=== PATIENT | male | born 1950 | race Asian ===

== ENCOUNTER 2016-10-22 21:20 | Emergency (ER) | payer OTHER ==
[2016-10-22 21:27] VITALS: TEMP 98.1; BMI 22.3
--- NOTE | 2016-10-22 22:25 | PDOC ---
History of Present Illness - General History Source: Patient Exam Limitations: No Limitations - History of Present Illness Initial Comments: 10/22/16 23:52 The patient is a 65 year old male with significant past medical history of hypothyroidism, hyperlipidemia, hypertension, ayp-xcwiwwq-uayvtbzhn diabetes, seizures, and chronic lower back pain who presents to the ED for 1 week of intermittent diffuse headache. Patient denies dizziness or changes in vision. He reports 1 episode of vomiting on the first day he developed his headache and as well as nausea and tactile fever that has been intermittent throughout the week. He was seen by Dr. John Sommer yesterday, who gave him a dose of azithromycin for his URI symptoms. However, he continued to have intermittent headache and decided to come in for evaluation. Patient also reports noting his blood sugar has been more elevated than usual. States his blood sugar levels are normally in the 200s, but has been in the 300s. The patient denies chills, diaphoresis, cough, SOB, chest pain, palpitations, abdominal pain, and diarrhea. Allergies: lacosamide Social History: No alcohol, tobacco, or drug use reported. Past Surgical History: s/p pacemaker PCP: Dr. 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.) - Immunization History Immunization Up to Date: Yes - Psycho/Social/Smoking Cessation Hx Anxiety: No Suicidal Ideation: No Smoking Status: No Smoking History: Never smoked Have you smoked in the past 12 months: No Number of Cigarettes Smoked Daily: 0 Hx Alcohol Use: No Drug/Substance Use Hx: No Substance Use Type: None Hx Substance Use Treatment: No <Casandra Martinez - Last Filed: 10/23/16 02:00> - Past Medical History Allergies/Adverse Reactions: Allergies Allergy/AdvReac Type Severity Reaction Status Date / Time lacosamide [From Vimpat] Allergy Rash Verified 10/22/16 21:22 Home Medications: Ambulatory Orders Amlodipine Besylate [Norvasc -] 5 mg PO DAILY 04/02/12 Gabapentin 100 mg PO BID 04/02/12 Levetiracetam [Keppra Oral Solution -] 750 mg PO BID 04/02/12 Levothyroxine [Synthroid -] 125 mcg PO DAILY 04/02/12 Metformin HCl [Glucophage -] 1,000 mg PO DAILY 04/02/12 Multivitamin [Multivitamins] 1 each PO DAILY 04/02/12 Omeprazole [Prilosec (RX)] 20 mg PO DAILY 04/02/12 Carbamazepine [Tegretol -] 200 mg PO TID 06/03/13 Oxycodone HCl [Roxicodone] 7.5 mg PO PRN 05/30/14 Lidocaine 5% Patch [Lidoderm Patch -] 2 patch TP DAILY 10/22/16 Simvastatin 40 mg PO HS 10/22/16 Tamsulosin HCl 0.4 mg PO DAILY 10/22/16 Review of Systems - Review of Systems Able to Perform ROS?: Yes Comments:: 10/22/16 23:52 CONSTITUTIONAL: +tactile fever Absent: chills, diaphoresis, generalized weakness, malaise, loss of appetite HEENT: Absent: rhinorrhea, nasal congestion, throat pain, throat swelling, difficulty swallowing, mouth swelling, ear pain, eye pain, visual Changes CARDIOVASCULAR: Absent: chest pain, syncope, palpitations, irregular heart rate, lightheadedness , peripheral edema RESPIRATORY: Absent: cough, shortness of breath, dyspnea with exertion, orthopnea, wheezing, stridor, hemoptysis GASTROINTESTINAL: +nausea, vomiting Absent: abdominal pain, abdominal distension, diarrhea, constipation, melena, hematochezia GENITOURINARY: Absent: dysuria, frequency, urgency, hesitancy, hematuria, flank pain, genital pain MUSCULOSKELETAL: Absent: myalgia, arthralgia, joint swelling SKIN: Absent: rash, itching, pallor ENDOCRINE: +elevated blood sugar levels Absent: unexplained weight gain, unexplained weight loss, heat intolerance, cold intolerance NEUROLOGIC: +headache Absent: focal weakness or paresthesias, dizziness, unsteady gait, seizure, mental status changes, bladder or bowel incontinence <Christiana Leggett - Last Filed: 10/22/16 23:54> *Physical Exam - Vital Signs Last Vital Signs Temp Pulse Resp BP Pulse Ox 98.1 F 69 18 189/95 98 10/22/16 21:23 10/22/16 21:23 10/22/16 21:23 10/22/16 21:23 10/22/16 22:00 - Physical Exam Comments: 10/22/16 23:52 GENERAL: Well developed, well nourished. Awake and alert. No acute distress. HEENT: Normocephalic, atraumatic. PERRLA, EOMI. No conjunctival pallor. Sclera are non- icteric. Moist mucous membranes. Oropharynx is clear. NECK: Supple. Full ROM. No JVD. Carotid pulses 2+ and symmetric, without bruits. No thyromegaly. No lymphadenopathy. CARDIOVASCULAR: Regular rate and rhythm. No murmurs, rubs, or gallops. Distal pulses are 2+ and symmetric. PULMONARY: No evidence of respiratory distress. Lungs clear to auscultation bilaterally. No wheezing, rales or rhonchi. ABDOMINAL: Soft. Non-tender. Non-distended. No rebound or guarding. No organomegaly. Normoactive bowel sounds. MUSCULOSKELETAL Normal range of motion at all joints. No bony deformities or tenderness. No CVA tenderness. EXTREMITIES: No cyanosis. No clubbing. No edema. No calf tenderness. SKIN: Warm and dry. Normal capillary refill. No rashes. No jaundice. NEUROLOGICAL: Alert, awake, appropriate. Cranial nerves 2-12 intact. No deficits to light touch and temperature in face, upper extremities and lower extremities. No motor deficits in the in face, upper extremities and lower extremities. Normoreflexic in the upper and lower extremities. Normal speech. <Christiana Leggett - Last Filed: 10/22/16 23:54> - Vital Signs Last Vital Signs Temp Pulse Resp BP Pulse Ox 98.1 F 69 18 189/95 99 10/22/16 21:23 10/22/16 21:23 10/22/16 21:23 10/22/16 21:23 10/22/16 21:23 <Casandra Martinez - Last Filed: 10/23/16 02:00> ED Treatment Course - LABORATORY CBC & Chemistry Diagram: 10/22/16 22:40 10/22/16 22:40 - ADDITIONAL ORDERS Additional order review: Laboratory Results 10/22/16 10/22/16 10/22/16 22:40 22:40 22:40 INR Sodium 134 L Potassium 5.2 H D Chloride 94 L Carbon Dioxide 24 Anion Gap 16 BUN 17 D Creatinine 1.0 D Creat Clearance w eGFR > 60 Random Glucose 269 H D Calcium 8.3 L Total Bilirubin 0.2 AST 13 L D ALT 29 D Alkaline Phosphatase 137 H D Creatine Kinase 151 Creatine Kinase Index 1.5 CK-MB (CK-2) 2.330 CK-MB (CK-2) Rel Index Cancelled Troponin I < 0.02 Total Protein 7.1 Albumin 4.0 Urine Color Urine Appearance Urine pH Urine Protein Urine Glucose (UA) Urine Ketones Urine Blood Urine Nitrite Urine Bilirubin Urine Urobilinogen Ur Leukocyte Esterase Urine RBC Urine WBC Blood Type O POSITIVE Antibody Screen Negative 10/22/16 10/22/16 22:40 22:40 INR 0.90 Sodium Potassium Chloride Carbon Dioxide Anion Gap BUN Creatinine Creat Clearance w eGFR Random Glucose Calcium Total Bilirubin AST ALT Alkaline Phosphatase Creatine Kinase Creatine Kinase Index CK-MB (CK-2) CK-MB (CK-2) Rel Index Troponin I Total Protein Albumin Urine Color Straw Urine Appearance Clear Urine pH 6.0 Urine Protein 2+ H Urine Glucose (UA) 3+ H Urine Ketones Negative Urine Blood Negative Urine Nitrite Negative Urine Bilirubin Negative Urine Urobilinogen Negative Ur Leukocyte Esterase Negative Urine RBC 1 Urine WBC None Blood Type Antibody Screen 10/22/16 22:40 RBC 3.51 L MCV 93.7 MCHC 33.8 RDW 12.1 MPV 5.9 L Neutrophils % 63.1 Lymphocytes % 24.0 Monocytes % 9.0 Eosinophils % 3.3 Basophils % 0.6 <Christiana Leggett - Last Filed: 10/22/16 23:54> - LABORATORY CBC & Chemistry Diagram: 10/22/16 22:40 10/22/16 22:40 <Casandra Martinez - Last Filed: 10/23/16 02:00> *DC/Admit/Observation/Transfer - Attestations Scribe Attestion: 10/22/16 23:53 Documentation prepared by Christiana Leggett, acting as biomedical equipment specialist for Jw Espinal MD/DO. <Christiana Leggett - Last Filed: 10/22/16 23:54> <Casandra Martinez - Last Filed: 10/23/16 02:00> Diagnosis at time of Disposition: Headache Qualifiers: Headache type: tension-type Headache chronicity pattern: unspecified pattern Intractability: not intractable Qualified Code(s): G44.209 - Tension-type headache, unspecified, not intractable - Discharge Dispostion Disposition: HOME - Referrals Referrals: John Sommer MD [Primary Care Provider] - - Patient Instructions Printed Discharge Instructions: Tension Headache Additional Instructions: take ibuprofen every 6 hours as needed for headache drink plenty of fluids. follow up with your doctor as soon as possible.
[2016-10-22 22:45] LABS: BASOPHIL 0.6 % (0-2.0); EOSINOPHIL 3.3 % (0-4.5); MCH 31.7 pg (25.7-33.7); MCHC 33.8 g/dl (32.0-35.9); MEAN CELL VOLUME 93.7 fl (80-96); MEAN PLT VOLUME 5.9 fl (7.5-11.1); NEUTROPHILS 63.1 % (42.8-82.8); PLATELET COUNT 370 K/MM3 (134-434); RDW 12.1 % (11.9-15.9); WHITE BLOOD COUNT 7.5 K/mm3 (4.0-10.0)
[2016-10-22 22:59] LABS: INR 0.9 (0.82-1.09); PROTHROMBIN TIME (PATIENT) 9.9 SEC (9.98-11.88)
--- NOTE | 2016-10-22 23:07 | PDOC ---
[id number] 98 10/22/16 21:23 10/22/16 21:23 10/22/16 21:23 10/22/16 21:23 10/22/16 22:00 ED Treatment Course - LABORATORY CBC & Chemistry Diagram: 10/22/16 22:40 10/22/16 22:40 - ADDITIONAL ORDERS Additional order review: 10/22/16 22:40 RBC 3.51 L MCV 93.7 MCHC 33.8 RDW 12.1 MPV 5.9 L Neutrophils % 63.1 Lymphocytes % 24.0 Monocytes % 9.0 Eosinophils % 3.3 Basophils % 0.6 Medical Decision Making - Medical Decision Making 10/22/16 23:07 agree with care from LEYLA Martinez *DC/Admit/Observation/Transfer Diagnosis at time of Disposition: Headache - Discharge Dispostion Disposition: HOME - Referrals Referrals: John Sommer MD [Primary Care Provider] - - Patient Instructions Printed Discharge Instructions: Tension Headache Additional Instructions: take ibuprofen every 6 hours as needed for headache drink plenty of fluids. follow up with your doctor as soon as possible.
[2016-10-22 23:10] LABS: ANION GAP 16 (8-16); BILIRUBIN,TOTAL 0.2 mg/dL (0.2-1.0); CALCIUM 8.3 mg/dL (8.5-10.1); CO2 24 mmol/L (21-32); COCKROFT - GAULT 61.62; GLUCOSE,RANDOM 269 mg/dL (74-106); SGOT/AST 13 U/L (15-37); SGPT/ALT 29 U/L (12-78); TOT PROT 7.1 g/dl (6.4-8.2)
[2016-10-22 23:12] LABS: ALK PHOS 137 U/L (45-117); TROPONIN I < 0.02 ng/ml (0.00-0.05)
[2016-10-22 23:14] LABS: URINE APPEARANCE CLEAR; URINE BILIRUBIN NEGATIVE (NEGATIVE); URINE BLOOD NEGATIVE (NEGATIVE); URINE COLOR STRAW; URINE GLUCOSE (UA) 3+ (NEGATIVE); URINE KETONE NEGATIVE (NEGATIVE); URINE LEUK ESTERASE NEGATIVE (NEGATIVE); URINE NITRITE NEGATIVE (NEGATIVE); URINE UROBILINOGEN NEGATIVE E.U./dl (0.2-1.0)
[2016-10-22 23:25] LABS: URINE PROTEIN 2+ (NEGATIVE)
[2016-10-22 23:27] LABS: URINE RBC 1 /hpf (0-3)
[2016-10-23] MEDS ORDERED: IBUPROFEN 600 MG TABLET (FP) PO ONE ×2 (01:05→01:33)
[2016-10-23] MEDS ORDERED: METOCLOPRAMIDE HCL INJECTION 10 MG/2 ML VIAL IVPB ONE (01:13)
[2016-10-23 02:35] VITALS: BP 143/69; PULSE 60
--- NOTE | 2016-10-23 13:23 | EKG ---
Test Reason : Blood Pressure : / mmHG Vent. Rate : 063 BPM Atrial Rate : 063 BPM P-R Int : 254 ms QRS Dur : 108 ms QT Int : 398 ms P-R-T Axes : 028 -34 026 degrees QTc Int : 407 ms Atrial-paced rhythm with prolonged AV conduction LEFT AXIS DEVIATION ABNORMAL ECG WHEN COMPARED WITH ECG OF 27-MAY-2014 21:40, T WAVE AMPLITUDE HAS INCREASED IN ANTERIOR LEADS Confirmed by KENJI BELTRAN, NIEVES ([id number]) on 10/23/2016 1:23:12 PM Referred By: Confirmed By:NIEVES PHILLIP MD
== END 2016-10-23 02:18 | disposition home or self-care (01) ==
LOC: JER 21:20
DX: G44.209 Tension-type headache, unspecified, not intractable (principal); I10 Essential (primary) hypertension; E03.9 Hypothyroidism, unspecified; G40.909 Epilepsy, unspecified, not intractable, without status epilepticus; M54.5 Low back pain; G89.29 Other chronic pain; Z95.0 Presence of cardiac pacemaker
CPT/HCPCS: 36415; 70450-TC; 71020-TC; 80053; 81003; 81015; 82550; 82553; 84484; 85025; 85610; 86850; 86900; 86901; 93005; 93010; 99285-25

== ENCOUNTER 2018-01-25 06:20 | Emergency (ER) | payer OTHER ==
--- NOTE | 2018-01-25 06:24 | PDOC ---
History of Present Illness - General Chief Complaint: Nausea/Vomiting Stated Complaint: VOMITING Time Seen by Provider: 01/25/18 06:23 - History of Present Illness Initial Comments: The patient is a 67M with a history of CAD s/p pacemaker, DM, and hypothyroidism who presents with three days of NBNB emesis. The patient reports that he has had intermittent hiccups for approximately 1 week. When he has episodes of hiccups they will induce emesis. He endorses 3-10 episodes of emesis /day. He also reports 2 days of non-bloody diarrhea. He denies fevers/chills, [place], chest pain, SOB, sick contacts, or new foods. His PCP is, Dr. Sommer 01/25/18 06:49 Past History - Past Medical History Allergies/Adverse Reactions: Allergies Allergy/AdvReac Type Severity Reaction Status Date / Time lacosamide [From Vimpat] Allergy Rash Verified 01/25/18 06:30 Home Medications: Ambulatory Orders Amlodipine Besylate [Norvasc -] 5 mg PO DAILY 04/02/12 Gabapentin 100 mg PO BID 04/02/12 Levothyroxine [Synthroid -] 125 mcg PO DAILY 04/02/12 Multivitamin [Multivitamins] 1 each PO DAILY 04/02/12 levETIRAcetam [Keppra Oral Solution -] 750 mg PO BID 04/02/12 metFORMIN HCL [Glucophage -] 1,000 mg PO DAILY 04/02/12 Carbamazepine [Tegretol -] 200 mg PO TID 06/03/13 Oxycodone HCl [Roxicodone] 7.5 mg PO PRN 05/30/14 Lidocaine 5% Patch [Lidoderm Patch -] 2 patch TP DAILY 10/22/16 Simvastatin 40 mg PO HS 10/22/16 Tamsulosin HCl 0.4 mg PO DAILY 10/22/16 Famotidine 20 mg PO BID #28 tablet 01/25/18 Ondansetron [Zofran Odt -] 4 mg GT QID PRN #20 tab.rapdis 01/25/18 Cardiac Disorders: Yes Diabetes: Yes HTN: Yes Hypercholesterolemia: Yes Seizures: Yes Thyroid Disease: Yes (HYPO) - Surgical History Abdominal Surgery: Yes Cardiac Surgery: Yes (PACEMAKER) 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 No weakness HEAD, EYES, EARS, NOSE AND THROAT: No change in vision. No ear pain or discharge. No sore throat CARDIOVASCULAR: No chest pain or shortness of breath RESPIRATORY: No cough, wheezing, or hemoptysis GASTROINTESTINAL: per HPI GENITOURINARY: No dysuria, frequency, or change in urination MUSCULOSKELETAL: No joint or muscle swelling or pain. No neck or back pain SKIN: No rash NEUROLOGIC: No headache, vertigo, loss of consciousness, or change in strength/ sensation ENDOCRINE: No increased thirst. No abnormal weight change HEMATOLOGIC/LYMPHATIC: No anemia, easy bleeding, or history of blood clots ALLERGIC/IMMUNOLOGIC: No hives or skin allergy 01/25/18 06:56 *Physical Exam - Physical Exam Comments: GENERAL: Awake, alert, tangential conversation, in no acute distress HEAD: No signs of trauma, normocephalic, atraumatic EYES: PERRL, EOMI, sclera anicteric, conjunctiva clear ENT: Hearing grossly normal, nares patent, oropharynx clear without exudates. Moist mucosa NECK: Normal ROM, supple LUNGS: No distress, speaks full sentences, clear to auscultation bilaterally HEART: Regular rate and rhythm, normal S1 and S2, no murmurs, peripheral pulses normal and equal bilaterally ABDOMEN: Soft, non-distended, moderate epigastric TTP; normoactive bowel sounds. No guarding, no rebound EXTREMITIES : Normal inspection, Normal range of motion, no edema. No clubbing or cyanosis NEUROLOGICAL: Cranial nerves II through XII grossly intact. Normal speech, no focal sensorimotor deficits SKIN: Warm, Dry 01/25/18 06:57 ED Treatment Course - LABORATORY CBC & Chemistry Diagram: 01/25/18 07:18 01/25/18 07:18 Medical Decision Making - Medical Decision Making The patient is a 67M with a history of CAD s/p pacemaker, hypothyroidism, and DM who presents with 3 day of N/V ED Course CMP, CBC, Trop I, Lipase ECG, CXR, CT A&P w/ contrast Ofirmev 1g IV once Zofran 4mg IV once NS 2L I have transferred care of the patient to Dr. Ashraf and discussed the clinical presentation, work-up and ED course thus far. Admission pending labs and imaging. If labs and imaging without abnormality, will plan for D/C with PCP f/u. 01/25/18 06:59 *DC/Admit/Observation/Transfer Diagnosis at time of Disposition: Nausea & vomiting Qualifiers: Vomiting type: unspecified Vomiting Intractability: unspecified Qualified Code( s): R11.2 - Nausea with vomiting, unspecified Gastritis Qualifiers: Gastritis type: unspecified gastritis Chronicity: acute Gastritis bleeding: without bleeding Qualified Code(s): K29.00 - Acute gastritis without bleeding - Discharge Dispostion Disposition: HOME Condition at time of disposition: Fair - Prescriptions Prescriptions: Famotidine 20 mg PO BID #28 tablet Ondansetron [Zofran Odt -] 4 mg GT QID PRN #20 tab.rapdis PRN Reason: Nausea And/Or Vomiting - Referrals Referrals: John Sommer MD [Primary Care Provider] - Khadijah Simpson MD [Staff Physician] - - Patient Instructions Printed Discharge Instructions: [place] Diet, DI for Gastritis Additional Instructions: Discharge Instructions: - You were seen in the ED for nausea and vomiting as well as upper abdominal pain - Your symtpoms were most likely caused by gastritis, or irritation and inflammation of the stomach. This could be seen on the CT scan that was completed when you were in the ED - Your symptoms should improve within a day or two - Medications: - Take famotidine (Pepcid) twice per day for the next week or until your symptoms completely resolve. Then take this medication once every day - You were also prescribed ondansetron (zofran) to take every 6 hours if you need to for nausea/vomiting - If you have pain, recommend acetaminophen (Tylenol) for pain control. Avoid ibuprofen or aspirin as these can upset your stomach - Follow up with your regular doctor within the next 1-2 weeks - You will need to make an appointment to follow up with gastroenterology for additional evaluation of your stomach. Although it is most likely that your symptoms are caused by a virus or temporary irritation, you will likely need other tests to make sure that you symptoms are not caused by anything more serious. You have been referred to Dr Simpson. - Post Discharge Activity
[2018-01-25] MEDS ORDERED: ONDANSETRON 4 MG/2 ML VIAL IVPUSH ONE (06:26)
[2018-01-25] MEDS ORDERED: FAMOTIDINE 20 MG/50 ML IVPB 20 MG/50 ML MG IVPB ONE (06:26)
[2018-01-25] MEDS ORDERED: SODIUM CHLORIDE 1,000 ML IV STA (06:26)
--- NOTE | 2018-01-25 06:28 | PDOC ---
Attending Attestation - Resident Resident Name: AureliaLucian farrell - ED Attending Attestation I have performed the following: I have examined & evaluated the patient, The case was reviewed & discussed with the resident, I agree w/resident's findings & plan - HPI HPI: 01/25/18 06:48 Rachell 67 year old male with significant past medical history of hypothyroidism, hyperlipidemia, hypertension, jbo-ngazbyk-zuaittjiz diabetes, seizures, and chronic lower back pain presenting with initially with epigastric abdominal pain n/v x 3 days, inability to geetha PO . +hiccups intermittently x 1 week. No changes with BM 01/25/18 06:49 - Physicial Exam PE: 01/25/18 06:49 NAD, thin and frail appearing, dry membranes, nl conjunctiva; neck supple. lungs clear, RRR, abdomen soft nondistended +epigastric TTP, MIN x4, no focal neuro deficits. No peripheral edema. no calf tenderness. normal color for ethnicity, WWP. - Medical Decision Making 01/25/18 06:48 Rachell 67 year old male with significant past medical history of hypothyroidism, hyperlipidemia, hypertension, kfd-bemvbct-cukljvhib diabetes, seizures, and chronic lower back pain presenting with orthostatic hypotension en route, initially with epigastric abdominal pain n/v x 3 days, inability to geetha PO . +hiccups intermittently x 1 week. No changes with BM VS wnl, mildly hypertensive, no low BP. no distress or respiratory sx. DDx abdominal pain: GERD, PUD, esophageal spasm, pancreatitis, hepatitis, constipation, colitis, gastroenteritis, cholecystitis, UTI, pyelonephritis, ileus, SBO, medication side effect, hernia, appendicitis, diverticulitis, mesenteric ischemia; lung mass, diaphragmatic irritation, dehydration plan for basic labs CBC, CMP, EKG, trop, lipase/LFTs., CT a/p w/o oral contrast to eval for intra abdominal pathology. will give fluids, hydrate, pain control, antiemetics, IV pepcid. CXR to eval for pulm pathology s/o day team pending reeval, CT a/p and ultimate dispo 01/25/18 06:50 01/25/18 06:52
[2018-01-25 06:29] VITALS: BMI 18.6
[2018-01-25] MEDS ORDERED: SODIUM CHLORIDE 0.9% 500 ML INFUS.BAG IV ONE (06:48)
[2018-01-25] MEDS ORDERED: ACETAMINOPHEN 1000 MG/100 ML VIAL (NON FORMULARY) IVPB ONE (06:51)
[2018-01-25] MEDS ORDERED: ONDANSETRON 4 MG/2 ML VIAL ONE (06:52)
[2018-01-25] MEDS ORDERED: ACETAMINOPHEN INJECTION 100 ML IVPB ONE (07:05)
--- NOTE | 2018-01-25 07:19 | PDOC ---
*Physical Exam - Vital Signs Last Vital Signs Temp Pulse Resp BP Pulse Ox 96.8 F L 88 22 174/81 97 01/25/18 06:22 01/25/18 06:22 01/25/18 06:22 01/25/18 06:22 01/25/18 06:22 - Physical Exam Comments: General: Comfortable, no acute distress HEENT: PERRL, EOMI, MMM, voice normal, normal neck ROM, no LAD Cards: RRR, no murmur appreciated Pulm: Comfortable on room air, clear to auscultation bilaterally Abd: Soft, moderate epigastric palpation, non-distended, no guarding, no rebound. : No CVA tenderness Rectal: Normal tone, no blood noted, no perianal lesions Ext: Atraumatic. No LE edema. ROM intact. Strength 5/5 and equal bilaterally Vasc: Extremities WWP. Palpable radial and pedal pulses bilaterally Neuro: A&Ox3, CN grossly intact, normal speech, motor/sensory grossly intact and symmetric Psych: Mood appropriate to situation ED Treatment Course - LABORATORY CBC & Chemistry Diagram: 01/25/18 07:18 01/25/18 07:18 - Medications Given in the ED: ED Medications Discontinued Medications Generic Name Dose Route Start Last Admin Trade Name Freq PRN Reason Stop Dose Admin Acetaminophen 1,000 mg 01/25/18 06:51 01/25/18 07:00 Ofirmev Injection - IVPB 01/25/18 06:52 1,000 mg ONCE ONE Administration Famotidine/Sodium Chloride 20 mg in 50 mls @ 100 mls/hr 01/25/18 06:26 07:00 Pepcid 20 Mg Premixed Ivpb - IVPB 01/25/18 06:55 100 mls/hr ONCE ONE Administration Ondansetron HCl 4 mg 01/25/18 06:26 01/25/18 06:45 Zofran Injection IVPUSH 01/25/18 06:27 4 mg ONCE ONE Administration Sodium Chloride 1,000 ml 01/25/18 06:48 01/25/18 07:00 Normal Saline - IV 01/25/18 06:49 1,000 ml ONCE ONE Administration Medical Decision Making - Medical Decision Making 01/25/18 07:14 German Lovett is a 67yo man with a PMH of CAD s/p pacemaker, DM, hypothyroidism who presented to the ED overnight with hiccups for 1 week and multiple episodes of non-bilious emesis for 3 days, emesis preceeded by hiccuping, and diarrhea for 2 days. He denies any hematemasis, melena, or hematochezia. He denies any fever, chills, chest pain, SOB, change in diet, sick contacts. Workup has included CMP, CBC, trop, lipase, EKG, CXR, and contrast CT abd/pelvis. There are no results back yet. Mr Lovett received ofirmev and zofran, 2L NS bolus for hydration. 01/25/18 09:55 - Labs notable for leukocytosis to 14 - CXR unremarkable - CT abd/pelvis indicating marked thickening of stomach wall, suggestive of gastritis. No other acute abnormalities of note Presentation, imaging, and history consistent with gastritis, but will need evaluation for gastric cancer. Will PO challenge. If able to eat and pain, nausea/vomiting are controlled, will discharge home. If intractable pain or cannot tolerate PO, will admit. 01/25/18 12:01 - Able to tolerate PO intake without difficulty - Pain is well controlled - Discussed discharge home with Mr Lovett. He feels comfortable going home. Also called , Gene, to let her know. She also feels comfortable with Mr Lovett coming home. Will discharge with famotidine and zofran. - Will need follow up with GI. Discussed with Dr Washington. *DC/Admit/Observation/Transfer Diagnosis at time of Disposition: Nausea & vomiting Qualifiers: Vomiting type: unspecified Vomiting Intractability: unspecified Qualified Code( s): R11.2 - Nausea with vomiting, unspecified Gastritis Qualifiers: Gastritis type: unspecified gastritis Chronicity: acute Gastritis bleeding: without bleeding Qualified Code(s): K29.00 - Acute gastritis without bleeding - Discharge Dispostion Disposition: HOME Condition at time of disposition: Fair - Referrals Referrals: John Sommer MD [Primary Care Provider] - Khadijah Simpson MD [Staff Physician] - - Patient Instructions Printed Discharge Instructions: DI for Gastritis, [place] Diet Additional Instructions: Discharge Instructions: - You were seen in the ED for nausea and vomiting as well as upper abdominal pain - Your symtpoms were most likely caused by gastritis, or irritation and inflammation of the stomach. This could be seen on the CT scan that was completed when you were in the ED - Your symptoms should improve within a day or two - Medications: - Take famotidine (Pepcid) twice per day for the next week or until your symptoms completely resolve. Then take this medication once every day - You were also prescribed ondansetron (zofran) to take every 6 hours if you need to for nausea/vomiting - If you have pain, recommend acetaminophen (Tylenol) for pain control. Avoid ibuprofen or aspirin as these can upset your stomach - Follow up with your regular doctor within the next 1-2 weeks - You will need to make an appointment to follow up with gastroenterology for additional evaluation of your stomach. Although it is most likely that your symptoms are caused by a virus or temporary irritation, you will likely need other tests to make sure that you symptoms are not caused by anything more serious. You have been referred to Dr Simpson. - Post Discharge Activity
[2018-01-25 07:34] LABS: BASO % 0.3 % (0-2.0); EOS % 0.2 % (0-4.5); HEMATOCRIT 25.7 % (35.4-49); HEMOGLOBIN 8.5 GM/dL (11.7-16.9); LYMPH % 9.1 % (8-40); MCH 30.5 pg (25.7-33.7); MCHC 33.1 g/dl (32.0-35.9); MEAN CELL VOLUME 92.3 fl (80-96); MEAN PLT VOLUME 5.9 fl (7.5-11.1); NEUT % 85.4 % (42.8-82.8); PLATELET COUNT 689 K/MM3 (134-434); RBC 2.79 M/mm3 (4.00-5.60); RDW 11.9 % (11.9-15.9); WHITE BLOOD COUNT 14.4 K/mm3 (4.0-10.0)
[2018-01-25 07:54] LABS: ANION GAP 13 (8-16); BILIRUBIN,TOTAL 0.1 mg/dL (0.2-1.0); BLOOD UREA NITROGEN 17 mg/dL (7-18); CALCIUM 8.1 mg/dL (8.5-10.1); CHLORIDE 93 mmol/L (98-107); CO2 29 mmol/L (21-32); CREATININE 0.8 mg/dL (0.7-1.3); GLUCOSE,RANDOM 205 mg/dL (74-106); POTASSIUM 4.7 mmol/L (3.5-5.1); SGOT/AST 17 U/L (15-37); SGPT/ALT 19 U/L (12-78); SODIUM 135 mmol/L (136-145); TOT PROT 6.6 g/dl (6.4-8.2)
[2018-01-25 07:58] LABS: ALK PHOS 151 U/L (45-117)
[2018-01-25 08:02] LABS: LIPASE 332 U/L (73-393)
[2018-01-25] MEDS ORDERED: amLODIPine BESYLATE 5 MG TABLET (FP) PO ONE (08:08)
[2018-01-25] MEDS ORDERED: amLODIPine BESYLATE 5 MG TABLET (FP) ONE (08:28)
[2018-01-25 08:53] LABS: PLATELET ESTIMATE INCREASED
--- NOTE | 2018-01-25 08:53 | EKG ---
Test Reason : Blood Pressure : / mmHG Vent. Rate : 061 BPM Atrial Rate : 061 BPM P-R Int : 200 ms QRS Dur : 108 ms QT Int : 434 ms P-R-T Axes : 061 -03 032 degrees QTc Int : 436 ms Atrial-paced rhythm ABNORMAL ECG WHEN COMPARED WITH ECG OF 22-OCT-2016 22:55, NO SIGNIFICANT CHANGE WAS FOUND Confirmed by ROSELINE FREEDMAN MD ([id number]) on 01/25/2018 8:53:33 AM Referred By: Confirmed By:ROSELINE FREEDMAN MD
[2018-01-25 10:36] LABS: URINE APPEARANCE CLEAR; URINE BILIRUBIN NEGATIVE (<2.0 mg/dL); URINE COLOR LTYELLOW; URINE GLUCOSE (UA) 1+ (NEGATIVE); URINE KETONE 1+ (NEGATIVE); URINE LEUK ESTERASE NEGATIVE (NEGATIVE); URINE NITRITE NEGATIVE (NEGATIVE); URINE PROTEIN 3+ (NEGATIVE); URINE UROBILINOGEN NEGATIVE mg/dL (0.2-1.0)
[2018-01-25 10:45] LABS: URINE HYALINE CAST 5 /lpf
[2018-01-25 14:24] VITALS: BP 148/82; PULSE 61; TEMP 98.8
== END 2018-01-25 14:24 | disposition home or self-care (01) ==
LOC: JER 06:20 → SUPCPDRO 06:20 → JER 14:24
PROC: 3E0337Z Introduction of Electrolytic and Water Balance Substance into Peripheral Vein, Percutaneous Approach (ICD-10-PCS; principal; 2018-01-25)
PROC: 3E033GC Introduction of Other Therapeutic Substance into Peripheral Vein, Percutaneous Approach (ICD-10-PCS; 2018-01-25)
PROC: 3E033NZ Introduction of Analgesics, Hypnotics, Sedatives into Peripheral Vein, Percutaneous Approach (ICD-10-PCS; 2018-01-25)
DX: K29.00 Acute gastritis without bleeding (principal); R11.2 Nausea with vomiting, unspecified
CPT/HCPCS: 36415; 71046-TC-FY; 74177-TC; 80053; 81003; 81015; 83690; 84484; 85025; 93005; 93010; 99283-25; J0131; J7030

== ENCOUNTER 2019-03-29 09:28 | Inpatient (IN) | payer OTHER ==
[2019-03-29] MEDS ORDERED: ONDANSETRON 4 MG/2 ML VIAL IVPUSH ONE (10:12)
[2019-03-29] MEDS ORDERED: ACETAMINOPHEN 1000 MG/100 ML VIAL (NON FORMULARY) IVPB ONE (10:12)
--- NOTE | 2019-03-29 10:15 | PDOC ---
Attending Attestation - Resident Resident Name: Lucian Fisher - ED Attending Attestation I have performed the following: I have examined & evaluated the patient, The case was reviewed & discussed with the resident, I agree w/resident's findings & plan, Exceptions are as noted - HPI HPI: 03/29/19 10:13 Mr. Porter is a 68 yo M who presents to the ER with a complaint of cough x 1 month (history per pt ) He has a h/o hypothyroidism, hyperlipidemia, hypertension, non-insulin- dependent diabetes, seizure d/o, "irregular heart beat" s/p PPM He has had 1 month of cough and 1 week lower extremity edema Pt has had post tussive emesis Cough is productive and pt has been spitting it on the floor No fevers or chills Pt has had chest pain with the cough 03/29/19 10:18 - Physicial Exam PE: 03/29/19 10:26 GENERAL: The patient is in no acute distress, A&O x 1 ENT: Ears normal, nares patent, oropharynx clear without exudates. Moist mucous membranes. NECK: Normal range of motion, supple LUNGS: Breath sounds equal, clear to auscultation bilaterally. No wheezes, and no crackles. HEART:Regular rate and rhythm, normal S1 and S2 without murmur, rub or gallop. ABDOMEN: Soft, nontender, normoactive bowel sounds. EXTREMITIES: Normal range of motion, no edema. NEUROLOGICAL: Cranial nerves II through XII grossly intact. Normal speech. No focal neurological deficits. SKIN: Warm, Dry, normal turgor, no rashes or lesions noted. 03/29/19 12:20 - Medical Decision Making 03/29/19 12:04 Pt has urinated all over the floor When asked if he has pain, pt requests new socks (he stepped in his urine) Laboratory Tests 03/29/19 11:05 WBC 7.1 Hgb 6.1 L* Hct 18.9 L D Plt Count 711 H 03/29/19 12:20 Will send Type and Screen EKG pending CXR pending 03/29/19 13:07 EKG: Apaced rate of 80 bpm, intervals abn - pr: 262ms (prolonged), QRS: 126ms, QTc: 463ms, no st elevation or depression Clinical impression: symptomatic anemia, initial presentation Transaminitis, initial presentation 03/31/19 10:05 03/31/19 10:07
--- NOTE | 2019-03-29 10:39 | PDOC ---
History of Present Illness - General Chief Complaint: Nausea/Vomiting Stated Complaint: VOMITING - History of Present Illness Initial Comments: The pt is a 68M w/ a history of DM, hypothyroidism, seizure d/o, s/p pacemaker who presents for evaluation of 1 month of cough with increased sputum production. He also notes 1 week of BLE swelling to mid-reyes. He reports some symptomatic relief from coughing with robitussin. He also notes post-tussive emesis. He denies fevers/chills, trouble breathing, abdominal pain, diarrhea, dysuria/hematuria, or changes in sensation. He denies ever having had lower extremity swelling before. 03/29/19 10:33 Past History - Past Medical History Allergies/Adverse Reactions: Allergies Allergy/AdvReac Type Severity Reaction Status Date / Time lacosamide [From Vimpat] Allergy Rash Verified 03/29/19 09:32 Home Medications: Ambulatory Orders Amlodipine Besylate [Norvasc -] 5 mg PO DAILY 04/02/12 Gabapentin 100 mg PO BID 04/02/12 Levothyroxine [Synthroid -] 125 mcg PO DAILY 04/02/12 Multivitamin [Multivitamins] 1 each PO DAILY 04/02/12 levETIRAcetam [Keppra Oral Solution -] 750 mg PO BID 04/02/12 metFORMIN HCL [Glucophage -] 1,000 mg PO DAILY 04/02/12 Carbamazepine [Tegretol -] 200 mg PO TID 06/03/13 Oxycodone HCl [Roxicodone] 7.5 mg PO PRN 05/30/14 Lidocaine 5% Patch [Lidoderm Patch -] 2 patch TP DAILY 10/22/16 Simvastatin 40 mg PO HS 10/22/16 Tamsulosin HCl 0.4 mg PO DAILY 10/22/16 Famotidine 20 mg PO BID #28 tablet 01/25/18 Ondansetron [Zofran Odt -] 4 mg GT QID PRN #20 tab.rapdis 01/25/18 Cardiac Disorders: Yes COPD: No Diabetes: Yes HTN: Yes Hypercholesterolemia: Yes Seizures: Yes Thyroid Disease: Yes (HYPO) - Surgical History Abdominal Surgery: Yes Cardiac Surgery: Yes (PACEMAKER) 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 No weakness HEAD, EYES, EARS, NOSE AND THROAT: No change in vision. No change in hearing. No sore throat CARDIOVASCULAR: No shortness of breath RESPIRATORY: Denies hemoptysis GASTROINTESTINAL: No nausea, diarrhea or constipation GENITOURINARY: No dysuria, frequency, or change in urination MUSCULOSKELETAL: No joint or muscle pain. No neck or back pain SKIN: No rash NEUROLOGIC: No headache, vertigo, loss of consciousness, or change in strength/ sensation ENDOCRINE: No increased thirst. No abnormal weight change HEMATOLOGIC/LYMPHATIC: No easy bleeding, or history of blood clots ALLERGIC/IMMUNOLOGIC: No hives or skin allergy 03/29/19 10:39 Is the patient limited German proficient: No *Physical Exam - Vital Signs Last Vital Signs Temp Pulse Resp BP Pulse Ox 97.8 F 69 16 180/87 H 95 03/29/19 09:32 03/29/19 09:32 03/29/19 09:32 03/29/19 09:32 03/29/19 09:32 - Physical Exam Comments: GENERAL: Awake, alert, and oriented to person/place/time, in no acute distress, thin HEAD: No signs of trauma, normocephalic, atraumatic EYES: PERRLA, EOMI, sclera anicteric, conjunctiva clear ENT: Hearing grossly normal, nares patent, oropharynx clear without exudates. Moist mucosa LUNGS: No distress, speaks in full sentences, clear to auscultation bilaterally HEART: Regular rate and rhythm, normal S1 and S2, no murmurs appreciated, peripheral pulses normal and equal bilaterally ABDOMEN: Soft, nontender, normoactive bowel sounds. No guarding, no rebound EXTREMITIES: Normal inspection, Normal range of motion, no edema. No clubbing or cyanosis NEUROLOGICAL: Cranial nerves II through XII grossly intact. Tangential speech, normal gait, no focal sensorimotor deficits SKIN: Warm, Dry 03/29/19 10:40 ED Treatment Course - LABORATORY CBC & Chemistry Diagram: 03/29/19 11:05 03/29/19 11:05 - RADIOLOGY Radiology Studies Ordered: Category Date Time Status CHEST PA & LAT [RAD] Stat Radiology 03/29/19 10:03 Ordered Medical Decision Making - Medical Decision Making The pt is a 68M w/ a history of DM, hypothyroidism, seizure d/o, s/p pacemaker who presents for evaluation of 1 month of cough with increased sputum production. 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
[2019-03-29] MEDS ORDERED: ACETAMINOPHEN INJECTION 100 ML IVPB ONE (11:10)
[2019-03-29] MEDS ORDERED: ONDANSETRON 4 MG/2 ML VIAL ONE (11:10)
[2019-03-29 11:50] LABS: BASO % 0.9 % (0-2.0); EOS % 0.2 % (0-4.5); HEMATOCRIT 18.9 % (35.4-49); LYMPH % 21.3 % (8-40); MCH 28.8 pg (25.7-33.7); MCHC 32.3 g/dl (32.0-35.9); MEAN CELL VOLUME 89.2 fl (80-96); MEAN PLT VOLUME 6.8 fl (7.5-11.1); MONO % 5.4 % (3.8-10.2); NEUT % 72.2 % (42.8-82.8); PLATELET COUNT 711 K/MM3 (134-434); RBC 2.12 M/mm3 (4.00-5.60); RDW 20.8 % (11.9-15.9)
[2019-03-29 11:53] LABS: HEMOGLOBIN 6.1 GM/dL (11.7-16.9)
--- NOTE | 2019-03-29 12:42 | EKG ---
Test Reason : Blood Pressure : / mmHG Vent. Rate : 080 BPM Atrial Rate : 080 BPM P-R Int : 262 ms QRS Dur : 126 ms QT Int : 402 ms P-R-T Axes : 006 -43 030 degrees QTc Int : 463 ms Atrial-paced rhythm with prolonged AV conduction LEFT AXIS DEVIATION NON-SPECIFIC INTRA-VENTRICULAR CONDUCTION BLOCK ABNORMAL ECG WHEN COMPARED WITH ECG OF 25-JAN-2018 06:47, QRS DURATION HAS INCREASED Confirmed by ELMO BELTRAN, AARON ([id number]) on 03/29/2019 12:42:20 PM Referred By: Confirmed By:AARON BORREGO MD
[2019-03-29 13:51] LABS: ANISOCYTOSIS 2+; MACROCYTOSIS 2+; PLATELET ESTIMATE INCREASED; TARGET CELLS 1+; TEAR DROP CELLS 1+
[2019-03-29 15:16] LABS: WHITE BLOOD COUNT 7.5 K/mm3 (4.0-10.0)
[2019-03-29 15:18] LABS: CORRECTED WBC 6.64 K/mm3
[2019-03-29 21:26] LABS: ALBUMIN 2.1 g/dl (3.4-5.0); BILIRUBIN,TOTAL 0.3 mg/dL (0.2-1); BLOOD UREA NITROGEN 58.6 mg/dL (7-18); CALCIUM 7.7 mg/dL (8.5-10.1); CREATININE 1.3 mg/dL (0.55-1.3); POTASSIUM 5.7 mmol/L (3.5-5.1); TOT PROT 5.5 g/dl (6.4-8.2)
[2019-03-29] MEDS ORDERED: levETIRAcetam 500 MG TABLET (FP) PO SCH (22:00)
[2019-03-29] MEDS ORDERED: MAG HYDROX/AL HYDROX/SIMETH 30 ML UNIT-DOSE CUP PO PRN (22:18)
[2019-03-29] MEDS: carBAMazepine 200 MG TABLET PO SCH (23:13)
[2019-03-30] MEDS ORDERED: ZOLPIDEM TARTRATE 5 MG TABLET PO ONE (00:45)
[2019-03-30 07:34] LABS: HEMATOCRIT 28.4 % (35.4-49); HEMOGLOBIN 9.5 GM/dL (11.7-16.9); MCH 30.5 pg (25.7-33.7); MCHC 33.4 g/dl (32.0-35.9); MEAN CELL VOLUME 91.2 fl (80-96); MEAN PLT VOLUME 6.5 fl (7.5-11.1); PLATELET COUNT 546 K/MM3 (134-434); RBC 3.12 M/mm3 (4.00-5.60); RDW 16.6 % (11.9-15.9); WHITE BLOOD COUNT 6.7 K/mm3 (4.0-10.0)
[2019-03-30] MEDS: carBAMazepine 200 MG TABLET PO SCH ×3 (08:28→16:51)
[2019-03-30] MEDS ORDERED: oxyCODONE HCL 5 MG TABLET PO PRN (09:05)
[2019-03-30] MEDS ORDERED: levETIRAcetam 500 MG TABLET (FP) PO SCH (10:00)
[2019-03-30] MEDS: amLODIPine BESYLATE 10 MG TABLET (FP) PO SCH (10:26)
--- NOTE | 2019-03-30 10:34 | HP ---
DATE OF ADMISSION: 03/29/2019 DATE OF DICTATION: 03/30/2019 HISTORY OF PRESENT ILLNESS: This is a 68-year-old male [place] descent known to me for some time diagnosed to have hypertension, diabetes, BPH, seizure disorder, was brought to the ER because of leg swelling noted to have severe anemia. He had hemoglobin low even in the past. I was giving him multivitamins and iron but anemia did not improve. Etiology of anemia is not clear. Stool guaiac was negative. This morning he feels lethargic, I do not know why. Yesterday evening I saw him, he was fully alert and talking to me. He received 2 units of blood. FAMILY HISTORY: He lives with his . He has grownup children. PHYSICAL EXAMINATION: Vitals: Today BP 156/92, pulse 78, respiration 20, temperature 98. HEENT: Unremarkable. Neck: Supple, no JVD. Lungs: Clear. Heart: S1, S2 normal, no S3, S4. Abdomen: Soft. Legs: No edema. Neurologic: Grossly normal. LABORATORY REPORTS: WBC 7.5, hemoglobin yesterday 6.1, this morning is 9.5; platelet count is high 711,000, now this morning it is 546. Chemistry: Sodium 131, potassium 5.7, chloride 101, creatinine 1.3, BUN 58, blood sugar 251, albumin 2.1, alkaline phosphatase 494. AST/ALT elevated. IMPRESSION: 1. Severe anemia, etiology not clear. 2. Hypertension. 3. Diabetes. 4. Osteoarthritis pain. PLAN: GI consult. Continue using the present medication. Will follow. Julien [id number]
[2019-03-30] MEDS ORDERED: PANTOPRAZOLE 40 MG TABLET (FP) PO SCH (12:00)
[2019-03-30 12:01] VITALS: BMI 19.2
[2019-03-30] MEDS: LIDOCAINE 5% TOPICAL PATCH TP SCH (12:02)
[2019-03-30] MEDS: INSULIN SLIDING SCALE (NOVOLOG) 1 VIAL SQ SCH ×3 (12:08→22:12)
--- NOTE | 2019-03-30 12:38 | CON.GI ---
Consult Consult Specialty:: Gastroenterology Referred by:: Dr Sommer Reason for Consultation:: Anemia - History of Present Illness Chief Complaint: Lower extremity edema and cough History of Present Illness: 68M presents with c/o lower extremity edema and a cough of 1 month's duration. He is found to be profoundly anemic with a Hb of 6.1. He is currently apneic and responds to loud arousal only briefly. I called his and son Jose ( [phone]). The tells me that Baby has lost about 20 lbs in the past 6 months. He stopped eating 3 days ago and some vomiting. She denies any melena , rectal bleeding or hematemesis and denies that he had c/o abdominal pain. She attributes his problems to prescription narcotic addiction. He has been addicted for many years and has taken them for back pain. She reports that she recently weaned him off them but he resumed them without her knowledge. I expressed that he may have an underlying neoplasm of the GI tract as the source of his anemia and weight loss but she disagrees and feels he is anemic due to lack of food and that the narcotics have prevented him from eating. I did express concern about an underlying malignancy to her son Jose as well. I did inform them that he is being transferred to the ICU for respiratory difficulties and that we will need to defer consideration of GI endoscopies until his condition permits. Baby underwent evaluation of anemia by Dr Covarrubias in 2007. EGD in 01/11/08 moderate gastritis but no H. pylori was found. Colonoscopy on 01/25/08 led to the removal of a hyperplastic descending colon polyp and also revealed diverticulosis. He has not been seen in our office since then. A CT scan in in [facility] revealed gastric wall thickening. He also has an unexplained hepatitis. No gallstones were fond on that CT scan or on a previous sonogram. 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 Cardio/Vascular: Yes: HTN, Hyperlipdemia, Mitral Insufficiency (moderate), Pulmonary Hypertension, Other (PPM for SSS) Gastrointestinal: Yes: Diverticulosis, Gastritis ([address] Covarrubias but no HP), Other (hyperplastic colon polyp removed [address] Covarrubias) Heme/Onc: Yes: Anemia Psych: Yes: Addictions (prescription narcotics as per the ) Musculoskeletal: Yes: Other (lumbar disc disease and spinal stenosis) Endocrine: Yes: Diabetes Mellitus (confirmed by ), Hypothyroidism - Past Surgical History Past Surgical History: Yes: Appendectomy ( reports an appendectomy but I cannot find incisions), Colonoscopy, Upper Endoscopy - Alcohol/Substance Use Hx Alcohol Use: No History of Substance Use: reports: Prescription (narcotics) - Smoking History Smoking history: Never smoked Have you smoked in the past 12 months: No Aproximately how many cigarettes per day: 0 - Social History Usual Living Arrangement: With Spouse ADL: Family Assistance 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 Place of : Other ([place]) History of Recent Travel: No Home Medications - Allergies Allergies/Adverse Reactions: Allergies Allergy/AdvReac Type Severity Reaction Status Date / Time lacosamide [From Vimpat] Allergy Rash Verified 03/29/19 09:32 - Home Medications Home Medications: Ambulatory Orders Amlodipine Besylate [Norvasc -] 5 mg PO DAILY 04/02/12 Gabapentin 100 mg PO BID 04/02/12 Levothyroxine [Synthroid -] 125 mcg PO DAILY 04/02/12 Multivitamin [Multivitamins] 1 each PO DAILY 04/02/12 levETIRAcetam [Keppra Oral Solution -] 750 mg PO BID 04/02/12 metFORMIN HCL [Glucophage -] 1,000 mg PO DAILY 04/02/12 Carbamazepine [Tegretol -] 200 mg PO TID 06/03/13 Oxycodone HCl [Roxicodone] 7.5 mg PO PRN 05/30/14 Lidocaine 5% Patch [Lidoderm Patch -] 2 patch TP DAILY 10/22/16 Simvastatin 40 mg PO HS 10/22/16 Tamsulosin HCl 0.4 mg PO DAILY 10/22/16 Famotidine 20 mg PO BID #28 tablet 01/25/18 Ondansetron [Zofran Odt -] 4 mg GT QID PRN #20 tab.rapdis 01/25/18 Family Medical History Other Family History: Mother was diabetic and lived to 90. Father 75 ? etiology Review of Systems Unable to obtain ROS, reason: not verbally responding Physical Exam-GI Vital Signs: Vital Signs Temperature 97.9 F 03/30/19 08:30 Pulse Rate 92 H 03/30/19 08:30 Respiratory Rate 18 03/30/19 08:30 Blood Pressure 149/88 03/30/19 08:30 O2 Sat by Pulse Oximetry (%) 97 03/29/19 21:00 CBC,CMP WBC 6.7 K/mm3 (4.0-10.0) 03/30/19 06:45 Corrected WBC (auto) 6.64 K/mm3 03/29/19 11:05 RBC 3.12 M/mm3 (4.00-5.60) L 03/30/19 06:45 Hgb 9.5 GM/dL (11.7-16.9) L 03/30/19 06:45 Hct 28.4 % (35.4-49) L D 03/30/19 06:45 MCV 91.2 fl (80-96) 03/30/19 06:45 MCH 30.5 pg (25.7-33.7) 03/30/19 06:45 MCHC 33.4 g/dl (32.0-35.9) 03/30/19 06:45 RDW 16.6 % (11.9-15.9) H 03/30/19 06:45 Plt Count 546 K/MM3 (134-434) H D 03/30/19 06:45 MPV 6.5 fl (7.5-11.1) L 03/30/19 06:45 Absolute Neuts (auto) 5.1 K/mm3 (1.5-8.0) 03/29/19 11:05 Neutrophils % 72.2 % (42.8-82.8) 03/29/19 11:05 Neutrophils % (Manual) 77.5 % (42.8-82.8) 03/29/19 11:05 Band Neutrophils % 1.0 % 03/29/19 11:05 Lymphocytes % 21.3 % (8-40) D 03/29/19 11:05 Lymphocytes % (Manual) 18.4 % (8-40) 03/29/19 11:05 Monocytes % 5.4 % (3.8-10.2) 03/29/19 11:05 Monocytes % (Manual) 3 % (3.8-10.2) L 03/29/19 11:05 Eosinophils % 0.2 % (0-4.5) 03/29/19 11:05 Eosinophils % (Manual) 0.0 % (0-4.5) 03/29/19 11:05 Basophils % 0.9 % (0-2.0) 03/29/19 11:05 Basophils % (Manual) 0.0 % (0-2.0) 03/29/19 11:05 Myelocytes % (Man) 0 % (0-2) 03/29/19 11:05 Promyelocytes % (Man) 0 % (0-2) 03/29/19 11:05 Blast Cells % (Manual) 0 % (0-0) 03/29/19 11:05 Nucleated RBC % 5 % (0-0) H 03/29/19 11:05 Metamyelocytes 0 % (0-2) 03/29/19 11:05 Hypochromia 1+ 03/29/19 11:05 Platelet Estimate Increased 03/29/19 11:05 Platelet Comment Present 03/29/19 11:05 Polychromasia 1+ 03/29/19 11:05 Poikilocytosis 1+ 03/29/19 11:05 Anisocytosis 2+ 03/29/19 11:05 Microcytosis 1+ 03/29/19 11:05 Macrocytosis 2+ 03/29/19 11:05 Spherocytes 1+ 03/29/19 11:05 Target Cells 1+ 03/29/19 11:05 Tear Drop Cells 1+ 03/29/19 11:05 Acanthocytes (Spur) 1+ 03/29/19 11:05 Sodium 131 mmol/L (136-145) L 03/29/19 20:45 Potassium 5.7 mmol/L (3.5-5.1) H 03/29/19 20:45 Chloride 101 mmol/L (98-107) 03/29/19 20:45 Carbon Dioxide 19 mmol/L (21-32) L 03/29/19 20:45 Anion Gap 12 MMOL/L (8-16) 03/29/19 20:45 BUN 58.6 mg/dL (7-18) H 03/29/19 20:45 Creatinine 1.3 mg/dL (0.55-1.3) 03/29/19 20:45 Est GFR (CKD-EPI)AfAm 64.07 03/29/19 20:45 Est GFR (CKD-EPI)NonAf 55.28 03/29/19 20:45 POC Glucometer 367 UNITS (80-120) 03/30/19 11:55 Random Glucose 251 mg/dL (74-106) H 03/29/19 20:45 Calcium 7.7 mg/dL (8.5-10.1) L 03/29/19 20:45 Total Bilirubin 0.3 mg/dL (0.2-1) 03/29/19 20:45 AST 523 U/L (15-37) H 03/29/19 20:45 ALT 591 U/L (13-61) H 03/29/19 20:45 Alkaline Phosphatase 494 U/L (45-117) H 03/29/19 20:45 Creatine Kinase Cancelled 03/29/19 11:05 Troponin I Cancelled 03/29/19 11:05 B-Natriuretic Peptide Cancelled 03/29/19 11:05 Total Protein 5.5 g/dl (6.4-8.2) L 03/29/19 20:45 Albumin 2.1 g/dl (3.4-5.0) L 03/29/19 20:45 Total Amylase Cancelled 03/29/19 11:05 Lipase Cancelled 03/29/19 11:05 Current Medications Generic Name Dose Route Start Last Admin Trade Name Freq PRN Reason Stop Dose Admin Al Hydroxide/Mg Hydroxide 30 ml 03/29/19 22:18 03/29/19 22:24 Mylanta Oral Suspension - PO 30 ml Q8H PRN Administration INDIGESTION Amlodipine Besylate 10 mg 03/30/19 10:00 03/30/19 10:26 Norvasc - PO 10 mg DAILY RYANNE Administration Carbamazepine 200 mg 03/29/19 18:45 03/30/19 12:02 Tegretol - PO 200 mg TIDCM RYANNE Administration Insulin Aspart 1 vial 03/30/19 11:00 03/30/19 12:08 Novolog Vial Sliding Scale - SQ 4 units ACHS RYANNE Administration Protocol Levetiracetam 750 mg 03/30/19 10:00 03/30/19 10:26 Keppra - PO 750 mg BID RYANNE Administration Levothyroxine Sodium 125 mcg 03/31/19 07:00 Synthroid - PO DAILY@0700 RYANNE Lidocaine 1 patch 03/30/19 12:00 03/30/19 12:02 Lidoderm Patch - TP 1 patch DAILY RYANNE Administration Mirtazapine 15 mg 03/30/19 22:00 Remeron - PO HS [facility] Miscellaneous 1 each 03/30/19 22:00 Lidoderm Patch Removal MC DAILY@2200 [facility] Oxycodone HCl 5 mg 03/30/19 09:05 03/30/19 10:27 Roxicodone - PO 5 mg Q6H PRN Administration PAIN LEVEL 6-10 Pantoprazole Sodium 40 mg 03/30/19 12:00 03/30/19 12:02 Protonix - PO 40 mg DAILY [facility] Administration Tamsulosin HCl 0.4 mg 03/31/19 08:30 Flomax - PO DAILY@0830 [facility] Constitutional: Yes: Cachectic, Other (Stuporus and apneic) Eyes: Yes: Conjunctiva Clear HENT: Yes: Atraumatic Neck: Yes: Supple Cardiovascular: Yes: Regular Rate and Rhythm, Murmur (2/6 holosystolic and apex) , Other (left PPM) Respiratory: Yes: Rhonchi (left lung with dullness at bases bilaterally) Gastrointestinal Inspection: Yes: Distention (softly) ...Auscultate: Yes: Hypoactive Bowel Sounds ...Palpate: Yes: Soft, Other (no masses, no tenderness elicited) ...Percussion: Yes: Tympanitic ...Rectal Exam: Yes: Guaiac Positive (omi of dried brown guaiac positive stool ) Edema: LLE: 2+, RLE: 2+ Neurological: Yes: Other (Stuporous) Labs: CBC, BMP 03/30/19 06:45 03/29/19 20:45 Laboratory Tests 04/02/12 04/03/12 05/27/14 04:50 05:15 20:10 Total Bilirubin AST Alkaline Phosphatase 94 D ALT 231 H 153 H D 16 01/25/18 03/29/19 08:25 07:18 20:45 Total Bilirubin 0.3 AST 17 D 523 H Alkaline Phosphatase 111 151 H 494 H ALT 19 D 591 H Problem List - Problems (1) Anemia Code(s): D64.9 - ANEMIA, UNSPECIFIED (2) Occult blood in stools Code(s): R19.5 - OTHER FECAL ABNORMALITIES (3) Weight loss Code(s): R63.4 - ABNORMAL WEIGHT LOSS (4) Narcotic addiction Code(s): F11.20 - OPIOID DEPENDENCE, UNCOMPLICATED (5) Hyperplastic polyp of descending colon Code(s): K63.5 - POLYP OF COLON (6) Abnormal liver function tests Code(s): R94.5 - ABNORMAL RESULTS OF LIVER FUNCTION STUDIES (7) Hypothyroidism Code(s): E03.9 - HYPOTHYROIDISM, UNSPECIFIED Qualifiers: Hypothyroidism type: unspecified Qualified Code(s): E03.9 - Hypothyroidism , unspecified (8) Symptomatic anemia Code(s): D64.9 - ANEMIA, UNSPECIFIED (9) Type 2 diabetes mellitus Code(s): E11.9 - TYPE 2 DIABETES MELLITUS WITHOUT COMPLICATIONS Qualifiers: Diabetes mellitus custodial insulin use: without custodial use Diabetes mellitus complication status: with circulatory complication (10) Nausea & vomiting Code(s): R11.2 - NAUSEA WITH VOMITING, UNSPECIFIED Qualifiers: Vomiting type: unspecified Vomiting Intractability: unspecified Qualified Code(s): R11.2 - Nausea with vomiting, unspecified (12) Hyperkalemia Code(s): E87.5 - HYPERKALEMIA (13) Cor pulmonale Code(s): I27.81 - COR PULMONALE (CHRONIC) (14) Pneumonia Code(s): J18.9 - PNEUMONIA, UNSPECIFIED ORGANISM (15) Pacemaker Code(s): Z95.0 - PRESENCE OF CARDIAC PACEMAKER Assessment/Plan Assessment - The anemia suggests chronic GI losses. Given his abnormal LFTs potential etiologies include portal gastropathy and varices, ulcers, vascular ectasias, GERD and GI tract neoplasms ( as suggested by his 01/31 CT scan). I have advised an EGD and if unrevealing then a colonoscopy. - Hepatitis in this setting most likely reflects passive congestion given his severe MR which may now have caused cor pulmonale and right heart failure accounting for his cough and edema but need to watch for a DILI ( drug induced liver injury) and screen for chronic viral, autoimmune and metabolic/inherited liver diseases for which he needs to be screened. His LFTs could reflect metastases. - Personal h/o colon polyp Plan: -- Agree with transfer to ICU to optimize pulmonary and cardiac management -- If and when his condition permits and if informed consent if granted then an EGD will be undertaken and if unrevealing then a colonoscopy will be mandated -- Empiric PPI -- Hepatitis screen -- Need to follow LFTs closely. -- CT scan to exclude advanced malignancy when condition permits Discussed care with Dr Redding and plan to exclude a PE
[2019-03-30] MEDS ORDERED: ALBUTEROL SO4 0.083% IH SOL 2.5 MG/3 ML VIAL.NEB. NEB PRN (13:51)
[2019-03-30] MEDS ORDERED: DEXTROSE 5%-0.45% SALINE 1,000 ML IV SCH (14:00)
--- NOTE | 2019-03-30 14:27 | CONSULT ---
Consultation: REQUESTING PROVIDER: Dr Mcmillan CONSULT REQUEST: We have been asked to medically evaluate this patient for ( Acute respiratory distress ). HISTORY OF PRESENT ILLNESS:history is taking from chart as pt is not able to provide story due to lethargic 68M presents with c/o lower extremity edema and a cough of 1 month's duration. He is found to be profoundly anemic with a Hb of 6.1. He is currently apneic and responds to loud arousal only briefly. The reports 20 lbs weight loss in the past 6 months. He stopped eating 3 days ago and some vomiting. She denies any melena, rectal bleeding or hematemesis and denies that he had c/o abdominal pain. She attributes his problems to prescription narcotic addiction. He has been addicted for many years and has taken them for back pain. She reports that she recently weaned him off them but he resumed them without her knowledge. Baby underwent evaluation of anemia by Dr Covarrubias in 2007. EGD in 01/11/08 moderate gastritis but no H. pylori was found. Colonoscopy on 01/25/08 led to the removal of a hyperplastic descending colon polyp and also revealed diverticulosis. He has not been seen in our office since then. A CT scan in in [facility] revealed gastric wall thickening. He also has an unexplained hepatitis. No gallstones were fond on that CT scan or on a previous sonogram. we were asked to evaluate pt for acute respiratory distress , pt was found to be lethargic , mimimal responsive and hypoxic to 90 on 40 venti mask , pt was placed ojn BIPA, ABG, CBC, CMP, lactic acid , cxr , EKG was ordered . pt was found to have congestion changes on cxr with b/l lower extremity edema , likely has CHF , will give pt 40 lasix iV and moniotr urine out , monitor pt in ICU, EKG was ordered with prolonged QTC and wide QRS , placed a call for cardiology office Dr Flood and EKG wa faxed. insulin SQ was giving as part of ISS and will repeat K (5.7 currently). ABG with metabolic acidosis will cover pt with ceftriaxona and doxycyclin for CAP . REVIEW OF SYSTEMS: unable to obtain , notable for lethargic and minimal interaction , arousable . loss of appetite and loss of weight per . PHYSICAL EXAMINATION Vital Signs - 24 hr 03/29/19 03/29/19 03/29/19 17:11 21:00 22:00 Temperature 98.1 F 98.1 F Pulse Rate 75 81 Respiratory 18 18 18 Rate Blood Pressure 169/83 134/100 O2 Sat by Pulse 97 Oximetry (%) 03/30/19 03/30/19 03/30/19 01:55 02:00 06:00 Temperature 98.5 F 97.5 F L 975 F H Pulse Rate 81 85 87 Respiratory 18 18 18 Rate Blood Pressure 139/75 157/78 156/92 O2 Sat by Pulse Oximetry (%) 03/30/19 08:30 Temperature 97.9 F Pulse Rate 92 H Respiratory 18 Rate Blood Pressure 149/88 O2 Sat by Pulse Oximetry (%) GENERAL: lethargic , arousable, pale on 40 % venti mask switch to BIAPAP HEAD: Normal with no signs of trauma. EYES: Pupils equal, round and reactive to light,pale ENT: dry mucous membranes. NECK: supple LUNGS:decrease breath sounds at the bases HEART: pacing rhythm ABDOMEN: Soft, nontender, not distended, normoactive bowel sounds, LOWER EXTREMITIES: 2+ pulses, warm, well-perfused. No calf tenderness. +2 peripheral edema. NEUROLOGICAL: not able to assess , uvula mid line . no facial asymmetry SKIN: Warm, dry, Active Medications Generic Name Dose Route Start Last Admin Trade Name Freq PRN Reason Stop Dose Admin Al Hydroxide/Mg Hydroxide 30 ml 03/29/19 22:18 03/29/19 22:24 Mylanta Oral Suspension - PO 30 ml Q8H PRN Administration INDIGESTION Albuterol Sulfate 1 amp 03/30/19 13:51 Ventolin 0.083% Nebulizer Soln - NEB Q6H PRN SHORT OF BREATH/WHEEZING Amlodipine Besylate 10 mg 03/30/19 10:00 03/30/19 10:26 Norvasc - PO 10 mg DAILY RYANNE Administration Carbamazepine 200 mg 03/29/19 18:45 03/30/19 12:02 Tegretol - PO 200 mg TIDCM RYANNE Administration Dextrose/Sodium Chloride 1,000 mls @ 60 mls/hr 03/30/19 14:00 03/30/19 13:57 D5-1/2ns - IV 60 mls/hr ASDIR RYANNE Administration Insulin Aspart 1 vial 03/30/19 11:00 03/30/19 12:08 Novolog Vial Sliding Scale - SQ 4 units ACHS RYANNE Administration Protocol Levetiracetam 750 mg 03/30/19 10:00 03/30/19 10:26 Keppra - PO 750 mg BID RYANNE Administration Levothyroxine Sodium 125 mcg 03/31/19 07:00 Synthroid - PO DAILY@0700 [facility] Lidocaine 1 patch 03/30/19 12:00 03/30/19 12:02 Lidoderm Patch - TP 1 patch DAILY RYANNE Administration Mirtazapine 15 mg 03/30/19 22:00 Remeron - PO HS [facility] Miscellaneous 1 each 03/30/19 22:00 Lidoderm Patch Removal MC DAILY@2200 [facility] Pantoprazole Sodium 40 mg 03/30/19 12:00 03/30/19 12:02 Protonix - PO 40 mg DAILY RYANNE Administration Tamsulosin HCl 0.4 mg 03/31/19 08:30 Flomax - PO DAILY@0830 [facility] CBC, BMP 03/30/19 06:45 03/29/19 20:45 CXR : 03/30/2019 Cardiomegaly with worsening congestive changes and worsening pleural effusion ASSESSMENT/PLAN: 68 year old male with history of HTN, Hyperlipdemia, Mitral Insufficiency ( moderate), Pulmonary Hypertension, diverticulosis ,gastrities , DM, Hypothyroidism, addiction to oxycodone , transferred to ICU for acute respiratory distress Neuro: #Acute metabolic encephalopathy due to hyoxemia and med side effects (oxycodone) * Lethargic , arousable , * avoid any oxycodone or any hypnotics # siezure on Keppra cont Pulmonary # acute hypoxic respiratory failure likely due to CHF exacerbation /pulmonary edema vs medication side effect # lactic acidosis #Pulmonary HTN * Ceftriaxone and doxycyclin for CAP * TSH, folic acid, PTH, b12 , RPR * lasix 40 IV BID * daily weight * I& O * monitor urine out put * BNP * CXR in AM * Echo Cardiology #Acute on chronic diastolic high-output heart failure * LE edema , congestion changes on X ray , respiratoy distress , worsening kidney function * last echo from May 2018 will repeat * daily weight , I &O * lasix 40 IV BID * monitor urine out put # troponinemia likely due to demand ischemia, trend , no chest pain reported no St , t wave changes , repeat EKG with trop # HTN * monitor BP closely * cont BP meds and hold for Systolic below 120 # QTC prolongation 515 todsay with wide QRS complex , was in 450 yesterday * 2 mg IV mag , will repeat EKG * trend trop * avoid meds cause prolongation avoid ( oxycodone no zofran no azithromycin... ) * pt has pacemaker Electrolytes # Hyperkalemia K 5.6 will give insulin SQ and repeat bmp in 4 hours * repeat EKG after treatment * Albuterol , D50 with inslin regular 10 was given , repeat K 5 #mild Hyponatremia * NA 131 , will repeat after diuresis Endo # DM * hold oal agents * ISS * BGM Q 6hr # HLD on statin # hypothyroidism * TSH * cont synthroid Heme # Anemia * H/H 9.5/ 28.4 * guiac positive * has history of gastric thickening , R.O malignancy and GI bleed * GI on board Dr Simpson recommendation appreciated # thrombocytosis unkown etiology will repeat lab in Am Nephro # Mild DANYA likley due to CHF (pre renal ) * will give lasix 40 IV once and re evaluate lab in am GI # transaminitis likely due to CHF , will trend lab and follow Liver US * Gi consulted * history of gastric wall thickining need to R.O malignancy * guiac positive R.O GI bleed * normal transfusion threshold * avoid NSAIDS # FEN * dc fluids * Monitor lytes, replete as needed * NPO for now # proph * scds , * PPI 40 IV daily # Dispo * monitor in ICU # code status * full code Dispo: We will continue to follow the patient. Thank you for this consultative opportunity. - Past Medical History BREAD STACKER: Yes: Seizure Cardio/Vascular: Yes: Other (PPM for SSS) Gastrointestinal: Yes: Diverticulosis, Gastritis ([address] Covarrubias but no HP), Other (hyperplastic colon polyp removed [address] Covarrubias) Psych: Yes: Addictions (prescription narcotics as per the ) Musculoskeletal: Yes: Other (lumbar disc disease and spinal stenosis) Endocrine: Yes: Diabetes Mellitus (confirmed by ), Hypothyroidism - Past Surgical History Past Surgical History: Yes: Appendectomy ( reports an appendectomy but I cannot find incisions), Colonoscopy, Upper Endoscopy - Alcohol/Substance Use Hx Alcohol Use: No History of Substance Use: reports: Prescription (narcotics) Visit type - Emergency Visit Emergency Visit: Yes ED Registration Date: 03/29/19 Care time: The patient presented to the Emergency Department on the above date and was hospitalized for further evaluation of their emergent condition. - New Patient This patient is new to me today: Yes Date on this admission: 03/30/19 - Critical Care Critical Care patient: Yes Total Critical Care Time (in minutes): 45 Critical Care Statement: The care of this patient involved high complexity decision making to prevent further life threatening deterioration of the patient 's condition and/or to evaluate & treat vital organ system(s) failure or risk of failure. ATTENDING PHYSICIAN STATEMENT I saw and evaluated the patient. I reviewed the resident's note and discussed the case with the resident. I agree with the resident's findings and plan as documented. SUBJECTIVE: OBJECTIVE: ASSESSMENT AND PLAN:
[2019-03-30] MEDS ORDERED: FUROSEMIDE 40 MG/4 ML INJECTABLE VIAL IVPUSH ONE (14:32)
[2019-03-30] MEDS ORDERED: INSULIN (NOVOLOG) ASPART 100 UNITS/ML 10ML VIAL SQ ONE (14:45)
[2019-03-30] MEDS ORDERED: MAGNESIUM SULF 50% (8.12 MEQ/2 ML-1 GM VIAL) IVPB ONE (14:51)
[2019-03-30] MEDS ORDERED: NITROGLYCERIN SUBLINGUAL 1/150 0.4 MG TAB SL ONE (15:09)
[2019-03-30 15:16] LABS: ARTERIAL BLD GAS O2 SATURATION 87.2 % (95-98); ARTERIAL BLOOD GAS BASE EXCESS -9.3 meq/l (-2-2); ARTERIAL BLOOD GAS PCO2 23.4 mmHg (35-45); ARTERIAL BLOOD GAS pH 7.39 (7.35-7.45)
[2019-03-30 15:17] LABS: ARTERIAL BLOOD GAS PO2 65.3 mmHg (80-100)
--- NOTE | 2019-03-30 15:35 | EKG ---
Test Reason : Blood Pressure : / mmHG Vent. Rate : 095 BPM Atrial Rate : 031 BPM P-R Int : 000 ms QRS Dur : 138 ms QT Int : 410 ms P-R-T Axes : 000 -68 -15 degrees QTc Int : 515 ms JUNCTIONAL RHYTHM LEFT AXIS DEVIATION NON-SPECIFIC INTRA-VENTRICULAR CONDUCTION BLOCK NONSPECIFIC T WAVE ABNORMALITY ABNORMAL ECG WHEN COMPARED WITH ECG OF 29-MAR-2019 10:22, WIDE QRS RHYTHM HAS REPLACED ELECTRONIC ATRIAL PACEMAKER Confirmed by Jose Reich ([id number]) on 03/30/2019 3:35:48 PM Referred By: KEVIN RUSH Confirmed By:Jose Reich
[2019-03-30] MEDS ORDERED: DEXTROSE 5%-WATER - 50 ML IVPB ONE (16:39)
[2019-03-30] MEDS ORDERED: cefTRIAXone SODIUM 1 GM VIAL ONE (16:39)
[2019-03-30] MEDS: CEFTRIAXONE 1 GM in DEXTROSE 5%-WATER - 50 ML IVPB SCH (16:44)
--- NOTE | 2019-03-30 17:04 | CON.CARD ---
Consult Consult Specialty:: Cardiology Referred by:: Hospitalist Medicine Reason for Consultation:: Pre-endoscopy CV evaluation - History of Present Illness Chief Complaint: Anorexia, fatigue History of Present Illness: 68M h/o HTN heart disease with labile BP, NIDDM, chol, hypothyroidism, syncope with advanced AV block s/p dual chamber pacemakerpresents with c/o lower extremity edema and a cough of 1 month's duration. He is found to be profoundly anemic with a Hb of 6.1 and CXR showing volume overload. He is lethargic on bipap. Baby has lost about 20 lbs in the past 6 months. He stopped eating 3 days ago with some vomiting. She denies any melena, rectal bleeding or hematemesis and denies that he had c/o abdominal pain. Last visit in office 02/2018. Baby underwent evaluation of anemia by Dr Covarrubias in 2007. EGD in 01/11/08 moderate gastritis but no H. pylori was found. Colonoscopy on 01/25/08 led to the removal of a hyperplastic descending colon polyp and also revealed diverticulosis. He has not been seen in our office since then. A CT scan in in [facility] revealed gastric wall thickening. He also has an unexplained hepatitis. No gallstones were fond on that CT scan or on a previous sonogram. - History Source History Provided By: Medical Record Limitations to Obtaining History: Clinical Condition - Past Medical History AUDIT SPEC: Yes: Seizure Cardio/Vascular: Yes: HTN, Hyperlipdemia, Mitral Insufficiency (moderate), Pulmonary Hypertension, Other (PPM for SSS) Gastrointestinal: Yes: Diverticulosis, Gastritis ([address] Covarrubias but no HP), Other (hyperplastic colon polyp removed [address] Covarrubias) Psych: Yes: Addictions (prescription narcotics as per the ) Musculoskeletal: Yes: Other (lumbar disc disease and spinal stenosis) Endocrine: Yes: Diabetes Mellitus (confirmed by ), Hypothyroidism - Past Surgical History Past Surgical History: Yes: Appendectomy ( reports an appendectomy but I cannot find incisions), Colonoscopy, Upper Endoscopy - Alcohol/Substance Use Hx Alcohol Use: No History of Substance Use: reports: Prescription (narcotics) - Smoking History Smoking history: Never smoked Have you smoked in the past 12 months: No Aproximately how many cigarettes per day: 0 - Social History Usual Living Arrangement: With Spouse ADL: Family Assistance 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 History of Recent Travel: No Home Medications - Allergies Allergies/Adverse Reactions: Allergies Allergy/AdvReac Type Severity Reaction Status Date / Time lacosamide [From Vimpat] Allergy Rash Verified 03/29/19 09:32 - Home Medications Home Medications: Ambulatory Orders Amlodipine Besylate [Norvasc -] 5 mg PO DAILY 04/02/12 Gabapentin 100 mg PO BID 04/02/12 Levothyroxine [Synthroid -] 125 mcg PO DAILY 04/02/12 Multivitamin [Multivitamins] 1 each PO DAILY 04/02/12 levETIRAcetam [Keppra Oral Solution -] 750 mg PO BID 04/02/12 metFORMIN HCL [Glucophage -] 1,000 mg PO DAILY 04/02/12 Carbamazepine [Tegretol -] 200 mg PO TID 06/03/13 Oxycodone HCl [Roxicodone] 7.5 mg PO PRN 05/30/14 Lidocaine 5% Patch [Lidoderm Patch -] 2 patch TP DAILY 10/22/16 Simvastatin 40 mg PO HS 10/22/16 Tamsulosin HCl 0.4 mg PO DAILY 10/22/16 Famotidine 20 mg PO BID #28 tablet 01/25/18 Ondansetron [Zofran Odt -] 4 mg GT QID PRN #20 tab.rapdis 01/25/18 Review of Systems - Review of Systems Constitutional: reports: Lethargy, Loss of Appetite Cardiovascular: reports: Edema Respiratory: reports: SOB Vital Signs: Vital Signs Temperature 100.8 F H 03/30/19 16:28 Pulse Rate 62 03/30/19 16:28 Respiratory Rate 16 03/30/19 16:28 Blood Pressure 137/78 03/30/19 16:28 O2 Sat by Pulse Oximetry (%) 100 03/30/19 16:27 Constitutional: Yes: No Distress, Calm Neck: Yes: Supple Respiratory: Yes: Regular, Diminished, On BiPap Gastrointestinal: Yes: Soft, Hypoactive Bowel Sounds Cardiovascular: Yes: Regular Rate and Rhythm JVD: No Carotid Bruit: No Heart Sounds: Yes: S1, S2 Murmur: Yes: Systolic Murmur, Grade 1 Edema: Yes Edema: LLE: 2+, RLE: 2+ - Other Data Labs, Other Data: CBC, BMP 03/30/19 06:45 03/29/19 20:45 A paced @ 80 Ejection Fraction %: LVEF > or = 40 % Imaging - Results Chest X-ray: Report Reviewed (CHF, bilateral effusions) Problem List - Problems (1) Acute on chronic diastolic (congestive) heart failure Code(s): I50.33 - ACUTE ON CHRONIC DIASTOLIC (CONGESTIVE) HEART FAILURE (2) Subendocardial ischemia Code(s): I24.8 - OTHER FORMS OF ACUTE ISCHEMIC HEART DISEASE (3) Xbyvy-bv-lswursr kidney injury Code(s): N17.9 - ACUTE KIDNEY FAILURE, UNSPECIFIED; N18.9 - CHRONIC KIDNEY DISEASE, UNSPECIFIED Qualifiers: Acute renal failure type: unspecified (4) Hyperkalemia Code(s): E87.5 - HYPERKALEMIA (5) Pacemaker Code(s): Z95.0 - PRESENCE OF CARDIAC PACEMAKER Assessment/Plan 1. Acute hypoxemic respiratory failure 2. Acute on chronic diastolic high-output heart failure with subendocardial ischemia 3. Profound anemia, r/o GI source 4. Acute on CKD with hyperkalemia referable to #2 5. Advanced AV block s/p PPM 6. Type 2 DM 7. Hyperlipidemia 8. Hypertensive heart disease 9. Hypothyroidism 10. Lactic acidosis 11. Ischemic hepatitis P:1. IV diuresis with monitor diuretic response, renal fxn and electrolytes 2. Transfuse pRBC to maintain Hgb>8.0 3. Hold ASA, Diclofenac, continue Norvasc 10 qd, trend LFTs, resume Hyzaar 50/ 12.5 qd once renal fxn and K resolves, statin once LFT stabilize 4. Await euvolemia prior to proceeding with endoscopy unless emergent indication 5. Thank you for consultative opportunity
[2019-03-30] MEDS ORDERED: ACETAMINOPHEN 1000 MG/100 ML VIAL (NON FORMULARY) IVPB PRN (17:18)
[2019-03-30 17:21] LABS: BASO % 0.2 % (0-2.0); HEMATOCRIT 29.5 % (35.4-49); HEMOGLOBIN 9.3 GM/dL (11.7-16.9); LYMPH % 10.4 % (8-40); MCH 29.3 pg (25.7-33.7); MCHC 31.6 g/dl (32.0-35.9); MEAN CELL VOLUME 92.6 fl (80-96); MONO % 7.6 % (3.8-10.2); NEUT % 81.8 % (42.8-82.8); PLATELET COUNT 512 K/MM3 (134-434); RBC 3.19 M/mm3 (4.00-5.60); RDW 17.2 % (11.9-15.9); WHITE BLOOD COUNT 6.9 K/mm3 (4.0-10.0)
[2019-03-30 17:51] LABS: BILIRUBIN,TOTAL 0.3 mg/dL (0.2-1); BLOOD UREA NITROGEN 74.4 mg/dL (7-18); CALCIUM 7.1 mg/dL (8.5-10.1); CREATININE 1.8 mg/dL (0.55-1.3); MAGNESIUM 3.5 mg/dL (1.8-2.4); PHOSPHOROUS 6.8 mg/dL (2.5-4.9); TOT PROT 5.6 g/dl (6.4-8.2)
[2019-03-30 17:55] LABS: POTASSIUM 6.2 mmol/L (3.5-5.1)
[2019-03-30 18:01] LABS: ARTERIAL BLD GAS O2 SATURATION 96.8 % (95-98); ARTERIAL BLOOD GAS BASE EXCESS -7.4 meq/l (-2-2); ARTERIAL BLOOD GAS PCO2 22.2 mmHg (35-45); ARTERIAL BLOOD GAS pH 7.45 (7.35-7.45)
[2019-03-30 18:04] LABS: ARTERIAL BLOOD GAS PO2 161 mmHg (80-100)
[2019-03-30 18:06] LABS: ALLENS TEST POSITIVE
[2019-03-30] MEDS ORDERED: CALCIUM CHLORIDE 1 GM/10 ML *DISP.SYRIN ONE (18:17)
[2019-03-30] MEDS ORDERED: DEXTROSE 50%-WATER 25 GM/50 ML DISP.SYRIN ONE (18:17)
[2019-03-30] MEDS ORDERED: CALCIUM GLUCONATE 10% - 1,000 MG/10 ML VIAL ONE (18:18)
[2019-03-30] MEDS ORDERED: CALCIUM GLUCONATE 10% - 1,000 MG/10 ML VIAL IVPB ONE (18:21)
[2019-03-30] MEDS ORDERED: SODIUM POLYSTYRENE SULFONATE 15 GM/60 ML BOTTLE RC ONE (18:22)
[2019-03-30 18:42] LABS: ANISOCYTOSIS 3+; MACROCYTOSIS 0; PLATELET ESTIMATE NORMAL
[2019-03-30] MEDS ORDERED: FUROSEMIDE 40 MG/4 ML INJECTABLE VIAL IVPB ONE (18:47)
[2019-03-30] MEDS ORDERED: DEXTROSE 50%-WATER - 25 GM/50 ML VIAL IVPUSH ONE ×3 (18:58→22:32)
[2019-03-30] MEDS ORDERED: INSULIN REGULAR HUMAN 100 UNITS/ML *VIAL IVPUSH ONE (18:59)
[2019-03-30] MEDS: ALBUTEROL SO4 2.5/IPRATROPIUM 0.5 INH SOL 3 ML VIAL.NEB. NEB PRN (20:10)
[2019-03-30] MEDS: levETIRAcetam 500 MG/5 ML INJECTION VIAL IVPB SCH (22:12)
[2019-03-30] MEDS: PANTOPRAZOLE SODIUM 40 MG VIAL IVPUSH SCH (22:12)
[2019-03-30] MEDS: LIDOCAINE PATCH REMOVAL MC SCH (22:12)
[2019-03-30] MEDS: MIRTAZAPINE 15 MG TABLET (FP) PO SCH (22:13)
[2019-03-30] MEDS: DOXYCYCLINE INJECTION 100 MG in DEXTROSE 5%-WATER 100 ML IVPB SCH (22:13)
[2019-03-30 23:30] LABS: EPI CELLS 8.7 /HPF (0-5/HPF); URINE APPEARANCE CLOUDY; URINE BACTERIA 2.9 /hpf (NEGATIVE); URINE BILIRUBIN NEGATIVE (NEGATIVE); URINE COLOR YELLOW; URINE GLUCOSE (UA) 1+ (NEGATIVE); URINE KETONE NEGATIVE (NEGATIVE); URINE LEUK ESTERASE NEGATIVE (NEGATIVE); URINE NITRITE NEGATIVE (NEGATIVE); URINE PROTEIN 3+ (NEGATIVE); URINE RBC 1 /hpf (0-4); URINE UROBILINOGEN 0.2 mg/dL (0.2-1.0); URINE WBC 2 /hpf (0-5)
[2019-03-30] MEDS ORDERED: DEXTROSE 50%-WATER - 25 GM/50 ML VIAL ONE (23:31)
[2019-03-30 23:39] LABS: COCAINE, UR NEGATIVE ng/ml (CUTOFF=300); METHADONE, UR NEGATIVE ng/ml (CUTOFF=300); OPIATES, URI NEGATIVE ng/ml (CUTOFF=300); PHENCYCLIDINE,URINE NEGATIVE ng/ml (CUTOFF=25); URINE AMPHETAMINES NEGATIVE ng/ml (CUTOFF=500); URINE BARBITURATES NEGATIVE ng/ml (CUTOFF=200); URINE BENZODIAZEPINES NEGATIVE ng/ml (CUTOFF=200)
[2019-03-30 23:43] LABS: BLOOD UREA NITROGEN 73.8 mg/dL (7-18); CALCIUM 7.8 mg/dL (8.5-10.1); CREATININE 1.6 mg/dL (0.55-1.3)
[2019-03-31 01:07] LABS: HYALINE CASTS 57 /lpf (0-8)
[2019-03-31] MEDS ORDERED: DEXTROSE 50%-WATER - 25 GM/50 ML VIAL ONE (05:13)
[2019-03-31] MEDS: FUROSEMIDE 40 MG/4 ML INJECTABLE VIAL IVPUSH SCH ×2 (05:35→13:37)
[2019-03-31] MEDS: LEVOTHYROXINE NA 125 MCG TABLET (FP) PO SCH (06:38)
[2019-03-31 07:00] LABS: BASO % 0.2 % (0-2.0); EOS % 0.1 % (0-4.5); HEMATOCRIT 30.8 % (35.4-49); HEMOGLOBIN 10.2 GM/dL (11.7-16.9); LYMPH % 9.1 % (8-40); MCH 29.9 pg (25.7-33.7); MEAN CELL VOLUME 90.5 fl (80-96); MEAN PLT VOLUME 7.2 fl (7.5-11.1); MONO % 8.5 % (3.8-10.2); NEUT % 82.1 % (42.8-82.8); PLATELET COUNT 382 K/MM3 (134-434); RDW 16.6 % (11.9-15.9); RETICULOCYTES 4.56 % (0.5-1.5); WHITE BLOOD COUNT 10.9 K/mm3 (4.0-10.0)
[2019-03-31] MEDS: INSULIN SLIDING SCALE (NOVOLOG) 1 VIAL SQ SCH ×4 (07:00→21:56)
[2019-03-31 07:08] LABS: ARTERIAL BLD GAS O2 SATURATION 95.5 % (95-98); ARTERIAL BLOOD GAS BASE EXCESS -4.6 meq/l (-2-2); ARTERIAL BLOOD GAS PCO2 30.7 mmHg (35-45); ARTERIAL BLOOD GAS PO2 89.9 mmHg (80-100)
[2019-03-31 07:39] LABS: ALBUMIN 2.1 g/dl (3.4-5.0); BILIRUBIN,TOTAL 0.4 mg/dL (0.2-1); BLOOD UREA NITROGEN 71.7 mg/dL (7-18); CALCIUM 7.6 mg/dL (8.5-10.1); CREATININE 1.7 mg/dL (0.55-1.3); POTASSIUM 4.5 mmol/L (3.5-5.1); TOT PROT 5.6 g/dl (6.4-8.2)
[2019-03-31] MEDS ORDERED: DEXTROSE 50%-WATER - 25 GM/50 ML VIAL IVPUSH PRN (08:21)
[2019-03-31 08:31] LABS: MAGNESIUM 3.3 mg/dL (1.8-2.4); PHOSPHOROUS 5.8 mg/dL (2.5-4.9)
[2019-03-31] MEDS ORDERED: PT OWN MED DRAWER 7, Y5N ONE ×2 (09:19→21:58)
[2019-03-31] MEDS ORDERED: cefTRIAXone SODIUM 1 GM VIAL ONE (09:20)
[2019-03-31] MEDS ORDERED: DEXTROSE 5%-WATER - 50 ML IVPB ONE (09:20)
[2019-03-31] MEDS: carBAMazepine 200 MG TABLET PO SCH ×3 (09:23→17:04)
[2019-03-31] MEDS: TAMSULOSIN HCL 0.4 MG CAP PO SCH (09:23)
[2019-03-31] MEDS: CEFTRIAXONE 1 GM in DEXTROSE 5%-WATER - 50 ML IVPB SCH (09:24)
[2019-03-31] MEDS: PANTOPRAZOLE SODIUM 40 MG VIAL IVPUSH SCH (09:24)
[2019-03-31] MEDS: LIDOCAINE 5% TOPICAL PATCH TP SCH (09:25)
[2019-03-31] MEDS: levETIRAcetam 500 MG/5 ML INJECTION VIAL IVPB SCH ×2 (09:26→21:40)
[2019-03-31] MEDS: amLODIPine BESYLATE 10 MG TABLET (FP) PO SCH (09:28)
[2019-03-31] MEDS: DOXYCYCLINE INJECTION 100 MG in DEXTROSE 5%-WATER 100 ML IVPB SCH ×2 (09:29→21:59)
--- NOTE | 2019-03-31 09:37 | PN ---
Progress Note, Physician Chief Complaint: Feels better History of Present Illness: Had SOB yesterday,transferred here to ICU Received IV lasix and antibiotics,feels better now - Current Medication List Current Medications: Active Medications Acetaminophen (Ofirmev Injection -) 1,000 mg IVPB Q6H PRN PRN Reason: FEVER Al Hydroxide/Mg Hydroxide (Mylanta Oral Suspension -) 30 ml PO Q8H PRN PRN Reason: INDIGESTION Last Admin: 03/29/19 22:24 Dose: 30 ml Albuterol Sulfate (Ventolin 0.083% Nebulizer Soln -) 1 amp NEB Q6H PRN PRN Reason: SHORT OF BREATH/WHEEZING Last Admin: 03/30/19 14:00 Dose: 1 amp Albuterol/Ipratropium (Duoneb -) 1 amp NEB Q4H PRN PRN Reason: SHORTNESS OF BREATH Last Admin: 03/30/19 20:10 Dose: 1 amp Amlodipine Besylate (Norvasc -) 10 mg PO DAILY [facility] Last Admin: 03/31/19 09:28 Dose: 10 mg Carbamazepine (Tegretol -) 200 mg PO TIDCM [facility] Last Admin: 03/31/19 09:23 Dose: 200 mg Dextrose (D50w (Vial) -) 25 gm IVPUSH PRN PRN PRN Reason: HYPOGLYCEMIA Furosemide (Lasix Injection -) 40 mg IVPUSH BID@0600,1400 [facility] Last Admin: 03/31/19 05:35 Dose: 40 mg Ceftriaxone Sodium 1 gm/ (Dextrose) 50 mls @ 200 mls/hr IVPB DAILY [facility]; Protocol Last Admin: 03/31/19 09:24 Dose: 200 mls/hr Doxycycline Hyclate 100 mg/ (Dextrose) 100 mls @ 100 mls/hr IVPB BID [facility] Last Admin: 03/31/19 09:29 Dose: 100 mls/hr Insulin Aspart (Novolog Vial Sliding Scale -) 1 vial SQ ACHS [facility]; Protocol Last Admin: 03/31/19 07:00 Dose: 6 units Levetiracetam (Keppra Injection -) 750 mg IVPB BID [facility] Last Admin: 03/31/19 09:26 Dose: 750 mg Levothyroxine Sodium (Synthroid -) 125 mcg PO DAILY@0700 [facility] Last Admin: 03/31/19 06:38 Dose: 125 mcg Lidocaine (Lidoderm Patch -) 1 patch TP DAILY [facility] Last Admin: 03/31/19 09:25 Dose: 1 patch Mirtazapine (Remeron -) 15 mg PO HS [facility] Last Admin: 03/30/19 22:13 Dose: Not Given Miscellaneous (Lidoderm Patch Removal) 1 each MC DAILY@2200 [facility] Last Admin: 03/30/19 22:12 Dose: 1 each Pantoprazole Sodium (Protonix Iv) 40 mg IVPUSH BID [facility] Last Admin: 03/31/19 09:24 Dose: 40 mg Tamsulosin HCl (Flomax -) 0.4 mg PO DAILY@0830 [facility] Last Admin: 03/31/19 09:23 Dose: 0.4 mg - Objective Vital Signs: Vital Signs Temperature 98.2 F 03/31/19 08:19 Pulse Rate 102 H 03/31/19 08:56 Respiratory Rate 15 03/31/19 08:56 Blood Pressure 130/79 03/31/19 08:56 O2 Sat by Pulse Oximetry (%) 100 03/31/19 08:19 Constitutional: Yes: Cachectic, Mild Distress Eyes: Yes: WNL HENT: Yes: WNL Neck: Yes: Supple Cardiovascular: Yes: Regular Rate and Rhythm, Tachycardia Respiratory: Yes: Poor Air Entry Gastrointestinal: Yes: Normal Bowel Sounds Genitourinary: Yes: WNL Edema: LLE: Trace, RLE: Trace Integumentary: Yes: WNL Psychiatric: Yes: Alert Labs: CBC, BMP 03/31/19 06:10 03/31/19 06:10 Assessment/Plan Case discussed with house staff
--- NOTE | 2019-03-31 10:07 | PN ---
Progress Note, Physician History of Present Illness: Patient has been weaned off NIPPV onto NC with improved dyspnea and sensorium with diuresis. - Current Medication List Current Medications: Active Medications Acetaminophen (Ofirmev Injection -) 1,000 mg IVPB Q6H PRN PRN Reason: FEVER Al Hydroxide/Mg Hydroxide (Mylanta Oral Suspension -) 30 ml PO Q8H PRN PRN Reason: INDIGESTION Last Admin: 03/29/19 22:24 Dose: 30 ml Albuterol Sulfate (Ventolin 0.083% Nebulizer Soln -) 1 amp NEB Q6H PRN PRN Reason: SHORT OF BREATH/WHEEZING Last Admin: 03/30/19 14:00 Dose: 1 amp Albuterol/Ipratropium (Duoneb -) 1 amp NEB Q4H PRN PRN Reason: SHORTNESS OF BREATH Last Admin: 03/30/19 20:10 Dose: 1 amp Amlodipine Besylate (Norvasc -) 10 mg PO DAILY [facility] Last Admin: 03/31/19 09:28 Dose: 10 mg Carbamazepine (Tegretol -) 200 mg PO TIDCM [facility] Last Admin: 03/31/19 09:23 Dose: 200 mg Dextrose (D50w (Vial) -) 25 gm IVPUSH PRN PRN PRN Reason: HYPOGLYCEMIA Furosemide (Lasix Injection -) 40 mg IVPUSH BID@0600,1400 [facility] Last Admin: 03/31/19 05:35 Dose: 40 mg Ceftriaxone Sodium 1 gm/ (Dextrose) 50 mls @ 200 mls/hr IVPB DAILY [facility]; Protocol Last Admin: 03/31/19 09:24 Dose: 200 mls/hr Doxycycline Hyclate 100 mg/ (Dextrose) 100 mls @ 100 mls/hr IVPB BID [facility] Last Admin: 03/31/19 09:29 Dose: 100 mls/hr Insulin Aspart (Novolog Vial Sliding Scale -) 1 vial SQ ACHS [facility]; Protocol Last Admin: 03/31/19 07:00 Dose: 6 units Levetiracetam (Keppra Injection -) 750 mg IVPB BID [facility] Last Admin: 03/31/19 09:26 Dose: 750 mg Levothyroxine Sodium (Synthroid -) 125 mcg PO DAILY@0700 [facility] Last Admin: 03/31/19 06:38 Dose: 125 mcg Lidocaine (Lidoderm Patch -) 1 patch TP DAILY [facility] Last Admin: 03/31/19 09:25 Dose: 1 patch Mirtazapine (Remeron -) 15 mg PO HS [facility] Last Admin: 03/30/19 22:13 Dose: Not Given Miscellaneous (Lidoderm Patch Removal) 1 each MC DAILY@2200 [facility] Last Admin: 03/30/19 22:12 Dose: 1 each Pantoprazole Sodium (Protonix Iv) 40 mg IVPUSH BID [facility] Last Admin: 03/31/19 09:24 Dose: 40 mg Tamsulosin HCl (Flomax -) 0.4 mg PO DAILY@0830 [facility] Last Admin: 03/31/19 09:23 Dose: 0.4 mg - Objective Vital Signs: Vital Signs Temperature 98.2 F 03/31/19 08:19 Pulse Rate 102 H 03/31/19 08:56 Respiratory Rate 15 03/31/19 09:39 Blood Pressure 134/86 03/31/19 09:39 O2 Sat by Pulse Oximetry (%) 100 03/31/19 08:19 Constitutional: Yes: No Distress, Calm, Thin Neck: Yes: Supple Cardiovascular: Yes: Regular Rate and Rhythm Respiratory: Yes: Regular, Diminished, On Nasal O2 Gastrointestinal: Yes: Soft, Hypoactive Bowel Sounds Edema: Yes Edema: LLE: 1+, RLE: 1+ Labs: CBC, BMP 03/31/19 06:10 03/31/19 06:10 - ....Imaging Chest X-ray: Report Reviewed (Congestion and pleural effusions) EKG: Report Reviewed (Tele: A-paced) Problem List - Problems (1) Acute on chronic diastolic (congestive) heart failure Code(s): I50.33 - ACUTE ON CHRONIC DIASTOLIC (CONGESTIVE) HEART FAILURE (2) Subendocardial ischemia Code(s): I24.8 - OTHER FORMS OF ACUTE ISCHEMIC HEART DISEASE (3) Xanzq-lb-lphvafn kidney injury Code(s): N17.9 - ACUTE KIDNEY FAILURE, UNSPECIFIED; N18.9 - CHRONIC KIDNEY DISEASE, UNSPECIFIED Qualifiers: Acute renal failure type: unspecified (4) Hyperkalemia Code(s): E87.5 - HYPERKALEMIA (5) Pacemaker Code(s): Z95.0 - PRESENCE OF CARDIAC PACEMAKER Assessment/Plan 1. Acute hypoxemic respiratory failure 2. Acute on chronic diastolic high-output heart failure with subendocardial ischemia improving 3. Profound anemia post transfusion, r/o GI source 4. Acute on CKD with hyperkalemia referable to #2 improving 5. Advanced AV block s/p PPM 6. Type 2 DM 7. Hyperlipidemia 8. Hypertensive heart disease 9. Hypothyroidism 10. Lactic acidosis 11. Ischemic hepatitis improving 12. Seizure d/o P:1. IV diuresis with monitor diuretic response, renal fxn and electrolytes, wean FIO2 as tolerated, f/u CXR, BD as needed 2. Transfuse pRBC to maintain Hgb>8.0 with GI protection 3. Hold ASA, Diclofenac, continue Norvasc 10 qd, LFTs and trops trending downwards, resume Hyzaar 50/12.5 qd once renal fxn and K resolves, statin once LFT stabilize 4. Await euvolemia prior to proceeding with endoscopy unless emergent indication 5. F/u echo to assess ventricular and valve fxn
--- NOTE | 2019-03-31 10:40 | EKG ---
Test Reason : Blood Pressure : / mmHG Vent. Rate : 106 BPM Atrial Rate : 129 BPM P-R Int : 000 ms QRS Dur : 106 ms QT Int : 376 ms P-R-T Axes : 000 -39 185 degrees QTc Int : 499 ms ATRIAL FIBRILLATION WITH RAPID VENTRICULAR RESPONSE LEFT AXIS DEVIATION ABNORMAL ECG WHEN COMPARED WITH ECG OF 30-MAR-2019 14:39, ATRIAL FIBRILLATION HAS REPLACED JUNCTIONAL RHYTHM QUESTIONABLE CHANGE IN QRS DURATION Confirmed by KENJI BELTRAN, NIEVES ([id number]) on 03/31/2019 10:40:14 AM Referred By: Hans LAMB Confirmed By:NIEVES PHILLIP MD
--- NOTE | 2019-03-31 11:28 | PN ---
Teaching Attending Note Name of Resident: Vinyaak Lancaster ATTENDING PHYSICIAN STATEMENT I saw and evaluated the patient. I reviewed the resident's note and discussed the case with the resident. I agree with the resident's findings and plan as documented. SUBJECTIVE: Pt seen and examined in the ICU. Confused but denies shortness of breath or chest pain. Noted to be in atrial fibrillation. OBJECTIVE: Vital Signs Period Temp Pulse Resp BP Sys/Cabral Pulse Ox Last 24 Hr 97.3 F-100.8 F 56-108 15-22 113-142/63-96 92-100 Intake & Output 03/28/19 03/29/19 03/30/19 03/31/19 23:59 23:59 23:59 23:59 Intake Total 350 700 300 Output Total 650 500 Balance 350 50 -200 Weight 54.204 kg 53.977 kg Gen: confused, breathing nonlabored Heart: irregular, Lung: decreased breath sounds at the bases Abd: soft, nontender Ext: no edema CBC, BMP 03/31/19 06:10 03/31/19 06:10 Active Medications Acetaminophen (Ofirmev Injection -) 1,000 mg IVPB Q6H PRN PRN Reason: FEVER Al Hydroxide/Mg Hydroxide (Mylanta Oral Suspension -) 30 ml PO Q8H PRN PRN Reason: INDIGESTION Last Admin: 03/29/19 22:24 Dose: 30 ml Albuterol Sulfate (Ventolin 0.083% Nebulizer Soln -) 1 amp NEB Q6H PRN PRN Reason: SHORT OF BREATH/WHEEZING Last Admin: 03/30/19 14:00 Dose: 1 amp Albuterol/Ipratropium (Duoneb -) 1 amp NEB Q4H PRN PRN Reason: SHORTNESS OF BREATH Last Admin: 03/30/19 20:10 Dose: 1 amp Amlodipine Besylate (Norvasc -) 10 mg PO DAILY RYANNE Last Admin: 03/31/19 09:28 Dose: 10 mg Carbamazepine (Tegretol -) 200 mg PO TIDCM RYANNE Last Admin: 03/31/19 09:23 Dose: 200 mg Dextrose (D50w (Vial) -) 25 gm IVPUSH PRN PRN PRN Reason: HYPOGLYCEMIA Furosemide (Lasix Injection -) 40 mg IVPUSH BID@0600,1400 RYANNE Last Admin: 03/31/19 05:35 Dose: 40 mg Ceftriaxone Sodium 1 gm/ (Dextrose) 50 mls @ 200 mls/hr IVPB DAILY [facility]; Protocol Last Admin: 03/31/19 09:24 Dose: 200 mls/hr Doxycycline Hyclate 100 mg/ (Dextrose) 100 mls @ 100 mls/hr IVPB BID [facility] Last Admin: 03/31/19 09:29 Dose: 100 mls/hr Insulin Aspart (Novolog Vial Sliding Scale -) 1 vial SQ ACHS [facility]; Protocol Last Admin: 03/31/19 11:18 Dose: Not Given Levetiracetam (Keppra Injection -) 750 mg IVPB BID [facility] Last Admin: 03/31/19 09:26 Dose: 750 mg Levothyroxine Sodium (Synthroid -) 125 mcg PO DAILY@0700 [facility] Last Admin: 03/31/19 06:38 Dose: 125 mcg Lidocaine (Lidoderm Patch -) 1 patch TP DAILY [facility] Last Admin: 03/31/19 09:25 Dose: 1 patch Mirtazapine (Remeron -) 15 mg PO HS [facility] Last Admin: 03/30/19 22:13 Dose: Not Given Miscellaneous (Lidoderm Patch Removal) 1 each MC DAILY@2200 [facility] Last Admin: 03/30/19 22:12 Dose: 1 each Pantoprazole Sodium (Protonix Iv) 40 mg IVPUSH BID [facility] Last Admin: 03/31/19 09:24 Dose: 40 mg Tamsulosin HCl (Flomax -) 0.4 mg PO DAILY@0830 [facility] Last Admin: 03/31/19 09:23 Dose: 0.4 mg ASSESSMENT AND PLAN: Acute Hypoxic Respiratory Failure Severe Anemia Acute on Chronic Diastolic Heart Failure +Troponins likely Demand Ischemia Lactic Acidosis Acute on Chronic Renal Failure Elevated LFTs likely Congestive Hepatopathy Atrial Fibrillation s/p PPM HTN Hyperlipidemia Hypothyroidism Seizure Disorder - monitor H/H - continue lasix - monitor urine output, creatinine - trend cardiac enzymes - trend LFTs - on empiric antibiotics - for EGD when euvolemic - O2 to keep SpO2 >90% - rate control - f/u echocardiogram - DVT prophylaxis - continue ICU monitoring critical care time spent in reviewing chart, evaluating patient and formulating plan 35 min
--- NOTE | 2019-03-31 11:29 | PN ---
Physical Exam: SUBJECTIVE: Patient seen and examined in ICU. Pt more altered but tangential with his thoughts. Pt found to be in AFIB w RVR and acute ST changes noted on EKG. Call placed to cardio who recs BB therapy and d/c norvasc. No need to rpt trops. OBJECTIVE: Vital Signs Period Temp Pulse Resp BP Sys/Cabral Pulse Ox Last 24 Hr 97.3 F-100.8 F 56-108 15-22 113-142/63-96 92-100 GENERAL: The patient is awake but lethargic but AO X4. Patient later began to have mental status changes in afternoon. HEAD: Normal with no signs of trauma. NECK: supple, hepatojugular reflex positive for JVD. LUNGS: Breath sounds crackles at bases. HEART: AFib w RVR, normal S1, S2 without murmur, rub or gallop. Pacemaker. ABDOMEN: Soft, nontender, nondistended, normoactive bowel sounds, no guarding. EXTREMITIES: 2+ dp pulses, warm, well-perfused, pitting edema b/l LE's. NEUROLOGICAL: Cranial nerves II through XII grossly intact, somewhat impaired speech, AO X3. PSYCH: not altered but tangential thoughts on exam. SKIN: Warm, 2+ pitting edema, no rashes or lesions noted Laboratory Results - last 24 hr 03/30/19 03/30/19 03/30/19 11:55 14:17 14:23 WBC Corrected WBC (auto) RBC Hgb Hct MCV MCH MCHC RDW Plt Count MPV Absolute Neuts (auto) Neutrophils % Neutrophils % (Manual) Band Neutrophils % Lymphocytes % Lymphocytes % (Manual) Monocytes % Monocytes % (Manual) Eosinophils % Eosinophils % (Manual) Basophils % Basophils % (Manual) Myelocytes % (Man) Promyelocytes % (Man) Blast Cells % (Manual) Nucleated RBC % Metamyelocytes Hypochromia Platelet Estimate Polychromasia Poikilocytosis Anisocytosis Microcytosis Macrocytosis Schistocytes Retic Count Anticoagulation Therapy Puncture Site ABG pH ABG pCO2 at Pt Temp ABG pO2 at Pt Temp ABG HCO3 ABG O2 Sat (Measured) ABG O2 Content ABG Base Excess Escobar Test O2 Delivery Device Oxygen Flow Rate Vent Mode Vent Rate Mechanical Rate Pressure Support Vent Sodium Potassium Chloride Carbon Dioxide Anion Gap BUN Creatinine Est GFR (CKD-EPI)AfAm Est GFR (CKD-EPI)NonAf POC Glucometer 367 424 414 Random Glucose Lactic Acid Calcium Phosphorus Magnesium Iron TIBC Iron Saturation Unsaturated IBC Ferritin Total Bilirubin AST ALT Alkaline Phosphatase Creatine Kinase Creatine Kinase Index CK-MB (CK-2) Troponin I C-Reactive Protein B-Natriuretic Peptide Total Protein Albumin Vitamin B12 Serum Folate TSH Urine Color Urine Appearance Urine pH Ur Specific [place] Urine Protein Urine Glucose (UA) Urine Ketones Urine Blood Urine Nitrite Urine Bilirubin Urine Urobilinogen Ur Leukocyte Esterase Urine WBC (Auto) Urine RBC (Auto) Urine Casts (Auto) U Pathogenic Cast Auto U Epithel Cells (Auto) Urine Bacteria (Auto) Opiates Screen Methadone Screen Barbiturate Screen Phencyclidine Screen Ur Amphetamines Screen MDMA (Ecstasy) Screen Benzodiazepines Screen Cocaine Screen U Marijuana (THC) Screen RPR Titer ASSESSMENT/PLAN: 68 year old male with history of HTN, Hyperlipdemia, Mitral Insufficiency ( moderate), Pulmonary Hypertension, diverticulosis ,gastrities , DM, Hypothyroidism, addiction to oxycodone , transferred to ICU for acute respiratory distress Neuro -> Acute metabolic encephalopathy 2/2 to hyoxemia and med side effects ( oxycodone)/seizure hx * Lethargic, arousable initially responsive to commands and able to speak but later around 3 pm pt had worsening in his mentation * Head CT negative for any acute intracranial pathology * ABG not showing signs of acute resp acidosis, ordered ammonia level to assess for hepatic encephalopathy given his transaminitis. * Neuro consulted (Dr. Quinteros)- spoke on telephone, recommends rpt head CT in AM if pt's pacemaker is not compatible with MRI machine, otherwise most likely 2 /2 acute toxic metabolic encephalopathy from CHF. * avoid any oxycodone or any hypnotics * continue with Keppra GI -> transaminitis likely 2/2 to congestive hepatopathy * downtrended to [phone] (AST/ALT) with ALP 744. Pt has uptrended and then downtrended in same admission making me think most likely 2/2 hepatic congestion from the CHF exacerbation. * follow Liver US pt NPO for this * Spoke with Dr. Simpson, who recommends initiating heparin drip and protonix drip given that he doubts pt is actively bleeding and protonix helps with platelet's optimal functioning. Heparin drip would be beneficial given the LA dilation ass. with his AF RVR on EKG. * history of gastric wall thickening need to R.O malignancy with EGD pending pt is euvolemic per cardio recs * guiac positive R.O. GI bleed * transfusion threshold < 8 given cardiac hx * avoid NSAIDS Pulmonary -> acute hypoxic respiratory failure likely due to CHF exacerbation /pulmonary edema vs medication side effect/ lactic acidosis/WHO Group III Pulmonary HTN * c/w Ceftriaxone and doxycycline for CAP coverage given QTc prolongation * TSH, folic acid, PTH, b12 , RPR negative * lasix 40 IV BID * daily weight * I& O * monitor urine o/p pt making adequate urine * BNP * CXR showing b/l pulm and pleural changes. * Echo pending result Cardiology -> Acute on chronic diastolic high-output heart failure/tropinemia/ HTN * LE edema , congestion changes on X ray , respiratoy distress , worsening kidney function * echo showing biatrial dilation, LVSF moderately reduced. RVSP 40-50 (WHO Group III classification Pulm HTN given cardiac cause) * daily weight , I &O * lasix 40 IV BID * monitor urine out put * troponinemia likely 2/2 to demand ischemia,not trending anymore given it peaked, no chest pain. * cardio recs bystolic 5mg and d/c amlodipine. Agrees with Calvin regarding heparin drip initiation. * avoid meds cause prolongation avoid ( oxycodone no zofran no azithromycin... ) * pt has pacemaker Renal -> Mild DANYA likley 2/2 to CHF exacerbation induced decreased renal perfusion * c/w lasix 40 IV BID * Hyperkalemia K 5.6 down to 4.6 today s/p insulin SQ and D50 * mild Hyponatremia * NA 138 today improved Endo -> DM/hypothyroidism * hold oral agents * ISS * BGM Q 6hr * TSH elevated, B12, Folate elevated RPR negative for dementia workup * cont synthroid Heme -> Anemia/thrombocytosis * H/H 10.2/30.8 today * guiac positive * GI on board Dr Simpson will scope as soon as medically stable * unknown etiology will repeat lab in Am # FENGI * d/c fluids * Monitor lytes, replete as needed * NPO for now * Protonix 40 IV daily # proph * scds , no chemical ppx at this time given recent anemia and ? GI bleed. * PPI 40 IV daily # Dispo * monitor in ICU # code status * full code Dispo: We will continue to follow the patient. Thank you for this consultative opportunity. Visit type - Emergency Visit Emergency Visit: Yes ED Registration Date: 03/29/19 Care time: The patient presented to the Emergency Department on the above date and was hospitalized for further evaluation of their emergent condition. - New Patient This patient is new to me today: Yes Date on this admission: 03/31/19 - Critical Care Critical Care patient: Yes Total Critical Care Time (in minutes): 40 Critical Care Statement: The care of this patient involved high complexity decision making to prevent further life threatening deterioration of the patient 's condition and/or to evaluate & treat vital organ system(s) failure or risk of failure. - Discharge Referral Referred to [facility] Med P.C.: No
[2019-03-31] MEDS ORDERED: metoPROLOL SUCCINATE 25 MG TAB.SR.24H (FP) PO SCH (11:45)
--- NOTE | 2019-03-31 13:03 | CONSULT ---
Consult Consult Specialty:: Nephrology Reason for Consultation:: hyperkalemia - History of Present Illness Chief Complaint: cough History of Present Illness: Pt is a 68 year old male with pmhx of DM, hypothyroidism, epilepsy, s/p PPM wh presents to the ER with a productive cough. He also had lower ext edmea. He has had a few episodes of vomiting. He denies fevers or chills. He was found to be hyperkalemic. Pt also developed renal failure. Pt has had a 20 pound weight loss over the last 6 months. He is unable to give much history. Chart was reviewed. He also developed rapid e-fib. - History Source History Provided By: Medical Record - Past Medical History [employer]: Yes: Seizure Cardio/Vascular: Yes: HTN, Hyperlipdemia, Mitral Insufficiency (moderate), Pulmonary Hypertension, Other (PPM for SSS) Gastrointestinal: Yes: Diverticulosis, Gastritis ([address] Covarrubias but no HP), Other (hyperplastic colon polyp removed [address] Covarrubias) Psych: Yes: Addictions (prescription narcotics as per the ) Musculoskeletal: Yes: Other (lumbar disc disease and spinal stenosis) Endocrine: Yes: Diabetes Mellitus (confirmed by ), Hypothyroidism - Past Surgical History Past Surgical History: Yes: Appendectomy ( reports an appendectomy but I cannot find incisions), Colonoscopy, Upper Endoscopy - Alcohol/Substance Use Hx Alcohol Use: No History of Substance Use: reports: Prescription (narcotics) - Smoking History Smoking history: Never smoked Have you smoked in the past 12 months: No Aproximately how many cigarettes per day: 0 - Social History Usual Living Arrangement: With Spouse ADL: Family Assistance 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 History of Recent Travel: No Home Medications - Allergies Allergies/Adverse Reactions: Allergies Allergy/AdvReac Type Severity Reaction Status Date / Time lacosamide [From Vimpat] Allergy Rash Verified 03/29/19 09:32 - Home Medications Home Medications: Ambulatory Orders Amlodipine Besylate [Norvasc -] 10 mg PO DAILY 04/02/12 Gabapentin 300 mg PO BID 04/02/12 Levothyroxine [Synthroid -] 125 mcg PO DAILY 04/02/12 Multivitamin [Multivitamins] 1 each PO DAILY 04/02/12 levETIRAcetam [Keppra Oral Solution -] 750 mg PO BID 04/02/12 metFORMIN HCL [Glucophage -] 1,000 mg PO DAILY 04/02/12 Carbamazepine [Tegretol -] 300 mg PO TID 06/03/13 Oxycodone HCl [Roxicodone] 7.5 mg PO PRN 05/30/14 Lidocaine 5% Patch [Lidoderm Patch -] 2 patch TP DAILY 10/22/16 Simvastatin 40 mg PO HS 10/22/16 Tamsulosin HCl 0.4 mg PO DAILY 10/22/16 Famotidine 20 mg PO BID #28 tablet 01/25/18 Ondansetron [Zofran Odt -] 4 mg GT QID PRN #20 tab.rapdis 01/25/18 Glipizide 5 mg PO BID 03/30/19 Family Medical History Family History: Unable to Obtain Review of Systems Unable to obtain ROS, reason: pt unable to give history Physical Exam Vital Signs: Vital Signs Temperature 98.2 F 03/31/19 08:19 Pulse Rate 60 03/31/19 11:49 Respiratory Rate 15 03/31/19 11:49 Blood Pressure 107/59 L 03/31/19 11:49 O2 Sat by Pulse Oximetry (%) 100 03/31/19 08:19 Constitutional: Yes: Calm Eyes: Yes: Conjunctiva Clear HENT: Yes: Atraumatic Cardiovascular: Yes: S1, S2 Gastrointestinal: Yes: Soft Renal/: Yes: Incontinence Musculoskeletal: Yes: Muscle Weakness Edema: No Neurological: Yes: Confusion Labs: CBC, BMP 03/31/19 06:10 03/31/19 06:10 Laboratory Tests 01/25/18 03/29/19 03/29/19 07:18 11:05 20:45 Hgb 6.1 L* Potassium 5.7 H Creatinine 0.8 1.3 03/30/19 03/30/19 03/30/19 06:45 16:00 16:00 Hgb 9.5 L 9.3 L Potassium 6.2 H* Creatinine 03/30/19 03/31/19 23:00 06:10 Hgb Potassium 5.0 4.5 Creatinine 1.6 H 1.7 H Imaging - Results Chest X-ray: Report Reviewed Ultrasound: Report Reviewed Problem List - Problems (1) Acute on chronic diastolic (congestive) heart failure Code(s): I50.33 - ACUTE ON CHRONIC DIASTOLIC (CONGESTIVE) HEART FAILURE (2) [id number] kidney injury Code(s): N17.9 - ACUTE KIDNEY FAILURE, UNSPECIFIED; N18.9 - CHRONIC KIDNEY DISEASE, UNSPECIFIED Qualifiers: Acute renal failure type: unspecified (3) Hyperkalemia Code(s): E87.5 - HYPERKALEMIA (4) Hypothyroidism Code(s): E03.9 - HYPOTHYROIDISM, UNSPECIFIED Qualifiers: Hypothyroidism type: unspecified Qualified Code(s): E03.9 - Hypothyroidism , unspecified Assessment/Plan Current Medications Generic Name Dose Route Start Last Admin Trade Name Freq PRN Reason Stop Dose Admin Acetaminophen 1,000 mg 03/30/19 17:18 Ofirmev Injection - IVPB Q6H PRN FEVER Al Hydroxide/Mg Hydroxide 30 ml 03/29/19 22:18 03/29/19 22:24 Mylanta Oral Suspension - PO 30 ml Q8H PRN Administration INDIGESTION Albuterol Sulfate 1 amp 03/30/19 13:51 03/30/19 14:00 Ventolin 0.083% Nebulizer Soln - NEB 1 amp Q6H PRN Administration SHORT OF BREATH/WHEEZING Albuterol/Ipratropium 1 amp 03/30/19 17:03 03/30/19 20:10 Duoneb - NEB 1 amp Q4H PRN Administration SHORTNESS OF BREATH Carbamazepine 200 mg 03/29/19 18:45 03/31/19 12:39 Tegretol - PO 200 mg TIDCM RYANNE Administration Dextrose 25 gm 03/31/19 08:21 D50w (Vial) - IVPUSH PRN PRN HYPOGLYCEMIA Furosemide 40 mg 03/31/19 06:00 03/31/19 05:35 Lasix Injection - IVPUSH 40 mg BID@0600,1400 RYANNE Administration Ceftriaxone Sodium 1 gm/ 50 mls @ 200 mls/hr 03/30/19 16:00 03/31/19 09:24 Dextrose IVPB 200 mls/hr DAILY RYANNE Administration Protocol Doxycycline Hyclate 100 mg/ 100 mls @ 100 mls/hr 03/30/19 22:00 03/31/19 09: 29 Dextrose IVPB 100 mls/hr BID RYANNE Administration Insulin Aspart 1 vial 03/30/19 11:00 03/31/19 11:18 Novolog Vial Sliding Scale - SQ Not Given ACHS RYANNE Protocol Levetiracetam 750 mg 03/30/19 22:00 03/31/19 09:26 Keppra Injection - IVPB 750 mg BID RYANNE Administration Levothyroxine Sodium 125 mcg 03/31/19 07:00 03/31/19 06:38 Synthroid - PO 125 mcg DAILY@0700 RYANNE Administration Lidocaine 1 patch 03/30/19 12:00 03/31/19 09:25 Lidoderm Patch - TP 1 patch DAILY RYANNE Administration Mirtazapine 15 mg 03/30/19 22:00 03/30/19 22:13 Remeron - PO Not Given HS RYANNE Miscellaneous 1 each 03/30/19 22:00 03/30/19 22:12 Lidoderm Patch Removal MC 1 each DAILY@2200 RYANNE Administration Nebivolol 5 mg 03/31/19 12:30 Bystolic - PO DAILY RYANNE Pantoprazole Sodium 40 mg 03/30/19 22:00 03/31/19 09:24 Protonix Iv IVPUSH 40 mg BID RYANNE Administration Tamsulosin HCl 0.4 mg 03/31/19 08:30 03/31/19 09:23 Flomax - PO 0.4 mg DAILY@0830 RYANNE Administration Impression 1. DANYA 2. hyperkalemia 3. chf 4. weight loss 5. anemia 6. hypoxic resp failure 7. transaminitis 8. htn 9. a-fib Plan - cont lasix - lasix should help with potassium - potassium level is improved - monitor labs - has atrophic left kidney on ultrasound - will need to evaluate weight loss - discussed with ICU team
--- NOTE | 2019-03-31 13:28 | ECHO ---
Name: SALO, BABY Exam:Adult Echocardiogram Study Date: 03/31/2019 11:18 AM Age: 68 yrs Reason For Study: CHF Height: 66 in Weight: 119 lb BSA: 1.6 m2 MMode/2D Measurements & Calculations IVSd: 0.79 cm Ao root diam: 3.1 cm LVIDd: 5.3 cm LA dimension: 4.4 cm LVIDs: 3.7 cm ACS: 1.7 cm LVPWd: 0.84 cm IVSs: 1.2 cm LVPWs: 1.2 cm EDV(Teich): 136.8 ml ESV(Teich): 58.5 ml Doppler Measurements & Calculations MV E max abner: 101.7 cm/sec Ao V2 max: 116.4 cm/sec MV A max abner: 38.0 cm/sec Ao max P.4 mmHg MV E/A: 2.7 Ao V2 mean: 79.1 cm/sec Ao mean P.8 mmHg Ao V2 VTI: 19.8 cm AI P1/2t: 592.2 msec AI max abner: 417.2 cm/sec MR max abner: 452.8 cm/sec AI max P.6 mmHg MR max P.4 mmHg AI dec slope: 206.3 cm/sec2 TR max abner: 288.4 cm/sec Med Peak E' Abner: 6.0 cm/sec TR max P.3 mmHg Med E/e': 16.9 Lat Peak E' Abner: 7.7 cm/sec Lat E/e': 13.2 Procedure A two-dimensional transthoracic echocardiogram with color flow and Doppler was performed. Left Ventricle The left ventricle is grossly normal size. Left ventricular systolic function is moderate to severely reduced. There is apical anterior wall akinesis. There is apical septal wall akinesis. There is apical dyskine sis. There is apical lateral wall akinesis. There is apical inferior wall hypokinesis. Right Ventricle The right ventricle is not well visualized. There is a pacemaker lead in the right ventricle. Atria The left atrium is moderately dilated. The right atrium is moderately dilated. The atrial septum is aneurysmal. Mitral Valve There is mild mitral valve thickening. There is no mitral valve stenosis. There is moderate to severe mitral regurgitation. Tricuspid Valve The tricuspid valve is not well visualized. There is no tricuspid stenosis. There is moderate tricusp id regurgitation. Right ventricular systolic pressure is elevated at 40-50mmHg. Aortic Valve There is mild to moderate aortic valve thickening. There is mild to moderate aortic sclerosis.;. The aortic valve is not well visualized. No hemodynamically significant valvular aortic stenosis. Mild aortic regurgitation. Pulmonic Valve The pulmonic valve is not well visualized. Great Vessels The aortic root is normal size. Pericardium/Pleura There is no pericardial effusion. Interpretation Summary The left ventricle is grossly normal size. The left atrium is moderately dilated. The right atrium is moderately dilated. There is mild to moderate aortic valve thickening. There is mild to moderate aortic sclerosis.; The atrial septum is aneurysmal. Left ventricular systolic function is moderate to severely reduced. There is apical anterior wall akinesis. There is apical septal wall akinesis. There is apical dyskinesis. There is moderate to severe mitral regurgitation. Mild aortic regurgitation. There is a pacemaker lead in the right ventricle. There is moderate tricuspid regurgitation. Right ventricular systolic pressure is elevated at 40-50mmHg. There is apical lateral wall akinesis. There is apical inferior wall hypokinesis. MD Vaibhav Harper 03/31/2019 01:28 PM
--- NOTE | 2019-03-31 14:57 | CONSULT ---
Admitting History and Physical - Admission History of Present Illness: Pt is a 68 year old male with pmhx of DM, hypothyroidism, epilepsy, s/p PPM wh presents to the ER with a productive cough. He also had lower ext edmea. He has had a few episodes of vomiting Selected Entries 03/29/19 03/29/19 03/30/19 17:11 22:23 01:55 Breakfast Chief Complaint cough, nausea, vomiting Lunch Supper 25% Temperature 98.5 F 03/30/19 03/30/19 03/30/19 02:00 06:00 08:30 Breakfast Chief Complaint Lunch Supper Temperature 97.5 F L 975 F H 97.9 F 03/30/19 03/30/19 03/30/19 11:33 15:17 15:36 Breakfast 25% Chief Complaint Lunch 0 Supper Temperature 97.7 F 03/30/19 03/30/19 03/30/19 16:28 20:00 22:00 Breakfast Chief Complaint Lunch Supper NPO Temperature 100.8 F H 99.4 F 03/31/19 03/31/19 03/31/19 05:00 06:00 08:19 Breakfast Chief Complaint Lunch Supper Temperature 97.3 F L 97.5 F L 98.2 F 03/31/19 03/31/19 14:32 14:41 Breakfast Chief Complaint Lunch Supper Temperature 98.7 F 98.7 F Laboratory Tests 03/29/19 03/30/19 03/31/19 11:05 06:45 06:10 WBC 7.5 6.7 10.9 H Was npo for [facility]. 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 Cardiovascular: Yes: HTN, Hyperlipdemia, Mitral Insufficiency (moderate), Pulmonary Hypertension, Other (PPM for SSS) Gastrointestinal: Yes: Diverticulosis, Gastritis ([address] Covarrubias but no HP), Other (hyperplastic colon polyp removed [address] Covarrubias) Heme/Onc: Yes: Anemia Psych: Yes: Addictions (prescription narcotics as per the ) Musculoskeletal: Yes: Other (lumbar disc disease and spinal stenosis) Endocrine: Yes: Diabetes Mellitus (confirmed by ), Hypothyroidism - Past Surgical History Past Surgical History: Yes: Appendectomy ( reports an appendectomy but I cannot find incisions), Colonoscopy, Upper Endoscopy - Smoking History Smoking history: Never smoked Have you smoked in the past 12 months: No Aproximately how many cigarettes per day: 0 - Alcohol/Substance Use Hx Alcohol Use: No History of Substance Use: reports: Prescription (narcotics) - Social History ADL: Family Assistance 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 History of Recent Travel: No History - Admission Reason For Visit: PRESENCE OF CARDIAC PACEMAKER,SEC ANEMIA,HYPERTENS - Diagnostics X-ray: Report Reviewed - General Mental Status: Awake and Alert (very weak, bilateral ptosis, dry heaves) Attention: Distractible, Mild Impairment Head/Neck Control: Needs Assist - Hearing Hearing: Normal Hearing Aide: No Speech Evaluation - Communication Primary Language: SERBIAN ([facility]) Communication: Yes: Simple Responses (Water) Oral Expression Ability: Yes: Moderate Impairment - Speech Production Able to Make Needs Known: Yes: Moderately Impaired Intelligibility: Yes: Moderately Impaired - Speech Characteristics Voice Loudness: Mildly Soft/Quiet Voice Phonatory-based Quality: Yes: Harsh Articulation: Yes: Imprecise - Swallow Evaluation/Bedside Assessment Current Nutritional Intake: NPO Facial Symmetry at Rest: Symmetrical Jaw Position: Open at Rest Laryngeal Movement: Able to Palpate, Reduced Excursion, Labored,delay initiation , Reduced Velocity Oral Prep Time: Increased A-P Transit: Impaired Timing of Swallow: Delayed Coughing/Throat Clear: Yes (thin water) Recommendations - Speech Evaluation, Impression/Plan Impression: very weak, bilateral ptosis, dry heaves. Cough response with sip of water. Delayed weak swallow - Dysphagia Impressions/Plan Swallowing Skills: Impaired Dysphagia Impressions: Moderate Impairment, Suspect Aspiration *Silent aspiration: cannot be R/O at bedside Dysphagia Treatment Plan: Small Bites, Chin Tuck/Down, Clear Pocket Food, Trial Feedings, Safe Rate, 1/2 tsp. at a time Recommendations: Other (NPO, dry heaves. Once no longer nauseated, and awake, responsive, trial of puree/nectar thick liquid on tsp, observe tolerance. Npo if heaves, coughs, vocal wetness.) - Recommendations Diet Consistency: Dysphagia Pureed Medication Administration: Crushed with applesauce Liquids: Dora Thick Supplement: Magic Cup, Ensure Pudding
[2019-03-31] MEDS ORDERED: TRIMETHOBENZAMIDE HCL 200MG/2ML INJ IM ONE (15:05)
[2019-03-31 16:10] LABS: ARTERIAL BLD GAS O2 SATURATION 95.7 % (95-98); ARTERIAL BLOOD GAS BASE EXCESS -2.3 meq/l (-2-2); ARTERIAL BLOOD GAS PCO2 32.5 mmHg (35-45); ARTERIAL BLOOD GAS PO2 85.4 mmHg (80-100); ARTERIAL BLOOD GAS pH 7.43 (7.35-7.45)
[2019-03-31 16:12] LABS: ALLENS TEST POSITIVE
[2019-03-31] MEDS ORDERED: HEPARIN NA (PORCINE) 5,000 UNITS/ML 1ML VIAL IVPUSH PRN ×2 (16:45)
[2019-03-31] MEDS ORDERED: HEPARIN SOD,PORK IN 0.45% NACL 25,000 UNIT/500 ML INFUS.BAG IVPB SCH (16:45)
[2019-03-31] MEDS: NEBIVOLOL 5 MG TABLET (FP) PO SCH (17:03)
[2019-03-31] MEDS: PANTOPRAZOLE SODIUM 80 MG in SODIUM CHLORIDE 100 ML IVPB SCH (18:36)
[2019-03-31] MEDS: MIRTAZAPINE 15 MG TABLET (FP) PO SCH (21:40)
[2019-03-31] MEDS: LIDOCAINE PATCH REMOVAL MC SCH (21:40)
[2019-03-31 23:37] LABS: BASO % 0.4 % (0-2.0); EOS % 0.2 % (0-4.5); HEMOGLOBIN 9.9 GM/dL (11.7-16.9); LYMPH % 11.1 % (8-40); MCH 29.6 pg (25.7-33.7); MCHC 32.1 g/dl (32.0-35.9); MEAN CELL VOLUME 92.2 fl (80-96); MEAN PLT VOLUME 7.5 fl (7.5-11.1); MONO % 9.6 % (3.8-10.2); NEUT % 78.7 % (42.8-82.8); PLATELET COUNT 368 K/MM3 (134-434); RBC 3.36 M/mm3 (4.00-5.60); RDW 17.6 % (11.9-15.9); WHITE BLOOD COUNT 9.4 K/mm3 (4.0-10.0)
[2019-04-01] MEDS: PANTOPRAZOLE SODIUM 80 MG in SODIUM CHLORIDE 100 ML IVPB SCH ×2 (04:55→13:29)
[2019-04-01] MEDS: FUROSEMIDE 40 MG/4 ML INJECTABLE VIAL IVPUSH SCH (05:52)
[2019-04-01] MEDS ORDERED: guaiFENesin/D-METHORPHAN HB 10 ML UNIT-DOSE CUPS PO ONE (06:02)
[2019-04-01] MEDS: LEVOTHYROXINE NA 125 MCG TABLET (FP) PO SCH (06:03)
[2019-04-01] MEDS: INSULIN SLIDING SCALE (NOVOLOG) 1 VIAL SQ SCH ×4 (06:03→23:20)
[2019-04-01 07:25] LABS: BASO % 0.4 % (0-2.0); EOS % 1.2 % (0-4.5); HEMATOCRIT 32.3 % (35.4-49); HEMOGLOBIN 10.6 GM/dL (11.7-16.9); LYMPH % 17.9 % (8-40); MCH 30.2 pg (25.7-33.7); MCHC 32.9 g/dl (32.0-35.9); MEAN CELL VOLUME 91.7 fl (80-96); MEAN PLT VOLUME 7.2 fl (7.5-11.1); MONO % 8.1 % (3.8-10.2); NEUT % 72.4 % (42.8-82.8); PLATELET COUNT 432 K/MM3 (134-434); RBC 3.53 M/mm3 (4.00-5.60); RDW 16.9 % (11.9-15.9); WHITE BLOOD COUNT 10.3 K/mm3 (4.0-10.0)
[2019-04-01 07:45] LABS: INR 1.32 (0.83-1.09); PROTHROMBIN TIME (PATIENT) 15.6 SEC (9.7-13.0)
[2019-04-01 07:48] LABS: ACTIVATED PTT 98.5 SECONDS (25.2-36.5)
[2019-04-01] MEDS ORDERED: cefTRIAXone SODIUM 1 GM VIAL ONE (08:01)
[2019-04-01] MEDS ORDERED: DEXTROSE 5%-WATER - 50 ML IVPB ONE (08:01)
[2019-04-01] MEDS ORDERED: PT OWN MED DRAWER 7, Y5N ONE (08:02)
--- NOTE | 2019-04-01 08:07 | CONSULT ---
Consult - text type - Consultation Consultation Note: Neurology History of Present Illness - General Chief Complaint: Nausea/Vomiting Stated Complaint: VOMITING - History of Present Illness 68M w/ a history of DM, hypothyroidism, seizure d/o, s/p pacemaker who presents for evaluation of 1 month of cough with increased sputum production. He also notes 1 week of BLE swelling to mid-reyes. He reports some symptomatic relief from coughing with robitussin. He also notes post-tussive emesis. He denies fevers/chills, trouble breathing, abdominal pain, diarrhea, dysuria/hematuria, or changes in sensation. He denied lower extremity swelling before. Patient currently in ICU under critical care monitoring. contacted by ICU resident on rregarding patient's mental status which she reported was somnolent and lethargic. He discussed the case with me including multiple medical comorbidities including respiratory compromise requiring positive pressure ventilation, CHF exacerbation along with coffee-ground emesis and concern for upper GI bleed with reduction in hemoglobin and hematocrit. The patient also found to have atrial fibrillation and receiving medical optimization. I advised having noncontrast head CT which was completed and showed moderate atrophy but no significant infarcts or focal abnormalities. Likely toxic metabolic encephalopathy secondary to multiple medical comorbidities as described above. This morning, patient was awake and alert and conversive with me. He was able to tell me that he is at [facility]. When asked the date, he was able to tell me 10 for the month but not able tostate the year. Mental status seems to have improved possibly not yet at baseline and requires further medical management. Past History - Past Medical History Allergies/Adverse Reactions: Allergies Allergy/AdvReac Type Severity Reaction Status Date / Time lacosamide [From Vimpat] Allergy Rash Verified 03/29/19 09:32 Home Medications: Ambulatory Orders Amlodipine Besylate [Norvasc -] 5 mg PO DAILY 04/02/12 Gabapentin 100 mg PO BID 04/02/12 Levothyroxine [Synthroid -] 125 mcg PO DAILY 04/02/12 Multivitamin [Multivitamins] 1 each PO DAILY 04/02/12 levETIRAcetam [Keppra Oral Solution -] 750 mg PO BID 04/02/12 metFORMIN HCL [Glucophage -] 1,000 mg PO DAILY 04/02/12 Carbamazepine [Tegretol -] 200 mg PO TID 06/03/13 Oxycodone HCl [Roxicodone] 7.5 mg PO PRN 05/30/14 Lidocaine 5% Patch [Lidoderm Patch -] 2 patch TP DAILY 10/22/16 Simvastatin 40 mg PO HS 10/22/16 Tamsulosin HCl 0.4 mg PO DAILY 10/22/16 Famotidine 20 mg PO BID #28 tablet 01/25/18 Ondansetron [Zofran Odt -] 4 mg GT QID PRN #20 tab.rapdis 01/25/18 Cardiac Disorders: Yes COPD: No Diabetes: Yes HTN: Yes Hypercholesterolemia: Yes Seizures: Yes Thyroid Disease: Yes (HYPO) - Surgical History Abdominal Surgery: Yes Cardiac Surgery: Yes (PACEMAKER) Neurologic Surgery: Yes (hydrocel L. & R.) - Immunization History Immunization Up to Date: Yes - Psycho Social/Smoking Cessation Hx Smoking Status: No Smoking History: Never smoked Have you smoked in the past 12 months: No Number of Cigarettes Smoked Daily: 0 Information on smoking cessation initiated: No Hx Alcohol Use: No Drug/Substance Use Hx: No Substance Use Type: None Hx Substance Use Treatment: No Family: HTN Review of Systems ENERAL/CONSTITUTIONAL: No fever or chills. No weakness HEAD, EYES, EARS, NOSE AND THROAT: No change in vision. No change in hearing. No sore throat CARDIOVASCULAR: No shortness of breath RESPIRATORY: Denies hemoptysis GASTROINTESTINAL: No nausea, diarrhea or constipation GENITOURINARY: No dysuria, frequency, or change in urination MUSCULOSKELETAL: No joint or muscle pain. No neck or back pain SKIN: No rash NEUROLOGIC: No headache, vertigo, loss of consciousness, or change in strength/ sensation ENDOCRINE: No increased thirst. No abnormal weight change HEMATOLOGIC/LYMPHATIC: No easy bleeding, or history of blood clots ALLERGIC/IMMUNOLOGIC: No hives or skin allergy *Physical Exam Vital Signs Period Temp Pulse Resp BP Sys/Cabral Pulse Ox Last 24 Hr 98 F-98.7 F 60-102 13-17 107-145/59-86 100-100 GENERAL: Awake, alert, and oriented to person/place/time, in no acute distress, thin HEAD: No signs of trauma, normocephalic, atraumatic EYES: PERRLA, EOMI, sclera anicteric, conjunctiva clear ENT: Hearing grossly normal, nares patent, oropharynx clear without exudates. Moist mucosa LUNGS: No distress, speaks in full sentences, clear to auscultation bilaterally HEART: Regular rate and rhythm, normal S1 and S2, no murmurs appreciated, peripheral pulses normal and equal bilaterally ABDOMEN: Soft, nontender, normoactive bowel sounds. No guarding, no rebound EXTREMITIES: Normal inspection, Normal range of motion, no edema. No clubbing or cyanosis NEUROLOGICAL: Cranial nerves II through XII grossly intact. Tangential speech, knows location, knows month, moves all extemities grossly, sensory intact SKIN: Warm, Dry CBCD WBC 10.3 K/mm3 (4.0-10.0) H 04/01/19 06:45 RBC 3.53 M/mm3 (4.00-5.60) L 04/01/19 06:45 Hgb 10.6 GM/dL (11.7-16.9) L 04/01/19 06:45 Hct 32.3 % (35.4-49) L 04/01/19 06:45 MCV 91.7 fl (80-96) 04/01/19 06:45 MCHC 32.9 g/dl (32.0-35.9) 04/01/19 06:45 RDW 16.9 % (11.9-15.9) H 04/01/19 06:45 Plt Count 432 K/MM3 (134-434) 04/01/19 06:45 MPV 7.2 fl (7.5-11.1) L 04/01/19 06:45 CMP Sodium 138 mmol/L (136-145) 03/31/19 06:10 Potassium 4.5 mmol/L (3.5-5.1) 03/31/19 06:10 Chloride 104 mmol/L (98-107) 03/31/19 06:10 Carbon Dioxide 21 mmol/L (21-32) 03/31/19 06:10 Anion Gap 13 MMOL/L (8-16) 03/31/19 06:10 BUN 71.7 mg/dL (7-18) H 03/31/19 06:10 Creatinine 1.7 mg/dL (0.55-1.3) H 03/31/19 06:10 Random Glucose 216 mg/dL (74-106) H 03/31/19 06:10 Calcium 7.6 mg/dL (8.5-10.1) L 03/31/19 06:10 Total Bilirubin 0.4 mg/dL (0.2-1) 03/31/19 06:10 AST 553 U/L (15-37) H 03/31/19 06:10 ALT 864 U/L (13-61) H 03/31/19 06:10 Alkaline Phosphatase 744 U/L (45-117) H 03/31/19 06:10 Total Protein 5.6 g/dl (6.4-8.2) L 03/31/19 06:10 Albumin 2.1 g/dl (3.4-5.0) L 03/31/19 06:10 CARDIAC ENZYMES Creatine Kinase 254 U/L (26-308) 03/31/19 06:10 Troponin I 0.84 ng/ml (0.00-0.05) H* 03/31/19 23:25 Medical Decision Making 68M w/ a history of DM, hypothyroidism, seizure d/o, s/p pacemaker who presents for evaluation of 1 month of cough with increased sputum production. He also notes 1 week of BLE swelling to mid-reyes. He reports some symptomatic relief from coughing with robitussin. He also notes post-tussive emesis. He denies fevers/chills, trouble breathing, abdominal pain, diarrhea, dysuria/hematuria, or changes in sensation. He denied lower extremity swelling before. Patient currently in ICU under critical care monitoring. contacted by ICU resident on rregarding patient's mental status which she reported was somnolent and lethargic. He discussed the case with me including multiple medical comorbidities including respiratory compromise requiring positive pressure ventilation, CHF exacerbation along with coffee-ground emesis and concern for upper GI bleed with reduction in hemoglobin and hematocrit. The patient also found to have atrial fibrillation and receiving medical optimization. I advised having noncontrast head CT which was completed and showed moderate atrophy but no significant infarcts or focal abnormalities. Likely toxic metabolic encephalopathy secondary to multiple medical comorbidities as described above. This morning, patient was awake and alert and conversive with me. He was able to tell me that he is at [facility]. When asked the date, he was able to tell me 10 for the month but not able tos donohue the year. Continue treatment for respiratory compromise, IV abx per primary. GI bleed, patient recently started on heparin for Afib, closely monitor for bleed in presence of AC, GI follow up. Mental status seems to have improved possibly not yet at baseline and requires further medical management. Critical care time 40 mins.
[2019-04-01] MEDS: TAMSULOSIN HCL 0.4 MG CAP PO SCH (08:12)
[2019-04-01] MEDS: carBAMazepine 100 MG TAB.CHEW PO SCH ×3 (08:16→16:42)
--- NOTE | 2019-04-01 09:10 | PN ---
Physical Exam: SUBJECTIVE: Patient seen and examined at bedside in the ICU. Mental status at baseline this morning. OBJECTIVE: Vital Signs Period Temp Pulse Resp BP Sys/Cabral Pulse Ox Last 24 Hr 97.5 F-98.7 F 60-133 13-20 107-146/59-92 100-100 GENERAL: The patient is awake, alert, and fully oriented, in no acute distress. HEAD: Normal with no signs of trauma. EYES: PERRL, extraocular movements intact, sclera anicteric, conjunctiva clear. No ptosis. ENT: Ears normal, nares patent, oropharynx clear without exudates, moist mucous membranes. NECK: Trachea midline, full range of motion, supple. LUNGS: Breath sounds equal, clear to auscultation bilaterally, no wheezes, no crackles, no accessory muscle use. HEART: Irregular, S1, S2 without murmur, rub or gallop. ABDOMEN: Soft, nontender, nondistended, no guarding, no rebound, no masses. EXTREMITIES: 2+ pulses, warm, well-perfused, no edema. NEUROLOGICAL: Cranial nerves II through XII grossly intact. Normal speech, gait not observed. PSYCH: Normal mood, normal affect. SKIN: Warm, dry, normal turgor, no rashes or lesions noted Laboratory Results - last 24 hr 03/31/19 03/31/19 03/31/19 01:28 05:05 06:10 WBC RBC Hgb Hct MCV MCH MCHC RDW Plt Count MPV Absolute Neuts (auto) Neutrophils % Lymphocytes % Monocytes % Eosinophils % Basophils % Nucleated RBC % PT with INR INR PTT (Actin FS) Anticoagulation Therapy Puncture Site ABG pH ABG pCO2 at Pt Temp ABG pO2 at Pt Temp ABG HCO3 ABG O2 Sat (Measured) ABG O2 Content ABG Base Excess Escobar Test O2 Delivery Device Oxygen Flow Rate Vent Mode Vent Rate Mechanical Rate Pressure Support Vent POC Glucometer 113 112 Lactic Acid Ammonia Troponin I Tumor Marker AFP 2.1 Carcinoembryonic Ag 5.0 H 03/31/19 03/31/19 03/31/19 06:57 10:00 11:15 WBC RBC Hgb Hct MCV MCH MCHC RDW Plt Count MPV Absolute Neuts (auto) Neutrophils % Lymphocytes % Monocytes % Eosinophils % Basophils % Nucleated RBC % PT with INR INR PTT (Actin FS) Anticoagulation Therapy Puncture Site ABG pH ABG pCO2 at Pt Temp ABG pO2 at Pt Temp ABG HCO3 ABG O2 Sat (Measured) ABG O2 Content ABG Base Excess Escobar Test O2 Delivery Device Oxygen Flow Rate Vent Mode Vent Rate Mechanical Rate Pressure Support Vent POC Glucometer 219 117 Lactic Acid 2.0 Ammonia Troponin I Tumor Marker AFP Carcinoembryonic Ag 03/31/19 03/31/19 03/31/19 15:06 16:05 16:52 WBC RBC Hgb Hct MCV MCH MCHC RDW Plt Count MPV Absolute Neuts (auto) Neutrophils % Lymphocytes % Monocytes % Eosinophils % Basophils % Nucleated RBC % PT with INR INR PTT (Actin FS) Anticoagulation Therapy No Result Required. Puncture Site Left radial ABG pH 7.43 ABG pCO2 at Pt Temp 32.5 L ABG pO2 at Pt Temp 85.4 ABG HCO3 21.0 L ABG O2 Sat (Measured) 95.7 ABG O2 Content 12.5 ABG Base Excess -2.3 L Escobar Test Positive O2 Delivery Device No Result Required. Oxygen Flow Rate Yes Vent Mode No Result Required. Vent Rate No Result Required. Mechanical Rate No Result Required. Pressure Support Vent No Result Required. POC Glucometer 123 160 Lactic Acid Ammonia Troponin I Tumor Marker AFP Carcinoembryonic Ag 03/31/19 03/31/19 03/31/19 21:43 23:25 23:25 WBC 9.4 RBC 3.36 L Hgb 9.9 L Hct 31.0 L MCV 92.2 MCH 29.6 MCHC 32.1 RDW 17.6 H Plt Count 368 MPV 7.5 Absolute Neuts (auto) 7.4 Neutrophils % 78.7 Lymphocytes % 11.1 D Monocytes % 9.6 Eosinophils % 0.2 D Basophils % 0.4 Nucleated RBC % 2 H PT with INR INR PTT (Actin FS) Anticoagulation Therapy Puncture Site ABG pH ABG pCO2 at Pt Temp ABG pO2 at Pt Temp ABG HCO3 ABG O2 Sat (Measured) ABG O2 Content ABG Base Excess Escobar Test O2 Delivery Device Oxygen Flow Rate Vent Mode Vent Rate Mechanical Rate Pressure Support Vent POC Glucometer 167 Lactic Acid Ammonia Troponin I 0.84 H* Tumor Marker AFP Carcinoembryonic Ag 03/31/19 04/01/19 04/01/19 23:37 05:48 06:45 WBC 10.3 H RBC 3.53 L Hgb 10.6 L Hct 32.3 L MCV 91.7 MCH 30.2 MCHC 32.9 RDW 16.9 H Plt Count 432 MPV 7.2 L Absolute Neuts (auto) 7.4 Neutrophils % 72.4 Lymphocytes % 17.9 D Monocytes % 8.1 Eosinophils % 1.2 D Basophils % 0.4 Nucleated RBC % 2 H PT with INR INR PTT (Actin FS) 37.7 H Anticoagulation Therapy Puncture Site ABG pH ABG pCO2 at Pt Temp ABG pO2 at Pt Temp ABG HCO3 ABG O2 Sat (Measured) ABG O2 Content ABG Base Excess Escobar Test O2 Delivery Device Oxygen Flow Rate Vent Mode Vent Rate Mechanical Rate Pressure Support Vent POC Glucometer 143 Lactic Acid Ammonia Troponin I Tumor Marker AFP Carcinoembryonic Ag 04/01/19 04/01/19 06:45 06:45 WBC RBC Hgb Hct MCV MCH MCHC RDW Plt Count MPV Absolute Neuts (auto) Neutrophils % Lymphocytes % Monocytes % Eosinophils % Basophils % Nucleated RBC % PT with INR 15.60 H INR 1.32 H PTT (Actin FS) 98.5 H Anticoagulation Therapy Puncture Site ABG pH ABG pCO2 at Pt Temp ABG pO2 at Pt Temp ABG HCO3 ABG O2 Sat (Measured) ABG O2 Content ABG Base Excess Escobar Test O2 Delivery Device Oxygen Flow Rate Vent Mode Vent Rate Mechanical Rate Pressure Support Vent POC Glucometer Lactic Acid Ammonia 10.50 L Troponin I Tumor Marker AFP Carcinoembryonic Ag Active Medications Generic Name Dose Route Start Last Admin Trade Name Freq PRN Reason Stop Dose Admin Acetaminophen 1,000 mg 03/30/19 17:18 Ofirmev Injection - IVPB Q6H PRN FEVER Al Hydroxide/Mg Hydroxide 30 ml 03/29/19 22:18 03/29/19 22:24 Mylanta Oral Suspension - PO 30 ml Q8H PRN Administration INDIGESTION Albuterol Sulfate 1 amp 03/30/19 13:51 03/30/19 14:00 Ventolin 0.083% Nebulizer Soln - NEB 1 amp Q6H PRN Administration SHORT OF BREATH/WHEEZING Albuterol/Ipratropium 1 amp 03/30/19 17:03 03/30/19 20:10 Duoneb - NEB 1 amp Q4H PRN Administration SHORTNESS OF BREATH Carbamazepine 200 mg 04/01/19 08:00 04/01/19 08:16 Tegretol - PO 200 mg TIDCM RYANNE Administration Dextrose 25 gm 03/31/19 08:21 D50w (Vial) - IVPUSH PRN PRN HYPOGLYCEMIA Furosemide 40 mg 03/31/19 06:00 04/01/19 05:52 Lasix Injection - IVPUSH 40 mg BID@0600,1400 RYANNE Administration Heparin Sodium (Porcine) 1,000 unit 03/31/19 16:45 Heparin - IVPUSH PRN PRN Heparin Heparin Sodium (Porcine) 5,000 unit 03/31/19 16:45 04/01/19 00:17 Heparin - IVPUSH 5,000 unit PRN PRN Administration Heparin Ceftriaxone Sodium 1 gm/ 50 mls @ 200 mls/hr 03/30/19 16:00 03/31/19 09:24 Dextrose IVPB 200 mls/hr DAILY RYANNE Administration Protocol Doxycycline Hyclate 100 mg/ 100 mls @ 100 mls/hr 03/30/19 22:00 03/31/19 21: 59 Dextrose IVPB 100 mls/hr BID RYANNE Administration HEPARIN SOD,PORK IN 0.45% NACL 25,000 unit in 500 mls @ 16 mls/hr 03/31/19 16: 45 04/01/19 00:12 Heparin-1/2ns 25,000 Units/500 IVPB 950 units/hr TITR RYANNE 19 mls/hr Titration Protocol 800 UNITS/HR Pantoprazole Sodium 80 mg/ 100 mls @ 10 mls/hr 03/31/19 17:00 04/01/19 04:55 Sodium Chloride IVPB 10 mls/hr Q10H RYANNE Administration 8 MG/HR Pantoprazole Sodium 160 mg/ 290 mls @ 14.5 mls/hr 04/01/19 10:00 Sodium Chloride IVPB Q20H RYANNE Insulin Aspart 1 vial 03/30/19 11:00 04/01/19 06:03 Novolog Vial Sliding Scale - SQ Not Given ACHS RYANNE Protocol Levetiracetam 750 mg 03/30/19 22:00 03/31/19 21:40 Keppra Injection - IVPB 750 mg BID RYANNE Administration Levothyroxine Sodium 125 mcg 03/31/19 07:00 04/01/19 06:03 Synthroid - PO 125 mcg DAILY@0700 RYANNE Administration Lidocaine 1 patch 03/30/19 12:00 03/31/19 09:25 Lidoderm Patch - TP 1 patch DAILY RYANNE Administration Mirtazapine 15 mg 03/30/19 22:00 03/31/19 21:40 Remeron - PO 15 mg HS RYANNE Administration Miscellaneous 1 each 03/30/19 22:00 03/31/19 21:40 Lidoderm Patch Removal MC 1 each DAILY@2200 RYANNE Administration Nebivolol 5 mg 03/31/19 12:30 03/31/19 17:03 Bystolic - PO Not Given DAILY RYANNE Tamsulosin HCl 0.4 mg 03/31/19 08:30 04/01/19 08:12 Flomax - PO Not Given DAILY@0830 [facility] ASSESSMENT/PLAN: 68 year old male with history of HTN, Hyperlipdemia, Mitral Insufficiency ( moderate), Pulmonary Hypertension, diverticulosis ,gastrities , DM, Hypothyroidism, addiction to oxycodone , transferred to ICU for acute respiratory distress Neuro -> Acute metabolic encephalopathy 2/2 to hyoxemia and med side effects ( oxycodone)/seizure hx * Lethargic, arousable initially responsive to commands and able to speak but later around 3 pm pt had worsening in his mentation * Head CT negative for any acute intracranial pathology * ABG not showing signs of acute resp acidosis, ordered ammonia level to assess for hepatic encephalopathy given his transaminitis. * Neuro consulted (Dr. Quinteros)- spoke on telephone, recommends rpt head CT in AM if pt's pacemaker is not compatible with MRI machine, otherwise most likely 2 /2 acute toxic metabolic encephalopathy from CHF. * avoid any oxycodone or any hypnotics * continue with Keppra GI -> transaminitis likely 2/2 to congestive hepatopathy * downtrended to [phone] (AST/ALT) with ALP 744. Pt has uptrended and then downtrended in same admission making me think most likely 2/2 hepatic congestion from the CHF exacerbation. * f/u abd US * Spoke with Dr. Simpson, who recommends initiating heparin drip and protonix drip given that he doubts pt is actively bleeding and protonix helps with platelet's optimal functioning. Heparin drip would be beneficial given the LA dilation ass. with his AF RVR on EKG. * history of gastric wall thickening need to R.O malignancy with EGD pending pt is euvolemic per cardio recs * guiac positive R.O. GI bleed * transfusion threshold < 8 given cardiac hx * avoid NSAIDS * d/c with Dr. Simpson: no plans to scope * trend LFTs Pulmonary -> acute hypoxic respiratory failure likely due to CHF exacerbation /pulmonary edema vs medication side effect/ lactic acidosis/WHO Group III Pulmonary HTN * c/w Ceftriaxone and doxycycline for CAP coverage given QTc prolongation * TSH, folic acid, PTH, b12 , RPR negative * daily weight * I & O * monitor urine o/p pt making adequate urine * BNP * CXR showing b/l pulm and pleural changes. 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 RVSP 40-50 (WHO Group III classification Pulm HTN given cardiac cause) * daily weight , I &O * monitor urine out put * troponinemia likely 2/2 to demand ischemia,not trending anymore given it peaked, no chest pain. * cardio recs bystolic 5mg and d/c amlodipine. Agrees with Calvin regarding heparin drip initiation. * avoid meds cause prolongation avoid ( oxycodone no zofran no azithromycin... ) * pt has pacemaker * heparin drip stopped, switch to eliquis 5 mg BID per cardiology, Cr < 1.5 * rate control for a-fib * entresto when renal function stable Renal -> Mild DANYA michaelley 2/2 to CHF exacerbation induced decreased renal perfusion * c/w lasix 40 IV BID * Hyperkalemia K 5.6 down to 4.6 today s/p insulin SQ and D50 * mild Hyponatremia * NA 138 today improved Endo -> DM/hypothyroidism * hold oral agents * ISS * BGM Q 6hr * TSH elevated, B12, Folate elevated RPR negative for dementia workup * cont synthroid Heme -> Anemia/thrombocytosis * Hgb 10.6 today * guiac positive * monitor H//h ID -d/c abx # FEN * d/c fluids * Monitor lytes, replete as needed * NPO for now * Protonix 80 IV daily * monitor urine output and Cr # ppx * SCDs * PPI 80 IV daily * d/c heparin, start eliquis # code status * full code Dispo: transfer to tele Visit type - Emergency Visit Emergency Visit: No - New Patient This patient is new to me today: No - Critical Care Critical Care patient: Yes Total Critical Care Time (in minutes): 35 Critical Care Statement: The care of this patient involved high complexity decision making to prevent further life threatening deterioration of the patient 's condition and/or to evaluate & treat vital organ system(s) failure or risk of failure. ATTENDING PHYSICIAN STATEMENT I saw and evaluated the patient. I reviewed the resident's note and discussed the case with the resident. I agree with the resident's findings and plan as documented. SUBJECTIVE: OBJECTIVE: ASSESSMENT AND PLAN:
[2019-04-01] MEDS: CEFTRIAXONE 1 GM in DEXTROSE 5%-WATER - 50 ML IVPB SCH (09:17)
[2019-04-01] MEDS: DOXYCYCLINE INJECTION 100 MG in DEXTROSE 5%-WATER 100 ML IVPB SCH (09:17)
[2019-04-01] MEDS: levETIRAcetam 500 MG/5 ML INJECTION VIAL IVPB SCH ×2 (09:18→23:20)
[2019-04-01] MEDS: NEBIVOLOL 5 MG TABLET (FP) PO SCH (09:18)
--- NOTE | 2019-04-01 09:19 | PN ---
Progress Note, Physician History of Present Illness: Patient has been weaned off NIPPV onto NC with improved dyspnea and sensorium with diuresis. Now in rapid afib started on Bystolic. Tolerating dysphagia diet. - Current Medication List Current Medications: Active Medications Acetaminophen (Ofirmev Injection -) 1,000 mg IVPB Q6H PRN PRN Reason: FEVER Al Hydroxide/Mg Hydroxide (Mylanta Oral Suspension -) 30 ml PO Q8H PRN PRN Reason: INDIGESTION Last Admin: 03/29/19 22:24 Dose: 30 ml Albuterol Sulfate (Ventolin 0.083% Nebulizer Soln -) 1 amp NEB Q6H PRN PRN Reason: SHORT OF BREATH/WHEEZING Last Admin: 03/30/19 14:00 Dose: 1 amp Albuterol/Ipratropium (Duoneb -) 1 amp NEB Q4H PRN PRN Reason: SHORTNESS OF BREATH Last Admin: 03/30/19 20:10 Dose: 1 amp Carbamazepine (Tegretol -) 200 mg PO TIDCM RYANNE Last Admin: 04/01/19 08:16 Dose: 200 mg Dextrose (D50w (Vial) -) 25 gm IVPUSH PRN PRN PRN Reason: HYPOGLYCEMIA Furosemide (Lasix Injection -) 40 mg IVPUSH BID@0600,1400 RYANNE Last Admin: 04/01/19 05:52 Dose: 40 mg Heparin Sodium (Porcine) (Heparin -) 1,000 unit IVPUSH PRN PRN PRN Reason: Heparin Heparin Sodium (Porcine) (Heparin -) 5,000 unit IVPUSH PRN PRN PRN Reason: Heparin Last Admin: 04/01/19 00:17 Dose: 5,000 unit Ceftriaxone Sodium 1 gm/ (Dextrose) 50 mls @ 200 mls/hr IVPB DAILY RYANNE; Protocol Last Admin: 04/01/19 09:17 Dose: 200 mls/hr Doxycycline Hyclate 100 mg/ (Dextrose) 100 mls @ 100 mls/hr IVPB BID RYANNE Last Admin: 04/01/19 09:17 Dose: 100 mls/hr HEPARIN SOD,PORK IN 0.45% NACL (Heparin-1/2ns 25,000 Units/500) 25,000 unit in 500 mls @ 16 mls/hr IVPB TITR RYANNE; Protocol Last Titration: 04/01/19 00:12 Dose: 950 units/hr, 19 mls/hr Pantoprazole Sodium 80 mg/ (Sodium Chloride) 100 mls @ 10 mls/hr IVPB Q10H [facility] Last Admin: 04/01/19 04:55 Dose: 10 mls/hr Insulin Aspart (Novolog Vial Sliding Scale -) 1 vial SQ ACHS [facility]; Protocol Last Admin: 04/01/19 06:03 Dose: Not Given Levetiracetam (Keppra Injection -) 750 mg IVPB BID [facility] Last Admin: 04/01/19 09:18 Dose: 750 mg Levothyroxine Sodium (Synthroid -) 125 mcg PO DAILY@0700 [facility] Last Admin: 04/01/19 06:03 Dose: 125 mcg Lidocaine (Lidoderm Patch -) 1 patch TP DAILY [facility] Last Admin: 03/31/19 09:25 Dose: 1 patch Mirtazapine (Remeron -) 15 mg PO HS [facility] Last Admin: 03/31/19 21:40 Dose: 15 mg Miscellaneous (Lidoderm Patch Removal) 1 each MC DAILY@2200 [facility] Last Admin: 03/31/19 21:40 Dose: 1 each Nebivolol (Bystolic -) 5 mg PO DAILY [facility] Last Admin: 04/01/19 09:18 Dose: 5 mg Tamsulosin HCl (Flomax -) 0.4 mg PO DAILY@0830 [facility] Last Admin: 04/01/19 08:12 Dose: Not Given - Objective Vital Signs: Vital Signs Temperature 97.5 F L 04/01/19 08:00 Pulse Rate 133 H 04/01/19 08:00 Respiratory Rate 20 04/01/19 08:57 Blood Pressure 146/92 04/01/19 08:00 O2 Sat by Pulse Oximetry (%) 100 04/01/19 08:57 Constitutional: Yes: No Distress, Calm, Thin Neck: Yes: Supple Cardiovascular: Yes: Tachycardia, Pulse Irregular, Murmur (2/6 SM) Respiratory: Yes: Regular, Diminished, On Nasal O2 Gastrointestinal: Yes: Normal Bowel Sounds, Soft Edema: No Labs: CBC, BMP 04/01/19 06:45 INR, PTT INR 1.32 (0.83-1.09) H 04/01/19 06:45 - ....Imaging EKG: Report Reviewed (Tele: Afib 100-110) Problem List - Problems (1) Acute on chronic diastolic (congestive) heart failure Code(s): I50.33 - ACUTE ON CHRONIC DIASTOLIC (CONGESTIVE) HEART FAILURE (2) Subendocardial ischemia Code(s): I24.8 - OTHER FORMS OF ACUTE ISCHEMIC HEART DISEASE (3) [id number] kidney injury Code(s): N17.9 - ACUTE KIDNEY FAILURE, UNSPECIFIED; N18.9 - CHRONIC KIDNEY DISEASE, UNSPECIFIED Qualifiers: Acute renal failure type: unspecified (4) Hyperkalemia Code(s): E87.5 - HYPERKALEMIA (5) Pacemaker Code(s): Z95.0 - PRESENCE OF CARDIAC PACEMAKER (6) Paroxysmal atrial fibrillation with rapid ventricular response Code(s): I48.0 - PAROXYSMAL ATRIAL FIBRILLATION Assessment/Plan 03/31/2019 Echo: Normal LV size with mod-severe decreased LV fxn with LAD infarct pattern, mod TENISHA, mod-severe MR, mod TR RVSP 40-50 mmHg, mild AR, 1. Acute hypoxemic respiratory failure 2. Acute on chronic systolic/diastolic high-output heart failure with subendocardial ischemia improving 3. Profound anemia post transfusion, r/o GI source 4. Acute on CKD with hyperkalemia referable to #2 improving 5. Advanced AV block s/p PPM 6. Type 2 DM 7. Hyperlipidemia 8. Hypertensive heart disease 9. Hypothyroidism 10. Lactic acidosis 11. Ischemic hepatitis improving 12. Seizure d/o P:1. Decrease IV diuresis with monitor diuretic response, renal fxn and electrolytes, wean FIO2 as tolerated, f/u CXR, BD as needed 2. Transfuse pRBC to maintain Hgb>8.0 with GI protection 3. Hold ASA, Diclofenac, change Bystolic to carvedilol 6.25 bid and uptitrate as tolerated, LFTs and trops trending downwards, start Entresto 24/26 bid once renal fxn and K resolves, statin once LFT stabilize 4. Await euvolemia prior to proceeding with endoscopy unless emergent indication , heparin gtt in meantime, d/c empiric antibiotics
[2019-04-01 10:08] LABS: ALBUMIN 2.2 g/dl (3.4-5.0); BILIRUBIN,TOTAL 0.5 mg/dL (0.2-1); BLOOD UREA NITROGEN 58.2 mg/dL (7-18); CALCIUM 8.1 mg/dL (8.5-10.1); CREATININE 1.4 mg/dL (0.55-1.3); MAGNESIUM 2.6 mg/dL (1.8-2.4); PHOSPHOROUS 4.8 mg/dL (2.5-4.9); POTASSIUM 3.7 mmol/L (3.5-5.1); TOT PROT 6.2 g/dl (6.4-8.2)
[2019-04-01] MEDS: LIDOCAINE 5% TOPICAL PATCH TP SCH ×2 (10:50→11:30)
[2019-04-01] MEDS ORDERED: APIXABAN 5 MG TABLET PO SCH (11:00)
--- NOTE | 2019-04-01 11:13 | PN ---
Teaching Attending Note Name of Resident: Alen Garcia ATTENDING PHYSICIAN STATEMENT I saw and evaluated the patient. I reviewed the resident's note and discussed the case with the resident. I agree with the resident's findings and plan as documented. SUBJECTIVE: Pt seen and examined in the ICU. Mental status close to baseline. Denies shortness of breath or chest pain. OBJECTIVE: Vital Signs Period Temp Pulse Resp BP Sys/Cabral Pulse Ox Last 24 Hr 97.5 F-98.7 F 60-133 13-20 107-146/59-92 100-100 Intake & Output 03/29/19 03/30/19 03/31/19 04/01/19 23:59 23:59 23:59 23:59 Intake Total 350 700 300 684 Output Total 650 1725 2000 Balance 350 50 -2561 -1316 Weight 54.204 kg 53.977 kg Gen: NAD at rest Heart: irregular Lung: decreased breath sounds at the bases Abd: soft, nontender Ext: no edema CBC, BMP 04/01/19 06:45 04/01/19 06:45 Active Medications Acetaminophen (Ofirmev Injection -) 1,000 mg IVPB Q6H PRN PRN Reason: FEVER Al Hydroxide/Mg Hydroxide (Mylanta Oral Suspension -) 30 ml PO Q8H PRN PRN Reason: INDIGESTION Last Admin: 03/29/19 22:24 Dose: 30 ml Albuterol Sulfate (Ventolin 0.083% Nebulizer Soln -) 1 amp NEB Q6H PRN PRN Reason: SHORT OF BREATH/WHEEZING Last Admin: 03/30/19 14:00 Dose: 1 amp Albuterol/Ipratropium (Duoneb -) 1 amp NEB Q4H PRN PRN Reason: SHORTNESS OF BREATH Last Admin: 03/30/19 20:10 Dose: 1 amp Apixaban (Eliquis -) 5 mg PO BID RYANNE Carbamazepine (Tegretol -) 200 mg PO TIDCM RYANNE Last Admin: 04/01/19 08:16 Dose: 200 mg Carvedilol (Coreg -) 6.25 mg PO BID RYANNE Dextrose (D50w (Vial) -) 25 gm IVPUSH PRN PRN PRN Reason: HYPOGLYCEMIA Furosemide (Lasix Injection -) 40 mg IVPUSH DAILY RYANNE Pantoprazole Sodium 80 mg/ (Sodium Chloride) 100 mls @ 10 mls/hr IVPB Q10H [facility] Last Admin: 04/01/19 04:55 Dose: 10 mls/hr Insulin Aspart (Novolog Vial Sliding Scale -) 1 vial SQ ACHS [facility]; Protocol Last Admin: 04/01/19 10:47 Dose: 12 units Levetiracetam (Keppra Injection -) 750 mg IVPB BID [facility] Last Admin: 04/01/19 09:18 Dose: 750 mg Levothyroxine Sodium (Synthroid -) 125 mcg PO DAILY@0700 [facility] Last Admin: 04/01/19 06:03 Dose: 125 mcg Lidocaine (Lidoderm Patch -) 1 patch TP DAILY [facility] Last Admin: 04/01/19 10:50 Dose: 1 patch Mirtazapine (Remeron -) 15 mg PO HS [facility] Last Admin: 03/31/19 21:40 Dose: 15 mg Miscellaneous (Lidoderm Patch Removal) 1 each MC DAILY@2200 [facility] Last Admin: 03/31/19 21:40 Dose: 1 each Tamsulosin HCl (Flomax -) 0.4 mg PO DAILY@0830 [facility] Last Admin: 04/01/19 08:12 Dose: Not Given ASSESSMENT AND PLAN: Acute Hypoxic Respiratory Failure improving Severe Anemia s/p PRBC transfusions Acute on Chronic Diastolic Heart Failure +Troponins likely Demand Ischemia Lactic Acidosis resolved Acute on Chronic Renal Failure Elevated LFTs likely Congestive Hepatopathy Atrial Fibrillation s/p PPM HTN Hyperlipidemia Hypothyroidism Seizure Disorder - monitor H/H - continue lasix - monitor urine output, creatinine - trend LFTs - can d/c empiric antibiotics - O2 to keep SpO2 >90% - rate control - continue anticoagulation - entresto when renal function stable - DVT prophylaxis - can monitor on telemetry
[2019-04-01] MEDS: CARVEDILOL 6.25 MG TABLET (FP) PO SCH ×2 (11:29→23:20)
--- NOTE | 2019-04-01 11:53 | PN ---
Progress Note, TECHNOLOGY PROJECT MANAGER - Note Progress Note: Selected Entries 03/31/19 04/01/19 04/01/19 14:32 06:00 08:00 Breakfast 75% Lunch NPO Temperature 98 F 97.5 F L 04/01/19 04/01/19 09:09 10:00 Breakfast 100% Lunch Temperature 97.8 F Laboratory Tests 03/31/19 04/01/19 06:10 06:45 WBC 10.9 H 10.3 H Selected Entries 04/01/19 04/01/19 04/01/19 06:00 08:00 09:09 Breakfast 75% 100% Lunch Temperature 98 F 97.5 F L 04/01/19 04/01/19 04/01/19 10:00 12:00 13:30 Breakfast Lunch 100% Temperature 97.8 F 98.0 F Puree/nectar ordered with good tolerance per nursing.
[2019-04-01] MEDS: APIXABAN 5 MG TABLET PO SCH ×2 (13:15→23:20)
[2019-04-01] MEDS: PANTOPRAZOLE SODIUM 160 MG in SODIUM CHLORIDE 290 ML IVPB SCH (13:32)
--- NOTE | 2019-04-01 14:46 | PN ---
Progress Note, Physician History of Present Illness: Pt seen and examined at bedside. He is more awake and interactive today. - Current Medication List Current Medications: Active Medications Acetaminophen (Ofirmev Injection -) 1,000 mg IVPB Q6H PRN PRN Reason: FEVER Al Hydroxide/Mg Hydroxide (Mylanta Oral Suspension -) 30 ml PO Q8H PRN PRN Reason: INDIGESTION Last Admin: 03/29/19 22:24 Dose: 30 ml Albuterol Sulfate (Ventolin 0.083% Nebulizer Soln -) 1 amp NEB Q6H PRN PRN Reason: SHORT OF BREATH/WHEEZING Last Admin: 03/30/19 14:00 Dose: 1 amp Albuterol/Ipratropium (Duoneb -) 1 amp NEB Q4H PRN PRN Reason: SHORTNESS OF BREATH Last Admin: 03/30/19 20:10 Dose: 1 amp Apixaban (Eliquis -) 5 mg PO BID [facility] Last Admin: 04/01/19 13:15 Dose: 5 mg Carbamazepine (Tegretol -) 200 mg PO TIDCM [facility] Last Admin: 04/01/19 12:00 Dose: 200 mg Carvedilol (Coreg -) 6.25 mg PO BID [facility] Last Admin: 04/01/19 11:29 Dose: 6.25 mg Dextrose (D50w (Vial) -) 25 gm IVPUSH PRN PRN PRN Reason: HYPOGLYCEMIA Furosemide (Lasix Injection -) 40 mg IVPUSH DAILY [facility] Pantoprazole Sodium 160 mg/ (Sodium Chloride) 290 mls @ 14.5 mls/hr IVPB Q20H [facility] Last Admin: 04/01/19 13:32 Dose: 14.5 mls/hr Insulin Aspart (Novolog Vial Sliding Scale -) 1 vial SQ ACHS [facility]; Protocol Last Admin: 04/01/19 10:47 Dose: 12 units Levetiracetam (Keppra Injection -) 750 mg IVPB BID [facility] Last Admin: 04/01/19 09:18 Dose: 750 mg Levothyroxine Sodium (Synthroid -) 125 mcg PO DAILY@0700 [facility] Last Admin: 04/01/19 06:03 Dose: 125 mcg Lidocaine (Lidoderm Patch -) 1 patch TP DAILY [facility] Last Admin: 04/01/19 10:50 Dose: 1 patch Lidocaine (Lidoderm Patch -) 1 patch TP DAILY [facility] Last Admin: 04/01/19 11:30 Dose: 1 patch Mirtazapine (Remeron -) 15 mg PO HS [facility] Last Admin: 03/31/19 21:40 Dose: 15 mg Miscellaneous (Lidoderm Patch Removal) 1 each MC DAILY@2200 [facility] Last Admin: 03/31/19 21:40 Dose: 1 each Miscellaneous (Lidoderm Patch Removal) 1 each MC DAILY@2200 [facility] Tamsulosin HCl (Flomax -) 0.4 mg PO DAILY@0830 [facility] Last Admin: 04/01/19 08:12 Dose: Not Given - Objective Vital Signs: Vital Signs Temperature 98.0 F 04/01/19 14:00 Pulse Rate 84 04/01/19 14:00 Respiratory Rate 13 04/01/19 14:00 Blood Pressure 97/61 04/01/19 14:00 O2 Sat by Pulse Oximetry (%) 100 04/01/19 08:57 Constitutional: Yes: Calm Eyes: Yes: Conjunctiva Clear HENT: Yes: Atraumatic Cardiovascular: Yes: S1, S2 Respiratory: Yes: On Nasal O2 Gastrointestinal: Yes: Soft Genitourinary: Yes: WNL Musculoskeletal: Yes: WNL Edema: No Integumentary: Yes: WNL Neurological: Yes: Oriented Labs: CBC, BMP 04/01/19 06:45 04/01/19 06:45 INR, PTT INR 1.32 (0.83-1.09) H 04/01/19 06:45 Problem List - Problems (1) Acute on chronic diastolic (congestive) heart failure Code(s): I50.33 - ACUTE ON CHRONIC DIASTOLIC (CONGESTIVE) HEART FAILURE (2) [id number] kidney injury Code(s): N17.9 - ACUTE KIDNEY FAILURE, UNSPECIFIED; N18.9 - CHRONIC KIDNEY DISEASE, UNSPECIFIED Qualifiers: Acute renal failure type: unspecified (3) Hyperkalemia Code(s): E87.5 - HYPERKALEMIA (4) Hypothyroidism Code(s): E03.9 - HYPOTHYROIDISM, UNSPECIFIED Qualifiers: Hypothyroidism type: unspecified Qualified Code(s): E03.9 - Hypothyroidism , unspecified Assessment/Plan Current Medications Generic Name Dose Route Start Last Admin Trade Name Freq PRN Reason Stop Dose Admin Acetaminophen 1,000 mg 03/30/19 17:18 Ofirmev Injection - IVPB Q6H PRN FEVER Al Hydroxide/Mg Hydroxide 30 ml 03/29/19 22:18 03/29/19 22:24 Mylanta Oral Suspension - PO 30 ml Q8H PRN Administration INDIGESTION Albuterol Sulfate 1 amp 03/30/19 13:51 03/30/19 14:00 Ventolin 0.083% Nebulizer Soln - NEB 1 amp Q6H PRN Administration SHORT OF BREATH/WHEEZING Albuterol/Ipratropium 1 amp 03/30/19 17:03 03/30/19 20:10 Duoneb - NEB 1 amp Q4H PRN Administration SHORTNESS OF BREATH Apixaban 5 mg 04/01/19 13:15 04/01/19 13:15 Eliquis - PO 5 mg BID [facility] Administration Carbamazepine 200 mg 04/01/19 08:00 04/01/19 12:00 Tegretol - PO 200 mg TIDCM [facility] Administration Carvedilol 6.25 mg 04/01/19 10:15 04/01/19 11:29 Coreg - PO 6.25 mg BID [facility] Administration Dextrose 25 gm 03/31/19 08:21 D50w (Vial) - IVPUSH PRN PRN HYPOGLYCEMIA Furosemide 40 mg 04/02/19 10:00 Lasix Injection - IVPUSH DAILY [facility] Pantoprazole Sodium 160 mg/ 290 mls @ 14.5 mls/hr 04/01/19 10:00 04/01/19 13: 32 Sodium Chloride IVPB 14.5 mls/hr Q20H [facility] Administration Insulin Aspart 1 vial 03/30/19 11:00 04/01/19 10:47 Novolog Vial Sliding Scale - SQ 12 units ACHS [facility] Administration Protocol Levetiracetam 750 mg 03/30/19 22:00 04/01/19 09:18 Keppra Injection - IVPB 750 mg BID [facility] Administration Levothyroxine Sodium 125 mcg 03/31/19 07:00 04/01/19 06:03 Synthroid - PO 125 mcg DAILY@0700 [facility] Administration Lidocaine 1 patch 03/30/19 12:00 04/01/19 10:50 Lidoderm Patch - TP 1 patch DAILY [facility] Administration Lidocaine 1 patch 04/01/19 11:30 04/01/19 11:30 Lidoderm Patch - TP 1 patch DAILY [facility] Administration Mirtazapine 15 mg 03/30/19 22:00 03/31/19 21:40 Remeron - PO 15 mg HS [facility] Administration Miscellaneous 1 each 03/30/19 22:00 03/31/19 21:40 Lidoderm Patch Removal MC 1 each DAILY@2200 [facility] Administration Miscellaneous 1 each 04/01/19 22:00 Lidoderm Patch Removal MC DAILY@2200 [facility] Tamsulosin HCl 0.4 mg 03/31/19 08:30 04/01/19 08:12 Flomax - PO Not Given DAILY@0830 [facility] Impression 1. DANYA 2. hyperkalemia 3. chf 4. weight loss 5. anemia 6. hypoxic resp failure 7. transaminitis 8. htn 9. a-fib Plan - renal function improving - mental status improving - agree with decreasing lasix dose - repeat labs in am - weight loss will have to be investigated when he is more stable - has atrophic left kidney on ultrasound - discussed with ICU team
--- NOTE | 2019-04-01 16:14 | PN ---
Progress Note, Physician - Current Medication List Current Medications: Active Medications Acetaminophen (Ofirmev Injection -) 1,000 mg IVPB Q6H PRN PRN Reason: FEVER Al Hydroxide/Mg Hydroxide (Mylanta Oral Suspension -) 30 ml PO Q8H PRN PRN Reason: INDIGESTION Last Admin: 03/29/19 22:24 Dose: 30 ml Albuterol Sulfate (Ventolin 0.083% Nebulizer Soln -) 1 amp NEB Q6H PRN PRN Reason: SHORT OF BREATH/WHEEZING Last Admin: 03/30/19 14:00 Dose: 1 amp Albuterol/Ipratropium (Duoneb -) 1 amp NEB Q4H PRN PRN Reason: SHORTNESS OF BREATH Last Admin: 03/30/19 20:10 Dose: 1 amp Apixaban (Eliquis -) 5 mg PO BID [facility] Last Admin: 04/01/19 13:15 Dose: 5 mg Carbamazepine (Tegretol -) 200 mg PO TIDCM [facility] Last Admin: 04/01/19 12:00 Dose: 200 mg Carvedilol (Coreg -) 6.25 mg PO BID [facility] Last Admin: 04/01/19 11:29 Dose: 6.25 mg Dextrose (D50w (Vial) -) 25 gm IVPUSH PRN PRN PRN Reason: HYPOGLYCEMIA Furosemide (Lasix Injection -) 40 mg IVPUSH DAILY [facility] Pantoprazole Sodium 160 mg/ (Sodium Chloride) 290 mls @ 14.5 mls/hr IVPB Q20H [facility] Last Admin: 04/01/19 13:32 Dose: 14.5 mls/hr Insulin Aspart (Novolog Vial Sliding Scale -) 1 vial SQ ACHS [facility]; Protocol Last Admin: 04/01/19 10:47 Dose: 12 units Levetiracetam (Keppra Injection -) 750 mg IVPB BID [facility] Last Admin: 04/01/19 09:18 Dose: 750 mg Levothyroxine Sodium (Synthroid -) 125 mcg PO DAILY@0700 [facility] Last Admin: 04/01/19 06:03 Dose: 125 mcg Lidocaine (Lidoderm Patch -) 1 patch TP DAILY [facility] Last Admin: 04/01/19 10:50 Dose: 1 patch Lidocaine (Lidoderm Patch -) 1 patch TP DAILY [facility] Last Admin: 04/01/19 11:30 Dose: 1 patch Mirtazapine (Remeron -) 15 mg PO HS [facility] Last Admin: 03/31/19 21:40 Dose: 15 mg Miscellaneous (Lidoderm Patch Removal) 1 each MC DAILY@2200 [facility] Last Admin: 03/31/19 21:40 Dose: 1 each Miscellaneous (Lidoderm Patch Removal) 1 each MC DAILY@2200 [facility] Tamsulosin HCl (Flomax -) 0.4 mg PO DAILY@0830 [facility] Last Admin: 04/01/19 08:12 Dose: Not Given - Objective Vital Signs: Vital Signs Temperature 97.9 F 04/01/19 16:00 Pulse Rate 61 04/01/19 16:00 Respiratory Rate 16 04/01/19 16:00 Blood Pressure 114/59 L 04/01/19 16:00 O2 Sat by Pulse Oximetry (%) 100 04/01/19 08:57 Constitutional: Yes: Anxious Eyes: Yes: WNL HENT: Yes: WNL Neck: Yes: WNL Cardiovascular: Yes: Regular Rate and Rhythm Respiratory: Yes: On Nasal O2 Gastrointestinal: Yes: Normal Bowel Sounds ...Rectal Exam: Yes: Deferred Genitourinary: Yes: Avldes Present Edema: No Neurological: Yes: Alert Labs: CBC, BMP 04/01/19 06:45 04/01/19 06:45 INR, PTT INR 1.32 (0.83-1.09) H 04/01/19 06:45 Assessment/Plan Transfer to telemetry
[2019-04-01] MEDS ORDERED: INSULIN (NOVOLOG) ASPART 100 UNITS/ML 10ML VIAL SQ ONE (16:37)
[2019-04-01] MEDS: ALBUTEROL SO4 2.5/IPRATROPIUM 0.5 INH SOL 3 ML VIAL.NEB. NEB PRN (20:14)
[2019-04-01] MEDS: MIRTAZAPINE 15 MG TABLET (FP) PO SCH (23:20)
[2019-04-01] MEDS: LIDOCAINE PATCH REMOVAL MC SCH ×2 (23:22→23:23)
[2019-04-02 04:07] LABS: HEP B CORE AB, TOT Positive (Negative)
[2019-04-02] MEDS: INSULIN SLIDING SCALE (NOVOLOG) 1 VIAL SQ SCH ×4 (06:16→23:26)
[2019-04-02] MEDS: LEVOTHYROXINE NA 125 MCG TABLET (FP) PO SCH (06:17)
[2019-04-02] MEDS: PANTOPRAZOLE SODIUM 160 MG in SODIUM CHLORIDE 290 ML IVPB SCH (06:17)
[2019-04-02] MEDS ORDERED: DEXTROSE 50%-WATER - 25 GM/50 ML VIAL IVPUSH PRN (07:32)
[2019-04-02] MEDS ORDERED: HEPARIN NA (PORCINE) 5,000 UNITS/ML 1ML VIAL IVPUSH PRN ×2 (07:32)
[2019-04-02] MEDS ORDERED: ALBUTEROL SO4 0.083% IH SOL 2.5 MG/3 ML VIAL.NEB. NEB PRN (07:32)
[2019-04-02] MEDS ORDERED: MAG HYDROX/AL HYDROX/SIMETH 30 ML UNIT-DOSE CUP PO PRN (07:32)
[2019-04-02] MEDS ORDERED: LIDOCAINE PATCH REMOVAL MC SCH ×2 (07:32→22:00)
[2019-04-02] MEDS ORDERED: ACETAMINOPHEN 1000 MG/100 ML VIAL (NON FORMULARY) IVPB PRN (07:32)
[2019-04-02 08:04] LABS: HEMATOCRIT 26.8 % (35.4-49); HEMOGLOBIN 8.8 GM/dL (11.7-16.9); MCH 29.9 pg (25.7-33.7); MCHC 32.7 g/dl (32.0-35.9); MEAN CELL VOLUME 91.3 fl (80-96); MEAN PLT VOLUME 7.1 fl (7.5-11.1); PLATELET COUNT 361 K/MM3 (134-434); RBC 2.94 M/mm3 (4.00-5.60); RDW 17.4 % (11.9-15.9); WHITE BLOOD COUNT 8.5 K/mm3 (4.0-10.0)
[2019-04-02 08:34] LABS: ALBUMIN 1.7 g/dl (3.4-5.0); BILIRUBIN,DIRECT 0.1 mg/dL (0.0-0.2); BILIRUBIN,TOTAL 0.3 mg/dL (0.2-1); TOT PROT 4.9 g/dl (6.4-8.2)
--- NOTE | 2019-04-02 09:04 | PN ---
Progress Note (short form) - Note Progress Note: Neurology History of Present Illness - General Chief Complaint: Nausea/Vomiting Stated Complaint: VOMITING - History of Present Illness 68M w/ a history of DM, hypothyroidism, seizure d/o, s/p pacemaker who presents for evaluation of 1 month of cough with increased sputum production. He also notes 1 week of BLE swelling to mid-reyes. He reports some symptomatic relief from coughing with robitussin. He also notes post-tussive emesis. He denies fevers/chills, trouble breathing, abdominal pain, diarrhea, dysuria/hematuria, or changes in sensation. He denied lower extremity swelling before. Patient currently in ICU under critical care monitoring. contacted by ICU resident on regarding patient's mental status which she reported was somnolent and lethargic. He discussed the case with me including multiple medical comorbidities including respiratory compromise requiring positive pressure ventilation, CHF exacerbation along with coffee-ground emesis and concern for upper GI bleed with reduction in hemoglobin and hematocrit. The patient also found to have atrial fibrillation and receiving medical optimization. I advised having noncontrast head CT which was completed and showed moderate atrophy but no significant infarcts or focal abnormalities. Likely toxic metabolic encephalopathy secondary to multiple medical comorbidities as described above. This morning, patient was awake and alert and conversive with me. He was able to tell me that he is at [facility]. When asked the date, he was able to tell me month and year. Mental status seems to have improved and has been downgraded from ICU level of care to telemetry floor. Allergies/Adverse Reactions: Allergies Allergy/AdvReac Type Severity Reaction Status Date / Time lacosamide [From Vimpat] Allergy Rash Verified 03/29/19 09:32 Active Medications Acetaminophen (Ofirmev Injection -) 1,000 mg IVPB Q6H PRN PRN Reason: FEVER Al Hydroxide/Mg Hydroxide (Mylanta Oral Suspension -) 30 ml PO Q8H PRN PRN Reason: INDIGESTION Albuterol Sulfate (Ventolin 0.083% Nebulizer Soln -) 1 amp NEB Q6H PRN PRN Reason: SHORT OF BREATH/WHEEZING Albuterol/Ipratropium (Duoneb -) 1 amp NEB Q4H PRN PRN Reason: SHORTNESS OF BREATH Apixaban (Eliquis -) 5 mg PO BID [facility] Last Admin: 04/01/19 23:20 Dose: 5 mg Carbamazepine (Tegretol -) 200 mg PO TIDCM [facility] Carvedilol (Coreg -) 6.25 mg PO BID [facility] Dextrose (D50w (Vial) -) 25 gm IVPUSH PRN PRN PRN Reason: HYPOGLYCEMIA Furosemide (Lasix Injection -) 40 mg IVPUSH DAILY [facility] Pantoprazole Sodium 160 mg/ (Sodium Chloride) 290 mls @ 14.5 mls/hr IVPB Q20H [facility] Last Admin: 04/02/19 06:17 Dose: Not Given Insulin Aspart (Novolog Vial Sliding Scale -) 1 vial SQ [facility]; Protocol Levetiracetam (Keppra Injection -) 750 mg IVPB BID [facility] Levothyroxine Sodium (Synthroid -) 125 mcg PO DAILY@0700 [facility] Lidocaine (Lidoderm Patch -) 1 patch TP DAILY [facility] Last Admin: 04/01/19 11:30 Dose: 1 patch Mirtazapine (Remeron -) 15 mg PO HS [facility] Miscellaneous (Lidoderm Patch Removal) 1 each MC DAILY@2200 [facility] Last Admin: 04/01/19 23:23 Dose: 1 each Tamsulosin HCl (Flomax -) 0.4 mg PO DAILY@0830 [facility] *Physical Exam Vital Signs Period Temp Pulse Resp BP Sys/Cabral Pulse Ox Last 24 Hr 97.5 F-98.7 F 60-102 13-20 97-138/58-81 100-100 GENERAL: Awake, alert, and oriented to person/place/time, in no acute distress, thin HEAD: No signs of trauma, normocephalic, atraumatic EYES: PERRLA, EOMI, sclera anicteric, conjunctiva clear ENT: Hearing grossly normal, nares patent, oropharynx clear without exudates. Moist mucosa LUNGS: No distress, speaks in full sentences, clear to auscultation bilaterally HEART: Regular rate and rhythm, normal S1 and S2, no murmurs appreciated, peripheral pulses normal and equal bilaterally ABDOMEN: Soft, nontender, normoactive bowel sounds. No guarding, no rebound EXTREMITIES: Normal inspection, Normal range of motion, no edema. No clubbing or cyanosis NEUROLOGICAL: Cranial nerves II through XII grossly intact. Tangential speech, knows location, knows month, moves all extemities grossly, sensory intact SKIN: Warm, Dry CBCD WBC 8.5 K/mm3 (4.0-10.0) 04/02/19 07:30 RBC 2.94 M/mm3 (4.00-5.60) L 04/02/19 07:30 Hgb 8.8 GM/dL (11.7-16.9) L 04/02/19 07:30 Hct 26.8 % (35.4-49) L D 04/02/19 07:30 MCV 91.3 fl (80-96) 04/02/19 07:30 MCHC 32.7 g/dl (32.0-35.9) 04/02/19 07:30 RDW 17.4 % (11.9-15.9) H 04/02/19 07:30 Plt Count 361 K/MM3 (134-434) 04/02/19 07:30 MPV 7.1 fl (7.5-11.1) L 04/02/19 07:30 CMP Sodium 141 mmol/L (136-145) 04/01/19 06:45 Potassium 3.7 mmol/L (3.5-5.1) 04/01/19 06:45 Chloride 104 mmol/L (98-107) 04/01/19 06:45 Carbon Dioxide 22 mmol/L (21-32) 04/01/19 06:45 Anion Gap 16 MMOL/L (8-16) 04/01/19 06:45 BUN 58.2 mg/dL (7-18) H 04/01/19 06:45 Creatinine 1.4 mg/dL (0.55-1.3) H 04/01/19 06:45 Random Glucose 156 mg/dL (74-106) H 04/01/19 06:45 Calcium 8.1 mg/dL (8.5-10.1) L 04/01/19 06:45 Total Bilirubin 0.3 mg/dL (0.2-1) 04/02/19 07:30 AST 77 U/L (15-37) H 04/02/19 07:30 ALT 345 U/L (13-61) H 04/02/19 07:30 Alkaline Phosphatase 490 U/L (45-117) H 04/02/19 07:30 Total Protein 4.9 g/dl (6.4-8.2) L 04/02/19 07:30 Albumin 1.7 g/dl (3.4-5.0) L 04/02/19 07:30 CARDIAC ENZYMES Creatine Kinase 254 U/L (26-308) 03/31/19 06:10 Troponin I 0.84 ng/ml (0.00-0.05) H* 03/31/19 23:25 Medical Decision Making 68M w/ a history of DM, hypothyroidism, seizure d/o, s/p pacemaker who presents for evaluation of 1 month of cough with increased sputum production. He also notes 1 week of BLE swelling to mid-reyes. He reports some symptomatic relief from coughing with robitussin. He also notes post-tussive emesis. He denies fevers/chills, trouble breathing, abdominal pain, diarrhea, dysuria/hematuria, or changes in sensation. He denied lower extremity swelling before. Patient currently in ICU under critical care monitoring. contacted by ICU resident on rregarding patient's mental status which she reported was somnolent and lethargic. He discussed the case with me including multiple medical comorbidities including respiratory compromise requiring positive pressure ventilation, CHF exacerbation along with coffee-ground emesis and concern for upper GI bleed with reduction in hemoglobin and hematocrit. The patient also found to have atrial fibrillation and receiving medical optimization. I advised having noncontrast head CT which was completed and showed moderate atrophy but no significant infarcts or focal abnormalities. Likely toxic metabolic encephalopathy secondary to multiple medical comorbidities as described above. This morning, patient was awake and alert and conversive with me. He was able to tell me that he is at [facility]. When asked the date, he was able to tell me month and year. Continue treatment for respiratory compromise, IV abx per primary. GI bleed, patient recently started on heparin for Afib, closely monitor for bleed in presence of AC, GI follow up. Mental status seems to have improved possibly not yet at baseline and requires further medical management. Continue monitoring mental status.
--- NOTE | 2019-04-02 09:45 | PN ---
Progress Note, Physician Chief Complaint: Feels better - Current Medication List Current Medications: Active Medications Acetaminophen (Ofirmev Injection -) 1,000 mg IVPB Q6H PRN PRN Reason: FEVER Al Hydroxide/Mg Hydroxide (Mylanta Oral Suspension -) 30 ml PO Q8H PRN PRN Reason: INDIGESTION Albuterol Sulfate (Ventolin 0.083% Nebulizer Soln -) 1 amp NEB Q6H PRN PRN Reason: SHORT OF BREATH/WHEEZING Albuterol/Ipratropium (Duoneb -) 1 amp NEB Q4H PRN PRN Reason: SHORTNESS OF BREATH Apixaban (Eliquis -) 5 mg PO BID [facility] Last Admin: 04/01/19 23:20 Dose: 5 mg Carbamazepine (Tegretol -) 200 mg PO TIDCM [facility] Carvedilol (Coreg -) 6.25 mg PO BID [facility] Dextrose (D50w (Vial) -) 25 gm IVPUSH PRN PRN PRN Reason: HYPOGLYCEMIA Furosemide (Lasix Injection -) 40 mg IVPUSH DAILY [facility] Pantoprazole Sodium 160 mg/ (Sodium Chloride) 290 mls @ 14.5 mls/hr IVPB Q20H [facility] Last Admin: 04/02/19 06:17 Dose: Not Given Insulin Aspart (Novolog Vial Sliding Scale -) 1 vial SQ ACHS [facility]; Protocol Levetiracetam (Keppra Injection -) 750 mg IVPB BID [facility] Levothyroxine Sodium (Synthroid -) 125 mcg PO DAILY@0700 [facility] Lidocaine (Lidoderm Patch -) 1 patch TP DAILY [facility] Last Admin: 04/01/19 11:30 Dose: 1 patch Mirtazapine (Remeron -) 15 mg PO HS [facility] Miscellaneous (Lidoderm Patch Removal) 1 each MC DAILY@2200 [facility] Last Admin: 04/01/19 23:23 Dose: 1 each Tamsulosin HCl (Flomax -) 0.4 mg PO DAILY@0830 [facility] - Objective Vital Signs: Vital Signs Temperature 97.5 F L 04/02/19 02:00 Pulse Rate 65 04/02/19 04:00 Respiratory Rate 20 04/02/19 04:00 Blood Pressure 138/72 04/02/19 04:00 O2 Sat by Pulse Oximetry (%) 100 04/01/19 21:00 Constitutional: Yes: Anxious Eyes: Yes: WNL HENT: Yes: WNL Neck: Yes: Supple Cardiovascular: Yes: WNL Respiratory: Yes: On Nasal O2, Poor Air Entry Gastrointestinal: Yes: Normal Bowel Sounds ...Rectal Exam: Yes: Deferred Genitourinary: Yes: Lucio Present Edema: No Psychiatric: Yes: Alert Labs: CBC, BMP 04/02/19 07:30 04/01/19 06:45 INR, PTT INR 1.32 (0.83-1.09) H 04/01/19 06:45 Assessment/Plan OOB in chair ALTON owusu
[2019-04-02] MEDS ORDERED: FUROSEMIDE 40 MG/4 ML INJECTABLE VIAL IVPUSH SCH ×2 (10:00)
[2019-04-02] MEDS ORDERED: LIDOCAINE 5% TOPICAL PATCH TP SCH (10:00)
[2019-04-02] MEDS ORDERED: PT OWN MED DRAWER 7, Y5N ONE ×4 (10:26→23:07)
[2019-04-02] MEDS: LIDOCAINE 5% TOPICAL PATCH TP SCH (10:33)
[2019-04-02] MEDS: levETIRAcetam 500 MG/5 ML INJECTION VIAL IVPB SCH ×2 (10:33→23:11)
[2019-04-02] MEDS: APIXABAN 5 MG TABLET PO SCH ×2 (10:34→23:11)
[2019-04-02] MEDS: TAMSULOSIN HCL 0.4 MG CAP PO SCH (10:34)
[2019-04-02] MEDS: CARVEDILOL 6.25 MG TABLET (FP) PO SCH ×2 (10:34→23:21)
[2019-04-02] MEDS: carBAMazepine 100 MG TAB.CHEW PO SCH ×3 (10:34→17:59)
--- NOTE | 2019-04-02 10:36 | PN ---
Progress Note, Physician History of Present Illness: pulmonary awake,comfortable,-sob - Current Medication List Current Medications: Active Medications Acetaminophen (Ofirmev Injection -) 1,000 mg IVPB Q6H PRN PRN Reason: FEVER Al Hydroxide/Mg Hydroxide (Mylanta Oral Suspension -) 30 ml PO Q8H PRN PRN Reason: INDIGESTION Albuterol Sulfate (Ventolin 0.083% Nebulizer Soln -) 1 amp NEB Q6H PRN PRN Reason: SHORT OF BREATH/WHEEZING Albuterol/Ipratropium (Duoneb -) 1 amp NEB Q4H PRN PRN Reason: SHORTNESS OF BREATH Apixaban (Eliquis -) 5 mg PO BID [facility] Last Admin: 04/01/19 23:20 Dose: 5 mg Carbamazepine (Tegretol -) 200 mg PO TIDCM [facility] Carvedilol (Coreg -) 6.25 mg PO BID [facility] Dextrose (D50w (Vial) -) 25 gm IVPUSH PRN PRN PRN Reason: HYPOGLYCEMIA Furosemide (Lasix Injection -) 40 mg IVPUSH DAILY [facility] Pantoprazole Sodium 160 mg/ (Sodium Chloride) 290 mls @ 14.5 mls/hr IVPB Q20H [facility] Last Admin: 04/02/19 06:17 Dose: Not Given Insulin Aspart (Novolog Vial Sliding Scale -) 1 vial SQ ACHS [facility]; Protocol Levetiracetam (Keppra Injection -) 750 mg IVPB BID [facility] Levothyroxine Sodium (Synthroid -) 125 mcg PO DAILY@0700 [facility] Lidocaine (Lidoderm Patch -) 1 patch TP DAILY [facility] Last Admin: 04/01/19 11:30 Dose: 1 patch Mirtazapine (Remeron -) 15 mg PO HS [facility] Miscellaneous (Lidoderm Patch Removal) 1 each MC DAILY@2200 [facility] Last Admin: 04/01/19 23:23 Dose: 1 each Tamsulosin HCl (Flomax -) 0.4 mg PO DAILY@0830 [facility] - Objective Vital Signs: Vital Signs Temperature 97.5 F L 04/02/19 02:00 Pulse Rate 65 04/02/19 04:00 Respiratory Rate 20 04/02/19 04:00 Blood Pressure 138/72 04/02/19 04:00 O2 Sat by Pulse Oximetry (%) 100 04/01/19 21:00 Constitutional: Yes: Calm, Thin Eyes: Yes: WNL HENT: Yes: WNL Neck: Yes: WNL Cardiovascular: Yes: Pulse Irregular, S1, S2 Respiratory: Yes: Diminished Gastrointestinal: Yes: Normal Bowel Sounds, Soft Extremities: Yes: WNL Edema: No Labs: CBC, BMP 04/02/19 07:30 04/01/19 06:45 INR, PTT INR 1.32 (0.83-1.09) H 04/01/19 06:45 Problem List - Problems (1) Abnormal liver function tests Code(s): R94.5 - ABNORMAL RESULTS OF LIVER FUNCTION STUDIES (2) Acute on chronic diastolic (congestive) heart failure Code(s): I50.33 - ACUTE ON CHRONIC DIASTOLIC (CONGESTIVE) HEART FAILURE (3) Hypothyroidism Code(s): E03.9 - HYPOTHYROIDISM, UNSPECIFIED Qualifiers: Hypothyroidism type: unspecified Qualified Code(s): E03.9 - Hypothyroidism , unspecified (4) Paroxysmal atrial fibrillation with rapid ventricular response Code(s): I48.0 - PAROXYSMAL ATRIAL FIBRILLATION (5) Symptomatic anemia Code(s): D64.9 - ANEMIA, UNSPECIFIED (6) Type 2 diabetes mellitus Code(s): E11.9 - TYPE 2 DIABETES MELLITUS WITHOUT COMPLICATIONS Qualifiers: Diabetes mellitus 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 use: without remote computer terminal operator use Diabetes mellitus complication status: with circulatory complication (7) Weight loss Code(s): R63.4 - ABNORMAL WEIGHT LOSS (8) Anemia Code(s): D64.9 - ANEMIA, UNSPECIFIED (9) Levxt-gy-thmctuc kidney injury Code(s): N17.9 - ACUTE KIDNEY FAILURE, UNSPECIFIED; N18.9 - CHRONIC KIDNEY DISEASE, UNSPECIFIED Qualifiers: Acute renal failure type: unspecified Assessment/Plan ASSESSMENT AND PLAN: Acute Hypoxic Respiratory Failure improved Severe Anemia Acute on Chronic Diastolic Heart Failure +Troponins likely Demand Ischemia Lactic Acidosis improved Acute on Chronic Renal Failure Elevated LFTs likely Congestive Hepatopathy improving Atrial Fibrillation s/p PPM HTN Hyperlipidemia Hypothyroidism Seizure Disorder - monitor H/H - lasix - monitor urine output, creatinine - trend LFTs - on empiric antibiotics - for EGD when euvolemic - O2 to keep SpO2 >90% - rate control - DVT prophylaxis - chest x-ray today DR GOLDSTEIN
--- NOTE | 2019-04-02 10:52 | PN ---
Progress Note, Physician History of Present Illness: Patient has been weaned off NC with improved dyspnea and sensorium with diuresis. Now A-paced. Tolerating dysphagia diet. - Current Medication List Current Medications: Active Medications Acetaminophen (Ofirmev Injection -) 1,000 mg IVPB Q6H PRN PRN Reason: FEVER Al Hydroxide/Mg Hydroxide (Mylanta Oral Suspension -) 30 ml PO Q8H PRN PRN Reason: INDIGESTION Albuterol Sulfate (Ventolin 0.083% Nebulizer Soln -) 1 amp NEB Q6H PRN PRN Reason: SHORT OF BREATH/WHEEZING Albuterol/Ipratropium (Duoneb -) 1 amp NEB Q4H PRN PRN Reason: SHORTNESS OF BREATH Apixaban (Eliquis -) 5 mg PO BID [facility] Last Admin: 04/02/19 10:34 Dose: 5 mg Carbamazepine (Tegretol -) 200 mg PO TIDCM [facility] Last Admin: 04/02/19 10:34 Dose: 200 mg Carvedilol (Coreg -) 6.25 mg PO BID [facility] Last Admin: 04/02/19 10:34 Dose: 6.25 mg Dextrose (D50w (Vial) -) 25 gm IVPUSH PRN PRN PRN Reason: HYPOGLYCEMIA Furosemide (Lasix Injection -) 40 mg IVPUSH DAILY [facility] Last Admin: 04/02/19 10:33 Dose: 40 mg Pantoprazole Sodium 160 mg/ (Sodium Chloride) 290 mls @ 14.5 mls/hr IVPB Q20H [facility] Last Admin: 04/02/19 06:17 Dose: Not Given Insulin Aspart (Novolog Vial Sliding Scale -) 1 vial SQ ACHS [facility]; Protocol Levetiracetam (Keppra Injection -) 750 mg IVPB BID [facility] Last Admin: 04/02/19 10:33 Dose: 750 mg Levothyroxine Sodium (Synthroid -) 125 mcg PO DAILY@0700 [facility] Lidocaine (Lidoderm Patch -) 1 patch TP DAILY [facility] Last Admin: 04/02/19 10:33 Dose: 1 patch Mirtazapine (Remeron -) 15 mg PO HS [facility] Miscellaneous (Lidoderm Patch Removal) 1 each MC DAILY@2200 [facility] Last Admin: 04/01/19 23:23 Dose: 1 each Tamsulosin HCl (Flomax -) 0.4 mg PO DAILY@0830 [facility] Last Admin: 04/02/19 10:34 Dose: 0.4 mg - Objective Vital Signs: Vital Signs Temperature 97.5 F L 04/02/19 02:00 Pulse Rate 65 04/02/19 04:00 Respiratory Rate 20 04/02/19 04:00 Blood Pressure 138/72 04/02/19 04:00 O2 Sat by Pulse Oximetry (%) 100 04/01/19 21:00 Constitutional: Yes: No Distress, Calm, Thin Neck: Yes: Supple Cardiovascular: Yes: Regular Rate and Rhythm Respiratory: Yes: Regular, Diminished Gastrointestinal: Yes: Normal Bowel Sounds, Soft Edema: No Labs: CBC, BMP 04/02/19 07:30 04/01/19 06:45 INR, PTT INR 1.32 (0.83-1.09) H 04/01/19 06:45 - ....Imaging EKG: Report Reviewed (Tele: A-paced) Problem List - Problems (1) Acute on chronic diastolic (congestive) heart failure Code(s): I50.33 - ACUTE ON CHRONIC DIASTOLIC (CONGESTIVE) HEART FAILURE (2) Subendocardial ischemia Code(s): I24.8 - OTHER FORMS OF ACUTE ISCHEMIC HEART DISEASE (3) [id number] kidney injury Code(s): N17.9 - ACUTE KIDNEY FAILURE, UNSPECIFIED; N18.9 - CHRONIC KIDNEY DISEASE, UNSPECIFIED Qualifiers: Acute renal failure type: unspecified (4) Hyperkalemia Code(s): E87.5 - HYPERKALEMIA (5) Pacemaker Code(s): Z95.0 - PRESENCE OF CARDIAC PACEMAKER (6) Paroxysmal atrial fibrillation with rapid ventricular response Code(s): I48.0 - PAROXYSMAL ATRIAL FIBRILLATION Assessment/Plan 03/31/2019 Echo: Normal LV size with mod-severe decreased LV fxn with LAD infarct pattern, mod TENISHA, mod-severe MR, mod TR RVSP 40-50 mmHg, mild AR, 1. Acute hypoxemic respiratory failure 2. Acute on chronic systolic/diastolic high-output heart failure with subendocardial ischemia resolving 3. Profound anemia post transfusion, r/o GI source 4. Acute on CKD with hyperkalemia referable to #2 improving 5. Advanced AV block s/p PPM 6. Type 2 DM 7. Hyperlipidemia 8. Hypertensive heart disease 9. Hypothyroidism 10. Lactic acidosis 11. Ischemic hepatitis improving 12. Seizure d/o P:1. Initiate oral diuresis with monitor diuretic response, renal fxn and electrolytes, wean FIO2 as tolerated, f/u CXR, BD as needed 2. Transfuse pRBC to maintain Hgb>8.0 with GI protection 3. Hold ASA, Diclofenac, carvedilol 6.25 bid and uptitrate as tolerated, LFTs and trops trending downwards, start Entresto 24/ bid as renal fxn and high K resolves, statin once LFT stabilize 4. Await euvolemia prior to proceeding with endoscopy unless emergent indication , now on Eliquis 5 bid with GI protection, will need to hold for 2 days pre- procedure 5. OOB to chair, PT as tolerated
--- NOTE | 2019-04-02 11:19 | PN ---
Progress Note, [employer] - Note Progress Note: Selected Entries 04/01/19 04/01/19 04/01/19 06:00 08:00 09:09 Breakfast 75% 100% Lunch Temperature 98 F 97.5 F L 04/01/19 04/01/19 04/01/19 10:00 12:00 13:30 Breakfast Lunch 100% Temperature 97.8 F 98.0 F 04/01/19 04/01/19 04/01/19 14:00 16:00 18:00 Breakfast Lunch Temperature 98.0 F 97.9 F 98.0 F 04/01/19 04/01/19 04/02/19 20:00 22:00 02:00 Breakfast Lunch Temperature 98.2 F 98.7 F 97.5 F L Laboratory Tests 04/01/19 04/02/19 06:45 07:30 WBC 10.3 H 8.5 Pt tranferred from ICU to telemetry. Tolerating Puree/nectar, Now drinking thin tea with responsive cough c/w aspiration. Reviewed with staff- Please add thickener to tea.
[2019-04-02] MEDS ORDERED: INSULIN (NOVOLOG) ASPART 100 UNITS/ML 10ML VIAL ONE (12:12)
[2019-04-02 14:14] LABS: ALBUMIN 1.8 g/dl (3.4-5.0); BILIRUBIN,TOTAL 0.2 mg/dL (0.2-1); BLOOD UREA NITROGEN 61.3 mg/dL (7-18); CALCIUM 7.2 mg/dL (8.5-10.1); CREATININE 1.6 mg/dL (0.55-1.3); POTASSIUM 4.8 mmol/L (3.5-5.1); TOT PROT 5.2 g/dl (6.4-8.2)
--- NOTE | 2019-04-02 15:36 | PN ---
Progress Note, Physician History of Present Illness: Pt seen and examined at bedside. He is awake and more alert. He says that he has been having chest pain since early this morning. He denies shortness of breath. - Current Medication List Current Medications: Active Medications Acetaminophen (Ofirmev Injection -) 1,000 mg IVPB Q6H PRN PRN Reason: FEVER Al Hydroxide/Mg Hydroxide (Mylanta Oral Suspension -) 30 ml PO Q8H PRN PRN Reason: INDIGESTION Albuterol Sulfate (Ventolin 0.083% Nebulizer Soln -) 1 amp NEB Q6H PRN PRN Reason: SHORT OF BREATH/WHEEZING Albuterol/Ipratropium (Duoneb -) 1 amp NEB Q4H PRN PRN Reason: SHORTNESS OF BREATH Apixaban (Eliquis -) 5 mg PO BID [facility] Last Admin: 04/02/19 10:34 Dose: 5 mg Carbamazepine (Tegretol -) 200 mg PO TIDCM [facility] Last Admin: 04/02/19 13:22 Dose: 200 mg Carvedilol (Coreg -) 6.25 mg PO BID [facility] Last Admin: 04/02/19 10:34 Dose: 6.25 mg Dextrose (D50w (Vial) -) 25 gm IVPUSH PRN PRN PRN Reason: HYPOGLYCEMIA Furosemide (Lasix -) 20 mg PO DAILY [facility] Pantoprazole Sodium 160 mg/ (Sodium Chloride) 290 mls @ 14.5 mls/hr IVPB Q20H [facility] Last Admin: 04/02/19 06:17 Dose: Not Given Insulin Aspart (Novolog Vial Sliding Scale -) 1 vial SQ [facility]; Protocol Last Admin: 04/02/19 13:22 Dose: 12 units Levetiracetam (Keppra Injection -) 750 mg IVPB BID [facility] Last Admin: 04/02/19 10:33 Dose: 750 mg Levothyroxine Sodium (Synthroid -) 125 mcg PO DAILY@0700 [facility] Lidocaine (Lidoderm Patch -) 1 patch TP DAILY [facility] Last Admin: 04/02/19 10:33 Dose: 1 patch Mirtazapine (Remeron -) 15 mg PO HS [facility] Miscellaneous (Lidoderm Patch Removal) 1 each MC DAILY@2200 [facility] Last Admin: 04/01/19 23:23 Dose: 1 each Sacubitril/Valsartan (Entresto 24 Mg-26 Mg Tablet) 1 tab PO BID [facility] Spironolactone (Aldactone -) 25 mg PO DAILY [facility] Tamsulosin HCl (Flomax -) 0.4 mg PO DAILY@0830 [facility] Last Admin: 04/02/19 10:34 Dose: 0.4 mg - Objective Vital Signs: Vital Signs Temperature 97.4 F L 04/02/19 08:00 Pulse Rate 65 04/02/19 10:00 Respiratory Rate 18 04/02/19 10:00 Blood Pressure 142/69 04/02/19 08:00 O2 Sat by Pulse Oximetry (%) 98 04/02/19 10:00 Constitutional: Yes: Calm Eyes: Yes: Conjunctiva Clear HENT: Yes: Atraumatic Cardiovascular: Yes: S1, S2 Respiratory: Yes: CTA Bilaterally, On Nasal O2 Gastrointestinal: Yes: Soft Genitourinary: Yes: Valdes Present Musculoskeletal: Yes: WNL Edema: No Neurological: Yes: Oriented Labs: CBC, BMP 04/02/19 07:30 04/02/19 12:14 INR, PTT INR 1.32 (0.83-1.09) H 04/01/19 06:45 Problem List - Problems (1) Acute on chronic diastolic (congestive) heart failure Code(s): I50.33 - ACUTE ON CHRONIC DIASTOLIC (CONGESTIVE) HEART FAILURE (2) [id number] kidney injury Code(s): N17.9 - ACUTE KIDNEY FAILURE, UNSPECIFIED; N18.9 - CHRONIC KIDNEY DISEASE, UNSPECIFIED Qualifiers: Acute renal failure type: unspecified (3) Hyperkalemia Code(s): E87.5 - HYPERKALEMIA (4) Hypothyroidism Code(s): E03.9 - HYPOTHYROIDISM, UNSPECIFIED Qualifiers: Hypothyroidism type: unspecified Qualified Code(s): E03.9 - Hypothyroidism , unspecified Assessment/Plan Current Medications Generic Name Dose Route Start Last Admin Trade Name Freq PRN Reason Stop Dose Admin Acetaminophen 1,000 mg 04/02/19 07:32 Ofirmev Injection - IVPB Q6H PRN FEVER Al Hydroxide/Mg Hydroxide 30 ml 04/02/19 07:32 Mylanta Oral Suspension - PO Q8H PRN INDIGESTION Albuterol Sulfate 1 amp 04/02/19 07:32 Ventolin 0.083% Nebulizer Soln - NEB Q6H PRN SHORT OF BREATH/WHEEZING Albuterol/Ipratropium 1 amp 04/02/19 07:32 Duoneb - NEB Q4H PRN SHORTNESS OF BREATH Apixaban 5 mg 04/01/19 13:15 04/02/19 10:34 Eliquis - PO 5 mg BID [facility] Administration Carbamazepine 200 mg 04/02/19 08:00 04/02/19 13:22 Tegretol - PO 200 mg TIDCM [facility] Administration Carvedilol 6.25 mg 04/02/19 10:00 04/02/19 10:34 Coreg - PO 6.25 mg BID [facility] Administration Dextrose 25 gm 04/02/19 07:32 D50w (Vial) - IVPUSH PRN PRN HYPOGLYCEMIA Furosemide 20 mg 04/03/19 10:00 Lasix - PO DAILY [facility] Pantoprazole Sodium 160 mg/ 290 mls @ 14.5 mls/hr 04/01/19 10:00 04/02/19 06: 17 Sodium Chloride IVPB Not Given Q20H [facility] Insulin Aspart 1 vial 04/02/19 11:00 04/02/19 13:22 Novolog Vial Sliding Scale - SQ 12 units ACHS [facility] Administration Protocol Levetiracetam 750 mg 04/02/19 10:00 04/02/19 10:33 Keppra Injection - IVPB 750 mg BID [facility] Administration Levothyroxine Sodium 125 mcg 04/03/19 07:00 Synthroid - PO DAILY@0700 [facility] Lidocaine 1 patch 04/01/19 11:30 04/02/19 10:33 Lidoderm Patch - TP 1 patch DAILY [facility] Administration Mirtazapine 15 mg 04/02/19 22:00 Remeron - PO HS [facility] Miscellaneous 1 each 04/01/19 22:00 04/01/19 23:23 Lidoderm Patch Removal MC 1 each DAILY@2200 [facility] Administration Sacubitril/Valsartan 1 tab 04/02/19 12:52 Entresto 24 Mg-26 Mg Tablet PO BID [facility] Spironolactone 25 mg 04/03/19 10:00 Aldactone - PO DAILY [facility] Tamsulosin HCl 0.4 mg 04/02/19 08:30 04/02/19 10:34 Flomax - PO 0.4 mg DAILY@0830 [facility] Administration Laboratory Tests 04/02/19 12:14 Potassium 4.8 Impression 1. DANYA 2. hyperkalemia 3. chf 4. weight loss 5. anemia 6. hypoxic resp failure 7. transaminitis 8. htn 9. a-fib Plan - agree with po lasix - will need to monitor potassium closely while on aldactone - low potassium diet - will need better glucose control - cardio called as he has chest pain, spoke to nursing staff - monitor renal function - has atrophic left kidney on ultrasound
[2019-04-02] MEDS: SACUBITRIL/VALSARTAN 24 MG-26 MG TABLET PO SCH ×2 (16:23→23:11)
--- NOTE | 2019-04-02 17:49 | PN ---
GI Progress Note Subjective: GI NOte: Conversant today. Denies abdominal pain. Denies any GI bleeding preceding this hospitalization. Oriented to date and place but cannot recall having had an EGD and a colonoscopy before. 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 - Objective Vital Signs: Vital Signs Temperature 98 F 04/02/19 15:35 Pulse Rate 61 04/02/19 15:35 Respiratory Rate 20 04/02/19 15:35 Blood Pressure 132/71 04/02/19 15:35 O2 Sat by Pulse Oximetry (%) 98 04/02/19 10:00 Laboratory Tests 03/29/19 03/30/19 03/31/19 20:45 16:00 06:10 AST ALT 591 H 1074 H 864 H Alkaline Phosphatase 494 H 794 H 04/01/19 04/02/19 04/02/19 06:45 07:30 12:14 AST 77 H 83 H ALT 345 H 338 H Alkaline Phosphatase 652 H 490 H 535 H Laboratory Tests 03/31/19 03/31/19 06:10 06:10 Iron 19 L Iron Saturation 6 L Unsaturated IBC 292 H Ferritin 1305.5 H Tumor Marker AFP 2.1 Carcinoembryonic Ag 5.0 H CLARISA Screen Negative Hep A IgM Ab Confirm Negative Hepatitis A Ab Total Positive H Hep Bs Antigen Negative Hep Bs Antibody Reactive Hep B Core Total Ab Positive H Hep B Core IgM Ab Negative Hepatitis Be Antibody Negative Hepatitis Be Antigen Negative Hep C Ab Diagnostic 0.2 Constitutional: Calm ...Auscultate: Yes: Normoactive Bowel Sounds ...Palpate: Yes: Soft, Other (nontender) Labs: CBC, BMP 04/02/19 07:30 04/02/19 12:14 INR, PTT INR 1.32 (0.83-1.09) H 04/01/19 06:45 Assessment/Plan Assessment - The anemia requires evaluation if/when he mental, cardiac and pulmonary status permit to exclude portal gastropathy and varices, ulcers, vascular ectasias, GERD and GI tract neoplasms ( as suggested by his 01/31 CT scan). I have advised an EGD and if unrevealing then a colonoscopy. He is not able to recount that which I discussed - Hepatic passive congestion due to cor pulmonale and right heart failure. - Personal h/o colon polyp Plan: -- If and when his condition permits and if informed consent if granted then an EGD will be undertaken and if unrevealing then a colonoscopy will be mandated. His Eliquis will need to be interrupted -- Continue empiric PPI -- Follow LFTs -- Renal dysfunction precludes a contrast CT scan to exclude advanced malignancy for now Problem List - Problems (1) Anemia Code(s): D64.9 - ANEMIA, UNSPECIFIED (2) Occult blood in stools Code(s): R19.5 - OTHER FECAL ABNORMALITIES (3) Weight loss Code(s): R63.4 - ABNORMAL WEIGHT LOSS (4) Narcotic addiction Code(s): F11.20 - OPIOID DEPENDENCE, UNCOMPLICATED (5) Hyperplastic polyp of descending colon Code(s): K63.5 - POLYP OF COLON (6) Abnormal liver function tests Code(s): R94.5 - ABNORMAL RESULTS OF LIVER FUNCTION STUDIES (7) Hypothyroidism Code(s): E03.9 - HYPOTHYROIDISM, UNSPECIFIED Qualifiers: Hypothyroidism type: unspecified Qualified Code(s): E03.9 - Hypothyroidism , unspecified (8) Symptomatic anemia Code(s): D64.9 - ANEMIA, UNSPECIFIED (9) Type 2 diabetes mellitus Code(s): E11.9 - TYPE 2 DIABETES MELLITUS WITHOUT COMPLICATIONS Qualifiers: Diabetes mellitus exterminator helper insulin use: without exterminator helper use Diabetes mellitus complication status: with circulatory complication (10) Nausea & vomiting Code(s): R11.2 - NAUSEA WITH VOMITING, UNSPECIFIED Qualifiers: Vomiting type: unspecified Vomiting Intractability: unspecified Qualified Code(s): R11.2 - Nausea with vomiting, unspecified (12) Hyperkalemia Code(s): E87.5 - HYPERKALEMIA (13) Cor pulmonale Code(s): I27.81 - COR PULMONALE (CHRONIC) (14) Pneumonia Code(s): J18.9 - PNEUMONIA, UNSPECIFIED ORGANISM (15) Pacemaker Code(s): Z95.0 - PRESENCE OF CARDIAC PACEMAKER
--- NOTE | 2019-04-02 22:12 | EKG ---
Test Reason : Blood Pressure : / mmHG Vent. Rate : 066 BPM Atrial Rate : 066 BPM P-R Int : 214 ms QRS Dur : 108 ms QT Int : 468 ms P-R-T Axes : 008 -28 228 degrees QTc Int : 490 ms Atrial-paced rhythm with prolonged AV conduction PROLONGED QT ABNORMAL ECG WHEN COMPARED WITH ECG OF 31-MAR-2019 10:18, SIGNIFICANT CHANGES HAVE OCCURRED Confirmed by MD DELON, HEATH ([id number]) on 04/02/2019 10:12:17 PM Referred By: Confirmed By:HEATH JERNIGAN MD
[2019-04-02] MEDS: LIDOCAINE PATCH REMOVAL MC SCH (23:11)
[2019-04-02] MEDS: MIRTAZAPINE 15 MG TABLET (FP) PO SCH (23:11)
[2019-04-03 06:43] LABS: HEMATOCRIT 28.4 % (35.4-49); HEMOGLOBIN 9.2 GM/dL (11.7-16.9); MCH 29.2 pg (25.7-33.7); MCHC 32.3 g/dl (32.0-35.9); MEAN CELL VOLUME 90.5 fl (80-96); MEAN PLT VOLUME 7.6 fl (7.5-11.1); PLATELET COUNT 387 K/MM3 (134-434); RBC 3.14 M/mm3 (4.00-5.60); RDW 16.9 % (11.9-15.9); WHITE BLOOD COUNT 11.4 K/mm3 (4.0-10.0)
[2019-04-03] MEDS: INSULIN SLIDING SCALE (NOVOLOG) 1 VIAL SQ SCH ×4 (07:01→23:18)
[2019-04-03] MEDS: LEVOTHYROXINE NA 125 MCG TABLET (FP) PO SCH (07:01)
[2019-04-03 07:09] LABS: ALBUMIN 1.7 g/dl (3.4-5.0); BILIRUBIN,DIRECT 0.1 mg/dL (0.0-0.2); BILIRUBIN,TOTAL 0.4 mg/dL (0.2-1)
--- NOTE | 2019-04-03 07:19 | PN ---
Progress Note (short form) - Note Progress Note: Chief Complaint: Events noted, notes reviewed, complaining of cough, denies any chest pain or dyspnea History of Present Illness: Seen and examined on telemetry. Events noted, notes reviewed, complaining of cough, denies any chest pain or dyspnea - Current Medication List Current Medications: Active Medications Current Medications Acetaminophen (Ofirmev Injection -) 1,000 mg IVPB Q6H PRN PRN Reason: FEVER Al Hydroxide/Mg Hydroxide (Mylanta Oral Suspension -) 30 ml PO Q8H PRN PRN Reason: INDIGESTION Albuterol Sulfate (Ventolin 0.083% Nebulizer Soln -) 1 amp NEB Q6H PRN PRN Reason: SHORT OF BREATH/WHEEZING Albuterol/Ipratropium (Duoneb -) 1 amp NEB Q4H PRN PRN Reason: SHORTNESS OF BREATH Apixaban (Eliquis -) 5 mg PO BID [facility] Last Admin: 04/02/19 23:11 Dose: 5 mg Carbamazepine (Tegretol -) 200 mg PO TIDCM [facility] Last Admin: 04/02/19 17:59 Dose: 200 mg Carvedilol (Coreg -) 6.25 mg PO BID [facility] Last Admin: 04/02/19 23:21 Dose: 6.25 mg Dextrose (D50w (Vial) -) 25 gm IVPUSH PRN PRN PRN Reason: HYPOGLYCEMIA Furosemide (Lasix -) 20 mg PO DAILY [facility] Pantoprazole Sodium 160 mg/ (Sodium Chloride) 290 mls @ 14.5 mls/hr IVPB Q20H [facility] Last Admin: 04/02/19 06:17 Dose: Not Given Insulin Aspart (Novolog Vial Sliding Scale -) 1 vial SQ ACHS [facility]; Protocol Last Admin: 04/03/19 07:01 Dose: Not Given Levetiracetam (Keppra Injection -) 750 mg IVPB BID [facility] Last Admin: 04/02/19 23:11 Dose: 750 mg Levothyroxine Sodium (Synthroid -) 125 mcg PO DAILY@0700 [facility] Last Admin: 04/03/19 07:01 Dose: 125 mcg Lidocaine (Lidoderm Patch -) 1 patch TP DAILY [facility] Last Admin: 04/02/19 10:33 Dose: 1 patch Mirtazapine (Remeron -) 15 mg PO HS [facility] Last Admin: 04/02/19 23:11 Dose: 15 mg Miscellaneous (Lidoderm Patch Removal) 1 each MC DAILY@2200 [facility] Last Admin: 04/02/19 23:11 Dose: 1 each Sacubitril/Valsartan (Entresto 24 Mg-26 Mg Tablet) 1 tab PO BID [facility] Last Admin: 04/02/19 23:11 Dose: 1 tab Spironolactone (Aldactone -) 25 mg PO DAILY [facility] Tamsulosin HCl (Flomax -) 0.4 mg PO DAILY@0830 [facility] Last Admin: 04/02/19 10:34 Dose: 0.4 mg - Review of Systems Constitutional: denies: Chills, Fever Cardiovascular: As noted above Respiratory: reports: Cough Gastrointestinal: denies: Abdominal Pain, Constipation, Diarrhea, Nausea or Vomiting Musculoskeletal: denies: Back Pain Neurological: denies: Dizziness, Headache - Objective Vital Signs: Last Vital Signs Temp Pulse Resp BP Pulse Ox 97.8 F 61 20 125/69 97 04/03/19 02:00 04/03/19 02:00 04/03/19 02:00 04/03/19 02:00 04/02/19 21:00 Intake & Output 03/31/19 04/01/19 04/02/19 04/03/19 23:59 23:59 23:59 23:59 Intake Total 300 1611.5 614 Output Total 1725 3500 700 Balance -1425 -1888.5 -86 HEENT: Atraumatic Neck: Supple Negative JVD Cardiovascular: S1 S2 Regular Rate and Rhythm Respiratory: Diminished Breath Sounds at the Bases Gastrointestinal: Soft Benign Normal Bowel Sounds Ext: No Edema Labs: CBC, BMP 04/03/19 06:00 04/02/19 12:14 Hepatic Panel Total Bilirubin 0.4 mg/dL (0.2-1) 04/03/19 06:00 Direct Bilirubin 0.1 mg/dL (0.0-0.2) 04/03/19 06:00 AST 51 U/L (15-37) H 04/03/19 06:00 ALT 260 U/L (13-61) H 04/03/19 06:00 Alkaline Phosphatase 472 U/L (45-117) H 04/03/19 06:00 Albumin 1.7 g/dl (3.4-5.0) L 04/03/19 06:00 INR, PTT INR 1.32 (0.83-1.09) H 04/01/19 06:45 Assessment/Plan 1. Acute hypoxemic respiratory failure related to 2. Acute on chronic class II-III NYHA classification LV failure related to systolic/diastolic LV dysfunction, resolving 3. CAD with evidence of demand ischemic injury/subendocardial ischemia angina pectoris 4. AV block post PPM 5. Paroxysmal atrial fibrillation currently in sinus rhythm/atrial pacing [id number] score of 4 on DOAC's/Eliquis 6. Hypertensive heart disease 7. DM 8. Hyperlipidemia 9. Acute on chronic- CKD 10. Profound anemia post transfusion, rule out gastrointestinal source 11. Seizure disorder 12. Hypothyroidism 13. Ischemic hepatitis improving PLAN: 1. Continue Entresto with close monitoring of renal function and electrolytes 2. Continue Coreg 3. Continue Lasix and Aldactone with close monitoring of renal function and electrolytes 4. Continue to hold ASA pending further evaluation of anemia, but continue Eliquis with caution and close monitoring of Hg/transfuse if Hg equal or < 8.0 ( dose correction to 2.5 mg twice daily- creatinine > 1.5 and weight < 60 kg) 5. Once patient is clinically euvolemic to proceed with planned gastrointestinal evaluation Hernandez Alcocer MD
[2019-04-03] MEDS ORDERED: PT OWN MED DRAWER 7, Y5N ONE ×4 (08:01→23:11)
--- NOTE | 2019-04-03 08:44 | PN ---
Progress Note (short form) - Note Progress Note: Renal follow up for DANYA/CKD Coverage for Dr. Bailon Seen and examined at the bedside awake and alert SOB is improved but still has chest discomfort making urine no N/V/D, abd pain Vital Signs Temperature 98.5 F 04/03/19 06:00 Pulse Rate 61 04/03/19 06:00 Respiratory Rate 20 04/03/19 06:00 Blood Pressure 142/72 04/03/19 06:00 O2 Sat by Pulse Oximetry (%) 97 04/02/19 21:00 Intake & Output 03/31/19 04/01/19 04/02/19 04/03/19 23:59 23:59 23:59 23:59 Intake Total 300 1611.5 614 Output Total 1725 3500 700 Balance -1425 -1888.5 -86 NAD awake and alert RRR Dec BS, upper airway congestion no LE edema CBC, BMP 04/03/19 06:00 04/02/19 12:14 Current Medications Acetaminophen (Ofirmev Injection -) 1,000 mg IVPB Q6H PRN PRN Reason: FEVER Al Hydroxide/Mg Hydroxide (Mylanta Oral Suspension -) 30 ml PO Q8H PRN PRN Reason: INDIGESTION Albuterol Sulfate (Ventolin 0.083% Nebulizer Soln -) 1 amp NEB Q6H PRN PRN Reason: SHORT OF BREATH/WHEEZING Albuterol/Ipratropium (Duoneb -) 1 amp NEB Q4H PRN PRN Reason: SHORTNESS OF BREATH Apixaban (Eliquis -) 5 mg PO BID [facility] Last Admin: 04/02/19 23:11 Dose: 5 mg Carbamazepine (Tegretol -) 200 mg PO TIDCM [facility] Last Admin: 04/02/19 17:59 Dose: 200 mg Carvedilol (Coreg -) 6.25 mg PO BID [facility] Last Admin: 04/02/19 23:21 Dose: 6.25 mg Dextrose (D50w (Vial) -) 25 gm IVPUSH PRN PRN PRN Reason: HYPOGLYCEMIA Furosemide (Lasix -) 20 mg PO DAILY [facility] Pantoprazole Sodium 160 mg/ (Sodium Chloride) 290 mls @ 14.5 mls/hr IVPB Q20H [facility] Last Admin: 04/02/19 06:17 Dose: Not Given Insulin Aspart (Novolog Vial Sliding Scale -) 1 vial SQ ACHS [facility]; Protocol Last Admin: 04/03/19 07:01 Dose: Not Given Levetiracetam (Keppra Injection -) 750 mg IVPB BID [facility] Last Admin: 04/02/19 23:11 Dose: 750 mg Levothyroxine Sodium (Synthroid -) 125 mcg PO DAILY@0700 [facility] Last Admin: 04/03/19 07:01 Dose: 125 mcg Lidocaine (Lidoderm Patch -) 1 patch TP DAILY [facility] Last Admin: 04/02/19 10:33 Dose: 1 patch Mirtazapine (Remeron -) 15 mg PO HS [facility] Last Admin: 04/02/19 23:11 Dose: 15 mg Miscellaneous (Lidoderm Patch Removal) 1 each MC DAILY@2200 [facility] Last Admin: 04/02/19 23:11 Dose: 1 each Sacubitril/Valsartan (Entresto 24 Mg-26 Mg Tablet) 1 tab PO BID [facility] Last Admin: 04/02/19 23:11 Dose: 1 tab Spironolactone (Aldactone -) 25 mg PO DAILY [facility] Tamsulosin HCl (Flomax -) 0.4 mg PO DAILY@0830 [facility] Last Admin: 04/02/19 10:34 Dose: 0.4 mg Impression 1. DANYA 2. hyperkalemia 3. chf 4. weight loss 5. anemia 6. hypoxic resp failure 7. transaminitis 8. htn 9. a-fib Plan todays labs pending Volume status appears improved continue oral lasix and aldactone trend BMP daily Cardiology followup Trend LFT's Adam Lindsay DO
[2019-04-03] MEDS: carBAMazepine 100 MG TAB.CHEW PO SCH ×3 (08:50→17:13)
[2019-04-03] MEDS: TAMSULOSIN HCL 0.4 MG CAP PO SCH (08:50)
[2019-04-03] MEDS: PANTOPRAZOLE SODIUM 160 MG in SODIUM CHLORIDE 290 ML IVPB SCH ×2 (08:53→23:13)
[2019-04-03] MEDS: levETIRAcetam 500 MG/5 ML INJECTION VIAL IVPB SCH ×2 (10:03→23:15)
[2019-04-03] MEDS: APIXABAN 5 MG TABLET PO SCH ×3 (10:03→23:46)
[2019-04-03] MEDS: CARVEDILOL 6.25 MG TABLET (FP) PO SCH ×3 (10:04→23:46)
[2019-04-03] MEDS: FUROSEMIDE 20 MG TABLET (FP) PO SCH (10:04)
[2019-04-03] MEDS: SPIRONOLACTONE 25 MG TABLET (FP) PO SCH (10:04)
[2019-04-03] MEDS: LIDOCAINE 5% TOPICAL PATCH TP SCH ×2 (10:04→14:46)
[2019-04-03] MEDS: SACUBITRIL/VALSARTAN 24 MG-26 MG TABLET PO SCH ×3 (10:06→23:41)
--- NOTE | 2019-04-03 10:09 | PN ---
Progress Note, Physician History of Present Illness: pulmonary alert,no distress,+ cough,-sob - Current Medication List Current Medications: Active Medications Acetaminophen (Ofirmev Injection -) 1,000 mg IVPB Q6H PRN PRN Reason: FEVER Al Hydroxide/Mg Hydroxide (Mylanta Oral Suspension -) 30 ml PO Q8H PRN PRN Reason: INDIGESTION Albuterol Sulfate (Ventolin 0.083% Nebulizer Soln -) 1 amp NEB Q6H PRN PRN Reason: SHORT OF BREATH/WHEEZING Albuterol/Ipratropium (Duoneb -) 1 amp NEB Q4H PRN PRN Reason: SHORTNESS OF BREATH Apixaban (Eliquis -) 2.5 mg PO BID [facility] Carbamazepine (Tegretol -) 200 mg PO TIDCM [facility] Last Admin: 04/03/19 08:50 Dose: 200 mg Carvedilol (Coreg -) 6.25 mg PO BID [facility] Last Admin: 04/02/19 23:21 Dose: 6.25 mg Dextrose (D50w (Vial) -) 25 gm IVPUSH PRN PRN PRN Reason: HYPOGLYCEMIA Furosemide (Lasix -) 20 mg PO DAILY [facility] Pantoprazole Sodium 160 mg/ (Sodium Chloride) 290 mls @ 14.5 mls/hr IVPB Q20H [facility] Last Admin: 04/03/19 08:53 Dose: 14.5 mls/hr Insulin Aspart (Novolog Vial Sliding Scale -) 1 vial SQ ACHS [facility]; Protocol Last Admin: 04/03/19 07:01 Dose: Not Given Levetiracetam (Keppra Injection -) 750 mg IVPB BID [facility] Last Admin: 04/02/19 23:11 Dose: 750 mg Levothyroxine Sodium (Synthroid -) 125 mcg PO DAILY@0700 [facility] Last Admin: 04/03/19 07:01 Dose: 125 mcg Lidocaine (Lidoderm Patch -) 1 patch TP DAILY [facility] Last Admin: 04/02/19 10:33 Dose: 1 patch Mirtazapine (Remeron -) 15 mg PO HS [facility] Last Admin: 04/02/19 23:11 Dose: 15 mg Miscellaneous (Lidoderm Patch Removal) 1 each MC DAILY@2200 [facility] Last Admin: 04/02/19 23:11 Dose: 1 each Sacubitril/Valsartan (Entresto 24 Mg-26 Mg Tablet) 1 tab PO BID [facility] Last Admin: 04/02/19 23:11 Dose: 1 tab Spironolactone (Aldactone -) 25 mg PO DAILY [facility] Tamsulosin HCl (Flomax -) 0.4 mg PO DAILY@0830 [facility] Last Admin: 04/03/19 08:50 Dose: 0.4 mg - Objective Vital Signs: Vital Signs Temperature 98.5 F 04/03/19 06:00 Pulse Rate 61 04/03/19 06:00 Respiratory Rate 20 04/03/19 06:00 Blood Pressure 142/72 04/03/19 06:00 O2 Sat by Pulse Oximetry (%) 97 04/02/19 21:00 Constitutional: Yes: Calm, Thin Eyes: Yes: WNL HENT: Yes: WNL Neck: Yes: WNL Cardiovascular: Yes: Pulse Irregular, S1, S2 Respiratory: Yes: Diminished Gastrointestinal: Yes: Normal Bowel Sounds, Soft Extremities: Yes: WNL Edema: No Labs: CBC, BMP 04/03/19 06:00 INR, PTT INR 1.32 (0.83-1.09) H 04/01/19 06:45 - ....Imaging Chest X-ray: Image Reviewed (+ evan congestion) Problem List - Problems (1) Abnormal liver function tests Code(s): R94.5 - ABNORMAL RESULTS OF LIVER FUNCTION STUDIES (2) Acute on chronic diastolic (congestive) heart failure Code(s): I50.33 - ACUTE ON CHRONIC DIASTOLIC (CONGESTIVE) HEART FAILURE (3) Hypothyroidism Code(s): E03.9 - HYPOTHYROIDISM, UNSPECIFIED Qualifiers: Hypothyroidism type: unspecified Qualified Code(s): E03.9 - Hypothyroidism , unspecified (4) Paroxysmal atrial fibrillation with rapid ventricular response Code(s): I48.0 - PAROXYSMAL ATRIAL FIBRILLATION (5) Symptomatic anemia Code(s): D64.9 - ANEMIA, UNSPECIFIED (6) Type 2 diabetes mellitus Code(s): E11.9 - TYPE 2 DIABETES MELLITUS WITHOUT COMPLICATIONS Qualifiers: Diabetes mellitus retirement insulin use: without continuous churn buttermaker use Diabetes mellitus complication status: with circulatory complication (7) Weight loss Code(s): R63.4 - ABNORMAL WEIGHT LOSS (8) Anemia Code(s): D64.9 - ANEMIA, UNSPECIFIED (9) [id number] kidney injury Code(s): N17.9 - ACUTE KIDNEY FAILURE, UNSPECIFIED; N18.9 - CHRONIC KIDNEY DISEASE, UNSPECIFIED Qualifiers: Acute renal failure type: unspecified Assessment/Plan ASSESSMENT AND PLAN: Acute Hypoxic Respiratory Failure improved Severe Anemia Acute on Chronic Diastolic Heart Failure +Troponins likely Demand Ischemia Lactic Acidosis improved Acute on Chronic Renal Failure Elevated LFTs likely Congestive Hepatopathy improving Atrial Fibrillation s/p PPM HTN Hyperlipidemia Hypothyroidism Seizure Disorder - monitor H/H - lasix - monitor urine output, creatinine - trend LFTs - on empiric antibiotics - for EGD when euvolemic - O2 to keep SpO2 >90% - rate control - DVT prophylaxis DR GLODSTEIN
[2019-04-03 10:20] LABS: BLOOD UREA NITROGEN 49.6 mg/dL (7-18); CALCIUM 7.4 mg/dL (8.5-10.1); CREATININE 1.2 mg/dL (0.55-1.3); POTASSIUM 4.1 mmol/L (3.5-5.1)
--- NOTE | 2019-04-03 13:58 | PN ---
Progress Note, Physician History of Present Illness: coughing and feeling weak - Current Medication List Current Medications: Active Medications Acetaminophen (Ofirmev Injection -) 1,000 mg IVPB Q6H PRN PRN Reason: FEVER Al Hydroxide/Mg Hydroxide (Mylanta Oral Suspension -) 30 ml PO Q8H PRN PRN Reason: INDIGESTION Albuterol Sulfate (Ventolin 0.083% Nebulizer Soln -) 1 amp NEB Q6H PRN PRN Reason: SHORT OF BREATH/WHEEZING Albuterol/Ipratropium (Duoneb -) 1 amp NEB Q4H PRN PRN Reason: SHORTNESS OF BREATH Apixaban (Eliquis -) 2.5 mg PO BID [facility] Last Admin: 04/03/19 10:03 Dose: 2.5 mg Carbamazepine (Tegretol -) 200 mg PO TIDCM [facility] Last Admin: 04/03/19 11:54 Dose: 200 mg Carvedilol (Coreg -) 6.25 mg PO BID [facility] Last Admin: 04/03/19 10:04 Dose: 6.25 mg Dextrose (D50w (Vial) -) 25 gm IVPUSH PRN PRN PRN Reason: HYPOGLYCEMIA Furosemide (Lasix -) 20 mg PO DAILY [facility] Last Admin: 04/03/19 10:04 Dose: 20 mg Pantoprazole Sodium 160 mg/ (Sodium Chloride) 290 mls @ 14.5 mls/hr IVPB Q20H [facility] Last Admin: 04/03/19 08:53 Dose: 14.5 mls/hr Insulin Aspart (Novolog Vial Sliding Scale -) 1 vial SQ ACHS [facility]; Protocol Last Admin: 04/03/19 11:54 Dose: 8 units Levetiracetam (Keppra Injection -) 750 mg IVPB BID [facility] Last Admin: 04/03/19 10:03 Dose: 750 mg Levothyroxine Sodium (Synthroid -) 125 mcg PO DAILY@0700 [facility] Last Admin: 04/03/19 07:01 Dose: 125 mcg Lidocaine (Lidoderm Patch -) 1 patch TP DAILY [facility] Last Admin: 04/03/19 10:04 Dose: 1 patch Mirtazapine (Remeron -) 15 mg PO HS [facility] Last Admin: 04/02/19 23:11 Dose: 15 mg Miscellaneous (Lidoderm Patch Removal) 1 each MC DAILY@2200 [facility] Last Admin: 10/18/19 23:11 Dose: 1 each Sacubitril/Valsartan (Entresto 24 Mg-26 Mg Tablet) 1 tab PO BID [facility] Last Admin: 04/03/19 10:06 Dose: 1 tab Spironolactone (Aldactone -) 25 mg PO DAILY [facility] Last Admin: 04/03/19 10:04 Dose: 25 mg Tamsulosin HCl (Flomax -) 0.4 mg PO DAILY@0830 [facility] Last Admin: 04/03/19 08:50 Dose: 0.4 mg - Objective Vital Signs: Vital Signs Temperature 98 F 04/03/19 09:00 Pulse Rate 62 04/03/19 09:00 Respiratory Rate 18 04/03/19 09:00 Blood Pressure 138/70 04/03/19 09:00 O2 Sat by Pulse Oximetry (%) 100 04/03/19 10:00 Elderly man not in distress sick looking HEEENT: Mm dry anemia NECK: No JVd No Bruit CHEST: crepts + ABD: no distention, non tender EXT: Edema LE + , pulses + COAT CHECKER: alert but somnolent grossly non focal Labs: CBC, BMP 04/03/19 06:00 04/03/19 06:00 INR, PTT INR 1.32 (0.83-1.09) H 04/01/19 06:45 Problem List - Problems (1) Acute on chronic diastolic (congestive) heart failure Assessment/Plan: improving on current management F/U cardiology recommendations Code(s): I50.33 - ACUTE ON CHRONIC DIASTOLIC (CONGESTIVE) HEART FAILURE (2) [id number] kidney injury Assessment/Plan: Improving F/U BMP renal recommendations. Code(s): N17.9 - ACUTE KIDNEY FAILURE, UNSPECIFIED; N18.9 - CHRONIC KIDNEY DISEASE, UNSPECIFIED Qualifiers: Acute renal failure type: unspecified (3) Abnormal liver function tests Assessment/Plan: Due to ischemic Hepatitis improving Code(s): R94.5 - ABNORMAL RESULTS OF LIVER FUNCTION STUDIES (4) Type 2 diabetes mellitus Assessment/Plan: Optimize glycemic control Code(s): E11.9 - TYPE 2 DIABETES MELLITUS WITHOUT COMPLICATIONS Qualifiers: Diabetes mellitus senior living insulin use: without intermediate teacher use Diabetes mellitus complication status: with circulatory complication (5) Hypothyroidism Assessment/Plan: omn Levothyroxine Code(s): E03.9 - HYPOTHYROIDISM, UNSPECIFIED Qualifiers: Hypothyroidism type: unspecified Qualified Code(s): E03.9 - Hypothyroidism , unspecified (6) Severe anemia Assessment/Plan: H/H stable post transfusion Code(s): D64.9 - ANEMIA, UNSPECIFIED (7) Narcotic dependence Assessment/Plan: on chronic pain management. Code(s): F11.20 - OPIOID DEPENDENCE, UNCOMPLICATED
--- NOTE | 2019-04-03 20:38 | PN ---
Progress Note, Physician Chief Complaint: Feels chest congestion and SOB - Current Medication List Current Medications: Active Medications Acetaminophen (Ofirmev Injection -) 1,000 mg IVPB Q6H PRN PRN Reason: FEVER Al Hydroxide/Mg Hydroxide (Mylanta Oral Suspension -) 30 ml PO Q8H PRN PRN Reason: INDIGESTION Albuterol Sulfate (Ventolin 0.083% Nebulizer Soln -) 1 amp NEB Q6H PRN PRN Reason: SHORT OF BREATH/WHEEZING Albuterol/Ipratropium (Duoneb -) 1 amp NEB Q4H PRN PRN Reason: SHORTNESS OF BREATH Apixaban (Eliquis -) 2.5 mg PO BID [facility] Last Admin: 04/03/19 10:03 Dose: 2.5 mg Carbamazepine (Tegretol -) 200 mg PO TIDCM [facility] Last Admin: 04/03/19 17:13 Dose: 200 mg Carvedilol (Coreg -) 6.25 mg PO BID [facility] Last Admin: 04/03/19 10:04 Dose: 6.25 mg Dextrose (D50w (Vial) -) 25 gm IVPUSH PRN PRN PRN Reason: HYPOGLYCEMIA Furosemide (Lasix -) 20 mg PO DAILY [facility] Last Admin: 04/03/19 10:04 Dose: 20 mg Pantoprazole Sodium 160 mg/ (Sodium Chloride) 290 mls @ 14.5 mls/hr IVPB Q20H [facility] Last Admin: 04/03/19 08:53 Dose: 14.5 mls/hr Insulin Aspart (Novolog Vial Sliding Scale -) 1 vial SQ ACHS [facility]; Protocol Last Admin: 04/03/19 17:13 Dose: 4 units Levetiracetam (Keppra Injection -) 750 mg IVPB BID [facility] Last Admin: 04/03/19 10:03 Dose: 750 mg Levothyroxine Sodium (Synthroid -) 125 mcg PO DAILY@0700 [facility] Last Admin: 04/03/19 07:01 Dose: 125 mcg Lidocaine (Lidoderm Patch -) 2 patch TP DAILY [facility] Last Admin: 04/03/19 14:46 Dose: 1 patch Mirtazapine (Remeron -) 15 mg PO HS [facility] Last Admin: 04/02/19 23:11 Dose: 15 mg Miscellaneous (Lidoderm Patch Removal) 2 each MC DAILY@2200 [facility] Sacubitril/Valsartan (Entresto 24 Mg-26 Mg Tablet) 1 tab PO BID [facility] Last Admin: 04/03/19 10:06 Dose: 1 tab Spironolactone (Aldactone -) 25 mg PO DAILY [facility] Last Admin: 04/03/19 10:04 Dose: 25 mg Tamsulosin HCl (Flomax -) 0.4 mg PO DAILY@0830 [facility] Last Admin: 04/03/19 08:50 Dose: 0.4 mg - Objective Vital Signs: Vital Signs Temperature 97.6 F 04/03/19 17:00 Pulse Rate 60 04/03/19 17:00 Respiratory Rate 20 04/03/19 17:00 Blood Pressure 125/66 04/03/19 17:00 O2 Sat by Pulse Oximetry (%) 100 04/03/19 10:00 Elderly man not in distress sick looking HEEENT: Mm dry anemia NECK: No JVd No Bruit CHEST: crepts + ABD: no distention, non tender EXT: Edema LE + , pulses + 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 Code(s): I50.33 - ACUTE ON CHRONIC DIASTOLIC (CONGESTIVE) HEART FAILURE (2) [id number]-kuxmftn kidney injury Assessment/Plan: Improving F/U BMP renal recommendations. Code(s): N17.9 - ACUTE KIDNEY FAILURE, UNSPECIFIED; N18.9 - CHRONIC KIDNEY DISEASE, UNSPECIFIED Qualifiers: Acute renal failure type: unspecified (3) Abnormal liver function tests Assessment/Plan: Due to ischemic Hepatitis improving Code(s): R94.5 - ABNORMAL RESULTS OF LIVER FUNCTION STUDIES (4) Type 2 diabetes mellitus Assessment/Plan: Optimize glycemic control Code(s): E11.9 - TYPE 2 DIABETES MELLITUS WITHOUT COMPLICATIONS Qualifiers: Diabetes mellitus fdc insulin use: without fdc use Diabetes mellitus complication status: with circulatory complication (5) Hypothyroidism Assessment/Plan: omn Levothyroxine Code(s): E03.9 - HYPOTHYROIDISM, UNSPECIFIED Qualifiers: Hypothyroidism type: unspecified Qualified Code(s): E03.9 - Hypothyroidism , unspecified (6) Severe anemia Assessment/Plan: H/H stable post transfusion Code(s): D64.9 - ANEMIA, UNSPECIFIED (7) Narcotic dependence Assessment/Plan: on chronic pain management. Code(s): F11.20 - OPIOID DEPENDENCE, UNCOMPLICATED
[2019-04-03] MEDS: MIRTAZAPINE 15 MG TABLET (FP) PO SCH ×2 (23:13→23:46)
[2019-04-03] MEDS: LIDOCAINE PATCH REMOVAL MC SCH (23:18)
[2019-04-04] MEDS ORDERED: INSULIN (NOVOLOG) ASPART 100 UNITS/ML 10ML VIAL ONE (06:22)
[2019-04-04] MEDS: LEVOTHYROXINE NA 125 MCG TABLET (FP) PO SCH (06:38)
[2019-04-04] MEDS: INSULIN SLIDING SCALE (NOVOLOG) 1 VIAL SQ SCH ×4 (06:38→21:44)
[2019-04-04 07:15] LABS: ALBUMIN 1.6 g/dl (3.4-5.0); BILIRUBIN,DIRECT 0.1 mg/dL (0.0-0.2); BILIRUBIN,TOTAL 0.4 mg/dL (0.2-1); BLOOD UREA NITROGEN 35.8 mg/dL (7-18); CALCIUM 7.1 mg/dL (8.5-10.1); CREATININE 1.1 mg/dL (0.55-1.3); POTASSIUM 4.3 mmol/L (3.5-5.1); TOT PROT 4.4 g/dl (6.4-8.2)
[2019-04-04 07:30] LABS: BASO % 0.8 % (0-2.0); EOS % 1.4 % (0-4.5); HEMATOCRIT 26.6 % (35.4-49); HEMOGLOBIN 8.7 GM/dL (11.7-16.9); LYMPH % 13.9 % (8-40); MCH 29.7 pg (25.7-33.7); MCHC 32.7 g/dl (32.0-35.9); MEAN CELL VOLUME 90.7 fl (80-96); MEAN PLT VOLUME 7.2 fl (7.5-11.1); MONO % 10.4 % (3.8-10.2); NEUT % 73.5 % (42.8-82.8); PLATELET COUNT 346 K/MM3 (134-434); RBC 2.93 M/mm3 (4.00-5.60); RDW 16.8 % (11.9-15.9); WHITE BLOOD COUNT 8.1 K/mm3 (4.0-10.0)
[2019-04-04] MEDS ORDERED: PT OWN MED DRAWER 7, Y5N ONE ×3 (07:45→21:29)
[2019-04-04] MEDS: TAMSULOSIN HCL 0.4 MG CAP PO SCH (08:39)
[2019-04-04] MEDS: carBAMazepine 100 MG TAB.CHEW PO SCH ×3 (08:39→17:18)
--- NOTE | 2019-04-04 10:13 | PN ---
Progress Note, Physician History of Present Illness: PULMONARY ALERT,NO DISTRESS,-CP,-SOB - Current Medication List Current Medications: Active Medications Acetaminophen (Ofirmev Injection -) 1,000 mg IVPB Q6H PRN PRN Reason: FEVER Al Hydroxide/Mg Hydroxide (Mylanta Oral Suspension -) 30 ml PO Q8H PRN PRN Reason: INDIGESTION Albuterol Sulfate (Ventolin 0.083% Nebulizer Soln -) 1 amp NEB Q6H PRN PRN Reason: SHORT OF BREATH/WHEEZING Albuterol/Ipratropium (Duoneb -) 1 amp NEB Q4H PRN PRN Reason: SHORTNESS OF BREATH Apixaban (Eliquis -) 2.5 mg PO BID [facility] Last Admin: 04/03/19 23:46 Dose: Not Given Carbamazepine (Tegretol -) 200 mg PO TIDCM [facility] Last Admin: 04/04/19 08:39 Dose: 200 mg Carvedilol (Coreg -) 6.25 mg PO BID [facility] Last Admin: 04/03/19 23:46 Dose: Not Given Dextrose (D50w (Vial) -) 25 gm IVPUSH PRN PRN PRN Reason: HYPOGLYCEMIA Furosemide (Lasix -) 20 mg PO DAILY [facility] Last Admin: 04/03/19 10:04 Dose: 20 mg Pantoprazole Sodium 160 mg/ (Sodium Chloride) 290 mls @ 14.5 mls/hr IVPB Q20H [facility] Last Admin: 04/03/19 23:13 Dose: 14.5 mls/hr Insulin Aspart (Novolog Vial Sliding Scale -) 1 vial SQ ACHS [facility]; Protocol Last Admin: 04/04/19 06:38 Dose: 10 units Levetiracetam (Keppra Injection -) 750 mg IVPB BID [facility] Last Admin: 04/03/19 23:15 Dose: 750 mg Levothyroxine Sodium (Synthroid -) 125 mcg PO DAILY@0700 [facility] Last Admin: 04/04/19 06:38 Dose: 125 mcg Lidocaine (Lidoderm Patch -) 2 patch TP DAILY [facility] Last Admin: 04/03/19 14:46 Dose: 1 patch Mirtazapine (Remeron -) 15 mg PO HS [facility] Last Admin: 04/03/19 23:46 Dose: Not Given Miscellaneous (Lidoderm Patch Removal) 2 each MC DAILY@2200 [facility] Last Admin: 04/03/19 23:18 Dose: 2 each Sacubitril/Valsartan (Entresto 24 Mg-26 Mg Tablet) 1 tab PO BID [facility] Last Admin: 04/03/19 23:41 Dose: Not Given Spironolactone (Aldactone -) 25 mg PO DAILY [facility] Last Admin: 04/03/19 10:04 Dose: 25 mg Tamsulosin HCl (Flomax -) 0.4 mg PO DAILY@0830 [facility] Last Admin: 04/04/19 08:39 Dose: 0.4 mg - Objective Vital Signs: Vital Signs Temperature 98.8 F 04/04/19 06:00 Pulse Rate 59 L 04/04/19 06:00 Respiratory Rate 20 04/04/19 06:00 Blood Pressure 132/71 04/04/19 06:00 O2 Sat by Pulse Oximetry (%) 99 04/03/19 22:00 Constitutional: Yes: Calm, Thin Eyes: Yes: WNL HENT: Yes: WNL Neck: Yes: WNL Cardiovascular: Yes: Pulse Irregular, S1, S2 Respiratory: Yes: Diminished Gastrointestinal: Yes: Normal Bowel Sounds, Soft Extremities: Yes: WNL Edema: No Labs: CBC, BMP 04/04/19 06:30 04/04/19 06:30 INR, PTT INR 1.32 (0.83-1.09) H 04/01/19 06:45 Problem List - Problems (1) Abnormal liver function tests Code(s): R94.5 - ABNORMAL RESULTS OF LIVER FUNCTION STUDIES (2) Acute on chronic diastolic (congestive) heart failure Code(s): I50.33 - ACUTE ON CHRONIC DIASTOLIC (CONGESTIVE) HEART FAILURE (3) Hypothyroidism Code(s): E03.9 - HYPOTHYROIDISM, UNSPECIFIED Qualifiers: Hypothyroidism type: unspecified Qualified Code(s): E03.9 - Hypothyroidism , unspecified (4) Paroxysmal atrial fibrillation with rapid ventricular response Code(s): I48.0 - PAROXYSMAL ATRIAL FIBRILLATION (5) Symptomatic anemia Code(s): D64.9 - ANEMIA, UNSPECIFIED (6) Type 2 diabetes mellitus Code(s): E11.9 - TYPE 2 DIABETES MELLITUS WITHOUT COMPLICATIONS Qualifiers: Diabetes mellitus exterminator helper insulin use: without senior care use Diabetes mellitus complication status: with circulatory complication (7) Weight loss Code(s): R63.4 - ABNORMAL WEIGHT LOSS (8) Anemia Code(s): D64.9 - ANEMIA, UNSPECIFIED (9) [id number] kidney injury Code(s): N17.9 - ACUTE KIDNEY FAILURE, UNSPECIFIED; N18.9 - CHRONIC KIDNEY DISEASE, UNSPECIFIED Qualifiers: Acute renal failure type: unspecified Assessment/Plan ASSESSMENT AND PLAN: Acute Hypoxic Respiratory Failure improved Severe Anemia Acute on Chronic Diastolic Heart Failure +Troponins likely Demand Ischemia Lactic Acidosis improved Acute on Chronic Renal Failure Elevated LFTs likely Congestive Hepatopathy improving Atrial Fibrillation s/p PPM HTN Hyperlipidemia Hypothyroidism Seizure Disorder - monitor H/H - lasix - monitor urine output, creatinine - trend LFTs - on empiric antibiotics - for EGD when euvolemic - O2 to keep SpO2 >90% - rate control - DVT prophylaxis - buffy GOLDSTEIN
[2019-04-04] MEDS: levETIRAcetam 500 MG/5 ML INJECTION VIAL IVPB SCH ×2 (10:22→21:43)
[2019-04-04] MEDS: CARVEDILOL 6.25 MG TABLET (FP) PO SCH ×2 (10:26→21:43)
[2019-04-04] MEDS: LIDOCAINE 5% TOPICAL PATCH TP SCH (10:26)
[2019-04-04] MEDS: APIXABAN 5 MG TABLET PO SCH ×2 (10:26→21:42)
[2019-04-04] MEDS: SPIRONOLACTONE 25 MG TABLET (FP) PO SCH (10:27)
[2019-04-04] MEDS: FUROSEMIDE 20 MG TABLET (FP) PO SCH (10:27)
[2019-04-04] MEDS: SACUBITRIL/VALSARTAN 24 MG-26 MG TABLET PO SCH ×2 (10:34→23:03)
[2019-04-04] MEDS ORDERED: FUROSEMIDE 40 MG/4 ML INJECTABLE VIAL IVPUSH ONE (11:18)
--- NOTE | 2019-04-04 11:56 | PN ---
Progress Note, Physician History of Present Illness: Patient has been weaned off NC with improved dyspnea and sensorium with diuresis. Now A-paced, dose of IV Lasix given in AM. - Current Medication List Current Medications: Active Medications Acetaminophen (Ofirmev Injection -) 1,000 mg IVPB Q6H PRN PRN Reason: FEVER Al Hydroxide/Mg Hydroxide (Mylanta Oral Suspension -) 30 ml PO Q8H PRN PRN Reason: INDIGESTION Albuterol Sulfate (Ventolin 0.083% Nebulizer Soln -) 1 amp NEB Q6H PRN PRN Reason: SHORT OF BREATH/WHEEZING Albuterol/Ipratropium (Duoneb -) 1 amp NEB Q4H PRN PRN Reason: SHORTNESS OF BREATH Apixaban (Eliquis -) 2.5 mg PO BID [facility] Last Admin: 04/04/19 10:26 Dose: 2.5 mg Carbamazepine (Tegretol -) 200 mg PO TIDCM [facility] Last Admin: 04/04/19 08:39 Dose: 200 mg Carvedilol (Coreg -) 6.25 mg PO BID [facility] Last Admin: 04/04/19 10:26 Dose: 6.25 mg Dextrose (D50w (Vial) -) 25 gm IVPUSH PRN PRN PRN Reason: HYPOGLYCEMIA Furosemide (Lasix -) 20 mg PO DAILY [facility] Last Admin: 04/04/19 10:27 Dose: 20 mg Pantoprazole Sodium 160 mg/ (Sodium Chloride) 290 mls @ 14.5 mls/hr IVPB Q20H [facility] Last Admin: 04/03/19 23:13 Dose: 14.5 mls/hr Insulin Aspart (Novolog Vial Sliding Scale -) 1 vial SQ ACHS [facility]; Protocol Last Admin: 04/04/19 06:38 Dose: 10 units Levetiracetam (Keppra Injection -) 750 mg IVPB BID [facility] Last Admin: 04/04/19 10:22 Dose: 750 mg Levothyroxine Sodium (Synthroid -) 125 mcg PO DAILY@0700 [facility] Last Admin: 04/04/19 06:38 Dose: 125 mcg Lidocaine (Lidoderm Patch -) 2 patch TP DAILY [facility] Last Admin: 04/04/19 10:26 Dose: 2 patch Mirtazapine (Remeron -) 15 mg PO HS [facility] Last Admin: 04/03/19 23:46 Dose: Not Given Miscellaneous (Lidoderm Patch Removal) 2 each MC DAILY@2200 [facility] Last Admin: 04/03/19 23:18 Dose: 2 each Sacubitril/Valsartan (Entresto 24 Mg-26 Mg Tablet) 1 tab PO BID [facility] Last Admin: 04/04/19 10:34 Dose: 1 tab Spironolactone (Aldactone -) 25 mg PO DAILY [facility] Last Admin: 04/04/19 10:27 Dose: 25 mg Tamsulosin HCl (Flomax -) 0.4 mg PO DAILY@0830 [facility] Last Admin: 04/04/19 08:39 Dose: 0.4 mg - Objective Vital Signs: Vital Signs Temperature 98.8 F 04/04/19 06:00 Pulse Rate 59 L 04/04/19 06:00 Respiratory Rate 20 04/04/19 06:00 Blood Pressure 132/71 04/04/19 06:00 O2 Sat by Pulse Oximetry (%) 99 04/03/19 22:00 Constitutional: Yes: No Distress, Calm, Thin Neck: Yes: Supple Cardiovascular: Yes: Regular Rate and Rhythm, Murmur (2/6 SM) Respiratory: Yes: Regular, Diminished Gastrointestinal: Yes: Normal Bowel Sounds, Soft Edema: No Labs: CBC, BMP 04/04/19 06:30 04/04/19 06:30 INR, PTT INR 1.32 (0.83-1.09) H 04/01/19 06:45 - ....Imaging Chest X-ray: Report Reviewed (Mild worsening congestion and pleural effusion) EKG: Report Reviewed (Tele: A-paced) Problem List - Problems (1) Acute on chronic diastolic (congestive) heart failure Code(s): I50.33 - ACUTE ON CHRONIC DIASTOLIC (CONGESTIVE) HEART FAILURE (2) Subendocardial ischemia Code(s): I24.8 - OTHER FORMS OF ACUTE ISCHEMIC HEART DISEASE (3) Nmwor-ng-reuwzrw kidney injury Code(s): N17.9 - ACUTE KIDNEY FAILURE, UNSPECIFIED; N18.9 - CHRONIC KIDNEY DISEASE, UNSPECIFIED Qualifiers: Acute renal failure type: unspecified (4) Hyperkalemia Code(s): E87.5 - HYPERKALEMIA (5) Pacemaker Code(s): Z95.0 - PRESENCE OF CARDIAC PACEMAKER (6) Paroxysmal atrial fibrillation with rapid ventricular response Code(s): I48.0 - PAROXYSMAL ATRIAL FIBRILLATION Assessment/Plan 03/31/2019 Echo: Normal LV size with mod-severe decreased LV fxn with LAD infarct pattern, mod TENISHA, mod-severe MR, mod TR RVSP 40-50 mmHg, mild AR, 1. Acute hypoxemic respiratory failure related to 2. Acute on chronic class II-III NYHA classification LV failure related to systolic/diastolic LV dysfunction, resolving 3. CAD with evidence of demand ischemic injury/subendocardial ischemia angina pectoris 4. AV block post PPM 5. Paroxysmal atrial fibrillation currently in sinus rhythm/atrial pacing [id number] score of 4 on DOAC's/Eliquis 6. Hypertensive heart disease 7. DM 8. Hyperlipidemia 9. Acute on chronic- CKD 10. Profound anemia post transfusion, rule out gastrointestinal source 11. Seizure disorder 12. Hypothyroidism 13. Ischemic hepatitis improving PLAN: 1. Continue Entresto 24/26 bid with close monitoring of renal function and electrolytes 2. Continue Coreg 6.25 bid 3. Continue Lasix 20 qd and Aldactone 25 qd with close monitoring of renal function and electrolytes 4. ASA d/johan, continue Eliquis 2.5 bid (creatinine > 1.5 and weight < 60 kg) with caution and close monitoring of Hg/transfuse if Hg equal or < 8.0 5. Once patient is clinically euvolemic to proceed with planned gastrointestinal evaluation, maintain protonix gtt
--- NOTE | 2019-04-04 12:46 | PN ---
Progress Note, MUFF WINDER - Note Progress Note: Selected Entries 04/03/19 04/03/19 04/03/19 02:00 06:00 09:00 Breakfast Supper Temperature 97.8 F 98.5 F 98 F 04/03/19 04/03/19 04/03/19 10:00 14:00 17:00 Breakfast 100% Supper 50% Temperature 98.4 F 97.6 F 04/03/19 04/04/19 04/04/19 23:00 02:00 06:00 Breakfast Supper Temperature 98.8 F 98.2 F 98.8 F 04/04/19 10:00 Breakfast 75% Supper Temperature Laboratory Tests 04/03/19 04/04/19 06:00 06:30 WBC 11.4 H 8.1 Looking much better. Verbal. Dry cough frequently, and responsively with thin liquid. [place] thickened encouraged & keep hob elevated when drinking
--- NOTE | 2019-04-04 20:40 | PN ---
Progress Note (short form) - Note Progress Note: Episodic Note 04/04/2019 approx. @ 5:30pm Called by RN patient was found on the floor. Chart reviewed. Patient seen and examined at bedside. He reported he wanted tea and got out of bed. Nursing staff found patient on floor. He is a poor historian and unclear whether he had dizziness or hit his head. On physical exam mentation is intact, there is no head trauma or bleeding noted. No abrasions or bruising seen. VSS B/P 147/82 pulse 62 and oxygen saturation 97%. Telemetry reviewed showing a paced rhythm heart with no ventricular ectopy noted. CT scan of head showed no evidence of bleed as per Imaging Clinical Data Management Manager. Incident report completed. Continue with safety measures with side rails up X4. Visit type - Emergency Visit Emergency Visit: Yes ED Registration Date: 03/29/19 Care time: The patient presented to the Emergency Department on the above date and was hospitalized for further evaluation of their emergent condition. - New Patient This patient is new to me today: Yes Date on this admission: 04/04/19 - Critical Care Critical Care patient: No
[2019-04-04] MEDS: MIRTAZAPINE 15 MG TABLET (FP) PO SCH (21:42)
[2019-04-04] MEDS: PANTOPRAZOLE SODIUM 160 MG in SODIUM CHLORIDE 290 ML IVPB SCH (21:43)
[2019-04-04] MEDS: LIDOCAINE PATCH REMOVAL MC SCH (21:44)
[2019-04-05] MEDS: INSULIN SLIDING SCALE (NOVOLOG) 1 VIAL SQ SCH ×4 (06:29→23:05)
[2019-04-05] MEDS: LEVOTHYROXINE NA 125 MCG TABLET (FP) PO SCH (06:30)
[2019-04-05 06:51] LABS: BASO % 0.9 % (0-2.0); EOS % 2.2 % (0-4.5); HEMATOCRIT 30.1 % (35.4-49); HEMOGLOBIN 9.7 GM/dL (11.7-16.9); LYMPH % 13.4 % (8-40); MCH 29.4 pg (25.7-33.7); MCHC 32.3 g/dl (32.0-35.9); MEAN CELL VOLUME 91.3 fl (80-96); MEAN PLT VOLUME 7.3 fl (7.5-11.1); MONO % 9.3 % (3.8-10.2); NEUT % 74.2 % (42.8-82.8); PLATELET COUNT 348 K/MM3 (134-434); RDW 16.8 % (11.9-15.9); WHITE BLOOD COUNT 7.9 K/mm3 (4.0-10.0)
[2019-04-05 07:24] LABS: BLOOD UREA NITROGEN 24.5 mg/dL (7-18); CALCIUM 7.4 mg/dL (8.5-10.1); CREATININE 0.9 mg/dL (0.55-1.3); POTASSIUM 4.5 mmol/L (3.5-5.1)
[2019-04-05] MEDS ORDERED: PT OWN MED DRAWER 7, Y5N ONE ×2 (08:41→21:35)
[2019-04-05] MEDS: TAMSULOSIN HCL 0.4 MG CAP PO SCH (08:54)
[2019-04-05] MEDS: carBAMazepine 100 MG TAB.CHEW PO SCH ×3 (08:55→17:50)
--- NOTE | 2019-04-05 09:06 | PN ---
Progress Note (short form) - Note Progress Note: Neurology History of Present Illness - General Chief Complaint: Nausea/Vomiting Stated Complaint: VOMITING - History of Present Illness 68M w/ a history of DM, hypothyroidism, seizure d/o, s/p pacemaker who presents for evaluation of 1 month of cough with increased sputum production. He also notes 1 week of BLE swelling to mid-reyes. He reports some symptomatic relief from coughing with robitussin. He also notes post-tussive emesis. He denies fevers/chills, trouble breathing, abdominal pain, diarrhea, dysuria/hematuria, or changes in sensation. He denied lower extremity swelling before. Patient currently in ICU under critical care monitoring. contacted by ICU resident on regarding patient's mental status which she reported was somnolent and lethargic. He discussed the case with me including multiple medical comorbidities including respiratory compromise requiring positive pressure ventilation, CHF exacerbation along with coffee-ground emesis and concern for upper GI bleed with reduction in hemoglobin and hematocrit. The patient also found to have atrial fibrillation and receiving medical optimization. I advised having noncontrast head CT which was completed and showed moderate atrophy but no significant infarcts or focal abnormalities. Likely toxic metabolic encephalopathy secondary to multiple medical comorbidities as described above. rreviewed notes from weekend and patient is awake, alert, interactive this morning. Seems to have more energy and less fatigue/ lethargic. His communicative and appears to be near baseline at this point. Allergies/Adverse Reactions: Allergies Allergy/AdvReac Type Severity Reaction Status Date / Time lacosamide [From Vimpat] Allergy Rash Verified 03/29/19 09:32 Active Medications Al Hydroxide/Mg Hydroxide (Mylanta Oral Suspension -) 30 ml PO Q8H PRN PRN Reason: INDIGESTION Albuterol Sulfate (Ventolin 0.083% Nebulizer Soln -) 1 amp NEB Q6H PRN PRN Reason: SHORT OF BREATH/WHEEZING Albuterol/Ipratropium (Duoneb -) 1 amp NEB Q4H PRN PRN Reason: SHORTNESS OF BREATH Apixaban (Eliquis -) 2.5 mg PO BID [facility] Last Admin: 04/04/19 21:42 Dose: 2.5 mg Carbamazepine (Tegretol -) 200 mg PO TIDCM [facility] Last Admin: 04/05/19 08:55 Dose: 200 mg Carvedilol (Coreg -) 6.25 mg PO BID [facility] Last Admin: 04/04/19 21:43 Dose: 6.25 mg Dextrose (D50w (Vial) -) 25 gm IVPUSH PRN PRN PRN Reason: HYPOGLYCEMIA Furosemide (Lasix -) 20 mg PO DAILY [facility] Last Admin: 04/04/19 10:27 Dose: 20 mg Pantoprazole Sodium 160 mg/ (Sodium Chloride) 290 mls @ 14.5 mls/hr IVPB Q20H [facility] Last Admin: 04/04/19 21:43 Dose: 14.5 mls/hr Insulin Aspart (Novolog Vial Sliding Scale -) 1 vial SQ [facility]; Protocol Last Admin: 04/05/19 06:29 Dose: Not Given Levetiracetam (Keppra Injection -) 750 mg IVPB BID [facility] Last Admin: 04/04/19 21:43 Dose: 750 mg Levothyroxine Sodium (Synthroid -) 125 mcg PO DAILY@0700 [facility] Last Admin: 04/05/19 06:30 Dose: 125 mcg Lidocaine (Lidoderm Patch -) 2 patch TP DAILY [facility] Last Admin: 04/04/19 10:26 Dose: 2 patch Mirtazapine (Remeron -) 15 mg PO HS [facility] Last Admin: 04/04/19 21:42 Dose: 15 mg Miscellaneous (Lidoderm Patch Removal) 2 each MC DAILY@2200 [facility] Last Admin: 04/03/19 23:18 Dose: 2 each Sacubitril/Valsartan (Entresto 24 Mg-26 Mg Tablet) 1 tab PO BID [facility] Last Admin: 04/04/19 23:03 Dose: 1 tab Spironolactone (Aldactone -) 25 mg PO DAILY [facility] Last Admin: 04/04/19 10:27 Dose: 25 mg Tamsulosin HCl (Flomax -) 0.4 mg PO DAILY@0830 [facility] Last Admin: 04/05/19 08:54 Dose: 0.4 mg *Physical Exam Vital Signs Period Temp Pulse Resp BP Sys/Cabral Pulse Ox Last 24 Hr 97.5 F-98.9 F 59-84 20-20 130-165/56-83 99-100 GENERAL: Awake, alert, and oriented to person/place/time, in no acute distress, thin HEAD: No signs of trauma, normocephalic, atraumatic EYES: PERRLA, EOMI, sclera anicteric, conjunctiva clear ENT: Hearing grossly normal, nares patent, oropharynx clear without exudates. Moist mucosa LUNGS: No distress, speaks in full sentences, clear to auscultation bilaterally HEART: Regular rate and rhythm, normal S1 and S2, no murmurs appreciated, peripheral pulses normal and equal bilaterally ABDOMEN: Soft, nontender, normoactive bowel sounds. No guarding, no rebound EXTREMITIES: Normal inspection, Normal range of motion, no edema. No clubbing or cyanosis NEUROLOGICAL: Cranial nerves II through XII grossly intact. Tangential speech, knows location, knows month, moves all extemities grossly, sensory intact SKIN: Warm, Dry CBCD WBC 7.9 K/mm3 (4.0-10.0) 04/05/19 06:00 RBC 3.30 M/mm3 (4.00-5.60) L 04/05/19 06:00 Hgb 9.7 GM/dL (11.7-16.9) L 04/05/19 06:00 Hct 30.1 % (35.4-49) L 04/05/19 06:00 MCV 91.3 fl (80-96) 04/05/19 06:00 MCHC 32.3 g/dl (32.0-35.9) 04/05/19 06:00 RDW 16.8 % (11.9-15.9) H 04/05/19 06:00 Plt Count 348 K/MM3 (134-434) 04/05/19 06:00 MPV 7.3 fl (7.5-11.1) L 04/05/19 06:00 CMP Sodium 137 mmol/L (136-145) 04/05/19 06:00 Potassium 4.5 mmol/L (3.5-5.1) 04/05/19 06:00 Chloride 100 mmol/L (98-107) 04/05/19 06:00 Carbon Dioxide 29 mmol/L (21-32) 04/05/19 06:00 Anion Gap 8 MMOL/L (8-16) 04/05/19 06:00 BUN 24.5 mg/dL (7-18) H 04/05/19 06:00 Creatinine 0.9 mg/dL (0.55-1.3) 04/05/19 06:00 Random Glucose 82 mg/dL (74-106) 04/05/19 06:00 Calcium 7.4 mg/dL (8.5-10.1) L 04/05/19 06:00 Total Bilirubin 0.4 mg/dL (0.2-1) 04/04/19 06:30 AST 30 U/L (15-37) 04/04/19 06:30 ALT 168 U/L (13-61) H 04/04/19 06:30 Alkaline Phosphatase 370 U/L (45-117) H 04/04/19 06:30 Total Protein 4.4 g/dl (6.4-8.2) L 04/04/19 06:30 Albumin 1.6 g/dl (3.4-5.0) L 04/04/19 06:30 CARDIAC ENZYMES Creatine Kinase 254 U/L (26-308) 03/31/19 06:10 Troponin I 0.84 ng/ml (0.00-0.05) H* 03/31/19 23:25 Medical Decision Making 68M w/ a history of DM, hypothyroidism, seizure d/o, s/p pacemaker who presents for evaluation of 1 month of cough with increased sputum production. He also notes 1 week of BLE swelling to mid-reyes. He reports some symptomatic relief from coughing with robitussin. He also notes post-tussive emesis. He denies fevers/chills, trouble breathing, abdominal pain, diarrhea, dysuria/hematuria, or changes in sensation. He denied lower extremity swelling before. Patient currently in ICU under critical care monitoring. contacted by ICU resident on rregarding patient's mental status which she reported was somnolent and lethargic. He discussed the case with me including multiple medical comorbidities including respiratory compromise requiring positive pressure ventilation, CHF exacerbation along with coffee-ground emesis and concern for upper GI bleed with reduction in hemoglobin and hematocrit. The patient also found to have atrial fibrillation and receiving medical optimization. I advised having noncontrast head CT which was completed and showed moderate atrophy but no significant infarcts or focal abnormalities. Likely toxic metabolic encephalopathy secondary to multiple medical comorbidities as described above. Likely toxic metabolic encephalopathy secondary to multiple medical comorbidities as described above. rreviewed notes from weekend and patient is awake, alert, interactive this morning. Seems to have more energy and less fatigue/lethargic. His communicative and appears to be near baseline at this point. Continue treatment for respiratory compromise, IV abx per primary. GI bleed, patient recently started on heparin for Afib, closely monitor for bleed in presence of AC, GI follow up. Mental status seems to be near baseline.
--- NOTE | 2019-04-05 09:12 | PN ---
Progress Note, Physician History of Present Illness: Patient with improved dyspnea and sensorium after diuresis. Now A-paced, now on oral diuretics. - Current Medication List Current Medications: Active Medications Al Hydroxide/Mg Hydroxide (Mylanta Oral Suspension -) 30 ml PO Q8H PRN PRN Reason: INDIGESTION Albuterol Sulfate (Ventolin 0.083% Nebulizer Soln -) 1 amp NEB Q6H PRN PRN Reason: SHORT OF BREATH/WHEEZING Albuterol/Ipratropium (Duoneb -) 1 amp NEB Q4H PRN PRN Reason: SHORTNESS OF BREATH Apixaban (Eliquis -) 2.5 mg PO BID [facility] Last Admin: 04/04/19 21:42 Dose: 2.5 mg Carbamazepine (Tegretol -) 200 mg PO TIDCM [facility] Last Admin: 04/05/19 08:55 Dose: 200 mg Carvedilol (Coreg -) 6.25 mg PO BID [facility] Last Admin: 04/04/19 21:43 Dose: 6.25 mg Dextrose (D50w (Vial) -) 25 gm IVPUSH PRN PRN PRN Reason: HYPOGLYCEMIA Furosemide (Lasix -) 20 mg PO DAILY [facility] Last Admin: 04/04/19 10:27 Dose: 20 mg Pantoprazole Sodium 160 mg/ (Sodium Chloride) 290 mls @ 14.5 mls/hr IVPB Q20H [facility] Last Admin: 04/04/19 21:43 Dose: 14.5 mls/hr Insulin Aspart (Novolog Vial Sliding Scale -) 1 vial SQ ACHS [facility]; Protocol Last Admin: 04/05/19 06:29 Dose: Not Given Levetiracetam (Keppra Injection -) 750 mg IVPB BID [facility] Last Admin: 04/04/19 21:43 Dose: 750 mg Levothyroxine Sodium (Synthroid -) 125 mcg PO DAILY@0700 [facility] Last Admin: 04/05/19 06:30 Dose: 125 mcg Lidocaine (Lidoderm Patch -) 2 patch TP DAILY [facility] Last Admin: 04/04/19 10:26 Dose: 2 patch Mirtazapine (Remeron -) 15 mg PO HS [facility] Last Admin: 04/04/19 21:42 Dose: 15 mg Miscellaneous (Lidoderm Patch Removal) 2 each MC DAILY@2200 [facility] Last Admin: 04/03/19 23:18 Dose: 2 each Sacubitril/Valsartan (Entresto 24 Mg-26 Mg Tablet) 1 tab PO BID [facility] Last Admin: 04/04/19 23:03 Dose: 1 tab Spironolactone (Aldactone -) 25 mg PO DAILY [facility] Last Admin: 04/04/19 10:27 Dose: 25 mg Tamsulosin HCl (Flomax -) 0.4 mg PO DAILY@0830 [facility] Last Admin: 04/05/19 08:54 Dose: 0.4 mg - Objective Vital Signs: Vital Signs Temperature 98 F 04/05/19 08:56 Pulse Rate 60 04/05/19 08:56 Respiratory Rate 20 04/05/19 08:56 Blood Pressure 156/63 04/05/19 08:56 O2 Sat by Pulse Oximetry (%) 100 04/05/19 08:56 Constitutional: Yes: No Distress, Calm, Thin Neck: Yes: Supple Cardiovascular: Yes: Regular Rate and Rhythm Respiratory: Yes: Regular, Diminished, On Nasal O2 Gastrointestinal: Yes: Normal Bowel Sounds, Soft Edema: No Labs: CBC, BMP 04/05/19 06:00 04/05/19 06:00 INR, PTT INR 1.32 (0.83-1.09) H 04/01/19 06:45 - ....Imaging Chest X-ray: Image Reviewed (Improving congestion R>L effusion) EKG: Report Reviewed (Tele: A-paced) Problem List - Problems (1) Acute on chronic diastolic (congestive) heart failure Code(s): I50.33 - ACUTE ON CHRONIC DIASTOLIC (CONGESTIVE) HEART FAILURE (2) Subendocardial ischemia Code(s): I24.8 - OTHER FORMS OF ACUTE ISCHEMIC HEART DISEASE (3) [id number] kidney injury Code(s): N17.9 - ACUTE KIDNEY FAILURE, UNSPECIFIED; N18.9 - CHRONIC KIDNEY DISEASE, UNSPECIFIED Qualifiers: Acute renal failure type: unspecified (4) Pacemaker Code(s): Z95.0 - PRESENCE OF CARDIAC PACEMAKER (5) Paroxysmal atrial fibrillation with rapid ventricular response Code(s): I48.0 - PAROXYSMAL ATRIAL FIBRILLATION Assessment/Plan 03/31/2019 Echo: Normal LV size with mod-severe decreased LV fxn with LAD infarct pattern, mod TENISHA, mod-severe MR, mod TR RVSP 40-50 mmHg, mild AR, 1. Acute hypoxemic respiratory failure related to 2. Acute on chronic class II-III NYHA classification LV failure related to systolic/diastolic LV dysfunction, resolving 3. CAD with evidence of demand ischemic injury/subendocardial ischemia angina pectoris 4. AV block post PPM 5. Paroxysmal atrial fibrillation currently in sinus rhythm/atrial pacing [id number] score of 4 on DOAC's/Eliquis 6. Hypertensive heart disease 7. DM 8. Hyperlipidemia 9. Acute on chronic CKD resolved 10. Profound anemia post transfusion, rule out gastrointestinal source 11. Seizure disorder 12. Hypothyroidism 13. Ischemic hepatitis improving PLAN: 1. Increase Entresto 49/51 bid with close monitoring of renal function and electrolytes 2. Continue Coreg 6.25 bid 3. Continue Lasix 20 qd and Aldactone 25 qd with close monitoring of renal function and electrolytes 4. Continue Eliquis 2.5 bid (creatinine > 1.5 and weight < 60 kg) with caution and close monitoring of Hg/transfuse if Hg equal or < 8.0 5. As patient is clinically euvolemic, he may proceed with planned gastrointestinal evaluation, change to oral protonix, oral Keppra 6. PT as tolerated
--- NOTE | 2019-04-05 09:28 | PN ---
Progress Note, Physician History of Present Illness: Feels better - Current Medication List Current Medications: Active Medications Al Hydroxide/Mg Hydroxide (Mylanta Oral Suspension -) 30 ml PO Q8H PRN PRN Reason: INDIGESTION Albuterol Sulfate (Ventolin 0.083% Nebulizer Soln -) 1 amp NEB Q6H PRN PRN Reason: SHORT OF BREATH/WHEEZING Albuterol/Ipratropium (Duoneb -) 1 amp NEB Q4H PRN PRN Reason: SHORTNESS OF BREATH Apixaban (Eliquis -) 2.5 mg PO BID [facility] Last Admin: 04/04/19 21:42 Dose: 2.5 mg Carbamazepine (Tegretol -) 200 mg PO TIDCM [facility] Last Admin: 04/05/19 08:55 Dose: 200 mg Carvedilol (Coreg -) 6.25 mg PO BID [facility] Last Admin: 04/04/19 21:43 Dose: 6.25 mg Dextrose (D50w (Vial) -) 25 gm IVPUSH PRN PRN PRN Reason: HYPOGLYCEMIA Furosemide (Lasix -) 20 mg PO DAILY [facility] Last Admin: 04/04/19 10:27 Dose: 20 mg Pantoprazole Sodium 160 mg/ (Sodium Chloride) 290 mls @ 14.5 mls/hr IVPB Q20H [facility] Last Admin: 04/04/19 21:43 Dose: 14.5 mls/hr Insulin Aspart (Novolog Vial Sliding Scale -) 1 vial SQ ACHS [facility]; Protocol Last Admin: 04/05/19 06:29 Dose: Not Given Levetiracetam (Keppra Injection -) 750 mg IVPB BID [facility] Last Admin: 04/04/19 21:43 Dose: 750 mg Levothyroxine Sodium (Synthroid -) 125 mcg PO DAILY@0700 [facility] Last Admin: 04/05/19 06:30 Dose: 125 mcg Lidocaine (Lidoderm Patch -) 2 patch TP DAILY [facility] Last Admin: 04/04/19 10:26 Dose: 2 patch Mirtazapine (Remeron -) 15 mg PO HS [facility] Last Admin: 04/04/19 21:42 Dose: 15 mg Miscellaneous (Lidoderm Patch Removal) 2 each MC DAILY@2200 [facility] Last Admin: 04/03/19 23:18 Dose: 2 each Sacubitril/Valsartan (Entresto 24 Mg-26 Mg Tablet) 1 tab PO BID [facility] Last Admin: 04/04/19 23:03 Dose: 1 tab Spironolactone (Aldactone -) 25 mg PO DAILY [facility] Last Admin: 04/04/19 10:27 Dose: 25 mg Tamsulosin HCl (Flomax -) 0.4 mg PO DAILY@0830 [facility] Last Admin: 04/05/19 08:54 Dose: 0.4 mg - Objective Vital Signs: Vital Signs Temperature 98 F 04/05/19 08:56 Pulse Rate 60 04/05/19 08:56 Respiratory Rate 20 04/05/19 08:56 Blood Pressure 156/63 04/05/19 08:56 O2 Sat by Pulse Oximetry (%) 100 04/05/19 09:01 Constitutional: Yes: Anxious Eyes: Yes: WNL HENT: Yes: WNL Neck: Yes: WNL Cardiovascular: Yes: Regular Rate and Rhythm Respiratory: Yes: Rales Gastrointestinal: Yes: WNL Genitourinary: Yes: WNL Breast(s): Yes: WNL Musculoskeletal: Yes: Muscle Weakness Neurological: Yes: Alert Psychiatric: Yes: Alert Labs: CBC, BMP 04/05/19 06:00 04/05/19 06:00 INR, PTT INR 1.32 (0.83-1.09) H 04/01/19 06:45 - ....Imaging Cat Scan: Report Reviewed
[2019-04-05] MEDS: SPIRONOLACTONE 25 MG TABLET (FP) PO SCH (09:42)
[2019-04-05] MEDS: APIXABAN 5 MG TABLET PO SCH ×2 (09:42→23:01)
[2019-04-05] MEDS: levETIRAcetam 500 MG/5 ML INJECTION VIAL IVPB SCH ×2 (09:44→23:02)
[2019-04-05] MEDS: CARVEDILOL 6.25 MG TABLET (FP) PO SCH ×2 (09:45→23:00)
[2019-04-05] MEDS: FUROSEMIDE 20 MG TABLET (FP) PO SCH (09:45)
[2019-04-05] MEDS: SACUBITRIL/VALSARTAN 24 MG-26 MG TABLET PO SCH (09:45)
[2019-04-05] MEDS: LIDOCAINE 5% TOPICAL PATCH TP SCH (09:46)
--- NOTE | 2019-04-05 11:51 | PN ---
Progress Note, Physician History of Present Illness: Pt seen and examined at bedside. He is awake and alert. He denies shortness of breath. - Current Medication List Current Medications: Active Medications Al Hydroxide/Mg Hydroxide (Mylanta Oral Suspension -) 30 ml PO Q8H PRN PRN Reason: INDIGESTION Albuterol Sulfate (Ventolin 0.083% Nebulizer Soln -) 1 amp NEB Q6H PRN PRN Reason: SHORT OF BREATH/WHEEZING Albuterol/Ipratropium (Duoneb -) 1 amp NEB Q4H PRN PRN Reason: SHORTNESS OF BREATH Apixaban (Eliquis -) 2.5 mg PO BID [facility] Last Admin: 04/05/19 09:42 Dose: 2.5 mg Carbamazepine (Tegretol -) 200 mg PO TIDCM [facility] Last Admin: 04/05/19 11:34 Dose: 200 mg Carvedilol (Coreg -) 6.25 mg PO BID [facility] Last Admin: 04/05/19 09:45 Dose: 6.25 mg Dextrose (D50w (Vial) -) 25 gm IVPUSH PRN PRN PRN Reason: HYPOGLYCEMIA Furosemide (Lasix -) 20 mg PO DAILY [facility] Last Admin: 04/05/19 09:45 Dose: 20 mg Pantoprazole Sodium 160 mg/ (Sodium Chloride) 290 mls @ 14.5 mls/hr IVPB Q20H [facility] Last Admin: 04/04/19 21:43 Dose: 14.5 mls/hr Insulin Aspart (Novolog Vial Sliding Scale -) 1 vial SQ ACHS [facility]; Protocol Last Admin: 04/05/19 11:33 Dose: 10 units Levetiracetam (Keppra Injection -) 750 mg IVPB BID [facility] Last Admin: 04/05/19 09:44 Dose: 750 mg Levothyroxine Sodium (Synthroid -) 125 mcg PO DAILY@0700 [facility] Last Admin: 04/05/19 06:30 Dose: 125 mcg Lidocaine (Lidoderm Patch -) 2 patch TP DAILY [facility] Last Admin: 04/05/19 09:46 Dose: 2 patch Mirtazapine (Remeron -) 15 mg PO HS [facility] Last Admin: 04/04/19 21:42 Dose: 15 mg Miscellaneous (Lidoderm Patch Removal) 2 each MC DAILY@2200 [facility] Last Admin: 04/03/19 23:18 Dose: 2 each Sacubitril/Valsartan (Entresto 49 Mg-51 Mg Tablet) 1 tab PO BID [facility] Spironolactone (Aldactone -) 25 mg PO DAILY [facility] Last Admin: 04/05/19 09:42 Dose: 25 mg Tamsulosin HCl (Flomax -) 0.4 mg PO DAILY@0830 [facility] Last Admin: 04/05/19 08:54 Dose: 0.4 mg - Objective Vital Signs: Vital Signs Temperature 98 F 04/05/19 08:56 Pulse Rate 60 04/05/19 08:56 Respiratory Rate 20 04/05/19 08:56 Blood Pressure 156/63 04/05/19 08:56 O2 Sat by Pulse Oximetry (%) 100 04/05/19 09:01 Constitutional: Yes: Calm Eyes: Yes: Conjunctiva Clear HENT: Yes: Atraumatic Cardiovascular: Yes: S1, S2 Respiratory: Yes: On Nasal O2 Gastrointestinal: Yes: Soft Genitourinary: Yes: WNL Musculoskeletal: Yes: WNL Edema: No Neurological: Yes: Oriented Psychiatric: Yes: Oriented Labs: CBC, BMP 04/05/19 06:00 04/05/19 06:00 INR, PTT INR 1.32 (0.83-1.09) H 04/01/19 06:45 Problem List - Problems (1) Acute on chronic diastolic (congestive) heart failure Code(s): I50.33 - ACUTE ON CHRONIC DIASTOLIC (CONGESTIVE) HEART FAILURE (2) [id number] kidney injury Code(s): N17.9 - ACUTE KIDNEY FAILURE, UNSPECIFIED; N18.9 - CHRONIC KIDNEY DISEASE, UNSPECIFIED Qualifiers: Acute renal failure type: unspecified (3) Hyperkalemia Code(s): E87.5 - HYPERKALEMIA (4) Hypothyroidism Code(s): E03.9 - HYPOTHYROIDISM, UNSPECIFIED Qualifiers: Hypothyroidism type: unspecified Qualified Code(s): E03.9 - Hypothyroidism , unspecified Assessment/Plan Current Medications Generic Name Dose Route Start Last Admin Trade Name Freq PRN Reason Stop Dose Admin Al Hydroxide/Mg Hydroxide 30 ml 04/02/19 07:32 Mylanta Oral Suspension - PO Q8H PRN INDIGESTION Albuterol Sulfate 1 amp 04/02/19 07:32 Ventolin 0.083% Nebulizer Soln - NEB Q6H PRN SHORT OF BREATH/WHEEZING Albuterol/Ipratropium 1 amp 04/02/19 07:32 Duoneb - NEB Q4H PRN SHORTNESS OF BREATH Apixaban 2.5 mg 04/03/19 09:07 04/05/19 09:42 Eliquis - PO 2.5 mg BID [facility] Administration Carbamazepine 200 mg 04/02/19 08:00 04/05/19 11:34 Tegretol - PO 200 mg TIDCM [facility] Administration Carvedilol 6.25 mg 04/02/19 10:00 04/05/19 09:45 Coreg - PO 6.25 mg BID [facility] Administration Dextrose 25 gm 04/02/19 07:32 D50w (Vial) - IVPUSH PRN PRN HYPOGLYCEMIA Furosemide 20 mg 04/03/19 10:00 04/05/19 09:45 Lasix - PO 20 mg DAILY [facility] Administration Pantoprazole Sodium 160 mg/ 290 mls @ 14.5 mls/hr 04/01/19 10:00 04/04/19 21: 43 Sodium Chloride IVPB 14.5 mls/hr Q20H [facility] Administration Insulin Aspart 1 vial 04/02/19 11:00 04/05/19 11:33 Novolog Vial Sliding Scale - SQ 10 units ACHS [facility] Administration Protocol Levetiracetam 750 mg 04/02/19 10:00 04/05/19 09:44 Keppra Injection - IVPB 750 mg BID [facility] Administration Levothyroxine Sodium 125 mcg 04/03/19 07:00 04/05/19 06:30 Synthroid - PO 125 mcg DAILY@0700 [facility] Administration Lidocaine 2 patch 04/03/19 14:30 04/05/19 09:46 Lidoderm Patch - TP 2 patch DAILY [facility] Administration Mirtazapine 15 mg 04/02/19 22:00 04/04/19 21:42 Remeron - PO 15 mg HS [facility] Administration Miscellaneous 2 each 04/03/19 22:00 04/03/19 23:18 Lidoderm Patch Removal MC 2 each DAILY@2200 [facility] Administration Sacubitril/Valsartan 1 tab 04/05/19 22:00 Entresto 49 Mg-51 Mg Tablet PO BID [facility] Spironolactone 25 mg 04/03/19 10:00 04/05/19 09:42 Aldactone - PO 25 mg DAILY [facility] Administration Tamsulosin HCl 0.4 mg 04/02/19 08:30 04/05/19 08:54 Flomax - PO 0.4 mg DAILY@0830 [facility] Administration Impression 1. DANYA 2. hyperkalemia 3. chf 4. weight loss 5. anemia 6. hypoxic resp failure 7. transaminitis 8. htn 9. a-fib Plan - renal function stable - cont lasix and aldactone - monitor lytes - cardio input appreciated - monitor potassium - has atrophic left kidney on ultrasound
[2019-04-05] MEDS: PANTOPRAZOLE SODIUM 160 MG in SODIUM CHLORIDE 290 ML IVPB SCH (13:53)
--- NOTE | 2019-04-05 14:17 | PN ---
Progress Note (short form) - Note Progress Note: PULMONARY More alert, awake. Denies shortness of breath or chest pain. Vital Signs Period Temp Pulse Resp BP Sys/Cabral Pulse Ox Last 24 Hr 97.5 F-98.9 F 59-78 20-20 130-165/56-83 99-100 Gen: NAD at rest Heart: RRR Lung: decreased breath sounds at the bases Abd: soft, nontender Ext: no edema CBC, BMP 04/05/19 06:00 04/05/19 06:00 Active Medications Al Hydroxide/Mg Hydroxide (Mylanta Oral Suspension -) 30 ml PO Q8H PRN PRN Reason: INDIGESTION Albuterol Sulfate (Ventolin 0.083% Nebulizer Soln -) 1 amp NEB Q6H PRN PRN Reason: SHORT OF BREATH/WHEEZING Albuterol/Ipratropium (Duoneb -) 1 amp NEB Q4H PRN PRN Reason: SHORTNESS OF BREATH Apixaban (Eliquis -) 2.5 mg PO BID [facility] Last Admin: 04/05/19 09:42 Dose: 2.5 mg Carbamazepine (Tegretol -) 200 mg PO TIDCM [facility] Last Admin: 04/05/19 11:34 Dose: 200 mg Carvedilol (Coreg -) 6.25 mg PO BID [facility] Last Admin: 04/05/19 09:45 Dose: 6.25 mg Dextrose (D50w (Vial) -) 25 gm IVPUSH PRN PRN PRN Reason: HYPOGLYCEMIA Furosemide (Lasix -) 20 mg PO DAILY [facility] Last Admin: 04/05/19 09:45 Dose: 20 mg Pantoprazole Sodium 160 mg/ (Sodium Chloride) 290 mls @ 14.5 mls/hr IVPB Q20H [facility] Last Admin: 04/05/19 13:53 Dose: Not Given Insulin Aspart (Novolog Vial Sliding Scale -) 1 vial SQ ACHS [facility]; Protocol Last Admin: 04/05/19 11:33 Dose: 10 units Levetiracetam (Keppra Injection -) 750 mg IVPB BID [facility] Last Admin: 04/05/19 09:44 Dose: 750 mg Levothyroxine Sodium (Synthroid -) 125 mcg PO DAILY@0700 [facility] Last Admin: 04/05/19 06:30 Dose: 125 mcg Lidocaine (Lidoderm Patch -) 2 patch TP DAILY [facility] Last Admin: 04/05/19 09:46 Dose: 2 patch Mirtazapine (Remeron -) 15 mg PO HS [facility] Last Admin: 04/04/19 21:42 Dose: 15 mg Miscellaneous (Lidoderm Patch Removal) 2 each MC DAILY@2200 [facility] Last Admin: 04/03/19 23:18 Dose: 2 each Sacubitril/Valsartan (Entresto 49 Mg-51 Mg Tablet) 1 tab PO BID [facility] Spironolactone (Aldactone -) 25 mg PO DAILY [facility] Last Admin: 04/05/19 09:42 Dose: 25 mg Tamsulosin HCl (Flomax -) 0.4 mg PO DAILY@0830 [facility] Last Admin: 04/05/19 08:54 Dose: 0.4 mg A/P Acute Hypoxic Respiratory Failure improving Severe Anemia s/p PRBC transfusions Acute on Chronic Diastolic Heart Failure +Troponins likely Demand Ischemia Lactic Acidosis resolved Acute on Chronic Renal Failure Elevated LFTs likely Congestive Hepatopathy Atrial Fibrillation s/p PPM HTN Hyperlipidemia Hypothyroidism Seizure Disorder - monitor H/H - continue lasix - monitor urine output, creatinine - trend LFTs - O2 to keep SpO2 >90% - rate control - continue anticoagulation - entresto - DVT prophylaxis
[2019-04-05] MEDS: BENZOCAINE/MENTH/CETYLPYRD CL 1 EACH LOZENGE MM PRN (15:04)
[2019-04-05] MEDS: ALBUTEROL SO4 2.5/IPRATROPIUM 0.5 INH SOL 3 ML VIAL.NEB. NEB PRN (20:45)
[2019-04-05] MEDS: MIRTAZAPINE 15 MG TABLET (FP) PO SCH (23:00)
[2019-04-05] MEDS: LIDOCAINE PATCH REMOVAL MC SCH (23:00)
[2019-04-05] MEDS: SACUBITRIL/VALSARTAN 49 MG-51 MG TABLET PO SCH (23:01)
[2019-04-06] MEDS: LEVOTHYROXINE NA 125 MCG TABLET (FP) PO SCH (06:18)
[2019-04-06] MEDS: INSULIN SLIDING SCALE (NOVOLOG) 1 VIAL SQ SCH ×4 (06:23→22:00)
[2019-04-06 07:20] LABS: HEMOGLOBIN 8.2 GM/dL (11.7-16.9); MCH 29.6 pg (25.7-33.7); MCHC 32.6 g/dl (32.0-35.9); MEAN CELL VOLUME 90.9 fl (80-96); MEAN PLT VOLUME 7.3 fl (7.5-11.1); PLATELET COUNT 330 K/MM3 (134-434); RBC 2.75 M/mm3 (4.00-5.60); RDW 16.6 % (11.9-15.9); WHITE BLOOD COUNT 7.5 K/mm3 (4.0-10.0)
--- NOTE | 2019-04-06 08:45 | PN ---
Progress Note (short form) - Note Progress Note: Neurology History of Present Illness - History of Present Illness 68M w/ a history of DM, hypothyroidism, seizure d/o, s/p pacemaker who presents for evaluation of 1 month of cough with increased sputum production. He also notes 1 week of BLE swelling to mid-reyes. He reports some symptomatic relief from coughing with robitussin. He also notes post-tussive emesis. He denies fevers/chills, trouble breathing, abdominal pain, diarrhea, dysuria/hematuria, or changes in sensation. He denied lower extremity swelling before. Patient currently in ICU under critical care monitoring. contacted by ICU resident on regarding patient's mental status which she reported was somnolent and lethargic. He discussed the case with me including multiple medical comorbidities including respiratory compromise requiring positive pressure ventilation, CHF exacerbation along with coffee-ground emesis and concern for upper GI bleed with reduction in hemoglobin and hematocrit. The patient also found to have atrial fibrillation and receiving medical optimization. I advised having noncontrast head CT which was completed and showed moderate atrophy but no significant infarcts or focal abnormalities. Likely toxic metabolic encephalopathy secondary to multiple medical comorbidities as described above. rreviewed notes from weekend and patient is awake, alert, interactive this morning. Seems to have more energy and less fatigue/ lethargic. His communicative and appears to be near baseline at this point. GI note reviewed and patient possibly for EGD/colonoscopy if and when able to. Eliquis would have to be interrupted for such procedure. Allergies/Adverse Reactions: Allergies Allergy/AdvReac Type Severity Reaction Status Date / Time lacosamide [From Vimpat] Allergy Rash Verified 03/29/19 09:32 Active Medications Al Hydroxide/Mg Hydroxide (Mylanta Oral Suspension -) 30 ml PO Q8H PRN PRN Reason: INDIGESTION Albuterol Sulfate (Ventolin 0.083% Nebulizer Soln -) 1 amp NEB Q6H PRN PRN Reason: SHORT OF BREATH/WHEEZING Albuterol/Ipratropium (Duoneb -) 1 amp NEB Q4H PRN PRN Reason: SHORTNESS OF BREATH Last Admin: 04/05/19 20:45 Dose: 1 amp Apixaban (Eliquis -) 2.5 mg PO BID [facility] Last Admin: 04/05/19 23:01 Dose: 2.5 mg Benzocaine/Menthol (Cepacol Lozenge -) 1 each MM PRN PRN PRN Reason: SORE THROAT Last Admin: 04/05/19 15:04 Dose: 1 each Carbamazepine (Tegretol -) 200 mg PO TIDCM [facility] Last Admin: 04/05/19 17:50 Dose: 200 mg Carvedilol (Coreg -) 6.25 mg PO BID [facility] Last Admin: 04/05/19 23:00 Dose: 6.25 mg Dextrose (D50w (Vial) -) 25 gm IVPUSH PRN PRN PRN Reason: HYPOGLYCEMIA Furosemide (Lasix -) 20 mg PO DAILY [facility] Last Admin: 04/05/19 09:45 Dose: 20 mg Pantoprazole Sodium 160 mg/ (Sodium Chloride) 290 mls @ 14.5 mls/hr IVPB Q20H [facility] Last Admin: 04/05/19 13:53 Dose: Not Given Insulin Aspart (Novolog Vial Sliding Scale -) 1 vial SQ ACHS [facility]; Protocol Last Admin: 04/06/19 06:23 Dose: Not Given Levetiracetam (Keppra Injection -) 750 mg IVPB BID [facility] Last Admin: 04/05/19 23:02 Dose: 750 mg Levothyroxine Sodium (Synthroid -) 125 mcg PO DAILY@0700 [facility] Last Admin: 04/06/19 06:18 Dose: 125 mcg Lidocaine (Lidoderm Patch -) 2 patch TP DAILY [facility] Last Admin: 04/05/19 09:46 Dose: 2 patch Mirtazapine (Remeron -) 15 mg PO HS [facility] Last Admin: 04/05/19 23:00 Dose: 15 mg Miscellaneous (Lidoderm Patch Removal) 2 each MC DAILY@2200 [facility] Last Admin: 04/05/19 23:00 Dose: 2 each Sacubitril/Valsartan (Entresto 49 Mg-51 Mg Tablet) 1 tab PO BID [facility] Last Admin: 04/05/19 23:01 Dose: 1 tab Spironolactone (Aldactone -) 25 mg PO DAILY [facility] Last Admin: 04/05/19 09:42 Dose: 25 mg Tamsulosin HCl (Flomax -) 0.4 mg PO DAILY@0830 [facility] Last Admin: 04/05/19 08:54 Dose: 0.4 mg *Physical Exam Vital Signs Period Temp Pulse Resp BP Sys/Cabral Pulse Ox Last 24 Hr 98 F-99.1 F 60-66 20-20 131-156/51-63 100-100 GENERAL: Awake, alert, and oriented to person/place/time, in no acute distress, thin HEAD: No signs of trauma, normocephalic, atraumatic EYES: PERRLA, EOMI, sclera anicteric, conjunctiva clear ENT: Hearing grossly normal, nares patent, oropharynx clear without exudates. Moist mucosa LUNGS: No distress, speaks in full sentences, clear to auscultation bilaterally HEART: Regular rate and rhythm, normal S1 and S2, no murmurs appreciated, peripheral pulses normal and equal bilaterally ABDOMEN: Soft, nontender, normoactive bowel sounds. No guarding, no rebound EXTREMITIES: Normal inspection, Normal range of motion, no edema. No clubbing or cyanosis NEUROLOGICAL: Cranial nerves II through XII grossly intact. Tangential speech, knows location, knows month, moves all extemities grossly, sensory intact SKIN: Warm, Dry CBCD WBC 7.5 K/mm3 (4.0-10.0) 04/06/19 06:30 RBC 2.75 M/mm3 (4.00-5.60) L 04/06/19 06:30 Hgb 8.2 GM/dL (11.7-16.9) L 04/06/19 06:30 Hct 25.0 % (35.4-49) L D 04/06/19 06:30 MCV 90.9 fl (80-96) 04/06/19 06:30 MCHC 32.6 g/dl (32.0-35.9) 04/06/19 06:30 RDW 16.6 % (11.9-15.9) H 04/06/19 06:30 Plt Count 330 K/MM3 (134-434) 04/06/19 06:30 MPV 7.3 fl (7.5-11.1) L 04/06/19 06:30 CMP Sodium 137 mmol/L (136-145) 04/05/19 06:00 Potassium 4.5 mmol/L (3.5-5.1) 04/05/19 06:00 Chloride 100 mmol/L (98-107) 04/05/19 06:00 Carbon Dioxide 29 mmol/L (21-32) 04/05/19 06:00 Anion Gap 8 MMOL/L (8-16) 04/05/19 06:00 BUN 24.5 mg/dL (7-18) H 04/05/19 06:00 Creatinine 0.9 mg/dL (0.55-1.3) 04/05/19 06:00 Random Glucose 82 mg/dL (74-106) 04/05/19 06:00 Calcium 7.4 mg/dL (8.5-10.1) L 04/05/19 06:00 Total Bilirubin 0.4 mg/dL (0.2-1) 04/04/19 06:30 AST 30 U/L (15-37) 04/04/19 06:30 ALT 168 U/L (13-61) H 04/04/19 06:30 Alkaline Phosphatase 370 U/L (45-117) H 04/04/19 06:30 Total Protein 4.4 g/dl (6.4-8.2) L 04/04/19 06:30 Albumin 1.6 g/dl (3.4-5.0) L 04/04/19 06:30 CARDIAC ENZYMES Creatine Kinase 254 U/L (26-308) 03/31/19 06:10 Troponin I 0.84 ng/ml (0.00-0.05) H* 03/31/19 23:25 Medical Decision Making 68M w/ a history of DM, hypothyroidism, seizure d/o, s/p pacemaker who presents for evaluation of 1 month of cough with increased sputum production. He also notes 1 week of BLE swelling to mid-reyes. He reports some symptomatic relief from coughing with robitussin. He also notes post-tussive emesis. He denies fevers/chills, trouble breathing, abdominal pain, diarrhea, dysuria/hematuria, or changes in sensation. He denied lower extremity swelling before. Patient currently in ICU under critical care monitoring. contacted by ICU resident on rregarding patient's mental status which she reported was somnolent and lethargic. He discussed the case with me including multiple medical comorbidities including respiratory compromise requiring positive pressure ventilation, CHF exacerbation along with coffee-ground emesis and concern for upper GI bleed with reduction in hemoglobin and hematocrit. The patient also found to have atrial fibrillation and receiving medical optimization. I advised having noncontrast head CT which was completed and showed moderate atrophy but no significant infarcts or focal abnormalities. Likely toxic metabolic encephalopathy secondary to multiple medical comorbidities as described above. Likely toxic metabolic encephalopathy secondary to multiple medical comorbidities as described above. rreviewed notes from weekend and patient is awake, alert, interactive this morning. Seems to have more energy and less fatigue/lethargic. His communicative and appears to be near baseline at this point. Continue treatment for respiratory compromise, IV abx per primary. GI bleed, patient recently started on heparin for Afib, closely monitor for bleed in presence of AC, GI follow up. GI note reviewed and patient possibly for EGD/colonoscopy if and when able to. Eliquis would have to be interrupted for such procedure. Mental status seems to be near baseline.
--- NOTE | 2019-04-06 08:58 | PN.GI ---
GI Progress Note Subjective: GI NOte: baby appeared alert enough today to discuss EGD and colonoscopy to investigate the source of his anemia in admission. I informed him that it will require anesthesia and of the potential for such complications as perforation and hemorrhage. He replied that he had these procedures before but they were done remotely. He told me that he needs to discuss it with his first. - Objective Vital Signs: Vital Signs Temperature 98.8 F 04/06/19 04:00 Pulse Rate 66 04/06/19 04:00 Respiratory Rate 20 04/06/19 04:00 Blood Pressure 143/56 L 04/06/19 04:00 O2 Sat by Pulse Oximetry (%) 100 04/05/19 22:00 Laboratory Tests 03/29/19 03/29/19 04/01/19 11:05 20:45 06:45 Hgb 6.1 L* 10.6 L Hct 18.9 L D 32.3 L Total Bilirubin 0.3 Direct Bilirubin AST 523 H ALT 591 H Alkaline Phosphatase 494 H 04/03/19 04/06/19 06:00 06:30 Hgb 8.2 L Hct 25.0 L D Total Bilirubin 0.4 Direct Bilirubin 0.1 AST 51 H ALT 260 H Alkaline Phosphatase 472 H Laboratory Tests 03/31/19 03/31/19 06:10 06:10 Iron Saturation 6 L Ferritin 1305.5 H CLARISA Screen Negative Hep A IgM Ab Confirm Negative Hepatitis A Ab Total Positive H Hep Bs Antigen Negative Hep Bs Antibody Reactive Hep B Core Total Ab Positive H Hep B Core IgM Ab Negative Hepatitis Be Antibody Negative Hepatitis Be Antigen Negative Hep C Ab Diagnostic 0.2 Labs: CBC, BMP 04/06/19 06:30 04/05/19 06:00 INR, PTT INR 1.32 (0.83-1.09) H 04/01/19 06:45 Assessment/Plan Assessment - The anemia requires evaluation when he consents and is medically cleared - Hepatic passive congestion due to cor pulmonale and right heart failure. - Personal h/o colon polyp Plan: -- If and when his condition permits and if informed consent if granted then an EGD and a colonoscopy will be mandated. His Eliquis will need to be interrupted -- Continue empiric PPI -- Follow LFTs . NO stones or obstruction on ultrasound. Fatty liver is noted -- Renal dysfunction still precludes a contrast CT scan to exclude advanced malignancy Problem List - Problems (1) Anemia Code(s): D64.9 - ANEMIA, UNSPECIFIED (2) Occult blood in stools Code(s): R19.5 - OTHER FECAL ABNORMALITIES (3) Weight loss Code(s): R63.4 - ABNORMAL WEIGHT LOSS (4) Narcotic addiction Code(s): F11.20 - OPIOID DEPENDENCE, UNCOMPLICATED (5) Hyperplastic polyp of descending colon Code(s): K63.5 - POLYP OF COLON (6) Abnormal liver function tests Code(s): R94.5 - ABNORMAL RESULTS OF LIVER FUNCTION STUDIES (7) Hypothyroidism Code(s): E03.9 - HYPOTHYROIDISM, UNSPECIFIED Qualifiers: Hypothyroidism type: unspecified Qualified Code(s): E03.9 - Hypothyroidism , unspecified (8) Symptomatic anemia Code(s): D64.9 - ANEMIA, UNSPECIFIED (9) Type 2 diabetes mellitus Code(s): E11.9 - TYPE 2 DIABETES MELLITUS WITHOUT COMPLICATIONS Qualifiers: Diabetes mellitus systems security consultant insulin use: without long-term use Diabetes mellitus complication status: with circulatory complication (10) Nausea & vomiting Code(s): R11.2 - NAUSEA WITH VOMITING, UNSPECIFIED Qualifiers: Vomiting type: unspecified Vomiting Intractability: unspecified Qualified Code(s): R11.2 - Nausea with vomiting, unspecified (12) Hyperkalemia Code(s): E87.5 - HYPERKALEMIA (13) Cor pulmonale Code(s): I27.81 - COR PULMONALE (CHRONIC) (14) Pneumonia Code(s): J18.9 - PNEUMONIA, UNSPECIFIED ORGANISM (15) Pacemaker Code(s): Z95.0 - PRESENCE OF CARDIAC PACEMAKER
--- NOTE | 2019-04-06 09:40 | PN ---
Progress Note, Physician Chief Complaint: Feels OK History of Present Illness: Hb 8.2 yesterday it was 9.7 Dr Simpson wanted to do EGD and colonoscopy Discussed in detail with his ,she agrees to sign the consent [place] discussed with cardiology-Dr Shoemaker - Current Medication List Current Medications: Active Medications Al Hydroxide/Mg Hydroxide (Mylanta Oral Suspension -) 30 ml PO Q8H PRN PRN Reason: INDIGESTION Albuterol Sulfate (Ventolin 0.083% Nebulizer Soln -) 1 amp NEB Q6H PRN PRN Reason: SHORT OF BREATH/WHEEZING Albuterol/Ipratropium (Duoneb -) 1 amp NEB Q4H PRN PRN Reason: SHORTNESS OF BREATH Last Admin: 04/05/19 20:45 Dose: 1 amp Apixaban (Eliquis -) 2.5 mg PO BID [facility] Last Admin: 04/05/19 23:01 Dose: 2.5 mg Benzocaine/Menthol (Cepacol Lozenge -) 1 each MM PRN PRN PRN Reason: SORE THROAT Last Admin: 04/05/19 15:04 Dose: 1 each Carbamazepine (Tegretol -) 200 mg PO TIDCM [facility] Last Admin: 04/05/19 17:50 Dose: 200 mg Carvedilol (Coreg -) 6.25 mg PO BID [facility] Last Admin: 04/05/19 23:00 Dose: 6.25 mg Dextrose (D50w (Vial) -) 25 gm IVPUSH PRN PRN PRN Reason: HYPOGLYCEMIA Furosemide (Lasix -) 20 mg PO DAILY [facility] Last Admin: 04/05/19 09:45 Dose: 20 mg Pantoprazole Sodium 160 mg/ (Sodium Chloride) 290 mls @ 14.5 mls/hr IVPB Q20H [facility] Last Admin: 04/05/19 13:53 Dose: Not Given Insulin Aspart (Novolog Vial Sliding Scale -) 1 vial SQ ACHS [facility]; Protocol Last Admin: 04/06/19 06:23 Dose: Not Given Levetiracetam (Keppra -) 500 mg PO BID [facility] Levetiracetam (Keppra -) 250 mg PO BID [facility] Levothyroxine Sodium (Synthroid -) 125 mcg PO DAILY@0700 [facility] Last Admin: 04/06/19 06:18 Dose: 125 mcg Lidocaine (Lidoderm Patch -) 2 patch TP DAILY [facility] Last Admin: 04/05/19 09:46 Dose: 2 patch Mirtazapine (Remeron -) 15 mg PO HS [facility] Last Admin: 04/05/19 23:00 Dose: 15 mg Miscellaneous (Lidoderm Patch Removal) 2 each MC DAILY@2200 [facility] Last Admin: 04/05/19 23:00 Dose: 2 each Sacubitril/Valsartan (Entresto 49 Mg-51 Mg Tablet) 1 tab PO BID [facility] Last Admin: 04/05/19 23:01 Dose: 1 tab Spironolactone (Aldactone -) 25 mg PO DAILY [facility] Last Admin: 04/05/19 09:42 Dose: 25 mg Tamsulosin HCl (Flomax -) 0.4 mg PO DAILY@0830 [facility] Last Admin: 04/05/19 08:54 Dose: 0.4 mg - Objective Vital Signs: Vital Signs Temperature 98.8 F 04/06/19 04:00 Pulse Rate 66 04/06/19 04:00 Respiratory Rate 20 04/06/19 04:00 Blood Pressure 143/56 L 04/06/19 04:00 O2 Sat by Pulse Oximetry (%) 100 04/05/19 22:00 Constitutional: Yes: Calm Eyes: Yes: WNL HENT: Yes: WNL Neck: Yes: WNL Cardiovascular: Yes: Regular Rate and Rhythm Respiratory: Yes: On BiPap, Poor Air Entry ...Rectal Exam: Yes: Deferred Genitourinary: Yes: WNL Musculoskeletal: Yes: WNL Neurological: Yes: Alert Labs: CBC, BMP 04/06/19 06:30 04/05/19 06:00 INR, PTT INR 1.32 (0.83-1.09) H 04/01/19 06:45 Assessment/Plan DC IV kepra ,start on PO
[2019-04-06] MEDS ORDERED: levETIRAcetam 250 MG TABLET (FP) PO SCH (10:00)
[2019-04-06] MEDS ORDERED: levETIRAcetam 500 MG TABLET (FP) PO SCH (10:00)
[2019-04-06] MEDS: FUROSEMIDE 20 MG TABLET (FP) PO SCH (10:26)
[2019-04-06] MEDS: TAMSULOSIN HCL 0.4 MG CAP PO SCH (10:26)
[2019-04-06] MEDS: APIXABAN 5 MG TABLET PO SCH (10:26)
[2019-04-06] MEDS: carBAMazepine 100 MG TAB.CHEW PO SCH ×3 (10:26→17:24)
[2019-04-06] MEDS: LIDOCAINE 5% TOPICAL PATCH TP SCH (10:27)
[2019-04-06] MEDS: PANTOPRAZOLE SODIUM 160 MG in SODIUM CHLORIDE 290 ML IVPB SCH (10:27)
[2019-04-06] MEDS: CARVEDILOL 6.25 MG TABLET (FP) PO SCH ×2 (10:27→21:48)
[2019-04-06] MEDS: SPIRONOLACTONE 25 MG TABLET (FP) PO SCH (10:27)
[2019-04-06] MEDS: SACUBITRIL/VALSARTAN 49 MG-51 MG TABLET PO SCH ×2 (10:27→21:49)
--- NOTE | 2019-04-06 10:35 | PN ---
Progress Note, Physician History of Present Illness: Pt seen and examined at bedside. He is awake and alert. He denies shortness of breath. - Current Medication List Current Medications: Active Medications Al Hydroxide/Mg Hydroxide (Mylanta Oral Suspension -) 30 ml PO Q8H PRN PRN Reason: INDIGESTION Albuterol Sulfate (Ventolin 0.083% Nebulizer Soln -) 1 amp NEB Q6H PRN PRN Reason: SHORT OF BREATH/WHEEZING Albuterol/Ipratropium (Duoneb -) 1 amp NEB Q4H PRN PRN Reason: SHORTNESS OF BREATH Last Admin: 04/05/19 20:45 Dose: 1 amp Apixaban (Eliquis -) 2.5 mg PO BID [facility] Last Admin: 04/06/19 10:26 Dose: 2.5 mg Benzocaine/Menthol (Cepacol Lozenge -) 1 each MM PRN PRN PRN Reason: SORE THROAT Last Admin: 04/05/19 15:04 Dose: 1 each Carbamazepine (Tegretol -) 200 mg PO TIDCM [facility] Last Admin: 04/06/19 10:26 Dose: 200 mg Carvedilol (Coreg -) 6.25 mg PO BID [facility] Last Admin: 04/06/19 10:27 Dose: 6.25 mg Dextrose (D50w (Vial) -) 25 gm IVPUSH PRN PRN PRN Reason: HYPOGLYCEMIA Furosemide (Lasix -) 20 mg PO DAILY [facility] Last Admin: 04/06/19 10:26 Dose: 20 mg Pantoprazole Sodium 160 mg/ (Sodium Chloride) 290 mls @ 14.5 mls/hr IVPB Q20H [facility] Last Admin: 04/06/19 10:27 Dose: 14.5 mls/hr Insulin Aspart (Novolog Vial Sliding Scale -) 1 vial SQ ACHS [facility]; Protocol Last Admin: 04/06/19 06:23 Dose: Not Given Levetiracetam 500 mg/ (Levetiracetam 250 mg) 750 mg PO BID [facility] Levothyroxine Sodium (Synthroid -) 125 mcg PO DAILY@0700 [facility] Last Admin: 04/06/19 06:18 Dose: 125 mcg Lidocaine (Lidoderm Patch -) 2 patch TP DAILY [facility] Last Admin: 04/06/19 10:27 Dose: 2 patch Mirtazapine (Remeron -) 15 mg PO HS [facility] Last Admin: 04/05/19 23:00 Dose: 15 mg Miscellaneous (Lidoderm Patch Removal) 2 each MC DAILY@2200 [facility] Last Admin: 04/05/19 23:00 Dose: 2 each Sacubitril/Valsartan (Entresto 49 Mg-51 Mg Tablet) 1 tab PO BID [facility] Last Admin: 04/06/19 10:27 Dose: 1 tab Spironolactone (Aldactone -) 25 mg PO DAILY [facility] Last Admin: 04/06/19 10:27 Dose: 25 mg Tamsulosin HCl (Flomax -) 0.4 mg PO DAILY@0830 [facility] Last Admin: 04/06/19 10:26 Dose: 0.4 mg - Objective Vital Signs: Vital Signs Temperature 98.8 F 04/06/19 08:00 Pulse Rate 61 04/06/19 08:00 Respiratory Rate 18 04/06/19 09:00 Blood Pressure 148/57 L 04/06/19 08:00 O2 Sat by Pulse Oximetry (%) 100 04/06/19 09:39 Constitutional: Yes: Calm Eyes: Yes: Conjunctiva Clear HENT: Yes: Atraumatic Neck: Yes: Supple Cardiovascular: Yes: S1, S2 Respiratory: Yes: CTA Bilaterally, On Nasal O2 Gastrointestinal: Yes: Soft Musculoskeletal: Yes: WNL Edema: No Neurological: Yes: Oriented Labs: CBC, BMP 04/06/19 06:30 04/05/19 06:00 INR, PTT INR 1.32 (0.83-1.09) H 04/01/19 06:45 Problem List - Problems (1) Acute on chronic diastolic (congestive) heart failure Code(s): I50.33 - ACUTE ON CHRONIC DIASTOLIC (CONGESTIVE) HEART FAILURE (2) [id number] kidney injury Code(s): N17.9 - ACUTE KIDNEY FAILURE, UNSPECIFIED; N18.9 - CHRONIC KIDNEY DISEASE, UNSPECIFIED Qualifiers: Acute renal failure type: unspecified (3) Hyperkalemia Code(s): E87.5 - HYPERKALEMIA (4) Hypothyroidism Code(s): E03.9 - HYPOTHYROIDISM, UNSPECIFIED Qualifiers: Hypothyroidism type: unspecified Qualified Code(s): E03.9 - Hypothyroidism , unspecified Assessment/Plan Current Medications Generic Name Dose Route Start Last Admin Trade Name Freq PRN Reason Stop Dose Admin Al Hydroxide/Mg Hydroxide 30 ml 04/02/19 07:32 Mylanta Oral Suspension - PO Q8H PRN INDIGESTION Albuterol Sulfate 1 amp 04/02/19 07:32 Ventolin 0.083% Nebulizer Soln - NEB Q6H PRN SHORT OF BREATH/WHEEZING Albuterol/Ipratropium 1 amp 04/02/19 07:32 04/05/19 20:45 Duoneb - NEB 1 amp Q4H PRN Administration SHORTNESS OF BREATH Apixaban 2.5 mg 04/03/19 09:07 04/06/19 10:26 Eliquis - PO 2.5 mg BID [facility] Administration Benzocaine/Menthol 1 each 04/05/19 14:43 04/05/19 15:04 Cepacol Lozenge - MM 1 each PRN PRN Administration SORE THROAT Carbamazepine 200 mg 04/02/19 08:00 04/06/19 10:26 Tegretol - PO 200 mg TIDCM [facility] Administration Carvedilol 6.25 mg 04/02/19 10:00 04/06/19 10:27 Coreg - PO 6.25 mg BID [facility] Administration Dextrose 25 gm 04/02/19 07:32 D50w (Vial) - IVPUSH PRN PRN HYPOGLYCEMIA Furosemide 20 mg 04/03/19 10:00 04/06/19 10:26 Lasix - PO 20 mg DAILY [facility] Administration Pantoprazole Sodium 160 mg/ 290 mls @ 14.5 mls/hr 04/01/19 10:00 04/06/19 10: 27 Sodium Chloride IVPB 14.5 mls/hr Q20H [facility] Administration Insulin Aspart 1 vial 04/02/19 11:00 04/06/19 06:23 Novolog Vial Sliding Scale - SQ Not Given ACHS [facility] Protocol Levetiracetam 500 mg/ 750 mg 04/06/19 10:15 Levetiracetam 250 mg PO BID [facility] Levothyroxine Sodium 125 mcg 04/03/19 07:00 04/06/19 06:18 Synthroid - PO 125 mcg DAILY@0700 [facility] Administration Lidocaine 2 patch 04/03/19 14:30 04/06/19 10:27 Lidoderm Patch - TP 2 patch DAILY [facility] Administration Mirtazapine 15 mg 04/02/19 22:00 04/05/19 23:00 Remeron - PO 15 mg HS [facility] Administration Miscellaneous 2 each 04/03/19 22:00 04/05/19 23:00 Lidoderm Patch Removal MC 2 each DAILY@2200 [facility] Administration Sacubitril/Valsartan 1 tab 04/05/19 22:00 04/06/19 10:27 Entresto 49 Mg-51 Mg Tablet PO 1 tab BID [facility] Administration Spironolactone 25 mg 04/03/19 10:00 04/06/19 10:27 Aldactone - PO 25 mg DAILY [facility] Administration Tamsulosin HCl 0.4 mg 04/02/19 08:30 04/06/19 10:26 Flomax - PO 0.4 mg DAILY@0830 [facility] Administration Impression 1. DANYA 2. hyperkalemia 3. chf 4. weight loss 5. anemia 6. hypoxic resp failure 7. transaminitis 8. htn 9. a-fib Plan - check bmp - monitor volume status on diuretics - cont lasix and aldactone - monitor lytes - monitor potassium - has atrophic left kidney on ultrasound - GI workup in progress
--- NOTE | 2019-04-06 10:56 | PN ---
Progress Note, Physician History of Present Illness: pulmonary alert,no distress,-sob,-cp - Current Medication List Current Medications: Active Medications Al Hydroxide/Mg Hydroxide (Mylanta Oral Suspension -) 30 ml PO Q8H PRN PRN Reason: INDIGESTION Albuterol Sulfate (Ventolin 0.083% Nebulizer Soln -) 1 amp NEB Q6H PRN PRN Reason: SHORT OF BREATH/WHEEZING Albuterol/Ipratropium (Duoneb -) 1 amp NEB Q4H PRN PRN Reason: SHORTNESS OF BREATH Last Admin: 04/05/19 20:45 Dose: 1 amp Apixaban (Eliquis -) 2.5 mg PO BID [facility] Last Admin: 04/06/19 10:26 Dose: 2.5 mg Benzocaine/Menthol (Cepacol Lozenge -) 1 each MM PRN PRN PRN Reason: SORE THROAT Last Admin: 04/05/19 15:04 Dose: 1 each Carbamazepine (Tegretol -) 200 mg PO TIDCM [facility] Last Admin: 04/06/19 10:26 Dose: 200 mg Carvedilol (Coreg -) 6.25 mg PO BID [facility] Last Admin: 04/06/19 10:27 Dose: 6.25 mg Dextrose (D50w (Vial) -) 25 gm IVPUSH PRN PRN PRN Reason: HYPOGLYCEMIA Furosemide (Lasix -) 20 mg PO DAILY [facility] Last Admin: 04/06/19 10:26 Dose: 20 mg Pantoprazole Sodium 160 mg/ (Sodium Chloride) 290 mls @ 14.5 mls/hr IVPB Q20H [facility] Last Admin: 04/06/19 10:27 Dose: 14.5 mls/hr Insulin Aspart (Novolog Vial Sliding Scale -) 1 vial SQ ACHS [facility]; Protocol Last Admin: 04/06/19 06:23 Dose: Not Given Levetiracetam 500 mg/ (Levetiracetam 250 mg) 750 mg PO BID [facility] Levothyroxine Sodium (Synthroid -) 125 mcg PO DAILY@0700 [facility] Last Admin: 04/06/19 06:18 Dose: 125 mcg Lidocaine (Lidoderm Patch -) 2 patch TP DAILY [facility] Last Admin: 04/06/19 10:27 Dose: 2 patch Mirtazapine (Remeron -) 15 mg PO HS [facility] Last Admin: 04/05/19 23:00 Dose: 15 mg Miscellaneous (Lidoderm Patch Removal) 2 each MC DAILY@2200 [facility] Last Admin: 04/05/19 23:00 Dose: 2 each Sacubitril/Valsartan (Entresto 49 Mg-51 Mg Tablet) 1 tab PO BID [facility] Last Admin: 04/06/19 10:27 Dose: 1 tab Spironolactone (Aldactone -) 25 mg PO DAILY [facility] Last Admin: 04/06/19 10:27 Dose: 25 mg Tamsulosin HCl (Flomax -) 0.4 mg PO DAILY@0830 [facility] Last Admin: 04/06/19 10:26 Dose: 0.4 mg - Objective Vital Signs: Vital Signs Temperature 98.8 F 04/06/19 08:00 Pulse Rate 61 04/06/19 08:00 Respiratory Rate 18 04/06/19 09:00 Blood Pressure 148/57 L 04/06/19 08:00 O2 Sat by Pulse Oximetry (%) 100 04/06/19 09:39 Constitutional: Yes: Calm, Thin Eyes: Yes: WNL HENT: Yes: WNL Neck: Yes: WNL Cardiovascular: Yes: Regular Rate and Rhythm, S1, S2 Respiratory: Yes: Diminished Gastrointestinal: Yes: Normal Bowel Sounds, Soft Extremities: Yes: WNL Edema: No Labs: CBC, BMP 04/06/19 06:30 04/05/19 06:00 INR, PTT INR 1.32 (0.83-1.09) H 04/01/19 06:45 Problem List - Problems (1) Abnormal liver function tests Code(s): R94.5 - ABNORMAL RESULTS OF LIVER FUNCTION STUDIES (2) Acute on chronic diastolic (congestive) heart failure Code(s): I50.33 - ACUTE ON CHRONIC DIASTOLIC (CONGESTIVE) HEART FAILURE (3) Hypothyroidism Code(s): E03.9 - HYPOTHYROIDISM, UNSPECIFIED Qualifiers: Hypothyroidism type: unspecified Qualified Code(s): E03.9 - Hypothyroidism , unspecified (4) Paroxysmal atrial fibrillation with rapid ventricular response Code(s): I48.0 - PAROXYSMAL ATRIAL FIBRILLATION (5) Symptomatic anemia Code(s): D64.9 - ANEMIA, UNSPECIFIED (6) Type 2 diabetes mellitus Code(s): E11.9 - TYPE 2 DIABETES MELLITUS WITHOUT COMPLICATIONS Qualifiers: Diabetes mellitus penitentiary insulin use: without hammer fitter use Diabetes mellitus complication status: with circulatory complication (7) Weight loss Code(s): R63.4 - ABNORMAL WEIGHT LOSS (8) Anemia Code(s): D64.9 - ANEMIA, UNSPECIFIED (9) [id number] kidney injury Code(s): N17.9 - ACUTE KIDNEY FAILURE, UNSPECIFIED; N18.9 - CHRONIC KIDNEY DISEASE, UNSPECIFIED Qualifiers: Acute renal failure type: unspecified Assessment/Plan ASSESSMENT AND PLAN: Acute Hypoxic Respiratory Failure improved Severe Anemia Acute on Chronic Diastolic Heart Failure +Troponins likely Demand Ischemia Lactic Acidosis improved Acute on Chronic Renal Failure Elevated LFTs likely Congestive Hepatopathy improving Atrial Fibrillation s/p PPM HTN Hyperlipidemia Hypothyroidism Seizure Disorder - monitor H/H - lasix - monitor urine output, creatinine - trend LFTs - O2 to keep SpO2 >90% - rate control - DVT prophylaxis - eliquis - gi w/u in progress DR GOLDSTEIN
--- NOTE | 2019-04-06 12:27 | PN ---
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 Verbal. Not always easy to understand, possibly sec to ESL. CT scann noted Dry cough frequently, and delAYED cough with thin liquid? [place] thickened encouraged & keep hob elevated when drinking Suggest- MBS to r/o aspiration on thin liquid and liberalize diet, if possible
--- NOTE | 2019-04-06 14:29 | PN ---
Progress Note, Physician Chief Complaint: Events noted Not in distress History of Present Illness: Patient was seen and examined. Awake and alert. Chart was reviewed Denies chest pain or SOB Spoke with Dr. Sommer regarding cardiac clearance for GI intervention - Current Medication List Current Medications: Active Medications Al Hydroxide/Mg Hydroxide (Mylanta Oral Suspension -) 30 ml PO Q8H PRN PRN Reason: INDIGESTION Albuterol Sulfate (Ventolin 0.083% Nebulizer Soln -) 1 amp NEB Q6H PRN PRN Reason: SHORT OF BREATH/WHEEZING Albuterol/Ipratropium (Duoneb -) 1 amp NEB Q4H PRN PRN Reason: SHORTNESS OF BREATH Last Admin: 04/05/19 20:45 Dose: 1 amp Apixaban (Eliquis -) 2.5 mg PO BID [facility] Last Admin: 04/06/19 10:26 Dose: 2.5 mg Benzocaine/Menthol (Cepacol Lozenge -) 1 each MM PRN PRN PRN Reason: SORE THROAT Last Admin: 04/05/19 15:04 Dose: 1 each Carbamazepine (Tegretol -) 200 mg PO TIDCM [facility] Last Admin: 04/06/19 13:34 Dose: 200 mg Carvedilol (Coreg -) 6.25 mg PO BID [facility] Last Admin: 04/06/19 10:27 Dose: 6.25 mg Dextrose (D50w (Vial) -) 25 gm IVPUSH PRN PRN PRN Reason: HYPOGLYCEMIA Furosemide (Lasix -) 20 mg PO DAILY [facility] Last Admin: 04/06/19 10:26 Dose: 20 mg Pantoprazole Sodium 160 mg/ (Sodium Chloride) 290 mls @ 14.5 mls/hr IVPB Q20H [facility] Last Admin: 04/06/19 10:27 Dose: 14.5 mls/hr Insulin Aspart (Novolog Vial Sliding Scale -) 1 vial SQ ACHS [facility]; Protocol Last Admin: 04/06/19 11:32 Dose: 8 units Levetiracetam 500 mg/ (Levetiracetam 250 mg) 750 mg PO BID [facility] Last Admin: 04/06/19 11:24 Dose: 750 mg Levothyroxine Sodium (Synthroid -) 125 mcg PO DAILY@0700 [facility] Last Admin: 04/06/19 06:18 Dose: 125 mcg Lidocaine (Lidoderm Patch -) 2 patch TP DAILY [facility] Last Admin: 04/06/19 10:27 Dose: 2 patch Mirtazapine (Remeron -) 15 mg PO HS [facility] Last Admin: 04/05/19 23:00 Dose: 15 mg Miscellaneous (Lidoderm Patch Removal) 2 each MC DAILY@2200 [facility] Last Admin: 04/05/19 23:00 Dose: 2 each Sacubitril/Valsartan (Entresto 49 Mg-51 Mg Tablet) 1 tab PO BID [facility] Last Admin: 04/06/19 10:27 Dose: 1 tab Spironolactone (Aldactone -) 25 mg PO DAILY [facility] Last Admin: 04/06/19 10:27 Dose: 25 mg Tamsulosin HCl (Flomax -) 0.4 mg PO DAILY@0830 [facility] Last Admin: 04/06/19 10:26 Dose: 0.4 mg - Objective Vital Signs: Vital Signs Temperature 98.8 F 04/06/19 08:00 Pulse Rate 61 04/06/19 08:00 Respiratory Rate 18 04/06/19 09:00 Blood Pressure 148/57 L 04/06/19 08:00 O2 Sat by Pulse Oximetry (%) 100 04/06/19 09:39 Eyes: Yes: PERRL HENT: Yes: Atraumatic Neck: Yes: Supple Cardiovascular: Yes: Regular Rate and Rhythm, S1, S2 Respiratory: Yes: Diminished Gastrointestinal: Yes: Normal Bowel Sounds, Soft. No: Tenderness Edema: No Labs: CBC, BMP 04/06/19 06:30 04/05/19 06:00 Problem List - Problems (1) Acute on chronic diastolic (congestive) heart failure Code(s): I50.33 - ACUTE ON CHRONIC DIASTOLIC (CONGESTIVE) HEART FAILURE (2) [id number] kidney injury Code(s): N17.9 - ACUTE KIDNEY FAILURE, UNSPECIFIED; N18.9 - CHRONIC KIDNEY DISEASE, UNSPECIFIED Qualifiers: Acute renal failure type: unspecified (3) Hypothyroidism Code(s): E03.9 - HYPOTHYROIDISM, UNSPECIFIED Qualifiers: Hypothyroidism type: unspecified Qualified Code(s): E03.9 - Hypothyroidism , unspecified (4) Pacemaker Code(s): Z95.0 - PRESENCE OF CARDIAC PACEMAKER (5) Paroxysmal atrial fibrillation with rapid ventricular response Code(s): I48.0 - PAROXYSMAL ATRIAL FIBRILLATION (6) Severe anemia Code(s): D64.9 - ANEMIA, UNSPECIFIED (7) Subendocardial ischemia Code(s): I24.8 - OTHER FORMS OF ACUTE ISCHEMIC HEART DISEASE (8) Type 2 diabetes mellitus Code(s): E11.9 - TYPE 2 DIABETES MELLITUS WITHOUT COMPLICATIONS Qualifiers: Diabetes mellitus custodial insulin use: without buttermaker continuous churn use Diabetes mellitus complication status: with circulatory complication (9) CAD (coronary artery disease) Code(s): I25.10 - ATHSCL HEART DISEASE OF [place] CORONARY ARTERY W/O ANG PCTRS (10) HTN (hypertension) Code(s): I10 - ESSENTIAL (PRIMARY) HYPERTENSION Qualifiers: Hypertension type: essential hypertension Qualified Code(s): I10 - Essential (primary) hypertension (11) Hypercholesterolemia Code(s): E78.00 - PURE HYPERCHOLESTEROLEMIA, UNSPECIFIED Assessment/Plan 1. Acute hypoxemic respiratory failure 2. Acute on chronic class II-III NYHA classification LV failure related to systolic/diastolic LV dysfunction 3. CAD with evidence of demand ischemic injury/subendocardial ischemia angina pectoris 4. AV block post PPM 5. Paroxysmal atrial fibrillation currently in sinus rhythm/atrial pacing ( [id number] score of 4 on DOAC's/Eliquis) 6. Hypertensive heart disease 7. DM 8. Hyperlipidemia 9. Acute on chronic CKD 10. Profound anemia post transfusion - rule out gastrointestinal source 11. Seizure disorder 12. Hypothyroidism 13. Ischemic hepatitis PLAN: 1. Continue Entresto 49/51 mg BID with close monitoring of renal function and electrolytes 2. Continue Coreg 6.25 mg BID 3. Continue Lasix 20 mg QD and Aldactone 25 mg QD with close monitoring of renal function and electrolytes 4. Eliquis held in preparation for GI evaluation. There is no absolute contraindication for GI intervention in view of absence of ischemic symptoms, decompensated congestive heart failure or malignant arrhythmias. Eliquis is to be restarted after GI intervention. 5. PT as tolerated Eliceo Shoemaker MD
--- NOTE | 2019-04-06 17:47 | PN ---
Progress Note (short form) - Note Progress Note: GI Note: Dr Sommer's note is appreciated. I tried to call [facility] but no one answered. I gave baby my business card so that she can call me to discuss the procedures. I have sent a message to Dr Eliceo middleton: cardiac clearance. Will stop the Eliquis in anticipation of this but can resume if he is not cleared. Problem List - Problems (1) Anemia Code(s): D64.9 - ANEMIA, UNSPECIFIED (2) Occult blood in stools Code(s): R19.5 - OTHER FECAL ABNORMALITIES (3) Weight loss Code(s): R63.4 - ABNORMAL WEIGHT LOSS (4) Narcotic addiction Code(s): F11.20 - OPIOID DEPENDENCE, UNCOMPLICATED (5) Hyperplastic polyp of descending colon Code(s): K63.5 - POLYP OF COLON (6) Abnormal liver function tests Code(s): R94.5 - ABNORMAL RESULTS OF LIVER FUNCTION STUDIES (7) Hypothyroidism Code(s): E03.9 - HYPOTHYROIDISM, UNSPECIFIED Qualifiers: Hypothyroidism type: unspecified Qualified Code(s): E03.9 - Hypothyroidism , unspecified (8) Symptomatic anemia Code(s): D64.9 - ANEMIA, UNSPECIFIED (9) Type 2 diabetes mellitus Code(s): E11.9 - TYPE 2 DIABETES MELLITUS WITHOUT COMPLICATIONS Qualifiers: Diabetes mellitus long-term insulin use: without long-term use Diabetes mellitus complication status: with circulatory complication (10) Nausea & vomiting Code(s): R11.2 - NAUSEA WITH VOMITING, UNSPECIFIED Qualifiers: Vomiting type: unspecified Vomiting Intractability: unspecified Qualified Code(s): R11.2 - Nausea with vomiting, unspecified (12) Hyperkalemia Code(s): E87.5 - HYPERKALEMIA (13) Cor pulmonale Code(s): I27.81 - COR PULMONALE (CHRONIC) (14) Pneumonia Code(s): J18.9 - PNEUMONIA, UNSPECIFIED ORGANISM (15) Pacemaker Code(s): Z95.0 - PRESENCE OF CARDIAC PACEMAKER
[2019-04-06] MEDS: ALBUTEROL SO4 2.5/IPRATROPIUM 0.5 INH SOL 3 ML VIAL.NEB. NEB PRN (19:50)
[2019-04-06] MEDS ORDERED: PT OWN MED DRAWER 7, Y5N ONE (20:48)
[2019-04-06] MEDS: MIRTAZAPINE 15 MG TABLET (FP) PO SCH (21:49)
[2019-04-06] MEDS: PANTOPRAZOLE 40 MG TABLET (FP) PO SCH (21:52)
[2019-04-06] MEDS: LIDOCAINE PATCH REMOVAL MC SCH (22:28)
[2019-04-06] MEDS: POLYETHYLENE GLYCOL 3350 119 GM BTL PO SCH (23:24)
[2019-04-07] MEDS: LEVOTHYROXINE NA 125 MCG TABLET (FP) PO SCH (06:09)
[2019-04-07] MEDS: INSULIN SLIDING SCALE (NOVOLOG) 1 VIAL SQ SCH ×4 (06:09→21:24)
--- NOTE | 2019-04-07 06:44 | PN ---
Progress Note (short form) - Note Progress Note: Chief Complaint: Events noted, notes reviewed, denies any chest pain or dyspnea History of Present Illness: Seen and examined on telemetry. Events noted, notes reviewed, denies any chest pain or dyspnea - Current Medication List Current Medications: Active Medications Current Medications Al Hydroxide/Mg Hydroxide (Mylanta Oral Suspension -) 30 ml PO Q8H PRN PRN Reason: INDIGESTION Albuterol Sulfate (Ventolin 0.083% Nebulizer Soln -) 1 amp NEB Q6H PRN PRN Reason: SHORT OF BREATH/WHEEZING Albuterol/Ipratropium (Duoneb -) 1 amp NEB Q4H PRN PRN Reason: SHORTNESS OF BREATH Last Admin: 04/06/19 19:50 Dose: 1 amp Apixaban (Eliquis -) 2.5 mg PO BID [facility] Last Admin: 04/06/19 10:26 Dose: 2.5 mg Benzocaine/Menthol (Cepacol Lozenge -) 1 each MM PRN PRN PRN Reason: SORE THROAT Last Admin: 04/05/19 15:04 Dose: 1 each Bisacodyl (Dulcolax -) 20 mg PO ONCE ONE Stop: 04/08/19 18:01 Carbamazepine (Tegretol -) 200 mg PO TIDCM [facility] Last Admin: 04/06/19 17:24 Dose: 200 mg Carvedilol (Coreg -) 6.25 mg PO BID [facility] Last Admin: 04/06/19 21:48 Dose: 6.25 mg Dextrose (D50w (Vial) -) 25 gm IVPUSH PRN PRN PRN Reason: HYPOGLYCEMIA Furosemide (Lasix -) 20 mg PO DAILY [facility] Last Admin: 04/06/19 10:26 Dose: 20 mg Insulin Aspart (Novolog Vial Sliding Scale -) 1 vial SQ ACHS [facility]; Protocol Last Admin: 04/07/19 06:09 Dose: Not Given Levetiracetam 500 mg/ (Levetiracetam 250 mg) 750 mg PO BID [facility] Last Admin: 04/06/19 21:49 Dose: 750 mg Levothyroxine Sodium (Synthroid -) 125 mcg PO DAILY@0700 [facility] Last Admin: 04/07/19 06:09 Dose: 125 mcg Lidocaine (Lidoderm Patch -) 2 patch TP DAILY [facility] Last Admin: 04/06/19 10:27 Dose: 2 patch Mirtazapine (Remeron -) 15 mg PO HS [facility] Last Admin: 04/06/19 21:49 Dose: 15 mg Miscellaneous (Lidoderm Patch Removal) 2 each MC DAILY@2200 [facility] Last Admin: 04/06/19 22:28 Dose: 2 each Pantoprazole Sodium (Protonix -) 40 mg PO BID [facility] Last Admin: 04/06/19 21:52 Dose: 40 mg Polyethylene Glycol (Miralax (For Daily Use) -) 17 gm PO BID [facility] Last Admin: 04/06/19 23:24 Dose: 17 grams Polyethylene Glycol/Electrolytes (Golytely Solution -) 4,000 ml PO ONCE ONE Stop: 04/08/19 09:01 Sacubitril/Valsartan (Entresto 49 Mg-51 Mg Tablet) 1 tab PO BID [facility] Last Admin: 04/06/19 21:49 Dose: 1 tab Spironolactone (Aldactone -) 25 mg PO DAILY [facility] Last Admin: 04/06/19 10:27 Dose: 25 mg Tamsulosin HCl (Flomax -) 0.4 mg PO DAILY@0830 [facility] Last Admin: 04/06/19 10:26 Dose: 0.4 mg - Review of Systems Constitutional: denies: Chills, Fever Cardiovascular: As noted above Respiratory: reports: Cough Gastrointestinal: denies: Abdominal Pain, Constipation, Diarrhea, Nausea or Vomiting Musculoskeletal: denies: Back Pain Neurological: denies: Dizziness, Headache - Objective Vital Signs: Last Vital Signs Temp Pulse Resp BP Pulse Ox 98.9 F 60 20 138/60 98 04/07/19 06:00 04/07/19 06:00 04/07/19 06:00 04/07/19 06:00 04/06/19 22:00 Intake & Output 04/04/19 04/05/19 04/06/19 04/07/19 23:59 23:59 23:59 23:59 Intake Total 5346 955 9545 320 Balance 4601 296 6925 320 HEENT: Atraumatic Neck: Supple Negative JVD Cardiovascular: S1 S2 Regular Rate and Rhythm Respiratory: Diminished Breath Sounds at the Bases Gastrointestinal: Soft Benign Normal Bowel Sounds Ext: No Edema Labs: Hepatic Panel Total Bilirubin 0.4 mg/dL (0.2-1) 04/04/19 06:30 Direct Bilirubin 0.1 mg/dL (0.0-0.2) 04/04/19 06:30 AST 30 U/L (15-37) 04/04/19 06:30 ALT 168 U/L (13-61) H 04/04/19 06:30 Alkaline Phosphatase 370 U/L (45-117) H 04/04/19 06:30 Albumin 1.6 g/dl (3.4-5.0) L 04/04/19 06:30 INR, PTT INR 1.32 (0.83-1.09) H 04/01/19 06:45 Blood test pending from thus AM Assessment/Plan 1. Acute hypoxemic respiratory failure related to 2. Acute on chronic class II-III NYHA classification LV failure related to systolic/diastolic LV dysfunction, resolving 3. CAD with evidence of demand ischemic injury/subendocardial ischemia angina pectoris 4. AV block post PPM 5. Paroxysmal atrial fibrillation currently in sinus rhythm/atrial pacing [id number] score of 4 on DOAC's/Eliquis 6. Hypertensive heart disease 7. DM 8. Hyperlipidemia 9. Acute on chronic- CKD 10. Profound anemia post transfusion, rule out gastrointestinal source 11. Seizure disorder 12. Hypothyroidism 13. Ischemic hepatitis improving PLAN: 1. Continue Entresto with close monitoring of renal function and electrolytes 2. Continue Coreg 3. Continue Lasix and Aldactone with close monitoring of renal function and electrolytes 4. Continue to hold ASA pending further evaluation of anemia, but continue Eliquis with caution and close monitoring of Hg/transfuse if Hg equal or < 8.0 ( Eliquis dose at 2.5 mg twice daily- creatinine > 1.5 and weight < 60 kg) 5. As outlined in the prior notes once patient is clinically euvolemic to proceed with planned gastrointestinal evaluation Hernandez Alcocer MD
[2019-04-07 07:00] LABS: HEMATOCRIT 25.8 % (35.4-49); HEMOGLOBIN 8.4 GM/dL (11.7-16.9); MCH 29.4 pg (25.7-33.7); MCHC 32.8 g/dl (32.0-35.9); MEAN CELL VOLUME 89.9 fl (80-96); MEAN PLT VOLUME 7.3 fl (7.5-11.1); PLATELET COUNT 358 K/MM3 (134-434); RBC 2.87 M/mm3 (4.00-5.60); RDW 16.2 % (11.9-15.9); WHITE BLOOD COUNT 8.3 K/mm3 (4.0-10.0)
[2019-04-07 07:26] LABS: ALBUMIN 1.6 g/dl (3.4-5.0); BILIRUBIN,TOTAL 0.3 mg/dL (0.2-1); BLOOD UREA NITROGEN 14.8 mg/dL (7-18); CALCIUM 7.4 mg/dL (8.5-10.1); CREATININE 0.9 mg/dL (0.55-1.3); POTASSIUM 4.7 mmol/L (3.5-5.1); TOT PROT 4.6 g/dl (6.4-8.2)
--- NOTE | 2019-04-07 08:56 | PN ---
Progress Note (short form) - Note Progress Note: Neurology History of Present Illness - History of Present Illness 68M w/ a history of DM, hypothyroidism, seizure d/o, s/p pacemaker who presents for evaluation of 1 month of cough with increased sputum production. He also notes 1 week of BLE swelling to mid-reyes. He reports some symptomatic relief from coughing with robitussin. He also notes post-tussive emesis. He denies fevers/chills, trouble breathing, abdominal pain, diarrhea, dysuria/hematuria, or changes in sensation. He denied lower extremity swelling before. Patient currently in ICU under critical care monitoring. contacted by ICU resident on regarding patient's mental status which she reported was somnolent and lethargic. He discussed the case with me including multiple medical comorbidities including respiratory compromise requiring positive pressure ventilation, CHF exacerbation along with coffee-ground emesis and concern for upper GI bleed with reduction in hemoglobin and hematocrit. The patient also found to have atrial fibrillation and receiving medical optimization. I advised having non-contrast head CT which was completed and showed moderate atrophy but no significant infarcts or focal abnormalities. Likely toxic metabolic encephalopathy secondary to multiple medical comorbidities as described above. reviewed notes from weekend and patient is awake, alert, interactive this morning. Seems to have more energy and less fatigue/ lethargic. His communicative and appears to be near baseline at this point. GI note reviewed and patient possibly for EGD/colonoscopy if and when able to. Eliquis would have to be interrupted for such procedure. Repeat cxray completed this am, results pending. He reports otherwise feeling well and no new complaints. Being planned for possible SNF placement for notes. Allergies/Adverse Reactions: Allergies Allergy/AdvReac Type Severity Reaction Status Date / Time lacosamide [From Vimpat] Allergy Rash Verified 03/29/19 09:32 Active Medications Al Hydroxide/Mg Hydroxide (Mylanta Oral Suspension -) 30 ml PO Q8H PRN PRN Reason: INDIGESTION Apixaban (Eliquis -) 2.5 mg PO BID [facility] Last Admin: 04/06/19 10:26 Dose: 2.5 mg Benzocaine/Menthol (Cepacol Lozenge -) 1 each MM PRN PRN PRN Reason: SORE THROAT Last Admin: 04/05/19 15:04 Dose: 1 each Bisacodyl (Dulcolax -) 20 mg PO ONCE ONE Stop: 04/08/19 18:01 Carbamazepine (Tegretol -) 200 mg PO TIDCM [facility] Last Admin: 04/06/19 17:24 Dose: 200 mg Carvedilol (Coreg -) 6.25 mg PO BID [facility] Last Admin: 04/06/19 21:48 Dose: 6.25 mg Dextrose (D50w (Vial) -) 25 gm IVPUSH PRN PRN PRN Reason: HYPOGLYCEMIA Furosemide (Lasix -) 20 mg PO DAILY [facility] Last Admin: 04/06/19 10:26 Dose: 20 mg Insulin Aspart (Novolog Vial Sliding Scale -) 1 vial SQ [facility]; Protocol Last Admin: 04/07/19 06:09 Dose: Not Given Levetiracetam 500 mg/ (Levetiracetam 250 mg) 750 mg PO BID [facility] Last Admin: 04/06/19 21:49 Dose: 750 mg Levothyroxine Sodium (Synthroid -) 125 mcg PO DAILY@0700 [facility] Last Admin: 04/07/19 06:09 Dose: 125 mcg Lidocaine (Lidoderm Patch -) 2 patch TP DAILY [facility] Last Admin: 04/06/19 10:27 Dose: 2 patch Mirtazapine (Remeron -) 15 mg PO HS [facility] Last Admin: 04/06/19 21:49 Dose: 15 mg Miscellaneous (Lidoderm Patch Removal) 2 each MC DAILY@2200 [facility] Last Admin: 04/06/19 22:28 Dose: 2 each Pantoprazole Sodium (Protonix -) 40 mg PO BID [facility] Last Admin: 04/06/19 21:52 Dose: 40 mg Polyethylene Glycol (Miralax (For Daily Use) -) 17 gm PO BID [facility] Last Admin: 04/06/19 23:24 Dose: 17 grams Polyethylene Glycol/Electrolytes (Golytely Solution -) 4,000 ml PO ONCE ONE Stop: 04/08/19 09:01 Sacubitril/Valsartan (Entresto 49 Mg-51 Mg Tablet) 1 tab PO BID [facility] Last Admin: 04/06/19 21:49 Dose: 1 tab Spironolactone (Aldactone -) 25 mg PO DAILY [facility] Last Admin: 04/06/19 10:27 Dose: 25 mg Tamsulosin HCl (Flomax -) 0.4 mg PO DAILY@0830 [facility] Last Admin: 04/06/19 10:26 Dose: 0.4 mg *Physical Exam Vital Signs Period Temp Pulse Resp BP Sys/Cabral Pulse Ox Last 24 Hr 98.0 F-98.9 F 60-70 18-20 132-164/56-77 98-100 GENERAL: Awake, alert, and oriented to person/place/time, in no acute distress, thin HEAD: No signs of trauma, normocephalic, atraumatic EYES: PERRLA, EOMI, sclera anicteric, conjunctiva clear ENT: Hearing grossly normal, nares patent, oropharynx clear without exudates. Moist mucosa LUNGS: No distress, speaks in full sentences, clear to auscultation bilaterally HEART: Regular rate and rhythm, normal S1 and S2, no murmurs appreciated, peripheral pulses normal and equal bilaterally ABDOMEN: Soft, nontender, normoactive bowel sounds. No guarding, no rebound EXTREMITIES: Normal inspection, Normal range of motion, no edema. No clubbing or cyanosis NEUROLOGICAL: Cranial nerves II through XII grossly intact. Tangential speech, knows location, knows month, moves all extemities grossly, sensory intact SKIN: Warm, Dry CBCD WBC 8.3 K/mm3 (4.0-10.0) 04/07/19 05:50 RBC 2.87 M/mm3 (4.00-5.60) L 04/07/19 05:50 Hgb 8.4 GM/dL (11.7-16.9) L 04/07/19 05:50 Hct 25.8 % (35.4-49) L 04/07/19 05:50 MCV 89.9 fl (80-96) 04/07/19 05:50 MCHC 32.8 g/dl (32.0-35.9) 04/07/19 05:50 RDW 16.2 % (11.9-15.9) H 04/07/19 05:50 Plt Count 358 K/MM3 (134-434) 04/07/19 05:50 MPV 7.3 fl (7.5-11.1) L 04/07/19 05:50 CMP Sodium 132 mmol/L (136-145) L 04/07/19 05:50 Potassium 4.7 mmol/L (3.5-5.1) 04/07/19 05:50 Chloride 98 mmol/L (98-107) 04/07/19 05:50 Carbon Dioxide 28 mmol/L (21-32) 04/07/19 05:50 Anion Gap 6 MMOL/L (8-16) L 04/07/19 05:50 BUN 14.8 mg/dL (7-18) 04/07/19 05:50 Creatinine 0.9 mg/dL (0.55-1.3) 04/07/19 05:50 Random Glucose 134 mg/dL (74-106) H 04/07/19 05:50 Calcium 7.4 mg/dL (8.5-10.1) L 04/07/19 05:50 Total Bilirubin 0.3 mg/dL (0.2-1) 04/07/19 05:50 AST 16 U/L (15-37) 04/07/19 05:50 ALT 72 U/L (13-61) H 04/07/19 05:50 Alkaline Phosphatase 257 U/L (45-117) H 04/07/19 05:50 Total Protein 4.6 g/dl (6.4-8.2) L 04/07/19 05:50 Albumin 1.6 g/dl (3.4-5.0) L 04/07/19 05:50 CARDIAC ENZYMES Creatine Kinase 254 U/L (26-308) 03/31/19 06:10 Troponin I 0.84 ng/ml (0.00-0.05) H* 03/31/19 23:25 Medical Decision Making 68M w/ a history of DM, hypothyroidism, seizure d/o, s/p pacemaker who presents for evaluation of 1 month of cough with increased sputum production. He also notes 1 week of BLE swelling to mid-reyes. He reports some symptomatic relief from coughing with robitussin. He also notes post-tussive emesis. He denies fevers/chills, trouble breathing, abdominal pain, diarrhea, dysuria/hematuria, or changes in sensation. He denied lower extremity swelling before. Patient currently in ICU under critical care monitoring. contacted by ICU resident on rregarding patient's mental status which she reported was somnolent and lethargic. He discussed the case with me including multiple medical comorbidities including respiratory compromise requiring positive pressure ventilation, CHF exacerbation along with coffee-ground emesis and concern for upper GI bleed with reduction in hemoglobin and hematocrit. The patient also found to have atrial fibrillation and receiving medical optimization. I advised having noncontrast head CT which was completed and showed moderate atrophy but no significant infarcts or focal abnormalities. Likely toxic metabolic encephalopathy secondary to multiple medical comorbidities as described above. Likely toxic metabolic encephalopathy secondary to multiple medical comorbidities as described above. rreviewed notes from weekend and patient is awake, alert, interactive this morning. Seems to have more energy and less fatigue/lethargic. His communicative and appears to be near baseline at this point. Continue treatment for respiratory compromise, IV abx per primary. GI bleed, patient recently started on heparin for Afib, closely monitor for bleed in presence of AC, GI follow up. GI note reviewed and patient possibly for EGD/colonoscopy if and when able to. Eliquis would have to be interrupted for such procedure. Repeat cxray completed, results pending. Mental status seems to be near baseline. He reports otherwise feeling well and no new complaints. Being planned for possible SNF placement for notes.
--- NOTE | 2019-04-07 09:24 | PN ---
Progress Note, Physician Chief Complaint: C/O cough dry - Current Medication List Current Medications: Active Medications Al Hydroxide/Mg Hydroxide (Mylanta Oral Suspension -) 30 ml PO Q8H PRN PRN Reason: INDIGESTION Apixaban (Eliquis -) 2.5 mg PO BID [facility] Last Admin: 04/06/19 10:26 Dose: 2.5 mg Benzocaine/Menthol (Cepacol Lozenge -) 1 each MM PRN PRN PRN Reason: SORE THROAT Last Admin: 04/05/19 15:04 Dose: 1 each Bisacodyl (Dulcolax -) 20 mg PO ONCE ONE Stop: 04/08/19 18:01 Carbamazepine (Tegretol -) 200 mg PO TIDCM [facility] Last Admin: 04/06/19 17:24 Dose: 200 mg Carvedilol (Coreg -) 6.25 mg PO BID [facility] Last Admin: 04/06/19 21:48 Dose: 6.25 mg Dextrose (D50w (Vial) -) 25 gm IVPUSH PRN PRN PRN Reason: HYPOGLYCEMIA Furosemide (Lasix -) 20 mg PO DAILY [facility] Last Admin: 04/06/19 10:26 Dose: 20 mg Insulin Aspart (Novolog Vial Sliding Scale -) 1 vial SQ [facility]; Protocol Last Admin: 04/07/19 06:09 Dose: Not Given Levetiracetam 500 mg/ (Levetiracetam 250 mg) 750 mg PO BID [facility] Last Admin: 04/06/19 21:49 Dose: 750 mg Levothyroxine Sodium (Synthroid -) 125 mcg PO DAILY@0700 [facility] Last Admin: 04/07/19 06:09 Dose: 125 mcg Lidocaine (Lidoderm Patch -) 2 patch TP DAILY [facility] Last Admin: 04/06/19 10:27 Dose: 2 patch Mirtazapine (Remeron -) 15 mg PO HS [facility] Last Admin: 04/06/19 21:49 Dose: 15 mg Miscellaneous (Lidoderm Patch Removal) 2 each MC DAILY@2200 [facility] Last Admin: 04/06/19 22:28 Dose: 2 each Pantoprazole Sodium (Protonix -) 40 mg PO BID [facility] Last Admin: 04/06/19 21:52 Dose: 40 mg Polyethylene Glycol (Miralax (For Daily Use) -) 17 gm PO BID [facility] Last Admin: 04/06/19 23:24 Dose: 17 grams Polyethylene Glycol/Electrolytes (Golytely Solution -) 4,000 ml PO ONCE ONE Stop: 04/08/19 09:01 Sacubitril/Valsartan (Entresto 49 Mg-51 Mg Tablet) 1 tab PO BID [facility] Last Admin: 04/06/19 21:49 Dose: 1 tab Spironolactone (Aldactone -) 25 mg PO DAILY [facility] Last Admin: 04/06/19 10:27 Dose: 25 mg Tamsulosin HCl (Flomax -) 0.4 mg PO DAILY@0830 [facility] Last Admin: 04/06/19 10:26 Dose: 0.4 mg - Objective Vital Signs: Vital Signs Temperature 98.9 F 04/07/19 06:00 Pulse Rate 60 04/07/19 08:00 Respiratory Rate 18 04/07/19 08:00 Blood Pressure 149/68 04/07/19 08:00 O2 Sat by Pulse Oximetry (%) 98 04/06/19 22:00 Constitutional: Yes: Calm Eyes: Yes: WNL HENT: Yes: WNL Neck: Yes: WNL Cardiovascular: Yes: Regular Rate and Rhythm Respiratory: Yes: On BiPap Gastrointestinal: Yes: WNL ...Rectal Exam: Yes: Deferred Genitourinary: Yes: WNL Musculoskeletal: Yes: Muscle Weakness Peripheral Pulses WNL: Yes Neurological: Yes: Alert Labs: CBC, BMP 04/07/19 05:50 04/07/19 05:50 INR, PTT INR 1.32 (0.83-1.09) H 04/01/19 06:45 - ....Imaging X-ray: Image Reviewed Assessment/Plan needs GI work ups Will discuss with Dr Simpson
[2019-04-07] MEDS ORDERED: PT OWN MED DRAWER 7, Y5N ONE (10:17)
--- NOTE | 2019-04-07 10:43 | PN ---
Progress Note, Physician History of Present Illness: PULMONARY AWAKE,C/O ABD DISCOMFORT,DRY COUGH,-CP,-SOB - Current Medication List Current Medications: Active Medications Al Hydroxide/Mg Hydroxide (Mylanta Oral Suspension -) 30 ml PO Q8H PRN PRN Reason: INDIGESTION Apixaban (Eliquis -) 2.5 mg PO BID [facility] Last Admin: 04/06/19 10:26 Dose: 2.5 mg Benzocaine/Menthol (Cepacol Lozenge -) 1 each MM PRN PRN PRN Reason: SORE THROAT Last Admin: 04/05/19 15:04 Dose: 1 each Bisacodyl (Dulcolax -) 20 mg PO ONCE ONE Stop: 04/08/19 18:01 Carbamazepine (Tegretol -) 200 mg PO TIDCM [facility] Last Admin: 04/06/19 17:24 Dose: 200 mg Carvedilol (Coreg -) 6.25 mg PO BID [facility] Last Admin: 04/06/19 21:48 Dose: 6.25 mg Dextrose (D50w (Vial) -) 25 gm IVPUSH PRN PRN PRN Reason: HYPOGLYCEMIA Furosemide (Lasix -) 20 mg PO DAILY [facility] Last Admin: 04/06/19 10:26 Dose: 20 mg Insulin Aspart (Novolog Vial Sliding Scale -) 1 vial SQ [facility]; Protocol Last Admin: 04/07/19 06:09 Dose: Not Given Levetiracetam 500 mg/ (Levetiracetam 250 mg) 750 mg PO BID [facility] Last Admin: 04/06/19 21:49 Dose: 750 mg Levothyroxine Sodium (Synthroid -) 125 mcg PO DAILY@0700 [facility] Last Admin: 04/07/19 06:09 Dose: 125 mcg Lidocaine (Lidoderm Patch -) 2 patch TP DAILY [facility] Last Admin: 04/06/19 10:27 Dose: 2 patch Mirtazapine (Remeron -) 15 mg PO HS [facility] Last Admin: 04/06/19 21:49 Dose: 15 mg Miscellaneous (Lidoderm Patch Removal) 2 each MC DAILY@2200 [facility] Last Admin: 04/06/19 22:28 Dose: 2 each Pantoprazole Sodium (Protonix -) 40 mg PO BID [facility] Last Admin: 04/06/19 21:52 Dose: 40 mg Polyethylene Glycol (Miralax (For Daily Use) -) 17 gm PO BID [facility] Last Admin: 04/06/19 23:24 Dose: 17 grams Polyethylene Glycol/Electrolytes (Golytely Solution -) 4,000 ml PO ONCE ONE Stop: 04/08/19 09:01 Sacubitril/Valsartan (Entresto 49 Mg-51 Mg Tablet) 1 tab PO BID [facility] Last Admin: 04/06/19 21:49 Dose: 1 tab Spironolactone (Aldactone -) 25 mg PO DAILY [facility] Last Admin: 04/06/19 10:27 Dose: 25 mg Tamsulosin HCl (Flomax -) 0.4 mg PO DAILY@0830 [facility] Last Admin: 04/06/19 10:26 Dose: 0.4 mg - Objective Vital Signs: Vital Signs Temperature 98.9 F 04/07/19 06:00 Pulse Rate 60 04/07/19 08:00 Respiratory Rate 18 04/07/19 08:00 Blood Pressure 149/68 04/07/19 08:00 O2 Sat by Pulse Oximetry (%) 98 04/06/19 22:00 Constitutional: Yes: Calm, Thin Eyes: Yes: WNL HENT: Yes: WNL Neck: Yes: WNL Cardiovascular: Yes: Pulse Irregular, S1, S2 Respiratory: Yes: Diminished Gastrointestinal: Yes: Normal Bowel Sounds, Soft Extremities: Yes: WNL Edema: No Labs: CBC, BMP 04/07/19 05:50 04/07/19 05:50 INR, PTT INR 1.32 (0.83-1.09) H 04/01/19 06:45 - ....Imaging Chest X-ray: Report Reviewed, Image Reviewed (+ CONGESTION) Problem List - Problems (1) Abnormal liver function tests Code(s): R94.5 - ABNORMAL RESULTS OF LIVER FUNCTION STUDIES (2) Acute on chronic diastolic (congestive) heart failure Code(s): I50.33 - ACUTE ON CHRONIC DIASTOLIC (CONGESTIVE) HEART FAILURE (3) Hypothyroidism Code(s): E03.9 - HYPOTHYROIDISM, UNSPECIFIED Qualifiers: Hypothyroidism type: unspecified Qualified Code(s): E03.9 - Hypothyroidism , unspecified (4) Paroxysmal atrial fibrillation with rapid ventricular response Code(s): I48.0 - PAROXYSMAL ATRIAL FIBRILLATION (5) Symptomatic anemia Code(s): D64.9 - ANEMIA, UNSPECIFIED (6) Type 2 diabetes mellitus Code(s): E11.9 - TYPE 2 DIABETES MELLITUS WITHOUT COMPLICATIONS Qualifiers: Diabetes mellitus senior care insulin use: without intermediate project manager use Diabetes mellitus complication status: with circulatory complication (7) Weight loss Code(s): R63.4 - ABNORMAL WEIGHT LOSS (8) Anemia Code(s): D64.9 - ANEMIA, UNSPECIFIED (9) [id number] kidney injury Code(s): N17.9 - ACUTE KIDNEY FAILURE, UNSPECIFIED; N18.9 - CHRONIC KIDNEY DISEASE, UNSPECIFIED Qualifiers: Acute renal failure type: unspecified Assessment/Plan ASSESSMENT AND PLAN: Acute Hypoxic Respiratory Failure improved Severe Anemia Acute on Chronic Diastolic Heart Failure +Troponins likely Demand Ischemia Lactic Acidosis improved Acute on Chronic Renal Failure Elevated LFTs likely Congestive Hepatopathy improving Atrial Fibrillation s/p PPM HTN Hyperlipidemia Hypothyroidism Seizure Disorder - monitor H/H - lasix - monitor urine output, creatinine - trend LFTs - O2 to keep SpO2 >90% - rate control - DVT prophylaxis - eliquis - gi w/u in progress DR GOLDSTEIN
[2019-04-07] MEDS: SPIRONOLACTONE 25 MG TABLET (FP) PO SCH (10:51)
[2019-04-07] MEDS: CARVEDILOL 6.25 MG TABLET (FP) PO SCH ×2 (10:51→21:09)
[2019-04-07] MEDS: SACUBITRIL/VALSARTAN 49 MG-51 MG TABLET PO SCH ×2 (10:51→21:09)
[2019-04-07] MEDS: PANTOPRAZOLE 40 MG TABLET (FP) PO SCH ×2 (10:52→21:10)
[2019-04-07] MEDS: TAMSULOSIN HCL 0.4 MG CAP PO SCH (10:52)
[2019-04-07] MEDS: FUROSEMIDE 20 MG TABLET (FP) PO SCH (10:52)
[2019-04-07] MEDS: POLYETHYLENE GLYCOL 3350 119 GM BTL PO SCH ×2 (10:52→21:47)
[2019-04-07] MEDS: carBAMazepine 100 MG TAB.CHEW PO SCH ×3 (10:52→18:18)
[2019-04-07] MEDS: LIDOCAINE 5% TOPICAL PATCH TP SCH (10:53)
--- NOTE | 2019-04-07 11:07 | PN ---
Progress Note, [employer] - Note Progress Note: Selected Entries 04/03/19 04/03/19 04/03/19 02:00 06:00 09:00 Breakfast Supper Temperature 97.8 F 98.5 F 98 F 04/03/19 04/03/19 04/03/19 10:00 14:00 17:00 Breakfast 100% Supper 50% Temperature 98.4 F 97.6 F 04/03/19 04/04/19 04/04/19 23:00 02:00 06:00 Breakfast Supper Temperature 98.8 F 98.2 F 98.8 F 04/04/19 10:00 Breakfast 75% Supper Temperature Laboratory Tests 04/03/19 04/04/19 06:00 06:30 WBC 11.4 H 8.1 Selected Entries 04/05/19 04/05/19 04/05/19 01:00 01:55 03:55 Breakfast Lunch Supper Temperature 97.5 F L 98 F 98.2 F 04/05/19 04/05/19 04/05/19 05:00 07:55 08:56 Breakfast Lunch Supper Temperature 98 F 98 F 98 F 04/05/19 04/05/19 04/05/19 10:32 15:03 15:55 Breakfast 100% Lunch 100% Supper Temperature 98.6 F 98.6 F 04/05/19 04/05/19 04/05/19 17:00 19:15 20:00 Breakfast Lunch Supper 75% Temperature 99.1 F 98.9 F 04/06/19 04/07/19 04/07/19 12:02 01:40 06:00 Breakfast 50% Lunch Supper Temperature 98.3 F 98.9 F 04/07/19 09:47 Breakfast 50% Lunch Supper Temperature Laboratory Tests 04/06/19 04/07/19 06:30 05:50 WBC 7.5 8.3 GI w/u in progress
--- NOTE | 2019-04-07 12:51 | PN ---
Progress Note, Physician History of Present Illness: Pt seen and examined at bedside. He is awake and alert. He complains of cough. - Current Medication List Current Medications: Active Medications Al Hydroxide/Mg Hydroxide (Mylanta Oral Suspension -) 30 ml PO Q8H PRN PRN Reason: INDIGESTION Apixaban (Eliquis -) 2.5 mg PO BID [facility] Last Admin: 04/06/19 10:26 Dose: 2.5 mg Benzocaine/Menthol (Cepacol Lozenge -) 1 each MM PRN PRN PRN Reason: SORE THROAT Last Admin: 04/05/19 15:04 Dose: 1 each Bisacodyl (Dulcolax -) 20 mg PO ONCE ONE Stop: 04/08/19 18:01 Carbamazepine (Tegretol -) 200 mg PO TIDCM [facility] Last Admin: 04/07/19 10:52 Dose: 200 mg Carvedilol (Coreg -) 6.25 mg PO BID [facility] Last Admin: 04/07/19 10:51 Dose: 6.25 mg Dextrose (D50w (Vial) -) 25 gm IVPUSH PRN PRN PRN Reason: HYPOGLYCEMIA Furosemide (Lasix -) 20 mg PO DAILY [facility] Last Admin: 04/07/19 10:52 Dose: 20 mg Insulin Aspart (Novolog Vial Sliding Scale -) 1 vial SQ [facility]; Protocol Last Admin: 04/07/19 06:09 Dose: Not Given Levetiracetam 500 mg/ (Levetiracetam 250 mg) 750 mg PO BID [facility] Last Admin: 04/07/19 10:53 Dose: 750 mg Levothyroxine Sodium (Synthroid -) 125 mcg PO DAILY@0700 [facility] Last Admin: 04/07/19 06:09 Dose: 125 mcg Lidocaine (Lidoderm Patch -) 2 patch TP DAILY [facility] Last Admin: 04/07/19 10:53 Dose: 2 patch Mirtazapine (Remeron -) 15 mg PO HS [facility] Last Admin: 04/06/19 21:49 Dose: 15 mg Miscellaneous (Lidoderm Patch Removal) 2 each MC DAILY@2200 [facility] Last Admin: 04/06/19 22:28 Dose: 2 each Pantoprazole Sodium (Protonix -) 40 mg PO BID [facility] Last Admin: 04/07/19 10:52 Dose: 40 mg Polyethylene Glycol (Miralax (For Daily Use) -) 17 gm PO BID [facility] Last Admin: 04/07/19 10:52 Dose: 17 grams Polyethylene Glycol/Electrolytes (Golytely Solution -) 4,000 ml PO ONCE ONE Stop: 04/08/19 09:01 Sacubitril/Valsartan (Entresto 49 Mg-51 Mg Tablet) 1 tab PO BID [facility] Last Admin: 04/07/19 10:51 Dose: 1 tab Spironolactone (Aldactone -) 25 mg PO DAILY [facility] Last Admin: 04/07/19 10:51 Dose: 25 mg Tamsulosin HCl (Flomax -) 0.4 mg PO DAILY@0830 [facility] Last Admin: 04/07/19 10:52 Dose: 0.4 mg - Objective Vital Signs: Vital Signs Temperature 98.9 F 04/07/19 06:00 Pulse Rate 60 04/07/19 08:00 Respiratory Rate 18 04/07/19 08:00 Blood Pressure 149/68 04/07/19 08:00 O2 Sat by Pulse Oximetry (%) 98 04/06/19 22:00 Constitutional: Yes: Calm Eyes: Yes: Conjunctiva Clear HENT: Yes: Atraumatic Neck: Yes: Supple Cardiovascular: Yes: S1, S2 Respiratory: Yes: On Nasal O2, Rhonchi Gastrointestinal: Yes: Soft Genitourinary: Yes: WNL Musculoskeletal: Yes: WNL Edema: No Neurological: Yes: Oriented Psychiatric: Yes: Oriented Labs: CBC, BMP 04/07/19 05:50 04/07/19 05:50 INR, PTT INR 1.32 (0.83-1.09) H 04/01/19 06:45 Problem List - Problems (1) Acute on chronic diastolic (congestive) heart failure Code(s): I50.33 - ACUTE ON CHRONIC DIASTOLIC (CONGESTIVE) HEART FAILURE (2) [id number] kidney injury Code(s): N17.9 - ACUTE KIDNEY FAILURE, UNSPECIFIED; N18.9 - CHRONIC KIDNEY DISEASE, UNSPECIFIED Qualifiers: Acute renal failure type: unspecified (3) Hyperkalemia Code(s): E87.5 - HYPERKALEMIA (4) Hypothyroidism Code(s): E03.9 - HYPOTHYROIDISM, UNSPECIFIED Qualifiers: Hypothyroidism type: unspecified Qualified Code(s): E03.9 - Hypothyroidism , unspecified Assessment/Plan Current Medications Generic Name Dose Route Start Last Admin Trade Name Freq PRN Reason Stop Dose Admin Al Hydroxide/Mg Hydroxide 30 ml 04/02/19 07:32 Mylanta Oral Suspension - PO Q8H PRN INDIGESTION Apixaban 2.5 mg 04/03/19 09:07 04/06/19 10:26 Eliquis - PO 2.5 mg BID [facility] Administration Benzocaine/Menthol 1 each 04/05/19 14:43 04/05/19 15:04 Cepacol Lozenge - MM 1 each PRN PRN Administration SORE THROAT Bisacodyl 20 mg 04/08/19 18:00 Dulcolax - PO 04/08/19 18:01 ONCE ONE Carbamazepine 200 mg 04/02/19 08:00 04/07/19 10:52 Tegretol - PO 200 mg TIDCM [facility] Administration Carvedilol 6.25 mg 04/02/19 10:00 04/07/19 10:51 Coreg - PO 6.25 mg BID [facility] Administration Dextrose 25 gm 04/02/19 07:32 D50w (Vial) - IVPUSH PRN PRN HYPOGLYCEMIA Furosemide 20 mg 04/03/19 10:00 04/07/19 10:52 Lasix - PO 20 mg DAILY [facility] Administration Insulin Aspart 1 vial 04/02/19 11:00 04/07/19 06:09 Novolog Vial Sliding Scale - SQ Not Given ACHS [facility] Protocol Levetiracetam 500 mg/ 750 mg 04/06/19 10:15 04/07/19 10:53 Levetiracetam 250 mg PO 750 mg BID [facility] Administration Levothyroxine Sodium 125 mcg 04/03/19 07:00 04/07/19 06:09 Synthroid - PO 125 mcg DAILY@0700 [facility] Administration Lidocaine 2 patch 04/03/19 14:30 04/07/19 10:53 Lidoderm Patch - TP 2 patch DAILY [facility] Administration Mirtazapine 15 mg 04/02/19 22:00 04/06/19 21:49 Remeron - PO 15 mg HS [facility] Administration Miscellaneous 2 each 04/03/19 22:00 04/06/19 22:28 Lidoderm Patch Removal MC 2 each DAILY@2200 [facility] Administration Pantoprazole Sodium 40 mg 04/06/19 22:00 04/07/19 10:52 Protonix - PO 40 mg BID [facility] Administration Polyethylene Glycol 17 gm 04/06/19 22:00 04/07/19 10:52 Miralax (For Daily Use) - PO 17 grams BID [facility] Administration Polyethylene Glycol/Electrolytes 4,000 ml 04/08/19 09:00 Golytely Solution - PO 04/08/19 09:01 ONCE ONE Sacubitril/Valsartan 1 tab 04/05/19 22:00 04/07/19 10:51 Entresto 49 Mg-51 Mg Tablet PO 1 tab BID [facility] Administration Spironolactone 25 mg 04/03/19 10:00 04/07/19 10:51 Aldactone - PO 25 mg DAILY [facility] Administration Tamsulosin HCl 0.4 mg 04/02/19 08:30 04/07/19 10:52 Flomax - PO 0.4 mg DAILY@0830 [facility] Administration Impression 1. DANYA 2. hyperkalemia 3. chf 4. weight loss 5. anemia 6. hypoxic resp failure 7. transaminitis 8. htn 9. a-fib Plan - cxr reviewed - increase lasix to 40 mg - cont aldactone - cardio follow up - monitor lytes - monitor potassium - has atrophic left kidney on ultrasound - GI workup in progress
[2019-04-07] MEDS: FUROSEMIDE 40 MG TABLET (FP) PO SCH (13:30)
[2019-04-07] MEDS: BENZOCAINE/MENTH/CETYLPYRD CL 1 EACH LOZENGE MM PRN (18:20)
[2019-04-07] MEDS: MIRTAZAPINE 15 MG TABLET (FP) PO SCH (21:10)
[2019-04-07] MEDS: LIDOCAINE PATCH REMOVAL MC SCH (21:10)
[2019-04-08] MEDS: INSULIN SLIDING SCALE (NOVOLOG) 1 VIAL SQ SCH ×4 (06:41→21:27)
[2019-04-08] MEDS: LEVOTHYROXINE NA 125 MCG TABLET (FP) PO SCH (06:42)
[2019-04-08 07:49] LABS: ALBUMIN 1.6 g/dl (3.4-5.0); BILIRUBIN,TOTAL 0.3 mg/dL (0.2-1); BLOOD UREA NITROGEN 12.8 mg/dL (7-18); CALCIUM 7.9 mg/dL (8.5-10.1); CREATININE 0.8 mg/dL (0.55-1.3); POTASSIUM 4.9 mmol/L (3.5-5.1); TOT PROT 4.5 g/dl (6.4-8.2)
[2019-04-08] MEDS ORDERED: PEG 3350/NA SULF BICARB CL/KCL 4000 ML SOLN.RECON PO ONE (09:00)
--- NOTE | 2019-04-08 09:08 | PN ---
Progress Note (short form) - Note Progress Note: Neurology History of Present Illness - History of Present Illness 68M w/ a history of DM, hypothyroidism, seizure d/o, s/p pacemaker who presents for evaluation of 1 month of cough with increased sputum production. He also notes 1 week of BLE swelling to mid-reyes. He reports some symptomatic relief from coughing with robitussin. He also notes post-tussive emesis. He denies fevers/chills, trouble breathing, abdominal pain, diarrhea, dysuria/hematuria, or changes in sensation. He denied lower extremity swelling before. Patient currently in ICU under critical care monitoring. contacted by ICU resident on regarding patient's mental status which she reported was somnolent and lethargic. He discussed the case with me including multiple medical comorbidities including respiratory compromise requiring positive pressure ventilation, CHF exacerbation along with coffee-ground emesis and concern for upper GI bleed with reduction in hemoglobin and hematocrit. The patient also found to have atrial fibrillation and receiving medical optimization. I advised having non-contrast head CT which was completed and showed moderate atrophy but no significant infarcts or focal abnormalities. Likely toxic metabolic encephalopathy secondary to multiple medical comorbidities as described above. reviewed notes from weekend and patient is awake, alert, interactive this morning. Seems to have more energy and less fatigue/ lethargic. His communicative and appears to be near baseline at this point. GI note reviewed and patient possibly for EGD/colonoscopy if and when able to. Eliquis would have to be interrupted for such procedure. Being planned for possible SNF placement for notes. GI note reviewed, PCP note reviewed. Patient neurologically stable and no objection to procedure if being completed as inpatient. Allergies/Adverse Reactions: Allergies Allergy/AdvReac Type Severity Reaction Status Date / Time lacosamide [From Vimpat] Allergy Rash Verified 03/29/19 09:32 Active Medications Al Hydroxide/Mg Hydroxide (Mylanta Oral Suspension -) 30 ml PO Q8H PRN PRN Reason: INDIGESTION Apixaban (Eliquis -) 2.5 mg PO BID [facility] Last Admin: 04/06/19 10:26 Dose: 2.5 mg Benzocaine/Menthol (Cepacol Lozenge -) 1 each MM PRN PRN PRN Reason: SORE THROAT Last Admin: 04/07/19 18:20 Dose: 1 each Bisacodyl (Dulcolax -) 20 mg PO ONCE ONE Stop: 04/08/19 18:01 Carbamazepine (Tegretol -) 200 mg PO TIDCM [facility] Last Admin: 04/07/19 18:18 Dose: 200 mg Carvedilol (Coreg -) 6.25 mg PO BID [facility] Last Admin: 04/07/19 21:09 Dose: 6.25 mg Dextrose (D50w (Vial) -) 25 gm IVPUSH PRN PRN PRN Reason: HYPOGLYCEMIA Furosemide (Lasix -) 40 mg PO DAILY [facility] Last Admin: 04/07/19 13:30 Dose: 40 mg Insulin Aspart (Novolog Vial Sliding Scale -) 1 vial SQ [facility]; Protocol Last Admin: 04/08/19 06:41 Dose: Not Given Levetiracetam 500 mg/ (Levetiracetam 250 mg) 750 mg PO BID [facility] Last Admin: 04/07/19 21:10 Dose: 750 mg Levothyroxine Sodium (Synthroid -) 125 mcg PO DAILY@0700 [facility] Last Admin: 04/08/19 06:42 Dose: 125 mcg Lidocaine (Lidoderm Patch -) 2 patch TP DAILY [facility] Last Admin: 04/07/19 10:53 Dose: 2 patch Mirtazapine (Remeron -) 15 mg PO HS [facility] Last Admin: 04/07/19 21:10 Dose: 15 mg Miscellaneous (Lidoderm Patch Removal) 2 each MC DAILY@2200 [facility] Last Admin: 04/07/19 21:10 Dose: 2 each Pantoprazole Sodium (Protonix -) 40 mg PO BID [facility] Last Admin: 04/07/19 21:10 Dose: 40 mg Polyethylene Glycol (Miralax (For Daily Use) -) 17 gm PO BID [facility] Last Admin: 04/07/19 21:47 Dose: 17 grams Sacubitril/Valsartan (Entresto 49 Mg-51 Mg Tablet) 1 tab PO BID [facility] Last Admin: 04/07/19 21:09 Dose: 1 tab Spironolactone (Aldactone -) 25 mg PO DAILY [facility] Last Admin: 04/07/19 10:51 Dose: 25 mg Tamsulosin HCl (Flomax -) 0.4 mg PO DAILY@0830 [facility] Last Admin: 04/07/19 10:52 Dose: 0.4 mg *Physical Exam Vital Signs Period Temp Pulse Resp BP Sys/Cabral Pulse Ox Last 24 Hr 97.9 F-98.8 F 60-72 18-20 113-144/51-78 98-98 GENERAL: Awake, alert, and oriented to person/place/time, in no acute distress, thin HEAD: No signs of trauma, normocephalic, atraumatic EYES: PERRLA, EOMI, sclera anicteric, conjunctiva clear ENT: Hearing grossly normal, nares patent, oropharynx clear without exudates. Moist mucosa LUNGS: No distress, speaks in full sentences, clear to auscultation bilaterally HEART: Regular rate and rhythm, normal S1 and S2, no murmurs appreciated, peripheral pulses normal and equal bilaterally ABDOMEN: Soft, nontender, normoactive bowel sounds. No guarding, no rebound EXTREMITIES: Normal inspection, Normal range of motion, no edema. No clubbing or cyanosis NEUROLOGICAL: Cranial nerves II through XII grossly intact. Tangential speech, knows location, knows month, moves all extemities grossly, sensory intact SKIN: Warm, Dry CBCD WBC 8.3 K/mm3 (4.0-10.0) 04/07/19 05:50 RBC 2.87 M/mm3 (4.00-5.60) L 04/07/19 05:50 Hgb 8.4 GM/dL (11.7-16.9) L 04/07/19 05:50 Hct 25.8 % (35.4-49) L 04/07/19 05:50 MCV 89.9 fl (80-96) 04/07/19 05:50 MCHC 32.8 g/dl (32.0-35.9) 04/07/19 05:50 RDW 16.2 % (11.9-15.9) H 04/07/19 05:50 Plt Count 358 K/MM3 (134-434) 04/07/19 05:50 MPV 7.3 fl (7.5-11.1) L 04/07/19 05:50 CMP Sodium 134 mmol/L (136-145) L 04/08/19 06:10 Potassium 4.9 mmol/L (3.5-5.1) 04/08/19 06:10 Chloride 98 mmol/L (98-107) 04/08/19 06:10 Carbon Dioxide 28 mmol/L (21-32) 04/08/19 06:10 Anion Gap 8 MMOL/L (8-16) 04/08/19 06:10 BUN 12.8 mg/dL (7-18) 04/08/19 06:10 Creatinine 0.8 mg/dL (0.55-1.3) 04/08/19 06:10 Random Glucose 119 mg/dL (74-106) H 04/08/19 06:10 Calcium 7.9 mg/dL (8.5-10.1) L 04/08/19 06:10 Total Bilirubin 0.3 mg/dL (0.2-1) 04/08/19 06:10 AST 16 U/L (15-37) 04/08/19 06:10 ALT 57 U/L (13-61) 04/08/19 06:10 Alkaline Phosphatase 232 U/L (45-117) H 04/08/19 06:10 Total Protein 4.5 g/dl (6.4-8.2) L 04/08/19 06:10 Albumin 1.6 g/dl (3.4-5.0) L 04/08/19 06:10 CARDIAC ENZYMES Creatine Kinase 254 U/L (26-308) 03/31/19 06:10 Troponin I 0.84 ng/ml (0.00-0.05) H* 03/31/19 23:25 Medical Decision Making 68M w/ a history of DM, hypothyroidism, seizure d/o, s/p pacemaker who presents for evaluation of 1 month of cough with increased sputum production. He also notes 1 week of BLE swelling to mid-reyes. He reports some symptomatic relief from coughing with robitussin. He also notes post-tussive emesis. He denies fevers/chills, trouble breathing, abdominal pain, diarrhea, dysuria/hematuria, or changes in sensation. He denied lower extremity swelling before. Patient currently in ICU under critical care monitoring. contacted by ICU resident on rregarding patient's mental status which she reported was somnolent and lethargic. He discussed the case with me including multiple medical comorbidities including respiratory compromise requiring positive pressure ventilation, CHF exacerbation along with coffee-ground emesis and concern for upper GI bleed with reduction in hemoglobin and hematocrit. The patient also found to have atrial fibrillation and receiving medical optimization. I advised having noncontrast head CT which was completed and showed moderate atrophy but no significant infarcts or focal abnormalities. Likely toxic metabolic encephalopathy secondary to multiple medical comorbidities as described above. Likely toxic metabolic encephalopathy secondary to multiple medical comorbidities as described above. rreviewed notes from weekend and patient is awake, alert, interactive this morning. Seems to have more energy and less fatigue/lethargic. His communicative and appears to be near baseline at this point. Continue treatment for respiratory compromise, IV abx per primary. GI bleed, patient recently started on heparin for Afib, closely monitor for bleed in presence of AC, GI follow up. GI note reviewed and patient possibly for EGD/colonoscopy if and when able to. Eliquis would have to be interrupted for such procedure. Being planned for possible SNF placement for notes. GI note reviewed, PCP note reviewed. Patient neurologically stable and no objection to procedure if being completed as inpatient.
--- NOTE | 2019-04-08 09:30 | PN ---
Progress Note, Physician Chief Complaint: Feels better,cough better History of Present Illness: Scheduled for EGD and colonoscopy - Current Medication List Current Medications: Active Medications Al Hydroxide/Mg Hydroxide (Mylanta Oral Suspension -) 30 ml PO Q8H PRN PRN Reason: INDIGESTION Apixaban (Eliquis -) 2.5 mg PO BID [facility] Last Admin: 04/06/19 10:26 Dose: 2.5 mg Benzocaine/Menthol (Cepacol Lozenge -) 1 each MM PRN PRN PRN Reason: SORE THROAT Last Admin: 04/07/19 18:20 Dose: 1 each Bisacodyl (Dulcolax -) 20 mg PO ONCE ONE Stop: 04/08/19 18:01 Carbamazepine (Tegretol -) 200 mg PO TIDCM [facility] Last Admin: 04/07/19 18:18 Dose: 200 mg Carvedilol (Coreg -) 6.25 mg PO BID [facility] Last Admin: 04/07/19 21:09 Dose: 6.25 mg Dextrose (D50w (Vial) -) 25 gm IVPUSH PRN PRN PRN Reason: HYPOGLYCEMIA Furosemide (Lasix -) 40 mg PO DAILY [facility] Last Admin: 04/07/19 13:30 Dose: 40 mg Insulin Aspart (Novolog Vial Sliding Scale -) 1 vial SQ [facility]; Protocol Last Admin: 04/08/19 06:41 Dose: Not Given Levetiracetam 500 mg/ (Levetiracetam 250 mg) 750 mg PO BID [facility] Last Admin: 04/07/19 21:10 Dose: 750 mg Levothyroxine Sodium (Synthroid -) 125 mcg PO DAILY@0700 [facility] Last Admin: 04/08/19 06:42 Dose: 125 mcg Lidocaine (Lidoderm Patch -) 2 patch TP DAILY [facility] Last Admin: 04/07/19 10:53 Dose: 2 patch Mirtazapine (Remeron -) 15 mg PO HS [facility] Last Admin: 04/07/19 21:10 Dose: 15 mg Miscellaneous (Lidoderm Patch Removal) 2 each MC DAILY@2200 [facility] Last Admin: 04/07/19 21:10 Dose: 2 each Pantoprazole Sodium (Protonix -) 40 mg PO BID [facility] Last Admin: 04/07/19 21:10 Dose: 40 mg Polyethylene Glycol (Miralax (For Daily Use) -) 17 gm PO BID [facility] Last Admin: 04/07/19 21:47 Dose: 17 grams Sacubitril/Valsartan (Entresto 49 Mg-51 Mg Tablet) 1 tab PO BID [facility] Last Admin: 04/07/19 21:09 Dose: 1 tab Spironolactone (Aldactone -) 25 mg PO DAILY [facility] Last Admin: 04/07/19 10:51 Dose: 25 mg Tamsulosin HCl (Flomax -) 0.4 mg PO DAILY@0830 [facility] Last Admin: 04/07/19 10:52 Dose: 0.4 mg - Objective Vital Signs: Vital Signs Temperature 98.8 F 04/08/19 06:00 Pulse Rate 68 04/08/19 06:00 Respiratory Rate 20 04/08/19 06:00 Blood Pressure 113/66 04/08/19 06:00 O2 Sat by Pulse Oximetry (%) 98 04/08/19 06:00 Constitutional: Yes: Calm Eyes: Yes: WNL HENT: Yes: WNL Neck: Yes: WNL Cardiovascular: Yes: WNL Respiratory: Yes: WNL Gastrointestinal: Yes: Normal Bowel Sounds ...Rectal Exam: Yes: Deferred Genitourinary: Yes: WNL Musculoskeletal: Yes: Muscle Weakness Edema: No Neurological: Yes: Alert Psychiatric: Yes: Alert Labs: CBC, BMP 04/07/19 05:50 04/08/19 06:10 INR, PTT INR 1.32 (0.83-1.09) H 04/01/19 06:45 Assessment/Plan Cleared for procedures in the AM Elaquis on hold Rpt CBC in AM
[2019-04-08] MEDS ORDERED: PT OWN MED DRAWER 7, Y5N ONE (09:45)
[2019-04-08] MEDS: carBAMazepine 100 MG TAB.CHEW PO SCH ×3 (09:48→16:27)
[2019-04-08] MEDS: CARVEDILOL 6.25 MG TABLET (FP) PO SCH ×2 (09:49→22:50)
[2019-04-08] MEDS: TAMSULOSIN HCL 0.4 MG CAP PO SCH (09:49)
[2019-04-08] MEDS: SPIRONOLACTONE 25 MG TABLET (FP) PO SCH (09:49)
[2019-04-08] MEDS: SACUBITRIL/VALSARTAN 49 MG-51 MG TABLET PO SCH ×2 (09:50→22:51)
[2019-04-08] MEDS: PANTOPRAZOLE 40 MG TABLET (FP) PO SCH ×2 (09:50→22:50)
[2019-04-08] MEDS: FUROSEMIDE 40 MG TABLET (FP) PO SCH (09:50)
[2019-04-08] MEDS: LIDOCAINE 5% TOPICAL PATCH TP SCH (09:51)
[2019-04-08] MEDS: POLYETHYLENE GLYCOL 3350 119 GM BTL PO SCH ×2 (09:51→22:51)
--- NOTE | 2019-04-08 10:03 | PN.GI ---
GI Progress Note Subjective: GI NOte: Baby tells me that he and his are agreeable to proceeding with the EGD and colonoscopy - Objective Vital Signs: Vital Signs Temperature 98.8 F 04/08/19 06:00 Pulse Rate 68 04/08/19 06:00 Respiratory Rate 20 04/08/19 06:00 Blood Pressure 113/66 04/08/19 06:00 O2 Sat by Pulse Oximetry (%) 98 04/08/19 06:00 Constitutional: No Distress ...Auscultate: Yes: Normoactive Bowel Sounds ...Palpate: Yes: Soft, Other (nontender) Labs: CBC, BMP 04/07/19 05:50 04/08/19 06:10 INR, PTT INR 1.32 (0.83-1.09) H 04/01/19 06:45 Assessment/Plan Assessment - The anemia requires evaluation when he consents and is medically cleared - Hepatic passive congestion due to cor pulmonale and right heart failure. - Personal h/o colon polyp Plan: -- Bowel prep for EGD and a colonoscopy tomorrow. Eliquis has been interrupted -- Continue empiric PPI Problem List - Problems (1) Anemia Code(s): D64.9 - ANEMIA, UNSPECIFIED (2) Occult blood in stools Code(s): R19.5 - OTHER FECAL ABNORMALITIES (3) Weight loss Code(s): R63.4 - ABNORMAL WEIGHT LOSS (4) Narcotic addiction Code(s): F11.20 - OPIOID DEPENDENCE, UNCOMPLICATED (5) Hyperplastic polyp of descending colon Code(s): K63.5 - POLYP OF COLON (6) Abnormal liver function tests Code(s): R94.5 - ABNORMAL RESULTS OF LIVER FUNCTION STUDIES (7) Hypothyroidism Code(s): E03.9 - HYPOTHYROIDISM, UNSPECIFIED Qualifiers: Hypothyroidism type: unspecified Qualified Code(s): E03.9 - Hypothyroidism , unspecified (8) Symptomatic anemia Code(s): D64.9 - ANEMIA, UNSPECIFIED (9) Type 2 diabetes mellitus Code(s): E11.9 - TYPE 2 DIABETES MELLITUS WITHOUT COMPLICATIONS Qualifiers: Diabetes mellitus labeling associate insulin use: without labeling associate use Diabetes mellitus complication status: with circulatory complication (10) Nausea & vomiting Code(s): R11.2 - NAUSEA WITH VOMITING, UNSPECIFIED Qualifiers: Vomiting type: unspecified Vomiting Intractability: unspecified Qualified Code(s): R11.2 - Nausea with vomiting, unspecified (12) Hyperkalemia Code(s): E87.5 - HYPERKALEMIA (13) Cor pulmonale Code(s): I27.81 - COR PULMONALE (CHRONIC) (14) Pneumonia Code(s): J18.9 - PNEUMONIA, UNSPECIFIED ORGANISM (15) Pacemaker Code(s): Z95.0 - PRESENCE OF CARDIAC PACEMAKER
--- NOTE | 2019-04-08 12:22 | PN ---
Progress Note (short form) - Note Progress Note: PULMONARY Denies shortness of breath or chest pain. Reports nonproductive cough. Vital Signs Period Temp Pulse Resp BP Sys/Cabral Pulse Ox Last 24 Hr 97.9 F-98.8 F 60-72 18-20 113-144/51-78 98-98 Gen: NAD at rest Heart: RRR Lung: decreased breath sounds at the bases Abd: soft, nontender Ext: no edema CBC, BMP 04/07/19 05:50 04/08/19 06:10 Active Medications Al Hydroxide/Mg Hydroxide (Mylanta Oral Suspension -) 30 ml PO Q8H PRN PRN Reason: INDIGESTION Apixaban (Eliquis -) 2.5 mg PO BID [facility] Last Admin: 04/06/19 10:26 Dose: 2.5 mg Benzocaine/Menthol (Cepacol Lozenge -) 1 each MM PRN PRN PRN Reason: SORE THROAT Last Admin: 04/07/19 18:20 Dose: 1 each Bisacodyl (Dulcolax -) 20 mg PO ONCE ONE Stop: 04/08/19 18:01 Carbamazepine (Tegretol -) 200 mg PO TIDCM [facility] Last Admin: 04/08/19 09:48 Dose: 200 mg Carvedilol (Coreg -) 6.25 mg PO BID [facility] Last Admin: 04/08/19 09:49 Dose: 6.25 mg Dextrose (D50w (Vial) -) 25 gm IVPUSH PRN PRN PRN Reason: HYPOGLYCEMIA Furosemide (Lasix -) 40 mg PO DAILY [facility] Last Admin: 04/08/19 09:50 Dose: 40 mg Insulin Aspart (Novolog Vial Sliding Scale -) 1 vial SQ [facility]; Protocol Last Admin: 04/08/19 06:41 Dose: Not Given Levetiracetam 500 mg/ (Levetiracetam 250 mg) 750 mg PO BID [facility] Last Admin: 04/08/19 09:50 Dose: 750 mg Levothyroxine Sodium (Synthroid -) 125 mcg PO DAILY@0700 [facility] Last Admin: 04/08/19 06:42 Dose: 125 mcg Lidocaine (Lidoderm Patch -) 2 patch TP DAILY [facility] Last Admin: 04/08/19 09:51 Dose: 2 patch Mirtazapine (Remeron -) 15 mg PO HS [facility] Last Admin: 04/07/19 21:10 Dose: 15 mg Miscellaneous (Lidoderm Patch Removal) 2 each MC DAILY@2200 [facility] Last Admin: 04/07/19 21:10 Dose: 2 each Pantoprazole Sodium (Protonix -) 40 mg PO BID [facility] Last Admin: 04/08/19 09:50 Dose: 40 mg Polyethylene Glycol (Miralax (For Daily Use) -) 17 gm PO BID [facility] Last Admin: 04/08/19 09:51 Dose: 17 grams Sacubitril/Valsartan (Entresto 49 Mg-51 Mg Tablet) 1 tab PO BID [facility] Last Admin: 04/08/19 09:50 Dose: 1 tab Spironolactone (Aldactone -) 25 mg PO DAILY [facility] Last Admin: 04/08/19 09:49 Dose: 25 mg Tamsulosin HCl (Flomax -) 0.4 mg PO DAILY@0830 [facility] Last Admin: 04/08/19 09:49 Dose: 0.4 mg A/P Acute Hypoxic Respiratory Failure improving Severe Anemia s/p PRBC transfusions Acute on Chronic Diastolic Heart Failure +Troponins likely Demand Ischemia Lactic Acidosis resolved Acute on Chronic Renal Failure Elevated LFTs likely Congestive Hepatopathy Atrial Fibrillation s/p PPM HTN Hyperlipidemia Hypothyroidism Seizure Disorder - for endoscopy tomorrow - monitor H/H - continue lasix - monitor urine output, creatinine - trend LFTs - O2 to keep SpO2 >90% - rate control - continue anticoagulation - entresto - DVT prophylaxis
[2019-04-08] MEDS ORDERED: guaiFENesin 200 MG/10 ML 10 ML UNIT-DOSE CUPS PO PRN (12:23)
--- NOTE | 2019-04-08 12:32 | PN ---
Progress Note, Physician Chief Complaint: Events noted Not in distress History of Present Illness: Patient was seen and examined. Awake and alert. Chart was reviewed Denies chest pain or SOB Await GI work up tomorrow - Current Medication List Current Medications: Active Medications Al Hydroxide/Mg Hydroxide (Mylanta Oral Suspension -) 30 ml PO Q8H PRN PRN Reason: INDIGESTION Apixaban (Eliquis -) 2.5 mg PO BID [facility] Last Admin: 04/06/19 10:26 Dose: 2.5 mg Benzocaine/Menthol (Cepacol Lozenge -) 1 each MM PRN PRN PRN Reason: SORE THROAT Last Admin: 04/07/19 18:20 Dose: 1 each Bisacodyl (Dulcolax -) 20 mg PO ONCE ONE Stop: 04/08/19 18:01 Carbamazepine (Tegretol -) 200 mg PO TIDCM [facility] Last Admin: 04/08/19 09:48 Dose: 200 mg Carvedilol (Coreg -) 6.25 mg PO BID [facility] Last Admin: 04/08/19 09:49 Dose: 6.25 mg Dextrose (D50w (Vial) -) 25 gm IVPUSH PRN PRN PRN Reason: HYPOGLYCEMIA Furosemide (Lasix -) 40 mg PO DAILY [facility] Last Admin: 04/08/19 09:50 Dose: 40 mg Guaifenesin (Robitussin -) 10 ml PO Q6H PRN PRN Reason: COUGH Insulin Aspart (Novolog Vial Sliding Scale -) 1 vial SQ [facility]; Protocol Last Admin: 04/08/19 06:41 Dose: Not Given Levetiracetam 500 mg/ (Levetiracetam 250 mg) 750 mg PO BID [facility] Last Admin: 04/08/19 09:50 Dose: 750 mg Levothyroxine Sodium (Synthroid -) 125 mcg PO DAILY@0700 [facility] Last Admin: 04/08/19 06:42 Dose: 125 mcg Lidocaine (Lidoderm Patch -) 2 patch TP DAILY [facility] Last Admin: 04/08/19 09:51 Dose: 2 patch Mirtazapine (Remeron -) 15 mg PO HS [facility] Last Admin: 04/07/19 21:10 Dose: 15 mg Miscellaneous (Lidoderm Patch Removal) 2 each MC DAILY@2200 [facility] Last Admin: 04/07/19 21:10 Dose: 2 each Pantoprazole Sodium (Protonix -) 40 mg PO BID [facility] Last Admin: 04/08/19 09:50 Dose: 40 mg Polyethylene Glycol (Miralax (For Daily Use) -) 17 gm PO BID [facility] Last Admin: 04/08/19 09:51 Dose: 17 grams Sacubitril/Valsartan (Entresto 49 Mg-51 Mg Tablet) 1 tab PO BID [facility] Last Admin: 04/08/19 09:50 Dose: 1 tab Spironolactone (Aldactone -) 25 mg PO DAILY [facility] Last Admin: 04/08/19 09:49 Dose: 25 mg Tamsulosin HCl (Flomax -) 0.4 mg PO DAILY@0830 [facility] Last Admin: 04/08/19 09:49 Dose: 0.4 mg - Objective Vital Signs: Vital Signs Temperature 98.8 F 04/08/19 06:00 Pulse Rate 68 04/08/19 06:00 Respiratory Rate 20 04/08/19 06:00 Blood Pressure 113/66 04/08/19 06:00 O2 Sat by Pulse Oximetry (%) 98 04/08/19 06:00 Eyes: Yes: PERRL HENT: Yes: Atraumatic Neck: Yes: Supple Cardiovascular: Yes: Regular Rate and Rhythm, S1, S2 Respiratory: Yes: CTA Bilaterally Gastrointestinal: Yes: Normal Bowel Sounds, Soft. No: Tenderness Edema: No Additional Findings/Remarks: - Review of Systems Constitutional: denies: Chills, Fever Cardiovascular: denies: chest pain, shortness of breath, palpitations Respiratory: reports: Cough Gastrointestinal: denies: Abdominal Pain, Constipation, Diarrhea, Nausea or Vomiting Musculoskeletal: denies: Back Pain Neurological: denies: Dizziness, Headache Labs: CBC, BMP 04/07/19 05:50 04/08/19 06:10 Problem List - Problems (1) Acute on chronic diastolic (congestive) heart failure Code(s): I50.33 - ACUTE ON CHRONIC DIASTOLIC (CONGESTIVE) HEART FAILURE (2) [id number] kidney injury Code(s): N17.9 - ACUTE KIDNEY FAILURE, UNSPECIFIED; N18.9 - CHRONIC KIDNEY DISEASE, UNSPECIFIED Qualifiers: Acute renal failure type: unspecified (3) Hypothyroidism Code(s): E03.9 - HYPOTHYROIDISM, UNSPECIFIED Qualifiers: Hypothyroidism type: unspecified Qualified Code(s): E03.9 - Hypothyroidism , unspecified (4) Pacemaker Code(s): Z95.0 - PRESENCE OF CARDIAC PACEMAKER (5) Paroxysmal atrial fibrillation with rapid ventricular response Code(s): I48.0 - PAROXYSMAL ATRIAL FIBRILLATION (6) Severe anemia Code(s): D64.9 - ANEMIA, UNSPECIFIED (7) Subendocardial ischemia Code(s): I24.8 - OTHER FORMS OF ACUTE ISCHEMIC HEART DISEASE (8) Type 2 diabetes mellitus Code(s): E11.9 - TYPE 2 DIABETES MELLITUS WITHOUT COMPLICATIONS Qualifiers: Diabetes mellitus skilled nursing insulin use: without termite exterminator use Diabetes mellitus complication status: with circulatory complication (9) CAD (coronary artery disease) Code(s): I25.10 - ATHSCL HEART DISEASE OF [place] CORONARY ARTERY W/O ANG PCTRS (10) HTN (hypertension) Code(s): I10 - ESSENTIAL (PRIMARY) HYPERTENSION Qualifiers: Hypertension type: essential hypertension Qualified Code(s): I10 - Essential (primary) hypertension (11) Hypercholesterolemia Code(s): E78.00 - PURE HYPERCHOLESTEROLEMIA, UNSPECIFIED Assessment/Plan 1. Acute hypoxemic respiratory failure 2. Acute on chronic class II-III NYHA classification LV failure related to systolic/diastolic LV dysfunction 3. CAD with evidence of demand ischemic injury/subendocardial ischemia angina pectoris 4. AV block post PPM 5. Paroxysmal atrial fibrillation currently in sinus rhythm/atrial pacing ( [id number] score of 4 on DOAC's/Eliquis) 6. Hypertensive heart disease 7. DM 8. Hyperlipidemia 9. Acute on chronic CKD 10. Profound anemia post transfusion - rule out gastrointestinal source 11. Seizure disorder 12. Hypothyroidism 13. Ischemic hepatitis PLAN: 1. Continue Entresto 49/51 mg BID with close monitoring of renal function and electrolytes 2. Continue Coreg 6.25 mg BID 3. Continue Lasix 20 mg QD and Aldactone 25 mg QD with close monitoring of renal function and electrolytes 4. Eliquis held in preparation for GI evaluation. Proceed with GI work up. Eliquis is to be restarted after GI intervention. Further plans are to follow Eliceo Shoemaker MD
--- NOTE | 2019-04-08 14:58 | PN ---
Progress Note, Physician History of Present Illness: Pt seen and examined at bedside. He is awake and alert. He feels that his breathing is improved. - Current Medication List Current Medications: Active Medications Al Hydroxide/Mg Hydroxide (Mylanta Oral Suspension -) 30 ml PO Q8H PRN PRN Reason: INDIGESTION Apixaban (Eliquis -) 2.5 mg PO BID [facility] Last Admin: 04/06/19 10:26 Dose: 2.5 mg Benzocaine/Menthol (Cepacol Lozenge -) 1 each MM PRN PRN PRN Reason: SORE THROAT Last Admin: 04/07/19 18:20 Dose: 1 each Bisacodyl (Dulcolax -) 20 mg PO ONCE ONE Stop: 04/08/19 18:01 Carbamazepine (Tegretol -) 200 mg PO TIDCM [facility] Last Admin: 04/08/19 13:22 Dose: 200 mg Carvedilol (Coreg -) 6.25 mg PO BID [facility] Last Admin: 04/08/19 09:49 Dose: 6.25 mg Dextrose (D50w (Vial) -) 25 gm IVPUSH PRN PRN PRN Reason: HYPOGLYCEMIA Furosemide (Lasix -) 40 mg PO DAILY [facility] Last Admin: 04/08/19 09:50 Dose: 40 mg Guaifenesin (Robitussin -) 10 ml PO Q6H PRN PRN Reason: COUGH Insulin Aspart (Novolog Vial Sliding Scale -) 1 vial SQ ACHS [facility]; Protocol Last Admin: 04/08/19 12:30 Dose: 6 units Levetiracetam 500 mg/ (Levetiracetam 250 mg) 750 mg PO BID [facility] Last Admin: 04/08/19 09:50 Dose: 750 mg Levothyroxine Sodium (Synthroid -) 125 mcg PO DAILY@0700 [facility] Last Admin: 04/08/19 06:42 Dose: 125 mcg Lidocaine (Lidoderm Patch -) 2 patch TP DAILY [facility] Last Admin: 04/08/19 09:51 Dose: 2 patch Mirtazapine (Remeron -) 15 mg PO HS [facility] Last Admin: 04/07/19 21:10 Dose: 15 mg Miscellaneous (Lidoderm Patch Removal) 2 each MC DAILY@2200 [facility] Last Admin: 04/07/19 21:10 Dose: 2 each Pantoprazole Sodium (Protonix -) 40 mg PO BID [facility] Last Admin: 04/08/19 09:50 Dose: 40 mg Polyethylene Glycol (Miralax (For Daily Use) -) 17 gm PO BID [facility] Last Admin: 04/08/19 09:51 Dose: 17 grams Sacubitril/Valsartan (Entresto 49 Mg-51 Mg Tablet) 1 tab PO BID [facility] Last Admin: 04/08/19 09:50 Dose: 1 tab Spironolactone (Aldactone -) 25 mg PO DAILY [facility] Last Admin: 04/08/19 09:49 Dose: 25 mg Tamsulosin HCl (Flomax -) 0.4 mg PO DAILY@0830 [facility] Last Admin: 04/08/19 09:49 Dose: 0.4 mg - Objective Vital Signs: Vital Signs Temperature 98.8 F 04/08/19 06:00 Pulse Rate 60 04/08/19 10:00 Respiratory Rate 18 04/08/19 10:00 Blood Pressure 152/71 04/08/19 10:00 O2 Sat by Pulse Oximetry (%) 97 04/08/19 09:00 Constitutional: Yes: Calm Eyes: Yes: Conjunctiva Clear HENT: Yes: Atraumatic Neck: Yes: Supple Cardiovascular: Yes: S1, S2 Respiratory: Yes: CTA Bilaterally Gastrointestinal: Yes: Soft Genitourinary: Yes: WNL Musculoskeletal: Yes: WNL Edema: No Neurological: Yes: Oriented Psychiatric: Yes: Oriented Labs: CBC, BMP 04/07/19 05:50 04/08/19 06:10 INR, PTT INR 1.32 (0.83-1.09) H 04/01/19 06:45 Problem List - Problems (1) Acute on chronic diastolic (congestive) heart failure Code(s): I50.33 - ACUTE ON CHRONIC DIASTOLIC (CONGESTIVE) HEART FAILURE (2) [id number] kidney injury Code(s): N17.9 - ACUTE KIDNEY FAILURE, UNSPECIFIED; N18.9 - CHRONIC KIDNEY DISEASE, UNSPECIFIED Qualifiers: Acute renal failure type: unspecified (3) Hyperkalemia Code(s): E87.5 - HYPERKALEMIA (4) Hypothyroidism Code(s): E03.9 - HYPOTHYROIDISM, UNSPECIFIED Qualifiers: Hypothyroidism type: unspecified Qualified Code(s): E03.9 - Hypothyroidism , unspecified Assessment/Plan Current Medications Generic Name Dose Route Start Last Admin Trade Name Freq PRN Reason Stop Dose Admin Al Hydroxide/Mg Hydroxide 30 ml 04/02/19 07:32 Mylanta Oral Suspension - PO Q8H PRN INDIGESTION Apixaban 2.5 mg 04/03/19 09:07 04/06/19 10:26 Eliquis - PO 2.5 mg BID [facility] Administration Benzocaine/Menthol 1 each 04/05/19 14:43 04/07/19 18:20 Cepacol Lozenge - MM 1 each PRN PRN Administration SORE THROAT Bisacodyl 20 mg 04/08/19 18:00 Dulcolax - PO 04/08/19 18:01 ONCE ONE Carbamazepine 200 mg 04/02/19 08:00 04/08/19 13:22 Tegretol - PO 200 mg TIDCM [facility] Administration Carvedilol 6.25 mg 04/02/19 10:00 04/08/19 09:49 Coreg - PO 6.25 mg BID [facility] Administration Dextrose 25 gm 04/02/19 07:32 D50w (Vial) - IVPUSH PRN PRN HYPOGLYCEMIA Furosemide 40 mg 04/07/19 13:00 04/08/19 09:50 Lasix - PO 40 mg DAILY [facility] Administration Guaifenesin 10 ml 04/08/19 12:23 Robitussin - PO Q6H PRN COUGH Insulin Aspart 1 vial 04/02/19 11:00 04/08/19 12:30 Novolog Vial Sliding Scale - SQ 6 units ACHS [facility] Administration Protocol Levetiracetam 500 mg/ 750 mg 04/06/19 10:15 04/08/19 09:50 Levetiracetam 250 mg PO 750 mg BID [facility] Administration Levothyroxine Sodium 125 mcg 04/03/19 07:00 04/08/19 06:42 Synthroid - PO 125 mcg DAILY@0700 [facility] Administration Lidocaine 2 patch 04/03/19 14:30 04/08/19 09:51 Lidoderm Patch - TP 2 patch DAILY [facility] Administration Mirtazapine 15 mg 04/02/19 22:00 04/07/19 21:10 Remeron - PO 15 mg HS [facility] Administration Miscellaneous 2 each 04/03/19 22:00 04/07/19 21:10 Lidoderm Patch Removal MC 2 each DAILY@2200 [facility] Administration Pantoprazole Sodium 40 mg 04/06/19 22:00 04/08/19 09:50 Protonix - PO 40 mg BID [facility] Administration Polyethylene Glycol 17 gm 04/06/19 22:00 04/08/19 09:51 Miralax (For Daily Use) - PO 17 grams BID [facility] Administration Sacubitril/Valsartan 1 tab 04/05/19 22:00 04/08/19 09:50 Entresto 49 Mg-51 Mg Tablet PO 1 tab BID [facility] Administration Spironolactone 25 mg 04/03/19 10:00 04/08/19 09:49 Aldactone - PO 25 mg DAILY [facility] Administration Tamsulosin HCl 0.4 mg 04/02/19 08:30 04/08/19 09:49 Flomax - PO 0.4 mg DAILY@0830 [facility] Administration Impression 1. DANYA 2. hyperkalemia 3. chf 4. weight loss 5. anemia 6. hypoxic resp failure 7. transaminitis 8. htn 9. a-fib Plan - cont with lasix at 40 mg - cont aldactone - repeat labs in am - sodium is improving - has atrophic left kidney on ultrasound - GI workup in progress
[2019-04-08] MEDS ORDERED: BISACODYL 5 MG TABLET.DR (FP) PO ONE (18:00)
[2019-04-08] MEDS ORDERED: MAGNESIUM CITRATE 300 ML BOTTLE PO ONE (19:15)
[2019-04-08] MEDS: MIRTAZAPINE 15 MG TABLET (FP) PO SCH (22:50)
[2019-04-08] MEDS: LIDOCAINE PATCH REMOVAL MC SCH (22:51)
[2019-04-08] MEDS: ACETAMINOPHEN 500 MG TABLET (FP) PO PRN (23:30)
[2019-04-09 06:41] LABS: HEMATOCRIT 27.2 % (35.4-49); HEMOGLOBIN 8.9 GM/dL (11.7-16.9); MCH 29.3 pg (25.7-33.7); MCHC 32.9 g/dl (32.0-35.9); MEAN CELL VOLUME 89.2 fl (80-96); MEAN PLT VOLUME 6.8 fl (7.5-11.1); PLATELET COUNT 452 K/MM3 (134-434); RBC 3.04 M/mm3 (4.00-5.60); RDW 15.8 % (11.9-15.9); WHITE BLOOD COUNT 4.6 K/mm3 (4.0-10.0)
[2019-04-09] MEDS: LEVOTHYROXINE NA 125 MCG TABLET (FP) PO SCH (06:47)
[2019-04-09] MEDS: INSULIN SLIDING SCALE (NOVOLOG) 1 VIAL SQ SCH ×4 (06:47→21:26)
[2019-04-09 07:18] LABS: BLOOD UREA NITROGEN 10.9 mg/dL (7-18); CALCIUM 7.6 mg/dL (8.5-10.1); CREATININE 0.8 mg/dL (0.55-1.3); POTASSIUM 4.1 mmol/L (3.5-5.1)
[2019-04-09] MEDS ORDERED: INSULIN (NOVOLOG) ASPART 100 UNITS/ML 10ML VIAL ONE ×3 (08:13→21:18)
[2019-04-09] MEDS: carBAMazepine 100 MG TAB.CHEW PO SCH ×3 (08:23→17:43)
--- NOTE | 2019-04-09 09:21 | DS ---
Physical Examination Vital Signs: Vital Signs Temperature 98.1 F 04/09/19 06:00 Pulse Rate 62 04/09/19 06:00 Respiratory Rate 20 04/09/19 06:00 Blood Pressure 144/69 04/09/19 06:00 O2 Sat by Pulse Oximetry (%) 100 04/08/19 23:00 Findings/Remarks: 68 yr old male admitted with anemia 6.2 After receiving 2units of PC developed CHF ,was transferred to ICU CHF improved ,scheduled for EGD and colonoscopy today Constitutional: Yes: Anxious Eyes: Yes: WNL HENT: Yes: WNL Neck: Yes: WNL Cardiovascular: Yes: Regular Rate and Rhythm Respiratory: Yes: WNL Gastrointestinal: Yes: Normal Bowel Sounds Renal/: Yes: WNL Breast(s): Yes: WNL Musculoskeletal: Yes: Muscle Weakness Peripheral Pulses WNL: Yes Neurological: Yes: Alert Psychiatric: Yes: Alert Labs: CBC, BMP 04/09/19 05:30 04/09/19 05:30 Discharge Summary Problems reviewed: Yes Reason For Visit: PRESENCE OF CARDIAC PACEMAKER,SEC ANEMIA,HYPERTENS Current Active Problems Abnormal liver function tests (Acute) Acute on chronic diastolic (congestive) heart failure (Acute) [id number] kidney injury (Acute) CAD (coronary artery disease) (Acute) Cor pulmonale (Acute) HTN (hypertension) (Acute) Hypercholesterolemia (Acute) Hyperkalemia (Acute) Hyperplastic polyp of descending colon (Acute) Hypothyroidism (Acute) Narcotic addiction (Acute) Narcotic dependence (Acute) Occult blood in stools (Acute) Pacemaker (Acute) Paroxysmal atrial fibrillation with rapid ventricular response (Acute) Pneumonia (Acute) Severe anemia (Acute) Subendocardial ischemia (Acute) Symptomatic anemia (Acute) Type 2 diabetes mellitus (Acute) Weight loss (Acute) Condition: Fair - Instructions Referrals: John Sommer MD [Primary Care Provider] - - Home Medications Comprehensive Discharge Medication List: Ambulatory Orders Amlodipine Besylate [Norvasc -] 10 mg PO DAILY 04/02/12 Gabapentin 300 mg PO BID 04/02/12 Levothyroxine [Synthroid -] 125 mcg PO DAILY 04/02/12 Multivitamin [Multivitamins] 1 each PO DAILY 04/02/12 levETIRAcetam [Keppra Oral Solution -] 750 mg PO BID 10/18/12 metFORMIN HCL [Glucophage -] 1,000 mg PO DAILY 04/02/12 Carbamazepine [Tegretol -] 300 mg PO TID 06/03/13 Oxycodone HCl [Roxicodone] 7.5 mg PO PRN 05/30/14 Lidocaine 5% Patch [Lidoderm Patch -] 2 patch TP DAILY 10/22/16 Simvastatin 40 mg PO HS 10/22/16 Tamsulosin HCl 0.4 mg PO DAILY 10/22/16 Famotidine 20 mg PO BID #28 tablet 01/25/18 Ondansetron [Zofran Odt -] 4 mg GT QID PRN #20 tab.rapdis 01/25/18 Glipizide 5 mg PO BID 03/30/19
--- NOTE | 2019-04-09 09:59 | PN ---
Progress Note (short form) - Note Progress Note: Neurology History of Present Illness - History of Present Illness 68M w/ a history of DM, hypothyroidism, seizure d/o, s/p pacemaker who presents for evaluation of 1 month of cough with increased sputum production. He also notes 1 week of BLE swelling to mid-reyes. He reports some symptomatic relief from coughing with robitussin. He also notes post-tussive emesis. He denies fevers/chills, trouble breathing, abdominal pain, diarrhea, dysuria/hematuria, or changes in sensation. He denied lower extremity swelling before. Patient currently in ICU under critical care monitoring. contacted by ICU resident on regarding patient's mental status which she reported was somnolent and lethargic. He discussed the case with me including multiple medical comorbidities including respiratory compromise requiring positive pressure ventilation, CHF exacerbation along with coffee-ground emesis and concern for upper GI bleed with reduction in hemoglobin and hematocrit. The patient also found to have atrial fibrillation and receiving medical optimization. I advised having non-contrast head CT which was completed and showed moderate atrophy but no significant infarcts or focal abnormalities. Likely toxic metabolic encephalopathy secondary to multiple medical comorbidities as described above. reviewed notes from weekend and patient is awake, alert, interactive this morning. Seems to have more energy and less fatigue/ lethargic. His communicative and appears to be near baseline at this point. GI note reviewed and patient possibly for EGD/colonoscopy if and when able to. Eliquis would have to be interrupted for such procedure. Being planned for possible SNF placement for notes. GI note reviewed, for EGD and colonoscopy today, discussed with primary care physician, possibly for discharge later this evening if stable. Allergies/Adverse Reactions: Allergies Allergy/AdvReac Type Severity Reaction Status Date / Time lacosamide [From Vimpat] Allergy Rash Verified 03/29/19 09:32 Active Medications Al Hydroxide/Mg Hydroxide (Mylanta Oral Suspension -) 30 ml PO Q8H PRN PRN Reason: INDIGESTION Apixaban (Eliquis -) 2.5 mg PO BID [facility] Last Admin: 04/06/19 10:26 Dose: 2.5 mg Benzocaine/Menthol (Cepacol Lozenge -) 1 each MM PRN PRN PRN Reason: SORE THROAT Last Admin: 04/07/19 18:20 Dose: 1 each Bisacodyl (Dulcolax -) 20 mg PO ONCE ONE Stop: 04/08/19 18:01 Carbamazepine (Tegretol -) 200 mg PO TIDCM [facility] Last Admin: 04/07/19 18:18 Dose: 200 mg Carvedilol (Coreg -) 6.25 mg PO BID [facility] Last Admin: 04/07/19 21:09 Dose: 6.25 mg Dextrose (D50w (Vial) -) 25 gm IVPUSH PRN PRN PRN Reason: HYPOGLYCEMIA Furosemide (Lasix -) 40 mg PO DAILY [facility] Last Admin: 04/07/19 13:30 Dose: 40 mg Insulin Aspart (Novolog Vial Sliding Scale -) 1 vial SQ ACHS [facility]; Protocol Last Admin: 04/08/19 06:41 Dose: Not Given Levetiracetam 500 mg/ (Levetiracetam 250 mg) 750 mg PO BID [facility] Last Admin: 04/07/19 21:10 Dose: 750 mg Levothyroxine Sodium (Synthroid -) 125 mcg PO DAILY@0700 [facility] Last Admin: 04/08/19 06:42 Dose: 125 mcg Lidocaine (Lidoderm Patch -) 2 patch TP DAILY [facility] Last Admin: 04/07/19 10:53 Dose: 2 patch Mirtazapine (Remeron -) 15 mg PO HS [facility] Last Admin: 04/07/19 21:10 Dose: 15 mg Miscellaneous (Lidoderm Patch Removal) 2 each MC DAILY@2200 [facility] Last Admin: 04/07/19 21:10 Dose: 2 each Pantoprazole Sodium (Protonix -) 40 mg PO BID [facility] Last Admin: 04/07/19 21:10 Dose: 40 mg Polyethylene Glycol (Miralax (For Daily Use) -) 17 gm PO BID [facility] Last Admin: 04/07/19 21:47 Dose: 17 grams Sacubitril/Valsartan (Entresto 49 Mg-51 Mg Tablet) 1 tab PO BID [facility] Last Admin: 04/07/19 21:09 Dose: 1 tab Spironolactone (Aldactone -) 25 mg PO DAILY [facility] Last Admin: 04/07/19 10:51 Dose: 25 mg Tamsulosin HCl (Flomax -) 0.4 mg PO DAILY@0830 [facility] Last Admin: 04/07/19 10:52 Dose: 0.4 mg *Physical Exam Vital Signs Period Temp Pulse Resp BP Sys/Cabral Pulse Ox Last 24 Hr 97.9 F-98.8 F 60-72 18-20 113-144/51-78 98-98 GENERAL: Awake, alert, and oriented to person/place/time, in no acute distress, thin HEAD: No signs of trauma, normocephalic, atraumatic EYES: PERRLA, EOMI, sclera anicteric, conjunctiva clear ENT: Hearing grossly normal, nares patent, oropharynx clear without exudates. Moist mucosa LUNGS: No distress, speaks in full sentences, clear to auscultation bilaterally HEART: Regular rate and rhythm, normal S1 and S2, no murmurs appreciated, peripheral pulses normal and equal bilaterally ABDOMEN: Soft, nontender, normoactive bowel sounds. No guarding, no rebound EXTREMITIES: Normal inspection, Normal range of motion, no edema. No clubbing or cyanosis NEUROLOGICAL: Cranial nerves II through XII grossly intact. Tangential speech, knows location, knows month, moves all extemities grossly, sensory intact SKIN: Warm, Dry CBCD WBC 8.3 K/mm3 (4.0-10.0) 04/07/19 05:50 RBC 2.87 M/mm3 (4.00-5.60) L 04/07/19 05:50 Hgb 8.4 GM/dL (11.7-16.9) L 04/07/19 05:50 Hct 25.8 % (35.4-49) L 04/07/19 05:50 MCV 89.9 fl (80-96) 04/07/19 05:50 MCHC 32.8 g/dl (32.0-35.9) 04/07/19 05:50 RDW 16.2 % (11.9-15.9) H 04/07/19 05:50 Plt Count 358 K/MM3 (134-434) 04/07/19 05:50 MPV 7.3 fl (7.5-11.1) L 04/07/19 05:50 CMP Sodium 134 mmol/L (136-145) L 04/08/19 06:10 Potassium 4.9 mmol/L (3.5-5.1) 04/08/19 06:10 Chloride 98 mmol/L (98-107) 04/08/19 06:10 Carbon Dioxide 28 mmol/L (21-32) 04/08/19 06:10 Anion Gap 8 MMOL/L (8-16) 04/08/19 06:10 BUN 12.8 mg/dL (7-18) 04/08/19 06:10 Creatinine 0.8 mg/dL (0.55-1.3) 04/08/19 06:10 Random Glucose 119 mg/dL (74-106) H 04/08/19 06:10 Calcium 7.9 mg/dL (8.5-10.1) L 04/08/19 06:10 Total Bilirubin 0.3 mg/dL (0.2-1) 04/08/19 06:10 AST 16 U/L (15-37) 04/08/19 06:10 ALT 57 U/L (13-61) 04/08/19 06:10 Alkaline Phosphatase 232 U/L (45-117) H 04/08/19 06:10 Total Protein 4.5 g/dl (6.4-8.2) L 04/08/19 06:10 Albumin 1.6 g/dl (3.4-5.0) L 04/08/19 06:10 CARDIAC ENZYMES Creatine Kinase 254 U/L (26-308) 03/31/19 06:10 Troponin I 0.84 ng/ml (0.00-0.05) H* 03/31/19 23:25 Medical Decision Making 68M w/ a history of DM, hypothyroidism, seizure d/o, s/p pacemaker who presents for evaluation of 1 month of cough with increased sputum production. He also notes 1 week of BLE swelling to mid-reyes. He reports some symptomatic relief from coughing with robitussin. He also notes post-tussive emesis. He denies fevers/chills, trouble breathing, abdominal pain, diarrhea, dysuria/hematuria, or changes in sensation. He denied lower extremity swelling before. Patient currently in ICU under critical care monitoring. contacted by ICU resident on rregarding patient's mental status which she reported was somnolent and lethargic. He discussed the case with me including multiple medical comorbidities including respiratory compromise requiring positive pressure ventilation, CHF exacerbation along with coffee-ground emesis and concern for upper GI bleed with reduction in hemoglobin and hematocrit. The patient also found to have atrial fibrillation and receiving medical optimization. I advised having noncontrast head CT which was completed and showed moderate atrophy but no significant infarcts or focal abnormalities. Likely toxic metabolic encephalopathy secondary to multiple medical comorbidities as described above. Likely toxic metabolic encephalopathy secondary to multiple medical comorbidities as described above. rreviewed notes from weekend and patient is awake, alert, interactive this morning. Seems to have more energy and less fatigue/lethargic. His communicative and appears to be near baseline at this point. Continue treatment for respiratory compromise, IV abx per primary. GI bleed, patient recently started on heparin for Afib, closely monitor for bleed in presence of AC, GI follow up. GI note reviewed and patient possibly for EGD/colonoscopy if and when able to. Eliquis would have to be interrupted for such procedure. Being planned for possible SNF placement for notes. GI note reviewed, PCP note reviewed. Patient neurologically stable and no objection to procedure and discharge at this time.
[2019-04-09] MEDS: CARVEDILOL 6.25 MG TABLET (FP) PO SCH ×2 (10:05→21:24)
[2019-04-09] MEDS: SPIRONOLACTONE 25 MG TABLET (FP) PO SCH (10:05)
[2019-04-09] MEDS: TAMSULOSIN HCL 0.4 MG CAP PO SCH (10:05)
[2019-04-09] MEDS: PANTOPRAZOLE 40 MG TABLET (FP) PO SCH (10:06)
[2019-04-09] MEDS: POLYETHYLENE GLYCOL 3350 119 GM BTL PO SCH ×2 (10:06→21:21)
[2019-04-09] MEDS: SACUBITRIL/VALSARTAN 49 MG-51 MG TABLET PO SCH ×2 (10:06→21:26)
[2019-04-09] MEDS: FUROSEMIDE 40 MG TABLET (FP) PO SCH (10:06)
[2019-04-09] MEDS: LIDOCAINE 5% TOPICAL PATCH TP SCH (10:07)
--- NOTE | 2019-04-09 11:05 | PN ---
Progress Note, Physician History of Present Illness: pulmonary no distress,+ non-productive cough. pt to have egd and colonoscopy today - Current Medication List Current Medications: Active Medications Acetaminophen (Tylenol -) 500 mg PO Q6H PRN PRN Reason: PAIN LEVEL 1-5 Last Admin: 04/08/19 23:30 Dose: 500 mg Al Hydroxide/Mg Hydroxide (Mylanta Oral Suspension -) 30 ml PO Q8H PRN PRN Reason: INDIGESTION Apixaban (Eliquis -) 2.5 mg PO BID [facility] Last Admin: 04/06/19 10:26 Dose: 2.5 mg Benzocaine/Menthol (Cepacol Lozenge -) 1 each MM PRN PRN PRN Reason: SORE THROAT Last Admin: 04/07/19 18:20 Dose: 1 each Carbamazepine (Tegretol -) 200 mg PO TIDCM [facility] Last Admin: 04/09/19 08:23 Dose: 200 mg Carvedilol (Coreg -) 6.25 mg PO BID [facility] Last Admin: 04/09/19 10:05 Dose: 6.25 mg Dextrose (D50w (Vial) -) 25 gm IVPUSH PRN PRN PRN Reason: HYPOGLYCEMIA Furosemide (Lasix -) 40 mg PO DAILY [facility] Last Admin: 04/09/19 10:06 Dose: 40 mg Guaifenesin (Robitussin -) 10 ml PO Q6H PRN PRN Reason: COUGH Insulin Aspart (Novolog Vial Sliding Scale -) 1 vial SQ ACHS [facility]; Protocol Last Admin: 04/09/19 06:47 Dose: 4 units Levetiracetam 500 mg/ (Levetiracetam 250 mg) 750 mg PO BID [facility] Last Admin: 04/09/19 10:05 Dose: 750 mg Levothyroxine Sodium (Synthroid -) 125 mcg PO DAILY@0700 [facility] Last Admin: 04/09/19 06:47 Dose: 125 mcg Lidocaine (Lidoderm Patch -) 2 patch TP DAILY [facility] Last Admin: 04/09/19 10:07 Dose: 2 patch Mirtazapine (Remeron -) 15 mg PO HS [facility] Last Admin: 04/08/19 22:50 Dose: 15 mg Miscellaneous (Lidoderm Patch Removal) 2 each MC DAILY@2200 [facility] Last Admin: 04/08/19 22:51 Dose: 2 each Pantoprazole Sodium (Protonix -) 40 mg PO BID [facility] Last Admin: 04/09/19 10:06 Dose: 40 mg Polyethylene Glycol (Miralax (For Daily Use) -) 17 gm PO BID [facility] Last Admin: 04/09/19 10:06 Dose: Not Given Sacubitril/Valsartan (Entresto 49 Mg-51 Mg Tablet) 1 tab PO BID [facility] Last Admin: 04/09/19 10:06 Dose: 1 tab Spironolactone (Aldactone -) 25 mg PO DAILY [facility] Last Admin: 04/09/19 10:05 Dose: 25 mg Tamsulosin HCl (Flomax -) 0.4 mg PO DAILY@0830 [facility] Last Admin: 04/09/19 10:05 Dose: 0.4 mg - Objective Vital Signs: Vital Signs Temperature 98.1 F 04/09/19 10:00 Pulse Rate 60 04/09/19 10:00 Respiratory Rate 18 04/09/19 10:00 Blood Pressure 140/62 04/09/19 10:00 O2 Sat by Pulse Oximetry (%) 100 04/09/19 10:00 Constitutional: Yes: Calm, Thin Eyes: Yes: WNL HENT: Yes: WNL Neck: Yes: WNL Cardiovascular: Yes: Pulse Irregular, S1, S2 Respiratory: Yes: Diminished Gastrointestinal: Yes: Normal Bowel Sounds, Soft Extremities: Yes: WNL Edema: No Labs: CBC, BMP 04/09/19 05:30 04/09/19 05:30 INR, PTT INR 1.32 (0.83-1.09) H 04/01/19 06:45 Problem List - Problems (1) Abnormal liver function tests Code(s): R94.5 - ABNORMAL RESULTS OF LIVER FUNCTION STUDIES (2) Acute on chronic diastolic (congestive) heart failure Code(s): I50.33 - ACUTE ON CHRONIC DIASTOLIC (CONGESTIVE) HEART FAILURE (3) Hypothyroidism Code(s): E03.9 - HYPOTHYROIDISM, UNSPECIFIED Qualifiers: Hypothyroidism type: unspecified Qualified Code(s): E03.9 - Hypothyroidism , unspecified (4) Paroxysmal atrial fibrillation with rapid ventricular response Code(s): I48.0 - PAROXYSMAL ATRIAL FIBRILLATION (5) Symptomatic anemia Code(s): D64.9 - ANEMIA, UNSPECIFIED (6) Type 2 diabetes mellitus Code(s): E11.9 - TYPE 2 DIABETES MELLITUS WITHOUT COMPLICATIONS Qualifiers: Diabetes mellitus meterman insulin use: without meterman use Diabetes mellitus complication status: with circulatory complication (7) Weight loss Code(s): R63.4 - ABNORMAL WEIGHT LOSS (8) Anemia Code(s): D64.9 - ANEMIA, UNSPECIFIED (9) Kegae-[id number]-vbnavbj kidney injury Code(s): N17.9 - ACUTE KIDNEY FAILURE, UNSPECIFIED; N18.9 - CHRONIC KIDNEY DISEASE, UNSPECIFIED Qualifiers: Acute renal failure type: unspecified Assessment/Plan ASSESSMENT AND PLAN: Acute Hypoxic Respiratory Failure improved Severe Anemia Acute on Chronic Diastolic Heart Failure +Troponins likely Demand Ischemia Lactic Acidosis improved Acute on Chronic Renal Failure Elevated LFTs likely Congestive Hepatopathy improving Atrial Fibrillation s/p PPM HTN Hyperlipidemia Hypothyroidism Seizure Disorder - monitor H/H - lasix - monitor urine output, creatinine - trend LFTs - O2 to keep SpO2 >90% - rate control - DVT prophylaxis - eliquis on hold -egd and colonoscopy today DR GOLDSTEIN
--- NOTE | 2019-04-09 12:08 | PN ---
Progress Note, Physician Chief Complaint: Events noted Not in distress History of Present Illness: Patient was seen and examined. Awake and alert. Chart was reviewed Denies chest pain or SOB EGD/colonoscopy today - Current Medication List Current Medications: Active Medications Acetaminophen (Tylenol -) 500 mg PO Q6H PRN PRN Reason: PAIN LEVEL 1-5 Last Admin: 04/08/19 23:30 Dose: 500 mg Al Hydroxide/Mg Hydroxide (Mylanta Oral Suspension -) 30 ml PO Q8H PRN PRN Reason: INDIGESTION Apixaban (Eliquis -) 2.5 mg PO BID [facility] Last Admin: 04/06/19 10:26 Dose: 2.5 mg Benzocaine/Menthol (Cepacol Lozenge -) 1 each MM PRN PRN PRN Reason: SORE THROAT Last Admin: 04/07/19 18:20 Dose: 1 each Carbamazepine (Tegretol -) 200 mg PO TIDCM [facility] Last Admin: 04/09/19 11:49 Dose: Not Given Carvedilol (Coreg -) 6.25 mg PO BID [facility] Last Admin: 04/09/19 10:05 Dose: 6.25 mg Dextrose (D50w (Vial) -) 25 gm IVPUSH PRN PRN PRN Reason: HYPOGLYCEMIA Furosemide (Lasix -) 40 mg PO DAILY [facility] Last Admin: 04/09/19 10:06 Dose: 40 mg Guaifenesin (Robitussin -) 10 ml PO Q6H PRN PRN Reason: COUGH Insulin Aspart (Novolog Vial Sliding Scale -) 1 vial SQ [facility]; Protocol Last Admin: 04/09/19 11:50 Dose: Not Given Levetiracetam 500 mg/ (Levetiracetam 250 mg) 750 mg PO BID [facility] Last Admin: 04/09/19 10:05 Dose: 750 mg Levothyroxine Sodium (Synthroid -) 125 mcg PO DAILY@0700 [facility] Last Admin: 04/09/19 06:47 Dose: 125 mcg Lidocaine (Lidoderm Patch -) 2 patch TP DAILY [facility] Last Admin: 04/09/19 10:07 Dose: 2 patch Mirtazapine (Remeron -) 15 mg PO HS [facility] Last Admin: 04/08/19 22:50 Dose: 15 mg Miscellaneous (Lidoderm Patch Removal) 2 each MC DAILY@2200 [facility] Last Admin: 10/24/19 22:51 Dose: 2 each Pantoprazole Sodium (Protonix -) 40 mg PO BID [facility] Last Admin: 04/09/19 10:06 Dose: 40 mg Polyethylene Glycol (Miralax (For Daily Use) -) 17 gm PO BID [facility] Last Admin: 04/09/19 10:06 Dose: Not Given Sacubitril/Valsartan (Entresto 49 Mg-51 Mg Tablet) 1 tab PO BID [facility] Last Admin: 04/09/19 10:06 Dose: 1 tab Spironolactone (Aldactone -) 25 mg PO DAILY [facility] Last Admin: 04/09/19 10:05 Dose: 25 mg Tamsulosin HCl (Flomax -) 0.4 mg PO DAILY@0830 [facility] Last Admin: 04/09/19 10:05 Dose: 0.4 mg - Objective Vital Signs: Vital Signs Temperature 98.1 F 04/09/19 10:00 Pulse Rate 60 04/09/19 10:00 Respiratory Rate 18 04/09/19 10:00 Blood Pressure 140/62 04/09/19 10:00 O2 Sat by Pulse Oximetry (%) 100 04/09/19 10:00 Eyes: Yes: PERRL HENT: Yes: Atraumatic Neck: Yes: Supple Cardiovascular: Yes: Regular Rate and Rhythm, S1, S2 Respiratory: Yes: CTA Bilaterally Gastrointestinal: Yes: Normal Bowel Sounds, Soft. No: Tenderness Edema: No Additional Findings/Remarks: - Review of Systems Constitutional: denies: Chills, Fever Cardiovascular: denies: chest pain, shortness of breath, palpitations Respiratory: reports: Cough Gastrointestinal: denies: Abdominal Pain, Constipation, Diarrhea, Nausea or Vomiting Musculoskeletal: denies: Back Pain Neurological: denies: Dizziness, Headache Labs: CBC, BMP 04/09/19 05:30 04/09/19 05:30 Problem List - Problems (1) Acute on chronic diastolic (congestive) heart failure Code(s): I50.33 - ACUTE ON CHRONIC DIASTOLIC (CONGESTIVE) HEART FAILURE (2) [id number] kidney injury Code(s): N17.9 - ACUTE KIDNEY FAILURE, UNSPECIFIED; N18.9 - CHRONIC KIDNEY DISEASE, UNSPECIFIED Qualifiers: Acute renal failure type: unspecified (3) Hypothyroidism Code(s): E03.9 - HYPOTHYROIDISM, UNSPECIFIED Qualifiers: Hypothyroidism type: unspecified Qualified Code(s): E03.9 - Hypothyroidism , unspecified (4) Pacemaker Code(s): Z95.0 - PRESENCE OF CARDIAC PACEMAKER (5) Paroxysmal atrial fibrillation with rapid ventricular response Code(s): I48.0 - PAROXYSMAL ATRIAL FIBRILLATION (6) Severe anemia Code(s): D64.9 - ANEMIA, UNSPECIFIED (7) Subendocardial ischemia Code(s): I24.8 - OTHER FORMS OF ACUTE ISCHEMIC HEART DISEASE (8) Type 2 diabetes mellitus Code(s): E11.9 - TYPE 2 DIABETES MELLITUS WITHOUT COMPLICATIONS Qualifiers: Diabetes mellitus parts counterman insulin use: without custodial use Diabetes mellitus complication status: with circulatory complication (9) CAD (coronary artery disease) Code(s): I25.10 - ATHSCL HEART DISEASE OF [place] CORONARY ARTERY W/O ANG PCTRS (10) HTN (hypertension) Code(s): I10 - ESSENTIAL (PRIMARY) HYPERTENSION Qualifiers: Hypertension type: essential hypertension Qualified Code(s): I10 - Essential (primary) hypertension (11) Hypercholesterolemia Code(s): E78.00 - PURE HYPERCHOLESTEROLEMIA, UNSPECIFIED Assessment/Plan 1. Acute hypoxemic respiratory failure 2. Acute on chronic class II-III NYHA classification LV failure related to systolic/diastolic LV dysfunction 3. CAD with evidence of demand ischemic injury/subendocardial ischemia angina pectoris 4. AV block post PPM 5. Paroxysmal atrial fibrillation currently in sinus rhythm/atrial pacing ( [id number] score of 4 on DOAC's/Eliquis) 6. Hypertensive heart disease 7. DM 8. Hyperlipidemia 9. Acute on chronic CKD 10. Profound anemia post transfusion - rule out gastrointestinal source 11. Seizure disorder 12. Hypothyroidism 13. Ischemic hepatitis PLAN: 1. Continue Entresto 49/51 mg BID with close monitoring of renal function and electrolytes 2. Continue Coreg 6.25 mg BID 3. Continue Lasix 20 mg QD and Aldactone 25 mg QD with close monitoring of renal function and electrolytes 4. Eliquis held in preparation for GI evaluation. Proceed with GI work up. Eliquis is to be restarted after GI intervention today Further plans are to follow Eliceo Shoemaker MD
[2019-04-09] MEDS ORDERED: TETRACAINE/BENZOCAINE/BUTAMBEN 20 GM SPR TP ONE (12:30)
[2019-04-09] MEDS ORDERED: MIDAZOLAM HCL 2 MG/2 ML SINGLE DOSE VIAL ONE (12:31)
[2019-04-09] MEDS ORDERED: ETOMIDATE 20 MG/10 ML AMPUL IVPUSH ONE (12:31)
--- NOTE | 2019-04-09 13:40 | PN ---
Progress Note (short form) - Note Progress Note: GI Procedures Note: Please see EGD and colonoscopy reports. A pyloric channel ulcer with partial pyloric stricturing as well as severe reflux esophagitis above a hiatal hernia. These could account for the anemia and weight loss. The colonoscopy was unremarkable. The findings were discussed with Baby, Baby's and his son. I emphasized the need for a repeat EGD in 3 months to absolutely exclude a gastric cancer and to avoid NSAIDs while taking a PPI religiously until that time. I gave his son my business card. Given the ulcer Eliquis will be withheld a bit longer. Unless it is critically needed it may be best to avoid it until repeat EGD confirms a healed ulcer. Renal function is now adequate to allow a CT with contrast to exclude a gastric and other malignancies. Dr Saldivar will be covering this weekend. Please call him as needed. Problem List - Problems (1) Gastric ulcer with obstruction Code(s): K25.9 - GASTRIC ULCER, UNSP ACUTE OR CHRONIC, W/O HEMOR OR PERF (2) Hiatal hernia with GERD and esophagitis Code(s): K44.9 - DIAPHRAGMATIC HERNIA WITHOUT OBSTRUCTION OR GANGRENE; K21.0 - GASTRO-ESOPHAGEAL REFLUX DISEASE WITH ESOPHAGITIS (3) Anemia Code(s): D64.9 - ANEMIA, UNSPECIFIED (4) Occult blood in stools Code(s): R19.5 - OTHER FECAL ABNORMALITIES (5) Weight loss Code(s): R63.4 - ABNORMAL WEIGHT LOSS (6) Narcotic addiction Code(s): F11.20 - OPIOID DEPENDENCE, UNCOMPLICATED (7) Hyperplastic polyp of descending colon Code(s): K63.5 - POLYP OF COLON (8) Abnormal liver function tests Code(s): R94.5 - ABNORMAL RESULTS OF LIVER FUNCTION STUDIES (9) Hypothyroidism Code(s): E03.9 - HYPOTHYROIDISM, UNSPECIFIED Qualifiers: Hypothyroidism type: unspecified Qualified Code(s): E03.9 - Hypothyroidism , unspecified (10) Symptomatic anemia Code(s): D64.9 - ANEMIA, UNSPECIFIED (11) Type 2 diabetes mellitus Code(s): E11.9 - TYPE 2 DIABETES MELLITUS WITHOUT COMPLICATIONS Qualifiers: Diabetes mellitus predatory animal exterminator insulin use: without predatory animal exterminator use Diabetes mellitus complication status: with circulatory complication (12) Nausea & vomiting Code(s): R11.2 - NAUSEA WITH VOMITING, UNSPECIFIED Qualifiers: Vomiting type: unspecified Vomiting Intractability: unspecified Qualified Code(s): R11.2 - Nausea with vomiting, unspecified (14) Hyperkalemia Code(s): E87.5 - HYPERKALEMIA (15) Cor pulmonale Code(s): I27.81 - COR PULMONALE (CHRONIC) (16) Pneumonia Code(s): J18.9 - PNEUMONIA, UNSPECIFIED ORGANISM (17) Pacemaker Code(s): Z95.0 - PRESENCE OF CARDIAC PACEMAKER
--- NOTE | 2019-04-09 15:39 | PN ---
Progress Note, Physician History of Present Illness: Pt seen and examined at bedside. He is awake and appears comfortable. he feels that his breathing is improving. - Current Medication List Current Medications: Active Medications Acetaminophen (Tylenol -) 500 mg PO Q6H PRN PRN Reason: PAIN LEVEL 1-5 Last Admin: 04/08/19 23:30 Dose: 500 mg Al Hydroxide/Mg Hydroxide (Mylanta Oral Suspension -) 30 ml PO Q8H PRN PRN Reason: INDIGESTION Benzocaine/Menthol (Cepacol Lozenge -) 1 each MM PRN PRN PRN Reason: SORE THROAT Last Admin: 04/07/19 18:20 Dose: 1 each Carbamazepine (Tegretol -) 200 mg PO TIDCM [facility] Last Admin: 04/09/19 11:49 Dose: Not Given Carvedilol (Coreg -) 6.25 mg PO BID [facility] [place] Last Admin: 04/09/19 10:05 Dose: 6.25 mg Dextrose (D50w (Vial) -) 25 gm IVPUSH PRN PRN PRN Reason: HYPOGLYCEMIA Furosemide (Lasix -) 40 mg PO DAILY [facility] [place] Last Admin: 04/09/19 10:06 Dose: 40 mg Guaifenesin (Robitussin -) 10 ml PO Q6H PRN PRN Reason: COUGH Insulin Aspart (Novolog Vial Sliding Scale -) 1 vial SQ ACHS [facility] [place]; Protocol Last Admin: 04/09/19 11:50 Dose: Not Given Levetiracetam 500 mg/ (Levetiracetam 250 mg) 750 mg PO BID [facility] [place] Last Admin: 04/09/19 10:05 Dose: 750 mg Levothyroxine Sodium (Synthroid -) 125 mcg PO DAILY@0700 [facility] [place] Last Admin: 04/09/19 06:47 Dose: 125 mcg Lidocaine (Lidoderm Patch -) 2 patch TP DAILY [facility] [place] Last Admin: 04/09/19 10:07 Dose: 2 patch Mirtazapine (Remeron -) 15 mg PO HS [facility] [place] Last Admin: 04/08/19 22:50 Dose: 15 mg Miscellaneous (Lidoderm Patch Removal) 2 each MC DAILY@2200 [facility] [place] Last Admin: 04/08/19 22:51 Dose: 2 each Pantoprazole Sodium (Protonix -) 40 mg PO BID [facility] [place] Last Admin: 10/25/19 10:06 Dose: 40 mg Polyethylene Glycol (Miralax (For Daily Use) -) 17 gm PO BID [facility] [place] Last Admin: 04/09/19 10:06 Dose: Not Given Sacubitril/Valsartan (Entresto 49 Mg-51 Mg Tablet) 1 tab PO BID [facility] [place] Last Admin: 04/09/19 10:06 Dose: 1 tab Spironolactone (Aldactone -) 25 mg PO DAILY [facility] [place] Last Admin: 04/09/19 10:05 Dose: 25 mg Tamsulosin HCl (Flomax -) 0.4 mg PO DAILY@0830 [facility] [place] Last Admin: 04/09/19 10:05 Dose: 0.4 mg - Objective Vital Signs: Vital Signs Temperature 98.3 F 04/09/19 14:00 Pulse Rate 90 04/09/19 14:00 Respiratory Rate 20 04/09/19 14:00 Blood Pressure 144/68 04/09/19 14:00 O2 Sat by Pulse Oximetry (%) 97 04/09/19 13:38 Constitutional: Yes: Calm Eyes: Yes: Conjunctiva Clear HENT: Yes: Atraumatic Neck: Yes: Supple Cardiovascular: Yes: S1, S2 Respiratory: Yes: CTA Bilaterally, On Nasal O2 Gastrointestinal: Yes: Soft Genitourinary: Yes: WNL Musculoskeletal: Yes: WNL Edema: No Integumentary: Yes: WNL Neurological: Yes: Oriented Psychiatric: Yes: Oriented Labs: CBC, BMP 04/09/19 05:30 04/09/19 05:30 INR, PTT INR 1.32 (0.83-1.09) H 04/01/19 06:45 Problem List - Problems (1) Acute on chronic diastolic (congestive) heart failure Code(s): I50.33 - ACUTE ON CHRONIC DIASTOLIC (CONGESTIVE) HEART FAILURE (2) [id number] kidney injury Code(s): N17.9 - ACUTE KIDNEY FAILURE, UNSPECIFIED; N18.9 - CHRONIC KIDNEY DISEASE, UNSPECIFIED Qualifiers: Acute renal failure type: unspecified (3) Hyperkalemia Code(s): E87.5 - HYPERKALEMIA (4) Hypothyroidism Code(s): E03.9 - HYPOTHYROIDISM, UNSPECIFIED Qualifiers: Hypothyroidism type: unspecified Qualified Code(s): E03.9 - Hypothyroidism , unspecified Assessment/Plan Current Medications Generic Name Dose Route Start Last Admin Trade Name Freq PRN Reason Stop Dose Admin Acetaminophen 500 mg 04/08/19 23:16 04/08/19 23:30 Tylenol - PO 500 mg Q6H PRN Administration PAIN LEVEL 1-5 Al Hydroxide/Mg Hydroxide 30 ml 04/02/19 07:32 Mylanta Oral Suspension - PO Q8H PRN INDIGESTION Benzocaine/Menthol 1 each 04/05/19 14:43 04/07/19 18:20 Cepacol Lozenge - MM 1 each PRN PRN Administration SORE THROAT Carbamazepine 200 mg 04/02/19 08:00 04/09/19 11:49 Tegretol - PO Not Given TIDCM [facility] Carvedilol 6.25 mg 04/02/19 10:00 04/09/19 10:05 Coreg - PO 6.25 mg BID [facility] Administration Dextrose 25 gm 04/02/19 07:32 D50w (Vial) - IVPUSH PRN PRN HYPOGLYCEMIA Furosemide 40 mg 04/07/19 13:00 04/09/19 10:06 Lasix - PO 40 mg DAILY [facility] Administration Guaifenesin 10 ml 04/08/19 12:23 Robitussin - PO Q6H PRN COUGH Insulin Aspart 1 vial 04/02/19 11:00 04/09/19 11:50 Novolog Vial Sliding Scale - SQ Not Given ACHS [facility] [place] Protocol Levetiracetam 500 mg/ 750 mg 04/06/19 10:15 04/09/19 10:05 Levetiracetam 250 mg PO 750 mg BID [facility] Administration Levothyroxine Sodium 125 mcg 04/03/19 07:00 04/09/19 06:47 Synthroid - PO 125 mcg DAILY@0700 [facility] Administration Lidocaine 2 patch 04/03/19 14:30 04/09/19 10:07 Lidoderm Patch - TP 2 patch DAILY [facility] Administration Mirtazapine 15 mg 04/02/19 22:00 04/08/19 22:50 Remeron - PO 15 mg HS [facility] Administration Miscellaneous 2 each 04/03/19 22:00 04/08/19 22:51 Lidoderm Patch Removal MC 2 each DAILY@2200 [facility] Administration Pantoprazole Sodium 40 mg 04/06/19 22:00 04/09/19 10:06 Protonix - PO 40 mg BID [facility] Administration Polyethylene Glycol 17 gm 04/06/19 22:00 04/09/19 10:06 Miralax (For Daily Use) - PO Not Given BID [facility] [place] Sacubitril/Valsartan 1 tab 04/05/19 22:00 04/09/19 10:06 Entresto 49 Mg-51 Mg Tablet PO 1 tab BID [facility] Administration Spironolactone 25 mg 04/03/19 10:00 04/09/19 10:05 Aldactone - PO 25 mg DAILY [facility] Administration Tamsulosin HCl 0.4 mg 04/02/19 08:30 04/09/19 10:05 Flomax - PO 0.4 mg DAILY@0830 [facility] Administration Impression 1. DANYA 2. hyperkalemia 3. chf 4. weight loss 5. anemia 6. hypoxic resp failure 7. transaminitis 8. htn 9. a-fib Plan - repeat labs in am - cont lasix at 40 and aldactone - monitor lytes - GI workup in progress - has atrophic left kidney on ultrasound
[2019-04-09] MEDS ORDERED: PT OWN MED DRAWER 7, Y5N ONE ×3 (16:32→21:23)
[2019-04-09] MEDS: PANTOPRAZOLE SODIUM 80 MG in SODIUM CHLORIDE 100 ML IVPB SCH (17:44)
[2019-04-09] MEDS: ACETAMINOPHEN 500 MG TABLET (FP) PO PRN (17:46)
[2019-04-09] MEDS: MIRTAZAPINE 15 MG TABLET (FP) PO SCH (21:25)
[2019-04-09] MEDS: BENZOCAINE/MENTH/CETYLPYRD CL 1 EACH LOZENGE MM PRN (21:30)
[2019-04-09] MEDS: LIDOCAINE PATCH REMOVAL MC SCH (21:40)
[2019-04-10] MEDS: BENZOCAINE/MENTH/CETYLPYRD CL 1 EACH LOZENGE MM PRN (01:00)
[2019-04-10] MEDS: PANTOPRAZOLE SODIUM 80 MG in SODIUM CHLORIDE 100 ML IVPB SCH (03:15)
[2019-04-10] MEDS: INSULIN SLIDING SCALE (NOVOLOG) 1 VIAL SQ SCH ×2 (06:29→11:53)
[2019-04-10] MEDS: LEVOTHYROXINE NA 125 MCG TABLET (FP) PO SCH (06:29)
[2019-04-10 07:24] VITALS: TEMP 97.6
[2019-04-10] MEDS ORDERED: PT OWN MED DRAWER 7, Y5N ONE (07:48)
[2019-04-10 07:53] LABS: BLOOD UREA NITROGEN 10.8 mg/dL (7-18); CALCIUM 7.6 mg/dL (8.5-10.1); CREATININE 0.8 mg/dL (0.55-1.3); POTASSIUM 4.8 mmol/L (3.5-5.1)
[2019-04-10] MEDS: carBAMazepine 100 MG TAB.CHEW PO SCH ×2 (08:02→11:53)
[2019-04-10] MEDS: TAMSULOSIN HCL 0.4 MG CAP PO SCH (08:02)
[2019-04-10 08:13] LABS: EOS % 2.4 % (0-4.5); HEMATOCRIT 27.6 % (35.4-49); HEMOGLOBIN 9.1 GM/dL (11.7-16.9); LYMPH % 15.8 % (8-40); MCH 29.3 pg (25.7-33.7); MCHC 32.9 g/dl (32.0-35.9); MEAN CELL VOLUME 89.2 fl (80-96); MEAN PLT VOLUME 6.7 fl (7.5-11.1); MONO % 6.9 % (3.8-10.2); NEUT % 73.9 % (42.8-82.8); PLATELET COUNT 465 K/MM3 (134-434); RDW 15.8 % (11.9-15.9); WHITE BLOOD COUNT 5.7 K/mm3 (4.0-10.0)
[2019-04-10] MEDS ORDERED: PANTOPRAZOLE SODIUM 160 MG in SODIUM CHLORIDE 290 ML IVPB SCH (09:00)
--- NOTE | 2019-04-10 09:12 | PN ---
Progress Note, Physician - Current Medication List Current Medications: Active Medications Acetaminophen (Tylenol -) 500 mg PO Q6H PRN PRN Reason: PAIN LEVEL 1-5 Last Admin: 04/09/19 17:46 Dose: 500 mg Al Hydroxide/Mg Hydroxide (Mylanta Oral Suspension -) 30 ml PO Q8H PRN PRN Reason: INDIGESTION Benzocaine/Menthol (Cepacol Lozenge -) 1 each MM PRN PRN PRN Reason: SORE THROAT Last Admin: 04/10/19 01:00 Dose: 1 each Carbamazepine (Tegretol -) 200 mg PO TIDCM [facility] Last Admin: 04/10/19 08:02 Dose: 200 mg Carvedilol (Coreg -) 6.25 mg PO BID [facility] Last Admin: 04/09/19 21:24 Dose: 6.25 mg Dextrose (D50w (Vial) -) 25 gm IVPUSH PRN PRN PRN Reason: HYPOGLYCEMIA Furosemide (Lasix -) 40 mg PO DAILY [facility] Last Admin: 04/09/19 10:06 Dose: 40 mg Guaifenesin (Robitussin -) 10 ml PO Q6H PRN PRN Reason: COUGH Last Admin: 04/10/19 03:57 Dose: 10 ml Pantoprazole Sodium 160 mg/ (Sodium Chloride) 290 mls @ 14.5 mls/hr IVPB Q20H [facility] Insulin Aspart (Novolog Vial Sliding Scale -) 1 vial SQ ACHS [facility]; Protocol Last Admin: 04/10/19 06:29 Dose: Not Given Levetiracetam 500 mg/ (Levetiracetam 250 mg) 750 mg PO BID [facility] Last Admin: 04/09/19 21:25 Dose: 750 mg Levothyroxine Sodium (Synthroid -) 125 mcg PO DAILY@0700 [facility] Last Admin: 04/10/19 06:29 Dose: Not Given Lidocaine (Lidoderm Patch -) 2 patch TP DAILY [facility] Last Admin: 04/09/19 10:07 Dose: 2 patch Mirtazapine (Remeron -) 15 mg PO HS [facility] Last Admin: 04/09/19 21:25 Dose: 15 mg Miscellaneous (Lidoderm Patch Removal) 2 each MC DAILY@2200 [facility] Last Admin: 04/09/19 21:40 Dose: 2 each Polyethylene Glycol (Miralax (For Daily Use) -) 17 gm PO BID [facility] Last Admin: 04/09/19 21:21 Dose: Not Given Sacubitril/Valsartan (Entresto 49 Mg-51 Mg Tablet) 1 tab PO BID [facility] Last Admin: 04/09/19 21:26 Dose: 1 tab Spironolactone (Aldactone -) 25 mg PO DAILY [facility] Last Admin: 04/09/19 10:05 Dose: 25 mg Tamsulosin HCl (Flomax -) 0.4 mg PO DAILY@0830 [facility] Last Admin: 04/10/19 08:02 Dose: 0.4 mg - Objective Vital Signs: Vital Signs Temperature 97.6 F 04/10/19 06:00 Pulse Rate 60 04/10/19 06:00 Respiratory Rate 18 04/10/19 06:00 Blood Pressure 147/55 L 04/10/19 06:00 O2 Sat by Pulse Oximetry (%) 97 04/09/19 22:00 Eyes: Yes: WNL, Conjunctiva Clear, EOM Intact HENT: Yes: WNL, Atraumatic, Normocephalic Neck: Yes: WNL, Supple, Trachea Midline Cardiovascular: Yes: Pulse Irregular Respiratory: Yes: WNL, Regular, CTA Bilaterally Gastrointestinal: Yes: WNL, Normal Bowel Sounds Genitourinary: Yes: WNL Musculoskeletal: Yes: WNL Extremities: Yes: WNL Edema: No Integumentary: Yes: WNL Neurological: Yes: WNL, Alert, Oriented ...Motor Strength: WNL Psychiatric: Yes: WNL Labs: CBC, BMP 04/10/19 06:35 04/10/19 06:35 INR, PTT INR 1.32 (0.83-1.09) H 04/01/19 06:45 Assessment/Plan 1. Acute hypoxemic respiratory failure 2. Acute on chronic class II-III NYHA classification LV failure related to systolic/diastolic LV dysfunction 3. CAD with evidence of demand ischemic injury/subendocardial ischemia angina pectoris 4. AV block post PPM 5. Paroxysmal atrial fibrillation currently in sinus rhythm/atrial pacing ( [id number] score of 4 on DOAC's/Eliquis) 6. Hypertensive heart disease 7. DM 8. Hyperlipidemia 9. Acute on chronic CKD 10. Profound anemia post transfusion - rule out gastrointestinal source 11. Seizure disorder 12. Hypothyroidism 13. Ischemic hepatitis PLAN: 1. Continue Entresto 49/51 mg BID with close monitoring of renal function and electrolytes 2. Continue Coreg 6.25 mg BID 3. Continue Lasix 20 mg QD and Aldactone 25 mg QD with close monitoring of renal function and electrolytes 4. Eliquis held in preparation for GI evaluation. Proceed with GI work up. Eliquis is to be restarted after GI intervention. Further plans are to follow Coverage for dr. Shoemaker
--- NOTE | 2019-04-10 09:12 | PN ---
Progress Note, Physician Chief Complaint: Feels better History of Present Illness: EGD small pre pyloric ulcer non bleeding Colonoscopy normal ,has minimal internal hemorrhoids Advised protonix Can be discharged to [facility] - Current Medication List Current Medications: Active Medications Acetaminophen (Tylenol -) 500 mg PO Q6H PRN PRN Reason: PAIN LEVEL 1-5 Last Admin: 04/09/19 17:46 Dose: 500 mg Al Hydroxide/Mg Hydroxide (Mylanta Oral Suspension -) 30 ml PO Q8H PRN PRN Reason: INDIGESTION Benzocaine/Menthol (Cepacol Lozenge -) 1 each MM PRN PRN PRN Reason: SORE THROAT Last Admin: 04/10/19 01:00 Dose: 1 each Carbamazepine (Tegretol -) 200 mg PO TIDCM [facility] Last Admin: 04/10/19 08:02 Dose: 200 mg Carvedilol (Coreg -) 6.25 mg PO BID [facility] Last Admin: 04/09/19 21:24 Dose: 6.25 mg Dextrose (D50w (Vial) -) 25 gm IVPUSH PRN PRN PRN Reason: HYPOGLYCEMIA Furosemide (Lasix -) 40 mg PO DAILY [facility] Last Admin: 04/09/19 10:06 Dose: 40 mg Guaifenesin (Robitussin -) 10 ml PO Q6H PRN PRN Reason: COUGH Last Admin: 04/10/19 03:57 Dose: 10 ml Pantoprazole Sodium 160 mg/ (Sodium Chloride) 290 mls @ 14.5 mls/hr IVPB Q20H [facility] Insulin Aspart (Novolog Vial Sliding Scale -) 1 vial SQ ACHS [facility]; Protocol Last Admin: 04/10/19 06:29 Dose: Not Given Levetiracetam 500 mg/ (Levetiracetam 250 mg) 750 mg PO BID [facility] Last Admin: 04/09/19 21:25 Dose: 750 mg Levothyroxine Sodium (Synthroid -) 125 mcg PO DAILY@0700 [facility] Last Admin: 04/10/19 06:29 Dose: Not Given Lidocaine (Lidoderm Patch -) 2 patch TP DAILY [facility] Last Admin: 04/09/19 10:07 Dose: 2 patch Mirtazapine (Remeron -) 15 mg PO HS [facility] Last Admin: 04/09/19 21:25 Dose: 15 mg Miscellaneous (Lidoderm Patch Removal) 2 each MC DAILY@2200 [facility] Last Admin: 04/09/19 21:40 Dose: 2 each Polyethylene Glycol (Miralax (For Daily Use) -) 17 gm PO BID [facility] Last Admin: 04/09/19 21:21 Dose: Not Given Sacubitril/Valsartan (Entresto 49 Mg-51 Mg Tablet) 1 tab PO BID [facility] Last Admin: 04/09/19 21:26 Dose: 1 tab Spironolactone (Aldactone -) 25 mg PO DAILY [facility] Last Admin: 04/09/19 10:05 Dose: 25 mg Tamsulosin HCl (Flomax -) 0.4 mg PO DAILY@0830 [facility] Last Admin: 04/10/19 08:02 Dose: 0.4 mg - Objective Vital Signs: Vital Signs Temperature 97.6 F 04/10/19 06:00 Pulse Rate 60 04/10/19 06:00 Respiratory Rate 18 04/10/19 06:00 Blood Pressure 147/55 L 04/10/19 06:00 O2 Sat by Pulse Oximetry (%) 97 04/09/19 22:00 Constitutional: Yes: No Distress Eyes: Yes: WNL HENT: Yes: WNL Neck: Yes: WNL Cardiovascular: Yes: Pulse Irregular Respiratory: Yes: WNL ...Rectal Exam: Yes: Deferred Genitourinary: Yes: WNL Musculoskeletal: Yes: Muscle Weakness Neurological: Yes: Alert Labs: CBC, BMP 04/10/19 06:35 04/10/19 06:35 INR, PTT INR 1.32 (0.83-1.09) H 04/01/19 06:45 Assessment/Plan Discharge to [facility]
[2019-04-10] MEDS: CARVEDILOL 6.25 MG TABLET (FP) PO SCH (10:14)
[2019-04-10] MEDS: SPIRONOLACTONE 25 MG TABLET (FP) PO SCH (10:14)
[2019-04-10] MEDS: FUROSEMIDE 40 MG TABLET (FP) PO SCH (10:14)
[2019-04-10] MEDS: SACUBITRIL/VALSARTAN 49 MG-51 MG TABLET PO SCH (10:15)
[2019-04-10] MEDS: POLYETHYLENE GLYCOL 3350 119 GM BTL PO SCH (10:15)
[2019-04-10] MEDS: LIDOCAINE 5% TOPICAL PATCH TP SCH (10:21)
[2019-04-10 11:05] VITALS: BP 127/61; PULSE 61
--- NOTE | 2019-04-10 11:17 | PN ---
Progress Note (short form) - Note Progress Note: Neurology History of Present Illness - History of Present Illness 68M w/ a history of DM, hypothyroidism, seizure d/o, s/p pacemaker who presents for evaluation of 1 month of cough with increased sputum production. He also notes 1 week of BLE swelling to mid-reyes. He reports some symptomatic relief from coughing with robitussin. He also notes post-tussive emesis. He denies fevers/chills, trouble breathing, abdominal pain, diarrhea, dysuria/hematuria, or changes in sensation. He denied lower extremity swelling before. Patient currently in ICU under critical care monitoring. contacted by ICU resident on regarding patient's mental status which she reported was somnolent and lethargic. He discussed the case with me including multiple medical comorbidities including respiratory compromise requiring positive pressure ventilation, CHF exacerbation along with coffee-ground emesis and concern for upper GI bleed with reduction in hemoglobin and hematocrit. The patient also found to have atrial fibrillation and receiving medical optimization. I advised having non-contrast head CT which was completed and showed moderate atrophy but no significant infarcts or focal abnormalities. Likely toxic metabolic encephalopathy secondary to multiple medical comorbidities as described above. reviewed notes from weekend and patient is awake, alert, interactive this morning. Seems to have more energy and less fatigue/ lethargic. His communicative and appears to be near baseline at this point. GI note reviewed. CT abd/pelvis reviewed, showed b/l pleural effusion, no occult malignancy. Allergies/Adverse Reactions: Allergies Allergy/AdvReac Type Severity Reaction Status Date / Time lacosamide [From Vimpat] Allergy Rash Verified 03/29/19 09:32 Active Medications Acetaminophen (Tylenol -) 500 mg PO Q6H PRN PRN Reason: PAIN LEVEL 1-5 Last Admin: 04/09/19 17:46 Dose: 500 mg Al Hydroxide/Mg Hydroxide (Mylanta Oral Suspension -) 30 ml PO Q8H PRN PRN Reason: INDIGESTION Benzocaine/Menthol (Cepacol Lozenge -) 1 each MM PRN PRN PRN Reason: SORE THROAT Last Admin: 04/10/19 01:00 Dose: 1 each Carbamazepine (Tegretol -) 200 mg PO TIDCM [facility] Last Admin: 04/10/19 08:02 Dose: 200 mg Carvedilol (Coreg -) 6.25 mg PO BID [facility] Last Admin: 04/10/19 10:14 Dose: 6.25 mg Dextrose (D50w (Vial) -) 25 gm IVPUSH PRN PRN PRN Reason: HYPOGLYCEMIA Furosemide (Lasix -) 40 mg PO DAILY [facility] Last Admin: 04/10/19 10:14 Dose: 40 mg Guaifenesin (Robitussin -) 10 ml PO Q6H PRN PRN Reason: COUGH Last Admin: 04/10/19 03:57 Dose: 10 ml Pantoprazole Sodium 160 mg/ (Sodium Chloride) 290 mls @ 14.5 mls/hr IVPB Q20H [facility] Last Admin: 04/10/19 10:15 Dose: 14.5 mls/hr Insulin Aspart (Novolog Vial Sliding Scale -) 1 vial SQ [facility]; Protocol Last Admin: 04/10/19 06:29 Dose: Not Given Levetiracetam 500 mg/ (Levetiracetam 250 mg) 750 mg PO BID [facility] Last Admin: 04/10/19 10:14 Dose: 750 mg Levothyroxine Sodium (Synthroid -) 125 mcg PO DAILY@0700 [facility] Last Admin: 04/10/19 06:29 Dose: Not Given Lidocaine (Lidoderm Patch -) 2 patch TP DAILY [facility] Last Admin: 04/10/19 10:21 Dose: 2 patch Mirtazapine (Remeron -) 15 mg PO HS [facility] Last Admin: 04/09/19 21:25 Dose: 15 mg Miscellaneous (Lidoderm Patch Removal) 2 each MC DAILY@2200 [facility] Last Admin: 04/09/19 21:40 Dose: 2 each Polyethylene Glycol (Miralax (For Daily Use) -) 17 gm PO BID [facility] Last Admin: 04/10/19 10:15 Dose: Not Given Sacubitril/Valsartan (Entresto 49 Mg-51 Mg Tablet) 1 tab PO BID [facility] Last Admin: 04/10/19 10:15 Dose: 1 tab Spironolactone (Aldactone -) 25 mg PO DAILY [facility] Last Admin: 04/10/19 10:14 Dose: 25 mg Tamsulosin HCl (Flomax -) 0.4 mg PO DAILY@0830 [facility] Last Admin: 04/10/19 08:02 Dose: 0.4 mg *Physical Exam Vital Signs Period Temp Pulse Resp BP Sys/Cabral Pulse Ox Last 24 Hr 97.2 F-98.3 F 60-90 16-20 118-149/55-70 96-97 GENERAL: Awake, alert, and oriented to person/place/time, in no acute distress, thin HEAD: No signs of trauma, normocephalic, atraumatic EYES: PERRLA, EOMI, sclera anicteric, conjunctiva clear ENT: Hearing grossly normal, nares patent, oropharynx clear without exudates. Moist mucosa LUNGS: No distress, speaks in full sentences, clear to auscultation bilaterally HEART: Regular rate and rhythm, normal S1 and S2, no murmurs appreciated, peripheral pulses normal and equal bilaterally ABDOMEN: Soft, nontender, normoactive bowel sounds. No guarding, no rebound EXTREMITIES: Normal inspection, Normal range of motion, no edema. No clubbing or cyanosis NEUROLOGICAL: Cranial nerves II through XII grossly intact. Tangential speech, knows location, knows month, moves all extemities grossly, sensory intact SKIN: Warm, Dry CBCD WBC 5.7 K/mm3 (4.0-10.0) 04/10/19 06:35 RBC 3.10 M/mm3 (4.00-5.60) L 04/10/19 06:35 Hgb 9.1 GM/dL (11.7-16.9) L 04/10/19 06:35 Hct 27.6 % (35.4-49) L 04/10/19 06:35 MCV 89.2 fl (80-96) 04/10/19 06:35 MCHC 32.9 g/dl (32.0-35.9) 04/10/19 06:35 RDW 15.8 % (11.9-15.9) 04/10/19 06:35 Plt Count 465 K/MM3 (134-434) H 04/10/19 06:35 MPV 6.7 fl (7.5-11.1) L 04/10/19 06:35 CMP Sodium 134 mmol/L (136-145) L 04/10/19 06:35 Potassium 4.8 mmol/L (3.5-5.1) 04/10/19 06:35 Chloride 99 mmol/L (98-107) 04/10/19 06:35 Carbon Dioxide 27 mmol/L (21-32) 04/10/19 06:35 Anion Gap 8 MMOL/L (8-16) 04/10/19 06:35 BUN 10.8 mg/dL (7-18) 04/10/19 06:35 Creatinine 0.8 mg/dL (0.55-1.3) 04/10/19 06:35 Random Glucose 168 mg/dL (74-106) H 04/10/19 06:35 Calcium 7.6 mg/dL (8.5-10.1) L 04/10/19 06:35 Total Bilirubin 0.3 mg/dL (0.2-1) 04/08/19 06:10 AST 16 U/L (15-37) 04/08/19 06:10 ALT 57 U/L (13-61) 04/08/19 06:10 Alkaline Phosphatase 232 U/L (45-117) H 04/08/19 06:10 Total Protein 4.5 g/dl (6.4-8.2) L 04/08/19 06:10 Albumin 1.6 g/dl (3.4-5.0) L 04/08/19 06:10 CARDIAC ENZYMES Creatine Kinase 254 U/L (26-308) 03/31/19 06:10 Troponin I 0.84 ng/ml (0.00-0.05) H* 03/31/19 23:25 Medical Decision Making 68M w/ a history of DM, hypothyroidism, seizure d/o, s/p pacemaker who presents for evaluation of 1 month of cough with increased sputum production. He also notes 1 week of BLE swelling to mid-reyes. He reports some symptomatic relief from coughing with robitussin. He also notes post-tussive emesis. He denies fevers/chills, trouble breathing, abdominal pain, diarrhea, dysuria/hematuria, or changes in sensation. He denied lower extremity swelling before. Patient currently in ICU under critical care monitoring. contacted by ICU resident on rregarding patient's mental status which she reported was somnolent and lethargic. He discussed the case with me including multiple medical comorbidities including respiratory compromise requiring positive pressure ventilation, CHF exacerbation along with coffee-ground emesis and concern for upper GI bleed with reduction in hemoglobin and hematocrit. The patient also found to have atrial fibrillation and receiving medical optimization. I advised having noncontrast head CT which was completed and showed moderate atrophy but no significant infarcts or focal abnormalities. Likely toxic metabolic encephalopathy secondary to multiple medical comorbidities as described above. Likely toxic metabolic encephalopathy secondary to multiple medical comorbidities as described above. rreviewed notes from weekend and patient is awake, alert, interactive this morning. Seems to have more energy and less fatigue/lethargic. His communicative and appears to be near baseline at this point. Continue treatment for respiratory compromise, IV abx per primary. GI bleed, patient recently started on heparin for Afib, closely monitor for bleed in presence of AC, GI follow up. CT abd/pelvis reviewed, showed b/l pleural effusion, no occult malignancy. EGD,colonoscopy completed. Being planned for possible SNF placement for notes. GI note reviewed, PCP note reviewed. Patient neurologically stable
--- NOTE | 2019-04-10 12:16 | PN ---
Progress Note (short form) - Note Progress Note: PULMONARY Denies shortness of breath or chest pain. Reports nonproductive cough. Vital Signs Period Temp Pulse Resp BP Sys/Cabral Pulse Ox Last 24 Hr 97.2 F-98.3 F 60-90 16-20 118-149/55-70 96-97 Gen: NAD at rest Heart: RRR Lung: decreased breath sounds at the bases Abd: soft, nontender Ext: no edema CBC, BMP 04/10/19 06:35 04/10/19 06:35 Active Medications Acetaminophen (Tylenol -) 500 mg PO Q6H PRN PRN Reason: PAIN LEVEL 1-5 Last Admin: 04/09/19 17:46 Dose: 500 mg Al Hydroxide/Mg Hydroxide (Mylanta Oral Suspension -) 30 ml PO Q8H PRN PRN Reason: INDIGESTION Benzocaine/Menthol (Cepacol Lozenge -) 1 each MM PRN PRN PRN Reason: SORE THROAT Last Admin: 04/10/19 01:00 Dose: 1 each Carbamazepine (Tegretol -) 200 mg PO TIDCM [facility] Last Admin: 04/10/19 11:53 Dose: 200 mg Carvedilol (Coreg -) 6.25 mg PO BID [facility] Last Admin: 04/10/19 10:14 Dose: 6.25 mg Dextrose (D50w (Vial) -) 25 gm IVPUSH PRN PRN PRN Reason: HYPOGLYCEMIA Furosemide (Lasix -) 40 mg PO DAILY [facility] Last Admin: 04/10/19 10:14 Dose: 40 mg Guaifenesin (Robitussin -) 10 ml PO Q6H PRN PRN Reason: COUGH Last Admin: 04/10/19 03:57 Dose: 10 ml Pantoprazole Sodium 160 mg/ (Sodium Chloride) 290 mls @ 14.5 mls/hr IVPB Q20H [facility] Last Admin: 04/10/19 10:15 Dose: 14.5 mls/hr Insulin Aspart (Novolog Vial Sliding Scale -) 1 vial SQ [facility]; Protocol Last Admin: 04/10/19 11:53 Dose: 8 units Levetiracetam 500 mg/ (Levetiracetam 250 mg) 750 mg PO BID [facility] Last Admin: 04/10/19 10:14 Dose: 750 mg Levothyroxine Sodium (Synthroid -) 125 mcg PO DAILY@0700 [facility] Last Admin: 04/10/19 06:29 Dose: Not Given Lidocaine (Lidoderm Patch -) 2 patch TP DAILY [facility] Last Admin: 04/10/19 10:21 Dose: 2 patch Mirtazapine (Remeron -) 15 mg PO HS [facility] Last Admin: 04/09/19 21:25 Dose: 15 mg Miscellaneous (Lidoderm Patch Removal) 2 each MC DAILY@2200 [facility] Last Admin: 04/09/19 21:40 Dose: 2 each Polyethylene Glycol (Miralax (For Daily Use) -) 17 gm PO BID [facility] Last Admin: 04/10/19 10:15 Dose: Not Given Sacubitril/Valsartan (Entresto 49 Mg-51 Mg Tablet) 1 tab PO BID [facility] Last Admin: 04/10/19 10:15 Dose: 1 tab Spironolactone (Aldactone -) 25 mg PO DAILY [facility] Last Admin: 04/10/19 10:14 Dose: 25 mg Tamsulosin HCl (Flomax -) 0.4 mg PO DAILY@0830 [facility] Last Admin: 04/10/19 08:02 Dose: 0.4 mg A/P Acute Hypoxic Respiratory Failure improving Severe Anemia s/p PRBC transfusions Acute on Chronic Diastolic Heart Failure +Troponins likely Demand Ischemia Lactic Acidosis resolved Acute on Chronic Renal Failure Elevated LFTs likely Congestive Hepatopathy Atrial Fibrillation s/p PPM HTN Hyperlipidemia Hypothyroidism Seizure Disorder - monitor H/H - continue lasix - monitor urine output, creatinine - trend LFTs - O2 to keep SpO2 >90% - rate control - continue anticoagulation - entresto
--- NOTE | 2019-04-12 13:34 | PATH ---
Surgical Pathology Report Patient Name: SUSAN LEONG Med. Rec. #: [id number] /Age/Gender: 1950 (Age: 68) / M Account: [id number] Location: 4 W TELEMETRY U Taken: 04/09/2019 Received: 04/09/2019 Reported: 04/12/2019 Physicians: Khadijah Simpson M.D. Specimen(s) Received A: DUODENUM, SECOND PORTION B: ANTRUM C: DISTAL ESOPHAGUS Clinical History Anemia Postoperative diagnosis: Hiatal hernia, GERD, gastric ulcer, pyloric stenosis, hemorrhoid Final Diagnosis A. DUODENUM, SECOND PORTION, BIOPSY: DUODENAL MUCOSA WITHOUT SIGNIFICANT PATHOLOGIC FINDINGS. B. STOMACH, ANTRUM, BIOPSY: GASTRIC ANTRAL MUCOSA WITH MILD CHRONIC GASTRITIS. IMMUNOHISTOCHEMICAL STAIN FOR H. PYLORI IS NEGATIVE. C. DISTAL ESOPHAGUS, BIOPSY: SQUAMOUS MUCOSA WITH MARKED ACUTE ESOPHAGITIS AND ASSOCIATED ULCERATION. PAS FUNGAL STAIN IS NEGATIVE. Electronically Signed Susie Kennedy M.D. Gross Description A. Received in formalin, labeled "biopsy second portion of duodenum" is a hill, irregular portion of soft tissue measuring 0.5 cm. in greatest dimension. The specimen is submitted in toto in one cassette. B. Received in formalin, labeled "biopsy antrum" is a hill, irregular portion of soft tissue measuring 0.6 cm. in greatest dimension. The specimen is submitted in toto in one cassette. C. Received in formalin, labeled "biopsy distal esophagus" is a hill, irregular portion of soft tissue measuring 0.2 cm. in greatest dimension. The specimen is submitted in toto in one cassette. DL/04/09/2019 saudi/04/09/2019
== END 2019-04-10 12:51 | DRG 291 ==
LOC: JER 09:28 → JERBED 12:15 → J7W 16:42 → JICU 03-30 15:47 → J4W 04-01 20:05 → JERBED 04-04 20:47 → J4W 04-04 20:48
PROVIDERS: ADMIT Internal Medicine; ATTEND Internal Medicine
PROC: 30233N1 Transfusion of Nonautologous Red Blood Cells into Peripheral Vein, Percutaneous Approach (ICD-10-PCS; 2019-03-29)
PROC: 0DD68ZX Extraction of Stomach, Via Natural or Artificial Opening Endoscopic, Diagnostic (ICD-10-PCS; 2019-04-09)
PROC: 0DJD8ZZ Inspection of Lower Intestinal Tract, Via Natural or Artificial Opening Endoscopic (ICD-10-PCS; 2019-04-09)
PROC: 0DD58ZX Extraction of Esophagus, Via Natural or Artificial Opening Endoscopic, Diagnostic (ICD-10-PCS; principal; 2019-04-09 12:00)
DX: I13.0 Hypertensive heart and chronic kidney disease with heart failure and stage 1 through stage 4 chronic kidney disease, or unspecified chronic kidney disease (principal); J96.01 Acute respiratory failure with hypoxia; G93.41 Metabolic encephalopathy; I50.33 Acute on chronic diastolic (congestive) heart failure; Z68.1 Body mass index [BMI] 19.9 or less, adult; F11.20 Opioid dependence, uncomplicated; E87.2 Acidosis; E87.1 Hypo-osmolality and hyponatremia; I24.8 Other forms of acute ischemic heart disease; N17.9 Acute kidney failure, unspecified; D64.9 Anemia, unspecified; E03.9 Hypothyroidism, unspecified; E11.9 Type 2 diabetes mellitus without complications; G40.909 Epilepsy, unspecified, not intractable, without status epilepticus; E78.00 Pure hypercholesterolemia, unspecified; I27.20 Pulmonary hypertension, unspecified; I34.0 Nonrheumatic mitral (valve) insufficiency; K57.90 Diverticulosis of intestine, part unspecified, without perforation or abscess without bleeding; M48.061 Spinal stenosis, lumbar region without neurogenic claudication; R63.4 Abnormal weight loss; R94.5 Abnormal results of liver function studies; K63.5 Polyp of colon; E87.5 Hyperkalemia; R94.31 Abnormal electrocardiogram [ECG] [EKG]; E11.22 Type 2 diabetes mellitus with diabetic chronic kidney disease; N18.9 Chronic kidney disease, unspecified; D47.3 Essential (hemorrhagic) thrombocythemia; I27.81 Cor pulmonale (chronic); I48.0 Paroxysmal atrial fibrillation; K44.9 Diaphragmatic hernia without obstruction or gangrene; K21.0 Gastro-esophageal reflux disease with esophagitis; K25.9 Gastric ulcer, unspecified as acute or chronic, without hemorrhage or perforation; Z95.0 Presence of cardiac pacemaker; R19.5 Other fecal abnormalities
CPT/HCPCS: 36415; 36430; 36511; 36600; 70450-TC; 71045-TC-FY; 71046-TC-FY; 74177-TC; 76700-TC; 80048; 80053; 80076; 80307; 81003; 82105; 82140; 82272; 82378; 82550; 82553; 82607; 82728; 82746; 82803; 82962; 82977; 83010; 83540; 83550; 83605; 83615; 83735; 83880; 84100; 84155; 84165; 84443; 84484; 85025; 85027; 85044; 85610; 85730; 86038; 86140; 86593; 86704; 86706; 86707; 86708; 86709; 86803; 86850; 86900; 86901; 86922; 87086; 87340; 87899; 88305-TC; 93005; 93010; 93306-TC; 94640; 94660; 97116-GP; 97162-GP; 99281-25; J0131; J1644; P9038; P9058

== ENCOUNTER 2023-01-04 13:47 | Inpatient (IN) | payer OTHER ==
[2023-01-04] MEDS ORDERED: CALCIUM GLUCONATE 10% - 1,000 MG/10 ML VIAL IVPUSH ONE (14:19)
[2023-01-04 14:25] VITALS: BMI 17.6
[2023-01-04] MEDS ORDERED: SODIUM CHLORIDE 0.9% 500 ML INFUS.BAG IV ONE (14:46)
[2023-01-04] MEDS ORDERED: ACETAMINOPHEN 1000 MG/100 ML BAG IVPB ONE (14:48)
[2023-01-04 15:00] LABS: BASO % 0.7 % (0-2.0); EOS % 2.1 % (0-4.5); HEMATOCRIT 27.7 % (35.4-49); HEMOGLOBIN 9.4 GM/dL (11.7-16.9); LYMPH % 19.9 % (8-40); MCH 30.6 pg (25.7-33.7); MCHC 33.9 g/dl (32.0-35.9); MEAN CELL VOLUME 90.5 fl (80-96); MEAN PLT VOLUME 7.4 fl (7.5-11.1); MONO % 6.7 % (3.8-10.2); NEUT % 70.6 % (42.8-82.8); PLATELET COUNT 323 10^3/uL (134-434); RBC 3.06 M/mm3 (4.00-5.60); RDW 12.9 % (11.9-15.9); WHITE BLOOD COUNT 4.8 K/mm3 (4.0-10.0)
[2023-01-04 15:03] LABS: VENOUS BASE EXCESS -8.3 mmol/L (-2-2); VENOUS O2 SATURATION 81.8 % (70-80); VENOUS PCO2 40.1 mmHg (38-52); VENOUS PH 7.271 (7.310-7.410)
[2023-01-04] MEDS ORDERED: ACETAMINOPHEN INJECTION 100 ML IVPB ONE (15:08)
[2023-01-04 15:24] LABS: CHLORIDE 101 mmol/L (98-107); POTASSIUM 5.4 mmol/L (3.5-5.1); SODIUM 131 mmol/L (136-145)
[2023-01-04 15:27] LABS: CALCIUM 7.7 mg/dL (8.5-10.1)
[2023-01-04 15:28] LABS: ALBUMIN 3.1 g/dl (3.4-5.0); ANION GAP 10 MMOL/L (8-16); CO2 20 mmol/L (21-32); MAGNESIUM 2.2 mg/dL (1.8-2.4)
[2023-01-04 15:30] LABS: SGOT/AST 17 U/L (15-37); SGPT/ALT 35 U/L (13-61)
[2023-01-04 15:31] LABS: CREATININE 3.4 mg/dL (0.55-1.3); PHOSPHOROUS 4.2 mg/dL (2.5-4.9)
[2023-01-04 15:32] LABS: BILIRUBIN,TOTAL < 0.1 mg/dL (0.2-1)
[2023-01-04 15:33] LABS: ALK PHOS 207 U/L (45-117)
[2023-01-04] MEDS ORDERED: CALCIUM CHLORIDE 10% 1 GM/10 ML *VIAL IVPB ONE (15:39)
[2023-01-04] MEDS ORDERED: INSULIN REGULAR HUMAN 100 UNITS/ML *VIAL IVPUSH ONE (15:39)
[2023-01-04] MEDS ORDERED: CALCIUM CHLORIDE 1 GM/10 ML *DISP.SYRIN ONE (15:43)
[2023-01-04 15:46] LABS: GLUCOSE,RANDOM 678 mg/dL (74-106)
[2023-01-04] MEDS ORDERED: SODIUM CHLORIDE 1,000 ML IV STA (16:19)
[2023-01-04 16:22] LABS: EPI CELLS 23 /uL (0-25.1); HYALINE CASTS 0 /uL (0-3.1); PH,URINE 5.5 (5.0-8.0); URINE APPEARANCE CLEAR; URINE BACTERIA 1 /uL (0-1359); URINE BILIRUBIN NEGATIVE (NEGATIVE); URINE COLOR YELLOW; URINE GLUCOSE (UA) 3+ (NEGATIVE); URINE KETONE NEGATIVE (NEGATIVE); URINE LEUK ESTERASE NEGATIVE (NEGATIVE); URINE NITRITE NEGATIVE (NEGATIVE); URINE PROTEIN 3+ (NEGATIVE); URINE RBC 19 /uL (0-23.9); URINE UROBILINOGEN 0.2 mg/dL (0.2-1.0); URINE WBC 3 /uL (0-25.8)
[2023-01-04] MEDS ORDERED: SODIUM CHLORIDE 1,000 ML IV SCH ×2 (16:45)
[2023-01-04] MEDS ORDERED: INSULIN SLIDING SCALE (NOVOLOG) 1 VIAL SQ SCH (16:45)
[2023-01-04] MEDS ORDERED: amLODIPine BESYLATE 10 MG TABLET (FP) ONE (16:50)
[2023-01-04] MEDS ORDERED: INSULIN (NOVOLOG) ASPART 100 UNITS/ML 10ML VIAL ONE ×2 (16:55→18:34)
[2023-01-04] MEDS: amLODIPine BESYLATE 5 MG TABLET (FP) PO SCH (16:58)
[2023-01-04] MEDS: INSULIN (NOVOLOG) ASPART 100 UNITS/ML 10ML VIAL SQ SCH (16:58)
[2023-01-04] MEDS: INSULIN SLIDING SCALE (NOVOLOG) 1 VIAL SQ SCH (18:34)
[2023-01-04] MEDS: levETIRAcetam 500 MG/5 ML ORAL SOLUTION (UNIT-DOSE CUPS) PO SCH (22:38)
[2023-01-04] MEDS: HEPARIN NA (PORCINE) 5,000 UNITS/ML 1ML VIAL SQ SCH (22:38)
[2023-01-04] MEDS: INSULIN (LEVEMIR) 100 UNITS/ML UNITS SQ SCH (22:39)
[2023-01-04] MEDS: ATORVASTATIN CA 80 MG TABLET (FP) PO SCH (22:39)
[2023-01-04] MEDS: cloNIDine HCL 0.1 MG TABLET PO SCH (22:39)
[2023-01-04] MEDS: hydrALAZINE HCL 25 MG TABLET (FP) PO SCH (22:39)
[2023-01-04] MEDS: carBAMazepine 200 MG TABLET PO SCH (22:58)
[2023-01-05] MEDS: hydrALAZINE HCL 25 MG TABLET (FP) PO SCH ×3 (06:18→21:59)
[2023-01-05] MEDS: LEVOTHYROXINE NA 125 MCG TABLET (FP) PO SCH (06:22)
[2023-01-05] MEDS: INSULIN (NOVOLOG) ASPART 100 UNITS/ML 10ML VIAL SQ SCH ×3 (06:22→17:23)
[2023-01-05] MEDS: INSULIN SLIDING SCALE (NOVOLOG) 1 VIAL SQ SCH ×3 (06:27→17:23)
[2023-01-05] MEDS: carBAMazepine 100 MG TAB.CHEW PO SCH ×3 (08:00→21:58)
[2023-01-05] MEDS: carBAMazepine 200 MG TABLET PO SCH (08:30)
[2023-01-05] MEDS: ASPIRIN COATED 81 MG TABLET.EC PO SCH (09:43)
[2023-01-05] MEDS: amLODIPine BESYLATE 5 MG TABLET (FP) PO SCH (09:43)
[2023-01-05] MEDS: TAMSULOSIN HCL 0.4 MG CAP PO SCH (09:43)
[2023-01-05] MEDS: levETIRAcetam 500 MG/5 ML ORAL SOLUTION (UNIT-DOSE CUPS) PO SCH ×2 (09:44→21:57)
[2023-01-05] MEDS: cloNIDine HCL 0.1 MG TABLET PO SCH ×2 (09:44→21:59)
[2023-01-05] MEDS: HEPARIN NA (PORCINE) 5,000 UNITS/ML 1ML VIAL SQ SCH ×2 (09:44→22:00)
[2023-01-05 09:56] LABS: BASO % 0.6 % (0-2.0); EOS % 3.8 % (0-4.5); HEMATOCRIT 31.7 % (35.4-49); HEMOGLOBIN 10.8 GM/dL (11.7-16.9); MCH 30.4 pg (25.7-33.7); MCHC 34.2 g/dl (32.0-35.9); MEAN CELL VOLUME 88.9 fl (80-96); MONO % 6.4 % (3.8-10.2); NEUT % 50.2 % (42.8-82.8); PLATELET COUNT 380 10^3/uL (134-434); RBC 3.57 M/mm3 (4.00-5.60); WHITE BLOOD COUNT 7.5 K/mm3 (4.0-10.0)
[2023-01-05 10:15] LABS: POTASSIUM 4.1 mmol/L (3.5-5.1)
[2023-01-05 10:16] LABS: CALCIUM 8.7 mg/dL (8.5-10.1)
[2023-01-05 10:17] LABS: BLOOD UREA NITROGEN 46.6 mg/dL (7-18)
[2023-01-05 10:20] LABS: CREATININE 2.8 mg/dL (0.55-1.3)
[2023-01-05] MEDS ORDERED: DOCUSATE SODIUM 100 MG CAPSULE (FP) PO PRN (16:51)
[2023-01-05 19:11] LABS: EPI CELLS 3 /uL (0-25.1); HYALINE CASTS 1 /uL (0-3.1); PH,URINE 5.5 (5.0-8.0); URINE APPEARANCE CLEAR; URINE BACTERIA 55 /uL (0-1359); URINE BILIRUBIN NEGATIVE (NEGATIVE); URINE COLOR YELLOW; URINE GLUCOSE (UA) 3+ (NEGATIVE); URINE KETONE NEGATIVE (NEGATIVE); URINE LEUK ESTERASE NEGATIVE (NEGATIVE); URINE NITRITE NEGATIVE (NEGATIVE); URINE PROTEIN 3+ (NEGATIVE); URINE RBC 7 /uL (0-23.9); URINE UROBILINOGEN 0.2 mg/dL (0.2-1.0); URINE WBC 16 /uL (0-25.8)
[2023-01-05] MEDS ORDERED: INSULIN (NOVOLOG) ASPART 100 UNITS/ML 10ML VIAL ONE (21:24)
[2023-01-05] MEDS: ATORVASTATIN CA 80 MG TABLET (FP) PO SCH (21:59)
[2023-01-05] MEDS: INSULIN (LEVEMIR) 100 UNITS/ML UNITS SQ SCH (22:00)
[2023-01-06] MEDS: carBAMazepine 100 MG TAB.CHEW PO SCH ×2 (06:33→13:38)
[2023-01-06] MEDS: LEVOTHYROXINE NA 125 MCG TABLET (FP) PO SCH (06:33)
[2023-01-06] MEDS: hydrALAZINE HCL 25 MG TABLET (FP) PO SCH ×2 (06:33→13:37)
[2023-01-06] MEDS: INSULIN SLIDING SCALE (NOVOLOG) 1 VIAL SQ SCH ×2 (06:34→12:17)
[2023-01-06] MEDS: INSULIN (NOVOLOG) ASPART 100 UNITS/ML 10ML VIAL SQ SCH ×2 (06:34→12:27)
[2023-01-06] MEDS ORDERED: INSULIN (NOVOLOG) ASPART 100 UNITS/ML 10ML VIAL ONE ×2 (07:22→12:14)
[2023-01-06 09:41] LABS: BASO % 0.2 % (0-2.0); EOS % 0.8 % (0-4.5); HEMATOCRIT 30.1 % (35.4-49); HEMOGLOBIN 10.3 GM/dL (11.7-16.9); LYMPH % 9.2 % (8-40); MCH 30.3 pg (25.7-33.7); MCHC 34.2 g/dl (32.0-35.9); MEAN CELL VOLUME 88.5 fl (80-96); NEUT % 84.8 % (42.8-82.8); PLATELET COUNT 349 10^3/uL (134-434); RBC 3.41 M/mm3 (4.00-5.60); RDW 12.9 % (11.9-15.9); WHITE BLOOD COUNT 9.3 K/mm3 (4.0-10.0)
[2023-01-06 09:50] LABS: POTASSIUM 4.4 mmol/L (3.5-5.1)
[2023-01-06 09:58] LABS: CREATININE 2.4 mg/dL (0.55-1.3)
[2023-01-06 09:59] LABS: ALBUMIN 3.2 g/dl (3.4-5.0)
[2023-01-06 10:00] LABS: BILIRUBIN,TOTAL 0.1 mg/dL (0.2-1); BLOOD UREA NITROGEN 38.3 mg/dL (7-18)
[2023-01-06 10:01] LABS: MAGNESIUM 1.8 mg/dL (1.8-2.4)
[2023-01-06] MEDS: ASPIRIN COATED 81 MG TABLET.EC PO SCH (10:25)
[2023-01-06] MEDS: levETIRAcetam 500 MG/5 ML ORAL SOLUTION (UNIT-DOSE CUPS) PO SCH (10:25)
[2023-01-06] MEDS: HEPARIN NA (PORCINE) 5,000 UNITS/ML 1ML VIAL SQ SCH (10:25)
[2023-01-06] MEDS: cloNIDine HCL 0.1 MG TABLET PO SCH (10:25)
[2023-01-06] MEDS: TAMSULOSIN HCL 0.4 MG CAP PO SCH (10:25)
[2023-01-06] MEDS: amLODIPine BESYLATE 5 MG TABLET (FP) PO SCH (10:25)
[2023-01-06 13:11] VITALS: RESP 16
[2023-01-06 14:24] VITALS: BP 155/64; PULSE 60; TEMP 99.2
[2023-01-07] MEDS ORDERED: glipiZIDE 5 MG TABLET (FP) PO SCH ×2 (07:00)
== END 2023-01-06 17:33 | disposition home or self-care (01) | DRG 638 ==
LOC: JER 13:47 → JERBED 15:49 → J8W 17:56
PROVIDERS: ADMIT Internal Medicine; ATTEND Nurse Practitioner Family
DX: E11.00 Type 2 diabetes mellitus with hyperosmolarity without nonketotic hyperglycemic-hyperosmolar coma (NKHHC) (principal); E87.1 Hypo-osmolality and hyponatremia; N17.9 Acute kidney failure, unspecified; R64 Cachexia; Z68.1 Body mass index [BMI] 19.9 or less, adult; E87.5 Hyperkalemia; E03.9 Hypothyroidism, unspecified; G40.909 Epilepsy, unspecified, not intractable, without status epilepticus; E11.40 Type 2 diabetes mellitus with diabetic neuropathy, unspecified; Z95.0 Presence of cardiac pacemaker; Z79.4 Long term (current) use of insulin; D64.9 Anemia, unspecified; I48.91 Unspecified atrial fibrillation; E11.65 Type 2 diabetes mellitus with hyperglycemia; I11.0 Hypertensive heart disease with heart failure; I50.9 Heart failure, unspecified
CPT/HCPCS: 36415; 71045-TC-FY; 76775-TC; 80048; 80053; 81003; 82010; 82803; 82962; 83036; 83735; 84100; 84484; 85025; 87086; 93005; 93010; 99285-25; J1644

== ENCOUNTER 2023-01-07 06:11 | Inpatient (IN) | payer OTHER ==
[2023-01-07 10:39] LABS: VENOUS BASE EXCESS -5.6 mmol/L (-2-2); VENOUS O2 SATURATION 36.1 % (70-80); VENOUS PCO2 38.4 mmHg (38-52); VENOUS PH 7.33 (7.310-7.410)
[2023-01-07 10:44] LABS: HEMATOCRIT 27.3 % (35.4-49); MCH 29.3 pg (25.7-33.7); MCHC 32.9 g/dl (32.0-35.9); MEAN CELL VOLUME 89.1 fl (80-96); MEAN PLT VOLUME 7.3 fl (7.5-11.1); PLATELET COUNT 301 10^3/uL (134-434); RBC 3.07 M/mm3 (4.00-5.60); RDW 13.2 % (11.9-15.9); WHITE BLOOD COUNT 14.1 K/mm3 (4.0-10.0)
[2023-01-07 10:47] LABS: INR 1.03 (0.83-1.09)
[2023-01-07 10:49] LABS: ACTIVATED PTT 28.8 SECONDS (25.2-36.5)
[2023-01-07 10:53] LABS: CHLORIDE 107 mmol/L (98-107); POTASSIUM 4.9 mmol/L (3.5-5.1); SODIUM 138 mmol/L (136-145)
[2023-01-07 10:56] LABS: ANION GAP 9 MMOL/L (8-16); CO2 22 mmol/L (21-32); GLUCOSE,RANDOM 295 mg/dL (74-106); MAGNESIUM 1.7 mg/dL (1.8-2.4)
[2023-01-07 10:59] LABS: CREATININE 2.8 mg/dL (0.55-1.3); SGOT/AST 28 U/L (15-37); SGPT/ALT 42 U/L (13-61)
[2023-01-07 11:01] LABS: BILIRUBIN,TOTAL 0.3 mg/dL (0.2-1); TOT PROT 6.1 g/dl (6.4-8.2)
[2023-01-07 11:02] LABS: ALK PHOS 147 U/L (45-117)
[2023-01-07] MEDS ORDERED: LACTATED RINGERS SOLUTION 1000 ML INFUS.BAG IV ONE (11:45)
[2023-01-07] MEDS ORDERED: MAGNESIUM SULF 50% (8.12 MEQ/2 ML-1 GM VIAL) IVPB ONE (11:58)
[2023-01-07 12:49] LABS: ANISOCYTOSIS 2+; MACROCYTOSIS 0; OVALOCYTE 2+; TEAR DROP CELLS 1+
[2023-01-07] MEDS ORDERED: MAGNESIUM SULFATE IN WATER 2 GM/50 ML IVPB IVPB ONE (12:53)
[2023-01-07] MEDS ORDERED: levETIRAcetam 500 MG/5 ML INJECTION VIAL IVPB ONE ×2 (13:05→14:36)
[2023-01-07] MEDS ORDERED: amLODIPine BESYLATE 10 MG TABLET (FP) PO ONE (13:58)
[2023-01-07] MEDS ORDERED: ACETAMINOPHEN 325 MG TABLET (FP) PO PRN (13:58)
[2023-01-07] MEDS ORDERED: PIPERACILLIN/TAZOB 2.25 GM 2.25 GM in DEXTROSE 5%-WATER - 50 ML IVPB SCH ×2 (14:15→14:30)
[2023-01-07] MEDS ORDERED: hydrALAZINE HCL 25 MG TABLET (FP) PO ONE (14:28)
[2023-01-07] MEDS ORDERED: amLODIPine BESYLATE 10 MG TABLET (FP) ONE (14:36)
[2023-01-07] MEDS ORDERED: carBAMazepine 200 MG TABLET ONE ×2 (14:36→14:38)
[2023-01-07] MEDS ORDERED: hydrALAZINE HCL 25 MG TABLET (FP) ONE (14:42)
[2023-01-07] MEDS: hydrALAZINE HCL 25 MG TABLET (FP) PO SCH ×2 (14:49→22:38)
[2023-01-07] MEDS: carBAMazepine 200 MG TABLET PO SCH ×2 (14:49→22:50)
[2023-01-07 16:03] LABS: EPI CELLS 13 /uL (0-25.1); HYALINE CASTS 6 /uL (0-3.1); PH,URINE 5.5 (5.0-8.0); URINE APPEARANCE CLEAR; URINE BACTERIA 1736 /uL (0-1359); URINE BILIRUBIN NEGATIVE (NEGATIVE); URINE COLOR YELLOW; URINE GLUCOSE (UA) 3+ (NEGATIVE); URINE KETONE NEGATIVE (NEGATIVE); URINE LEUK ESTERASE NEGATIVE (NEGATIVE); URINE NITRITE POSITIVE (NEGATIVE); URINE PROTEIN 3+ (NEGATIVE); URINE RBC 5 /uL (0-23.9); URINE UROBILINOGEN 0.2 mg/dL (0.2-1.0); URINE WBC 13 /uL (0-25.8)
[2023-01-07] MEDS ORDERED: PIPERACILLIN/TAZOB 2.25 GM 2.25 GM/50 ML BAG IVPB ONE (16:07)
[2023-01-07] MEDS ORDERED: CEFTRIAXONE 1 GM in DEXTROSE 5%-WATER - 50 ML IVPB ONE ×2 (17:44→22:15)
[2023-01-07] MEDS: INSULIN (NOVOLOG) ASPART 100 UNITS/ML 10ML VIAL SQ SCH (18:25)
[2023-01-07] MEDS ORDERED: CEFTRIAXONE 1 GM/50 ML BAG ONE (19:30)
[2023-01-07] MEDS: cloNIDine HCL 0.1 MG TABLET PO SCH (22:38)
[2023-01-07] MEDS: ATORVASTATIN CA 40 MG TABLET (FP) PO SCH (22:38)
[2023-01-07] MEDS: HEPARIN NA (PORCINE) 5,000 UNITS/ML 1ML VIAL SQ SCH (22:38)
[2023-01-07] MEDS: levETIRAcetam 500 MG/5 ML ORAL SOLUTION (UNIT-DOSE CUPS) PO SCH (22:39)
[2023-01-08] MEDS: glipiZIDE 5 MG TABLET (FP) PO SCH (06:58)
[2023-01-08] MEDS: INSULIN (NOVOLOG) ASPART 100 UNITS/ML 10ML VIAL SQ SCH ×3 (06:58→18:10)
[2023-01-08] MEDS: hydrALAZINE HCL 25 MG TABLET (FP) PO SCH ×2 (06:59→16:16)
[2023-01-08] MEDS: carBAMazepine 100 MG TAB.CHEW PO SCH ×3 (07:05→21:56)
[2023-01-08 09:17] LABS: BASO % 0.4 % (0-2.0); EOS % 1.6 % (0-4.5); HEMATOCRIT 28.2 % (35.4-49); HEMOGLOBIN 9.4 GM/dL (11.7-16.9); LYMPH % 11.5 % (8-40); MCH 29.6 pg (25.7-33.7); MCHC 33.5 g/dl (32.0-35.9); MEAN CELL VOLUME 88.4 fl (80-96); MEAN PLT VOLUME 6.9 fl (7.5-11.1); MONO % 5.5 % (3.8-10.2); PLATELET COUNT 271 10^3/uL (134-434); RBC 3.19 M/mm3 (4.00-5.60); RDW 13.3 % (11.9-15.9)
[2023-01-08 09:29] LABS: POTASSIUM 4.6 mmol/L (3.5-5.1)
[2023-01-08] MEDS: ASPIRIN COATED 81 MG TABLET.EC PO SCH (09:35)
[2023-01-08] MEDS: levETIRAcetam 500 MG/5 ML ORAL SOLUTION (UNIT-DOSE CUPS) PO SCH (09:35)
[2023-01-08] MEDS: HEPARIN NA (PORCINE) 5,000 UNITS/ML 1ML VIAL SQ SCH ×2 (09:35→21:55)
[2023-01-08 09:36] LABS: ALBUMIN 2.6 g/dl (3.4-5.0); CALCIUM 7.5 mg/dL (8.5-10.1)
[2023-01-08] MEDS: LEVOTHYROXINE NA 125 MCG TABLET (FP) PO SCH (09:36)
[2023-01-08] MEDS: PANTOPRAZOLE 40 MG TABLET PO SCH (09:36)
[2023-01-08] MEDS: cloNIDine HCL 0.1 MG TABLET PO SCH ×2 (09:36→21:41)
[2023-01-08] MEDS: TAMSULOSIN HCL 0.4 MG CAP PO SCH (09:36)
[2023-01-08] MEDS: amLODIPine BESYLATE 5 MG TABLET (FP) PO SCH (09:36)
[2023-01-08] MEDS: DOCUSATE SODIUM 100 MG CAPSULE (FP) PO SCH (09:36)
[2023-01-08] MEDS: FERROUS SO4 325 MG TABLET (FP) PO SCH (09:36)
[2023-01-08 09:37] LABS: BLOOD UREA NITROGEN 43.9 mg/dL (7-18)
[2023-01-08 09:40] LABS: CREATININE 3.3 mg/dL (0.55-1.3)
[2023-01-08 09:42] LABS: BILIRUBIN,TOTAL 0.2 mg/dL (0.2-1); TOT PROT 5.8 g/dl (6.4-8.2)
[2023-01-08] MEDS ORDERED: CEFTRIAXONE 1 GM in DEXTROSE 5%-WATER - 50 ML IVPB SCH (10:00)
[2023-01-08] MEDS: ONDANSETRON 4 MG/2 ML VIAL IVPUSH PRN (10:54)
[2023-01-08] MEDS: INSULIN (LEVEMIR) 100 UNITS/ML UNITS SQ SCH (12:33)
[2023-01-08] MEDS: SODIUM CHLORIDE 0.45% 1,000 ML IV SCH (13:30)
[2023-01-08] MEDS: PIPERACILLIN/TAZOB 2.25 GM 2.25 GM in DEXTROSE 5%-WATER - 50 ML IVPB SCH ×2 (13:55→17:23)
[2023-01-08] MEDS ORDERED: METOPROLOL TARTRATE 5 MG/5 ML VIAL IVPUSH PRN (15:44)
[2023-01-08] MEDS ORDERED: hydrALAZINE HCL 20 MG/ML VIAL IVPUSH PRN ×2 (15:47→15:57)
[2023-01-08] MEDS: METOPROLOL TARTRATE 5 MG/5 ML VIAL IVPUSH SCH ×2 (16:27→21:56)
[2023-01-08] MEDS ORDERED: hydrALAZINE HCL 20 MG/ML VIAL IVPUSH SCH (18:00)
[2023-01-08] MEDS ORDERED: INSULIN (NOVOLOG) ASPART 100 UNITS/ML 10ML VIAL ONE (18:09)
[2023-01-08] MEDS: ATORVASTATIN CA 40 MG TABLET (FP) PO SCH (21:41)
[2023-01-08] MEDS: levETIRAcetam 500 MG/5 ML INJECTION VIAL IVPB SCH (21:55)
[2023-01-09] MEDS: PIPERACILLIN/TAZOB 2.25 GM 2.25 GM in DEXTROSE 5%-WATER - 50 ML IVPB SCH ×3 (02:42→17:11)
[2023-01-09] MEDS: METOPROLOL TARTRATE 5 MG/5 ML VIAL IVPUSH SCH ×4 (05:00→22:13)
[2023-01-09] MEDS: INSULIN (NOVOLOG) ASPART 100 UNITS/ML 10ML VIAL SQ SCH ×3 (07:02→17:22)
[2023-01-09] MEDS: glipiZIDE 5 MG TABLET (FP) PO SCH (07:02)
[2023-01-09] MEDS: carBAMazepine 100 MG TAB.CHEW PO SCH ×3 (07:03→22:12)
[2023-01-09 07:07] LABS: BASO % 0.4 % (0-2.0); EOS % 2.5 % (0-4.5); HEMATOCRIT 27.4 % (35.4-49); LYMPH % 9.9 % (8-40); MCH 29.6 pg (25.7-33.7); MCHC 32.7 g/dl (32.0-35.9); MEAN CELL VOLUME 90.5 fl (80-96); MEAN PLT VOLUME 7.6 fl (7.5-11.1); MONO % 6.3 % (3.8-10.2); NEUT % 80.9 % (42.8-82.8); PLATELET COUNT 275 10^3/uL (134-434); RBC 3.03 M/mm3 (4.00-5.60); RDW 13.2 % (11.9-15.9); WHITE BLOOD COUNT 10.8 K/mm3 (4.0-10.0)
[2023-01-09 07:22] LABS: POTASSIUM 4.9 mmol/L (3.5-5.1)
[2023-01-09 07:27] LABS: CALCIUM 7.7 mg/dL (8.5-10.1)
[2023-01-09 07:28] LABS: ALBUMIN 2.4 g/dl (3.4-5.0); BLOOD UREA NITROGEN 47.8 mg/dL (7-18); MAGNESIUM 2.2 mg/dL (1.8-2.4)
[2023-01-09 07:31] LABS: CREATININE 3.6 mg/dL (0.55-1.3)
[2023-01-09 07:32] LABS: BILIRUBIN,TOTAL 0.2 mg/dL (0.2-1); PHOSPHOROUS 5.2 mg/dL (2.5-4.9); TOT PROT 5.8 g/dl (6.4-8.2)
[2023-01-09] MEDS: amLODIPine BESYLATE 5 MG TABLET (FP) PO SCH (11:43)
[2023-01-09] MEDS: TAMSULOSIN HCL 0.4 MG CAP PO SCH (11:43)
[2023-01-09] MEDS: FERROUS SO4 325 MG TABLET (FP) PO SCH (11:43)
[2023-01-09] MEDS: cloNIDine HCL 0.1 MG TABLET PO SCH ×2 (11:43→22:12)
[2023-01-09] MEDS: ASPIRIN COATED 81 MG TABLET.EC PO SCH (11:43)
[2023-01-09] MEDS: PANTOPRAZOLE 40 MG TABLET PO SCH (11:43)
[2023-01-09] MEDS: DOCUSATE SODIUM 100 MG CAPSULE (FP) PO SCH (11:44)
[2023-01-09] MEDS: LEVOTHYROXINE NA 125 MCG TABLET (FP) PO SCH (11:44)
[2023-01-09] MEDS: HEPARIN NA (PORCINE) 5,000 UNITS/ML 1ML VIAL SQ SCH ×2 (11:45→22:13)
[2023-01-09] MEDS: INSULIN (LEVEMIR) 100 UNITS/ML UNITS SQ SCH (11:46)
[2023-01-09] MEDS: levETIRAcetam 500 MG/5 ML INJECTION VIAL IVPB SCH ×2 (11:46→12:52)
[2023-01-09] MEDS: SODIUM CHLORIDE 0.45% 1,000 ML IV SCH (11:47)
[2023-01-09] MEDS: levETIRAcetam 500 MG TABLET (FP) PO SCH ×2 (13:29→22:13)
[2023-01-09] MEDS ORDERED: INSULIN (NOVOLOG) ASPART 100 UNITS/ML 10ML VIAL ONE (17:20)
[2023-01-09] MEDS: ATORVASTATIN CA 40 MG TABLET (FP) PO SCH (22:12)
[2023-01-10] MEDS: PIPERACILLIN/TAZOB 2.25 GM 2.25 GM in DEXTROSE 5%-WATER - 50 ML IVPB SCH ×3 (03:50→18:15)
[2023-01-10] MEDS: carBAMazepine 100 MG TAB.CHEW PO SCH ×3 (05:37→21:37)
[2023-01-10] MEDS: METOPROLOL TARTRATE 5 MG/5 ML VIAL IVPUSH SCH ×2 (05:37→10:39)
[2023-01-10] MEDS: glipiZIDE 5 MG TABLET (FP) PO SCH (06:06)
[2023-01-10] MEDS: INSULIN (NOVOLOG) ASPART 100 UNITS/ML 10ML VIAL SQ SCH ×3 (06:19→18:16)
[2023-01-10] MEDS: ONDANSETRON 4 MG/2 ML VIAL IVPUSH PRN (06:59)
[2023-01-10 08:12] LABS: BASO % 0.5 % (0-2.0); EOS % 3.9 % (0-4.5); HEMATOCRIT 25.9 % (35.4-49); HEMOGLOBIN 8.6 GM/dL (11.7-16.9); MCH 29.6 pg (25.7-33.7); MCHC 33.2 g/dl (32.0-35.9); MEAN CELL VOLUME 89.2 fl (80-96); MEAN PLT VOLUME 7.4 fl (7.5-11.1); MONO % 4.6 % (3.8-10.2); PLATELET COUNT 273 10^3/uL (134-434); WHITE BLOOD COUNT 6.6 K/mm3 (4.0-10.0)
[2023-01-10 08:21] LABS: POTASSIUM 4.2 mmol/L (3.5-5.1)
[2023-01-10 08:28] LABS: CALCIUM 7.2 mg/dL (8.5-10.1)
[2023-01-10 08:29] LABS: ALBUMIN 2.2 g/dl (3.4-5.0); CREATININE 3.5 mg/dL (0.55-1.3)
[2023-01-10 08:31] LABS: BILIRUBIN,TOTAL 0.1 mg/dL (0.2-1); TOT PROT 5.5 g/dl (6.4-8.2)
[2023-01-10] MEDS ORDERED: METOCLOPRAMIDE HCL INJECTION 10 MG/2 ML VIAL IVPUSH PRN (10:34)
[2023-01-10] MEDS: HEPARIN NA (PORCINE) 5,000 UNITS/ML 1ML VIAL SQ SCH ×2 (10:35→21:37)
[2023-01-10] MEDS: levETIRAcetam 500 MG TABLET (FP) PO SCH ×2 (10:38→21:37)
[2023-01-10] MEDS: LEVOTHYROXINE NA 125 MCG TABLET (FP) PO SCH (10:38)
[2023-01-10] MEDS: FERROUS SO4 325 MG TABLET (FP) PO SCH (10:38)
[2023-01-10] MEDS: cloNIDine HCL 0.1 MG TABLET PO SCH ×2 (10:38→21:37)
[2023-01-10] MEDS: PANTOPRAZOLE 40 MG TABLET PO SCH (10:38)
[2023-01-10] MEDS: DOCUSATE SODIUM 100 MG CAPSULE (FP) PO SCH (10:39)
[2023-01-10] MEDS: TAMSULOSIN HCL 0.4 MG CAP PO SCH (10:39)
[2023-01-10] MEDS: ASPIRIN COATED 81 MG TABLET.EC PO SCH (10:39)
[2023-01-10] MEDS ORDERED: INSULIN (LEVEMIR) 100 UNITS/ML UNITS SQ SCH (10:39)
[2023-01-10] MEDS: amLODIPine BESYLATE 5 MG TABLET (FP) PO SCH (10:39)
[2023-01-10] MEDS: INSULIN (LEVEMIR) 100 UNITS/ML UNITS SQ SCH ×2 (10:46→21:36)
[2023-01-10] MEDS ORDERED: INSULIN (NOVOLOG) ASPART 100 UNITS/ML 10ML VIAL ONE (11:36)
[2023-01-10] MEDS: SODIUM CHLORIDE 0.45% 1,000 ML IV SCH ×2 (11:44→23:28)
[2023-01-10] MEDS ORDERED: LABETALOL HCL 20 MG/4 ML VIAL IVPUSH PRN (14:48)
[2023-01-10] MEDS: metoPROLOL SUCCINATE 25 MG TAB.SR.24H (FP) PO SCH (21:37)
[2023-01-10] MEDS: ATORVASTATIN CA 40 MG TABLET (FP) PO SCH (21:37)
[2023-01-10] MEDS ORDERED: FAMOTIDINE 20 MG/50 ML IVPB 20 MG/50 ML MG IVPB SCH (22:00)
[2023-01-11] MEDS: PIPERACILLIN/TAZOB 2.25 GM 2.25 GM in DEXTROSE 5%-WATER - 50 ML IVPB SCH ×3 (01:01→17:00)
[2023-01-11] MEDS: carBAMazepine 100 MG TAB.CHEW PO SCH ×3 (06:35→21:29)
[2023-01-11] MEDS: INSULIN (NOVOLOG) ASPART 100 UNITS/ML 10ML VIAL SQ SCH ×3 (06:36→16:01)
[2023-01-11] MEDS: INSULIN (LEVEMIR) 100 UNITS/ML UNITS SQ SCH ×2 (06:36→21:35)
[2023-01-11] MEDS: glipiZIDE 5 MG TABLET (FP) PO SCH (06:36)
[2023-01-11 08:17] LABS: HEMATOCRIT 25.4 % (35.4-49); HEMOGLOBIN 8.6 GM/dL (11.7-16.9); MCH 30.2 pg (25.7-33.7); MCHC 33.7 g/dl (32.0-35.9); MEAN CELL VOLUME 89.6 fl (80-96); MEAN PLT VOLUME 7.2 fl (7.5-11.1); PLATELET COUNT 331 10^3/uL (134-434); RBC 2.83 M/mm3 (4.00-5.60); RDW 12.8 % (11.9-15.9); WHITE BLOOD COUNT 7.5 K/mm3 (4.0-10.0)
[2023-01-11 08:37] LABS: POTASSIUM 4.4 mmol/L (3.5-5.1)
[2023-01-11 08:41] LABS: BLOOD UREA NITROGEN 39.8 mg/dL (7-18); CALCIUM 7.5 mg/dL (8.5-10.1)
[2023-01-11 08:42] LABS: ALBUMIN 2.3 g/dl (3.4-5.0)
[2023-01-11 08:45] LABS: CREATININE 2.9 mg/dL (0.55-1.3)
[2023-01-11 08:47] LABS: BILIRUBIN,TOTAL 0.2 mg/dL (0.2-1); TOT PROT 5.8 g/dl (6.4-8.2)
[2023-01-11 09:47] LABS: ANISOCYTOSIS 1+; MACROCYTOSIS 1+; ROULEAU 1+
[2023-01-11] MEDS: amLODIPine BESYLATE 5 MG TABLET (FP) PO SCH (09:49)
[2023-01-11] MEDS: FERROUS SO4 325 MG TABLET (FP) PO SCH (09:49)
[2023-01-11] MEDS: LEVOTHYROXINE NA 125 MCG TABLET (FP) PO SCH (09:49)
[2023-01-11] MEDS: metoPROLOL SUCCINATE 25 MG TAB.SR.24H (FP) PO SCH (09:49)
[2023-01-11] MEDS: levETIRAcetam 500 MG TABLET (FP) PO SCH ×2 (09:49→21:28)
[2023-01-11] MEDS: cloNIDine HCL 0.1 MG TABLET PO SCH ×2 (09:49→21:27)
[2023-01-11] MEDS: TAMSULOSIN HCL 0.4 MG CAP PO SCH (09:49)
[2023-01-11] MEDS: ASPIRIN COATED 81 MG TABLET.EC PO SCH (09:49)
[2023-01-11] MEDS: HEPARIN NA (PORCINE) 5,000 UNITS/ML 1ML VIAL SQ SCH ×2 (09:49→21:27)
[2023-01-11] MEDS: FAMOTIDINE 20 MG/50 ML IVPB 20 MG/50 ML MG IVPB SCH (09:50)
[2023-01-11] MEDS: DOCUSATE SODIUM 100 MG CAPSULE (FP) PO SCH (09:50)
[2023-01-11] MEDS: LISINOPRIL 5 MG TABLET PO SCH (13:27)
[2023-01-11] MEDS: SODIUM CHLORIDE 0.45% 1,000 ML IV SCH ×2 (13:58)
[2023-01-11] MEDS ORDERED: INSULIN (LEVEMIR) 100 UNITS/ML UNITS SQ ONE (16:52)
[2023-01-11] MEDS ORDERED: LACTATED RINGERS SOLUTION 1,000 ML/1,000 ML INFUS.BAG IV SCH (17:30)
[2023-01-11] MEDS: ATORVASTATIN CA 40 MG TABLET (FP) PO SCH (21:29)
[2023-01-11] MEDS: LABETALOL HCL 200 MG TABLET (FP) PO SCH (21:36)
[2023-01-11] MEDS ORDERED: LACTULOSE 20 GM/30 ML UDC (FOR ORAL USE ONLY) PO SCH (22:00)
[2023-01-12] MEDS: PIPERACILLIN/TAZOB 2.25 GM 2.25 GM in DEXTROSE 5%-WATER - 50 ML IVPB SCH ×2 (00:59→10:03)
[2023-01-12] MEDS: carBAMazepine 100 MG TAB.CHEW PO SCH ×3 (05:52→22:05)
[2023-01-12] MEDS: glipiZIDE 5 MG TABLET (FP) PO SCH (06:01)
[2023-01-12] MEDS: INSULIN (NOVOLOG) ASPART 100 UNITS/ML 10ML VIAL SQ SCH ×3 (06:23→17:05)
[2023-01-12] MEDS: INSULIN (LEVEMIR) 100 UNITS/ML UNITS SQ SCH ×2 (07:18→21:24)
[2023-01-12 07:52] LABS: INR 1.01 (0.83-1.09); PROTHROMBIN TIME (PATIENT) 11.7 SEC (9.7-13.0)
[2023-01-12 07:54] LABS: ACTIVATED PTT 31.2 SECONDS (25.2-36.5)
[2023-01-12 08:40] LABS: POTASSIUM 4.8 mmol/L (3.5-5.1)
[2023-01-12 08:43] LABS: CALCIUM 7.7 mg/dL (8.5-10.1)
[2023-01-12 08:44] LABS: BLOOD UREA NITROGEN 39.3 mg/dL (7-18); MAGNESIUM 1.9 mg/dL (1.8-2.4)
[2023-01-12 08:47] LABS: TOT PROT 5.3 g/dl (6.4-8.2)
[2023-01-12 08:48] LABS: BILIRUBIN,TOTAL 0.2 mg/dL (0.2-1)
[2023-01-12] MEDS: HEPARIN NA (PORCINE) 5,000 UNITS/ML 1ML VIAL SQ SCH ×2 (10:02→21:16)
[2023-01-12] MEDS: cloNIDine HCL 0.1 MG TABLET PO SCH ×2 (10:03→21:16)
[2023-01-12] MEDS: FERROUS SO4 325 MG TABLET (FP) PO SCH (10:03)
[2023-01-12] MEDS: DOCUSATE SODIUM 100 MG CAPSULE (FP) PO SCH (10:03)
[2023-01-12] MEDS: TAMSULOSIN HCL 0.4 MG CAP PO SCH (10:03)
[2023-01-12] MEDS: amLODIPine BESYLATE 5 MG TABLET (FP) PO SCH (10:03)
[2023-01-12] MEDS: LABETALOL HCL 200 MG TABLET (FP) PO SCH ×2 (10:03→21:16)
[2023-01-12] MEDS: ASPIRIN COATED 81 MG TABLET.EC PO SCH (10:03)
[2023-01-12] MEDS: levETIRAcetam 500 MG TABLET (FP) PO SCH ×2 (10:03→21:16)
[2023-01-12] MEDS: LEVOTHYROXINE NA 125 MCG TABLET (FP) PO SCH (10:03)
[2023-01-12] MEDS: LISINOPRIL 5 MG TABLET PO SCH (10:04)
[2023-01-12] MEDS: FAMOTIDINE 20 MG/50 ML IVPB 20 MG/50 ML MG IVPB SCH (10:42)
[2023-01-12] MEDS ORDERED: LISINOPRIL 5 MG TABLET PO ONE (14:40)
[2023-01-12] MEDS: ATORVASTATIN CA 40 MG TABLET (FP) PO SCH (21:16)
[2023-01-12] MEDS: carBAMazepine 200 MG TABLET PO SCH (22:05)
[2023-01-13] MEDS: carBAMazepine 100 MG TAB.CHEW PO SCH ×3 (05:56→21:38)
[2023-01-13] MEDS: carBAMazepine 200 MG TABLET PO SCH (05:56)
[2023-01-13] MEDS: glipiZIDE 5 MG TABLET (FP) PO SCH (06:06)
[2023-01-13] MEDS: INSULIN (NOVOLOG) ASPART 100 UNITS/ML 10ML VIAL SQ SCH ×3 (06:06→16:20)
[2023-01-13] MEDS: INSULIN (LEVEMIR) 100 UNITS/ML UNITS SQ SCH ×2 (07:32→21:37)
[2023-01-13 08:07] LABS: BLOOD UREA NITROGEN 38.7 mg/dL (7-18)
[2023-01-13 08:08] LABS: CALCIUM 7.8 mg/dL (8.5-10.1)
[2023-01-13 08:09] LABS: CREATININE 2.9 mg/dL (0.55-1.3)
[2023-01-13] MEDS ORDERED: SODIUM CHLORIDE 0.45% 1,000 ML IV SCH (10:45)
[2023-01-13] MEDS: LABETALOL HCL 200 MG TABLET (FP) PO SCH ×2 (11:30→21:08)
[2023-01-13] MEDS: DOCUSATE SODIUM 100 MG CAPSULE (FP) PO SCH (11:30)
[2023-01-13] MEDS: cloNIDine HCL 0.1 MG TABLET PO SCH ×2 (11:30→21:08)
[2023-01-13] MEDS: TAMSULOSIN HCL 0.4 MG CAP PO SCH (11:31)
[2023-01-13] MEDS: FERROUS SO4 325 MG TABLET (FP) PO SCH (11:31)
[2023-01-13] MEDS: amLODIPine BESYLATE 5 MG TABLET (FP) PO SCH (11:31)
[2023-01-13] MEDS: LISINOPRIL 5 MG TABLET PO SCH (11:31)
[2023-01-13] MEDS: levETIRAcetam 500 MG TABLET (FP) PO SCH ×2 (11:32→21:08)
[2023-01-13] MEDS: LEVOTHYROXINE NA 125 MCG TABLET (FP) PO SCH (11:32)
[2023-01-13] MEDS: ASPIRIN COATED 81 MG TABLET.EC PO SCH (11:32)
[2023-01-13] MEDS: HEPARIN NA (PORCINE) 5,000 UNITS/ML 1ML VIAL SQ SCH ×2 (11:32→21:10)
[2023-01-13] MEDS: FAMOTIDINE 20 MG/50 ML IVPB 20 MG/50 ML MG IVPB SCH (17:04)
[2023-01-13] MEDS: ATORVASTATIN CA 40 MG TABLET (FP) PO SCH (21:08)
[2023-01-14] MEDS ORDERED: INSULIN (NOVOLOG) ASPART 100 UNITS/ML 10ML VIAL ONE ×3 (06:17→17:50)
[2023-01-14] MEDS: INSULIN (LEVEMIR) 100 UNITS/ML UNITS SQ SCH ×2 (06:37→22:46)
[2023-01-14] MEDS: carBAMazepine 100 MG TAB.CHEW PO SCH ×3 (06:37→22:46)
[2023-01-14] MEDS: glipiZIDE 5 MG TABLET (FP) PO SCH (06:37)
[2023-01-14] MEDS: INSULIN (NOVOLOG) ASPART 100 UNITS/ML 10ML VIAL SQ SCH ×4 (06:39→17:51)
[2023-01-14 08:15] LABS: HEMATOCRIT 22.6 % (35.4-49); HEMOGLOBIN 7.6 GM/dL (11.7-16.9); MCH 29.8 pg (25.7-33.7); MCHC 33.7 g/dl (32.0-35.9); MEAN CELL VOLUME 88.6 fl (80-96); MEAN PLT VOLUME 6.9 fl (7.5-11.1); PLATELET COUNT 449 10^3/uL (134-434); RBC 2.55 M/mm3 (4.00-5.60); RDW 12.9 % (11.9-15.9); WHITE BLOOD COUNT 6.4 K/mm3 (4.0-10.0)
[2023-01-14 08:55] LABS: CALCIUM 7.3 mg/dL (8.5-10.1)
[2023-01-14 08:56] LABS: ALBUMIN 2.1 g/dl (3.4-5.0); BLOOD UREA NITROGEN 42.3 mg/dL (7-18)
[2023-01-14 08:57] LABS: MAGNESIUM 1.9 mg/dL (1.8-2.4)
[2023-01-14 09:01] LABS: BILIRUBIN,TOTAL 0.1 mg/dL (0.2-1); TOT PROT 5.2 g/dl (6.4-8.2)
[2023-01-14 09:10] LABS: ANISOCYTOSIS 1+; MACROCYTOSIS 0
[2023-01-14] MEDS ORDERED: LISINOPRIL 5 MG TABLET PO SCH (10:08)
[2023-01-14] MEDS: LABETALOL HCL 200 MG TABLET (FP) PO SCH ×2 (11:42→22:46)
[2023-01-14] MEDS: amLODIPine BESYLATE 5 MG TABLET (FP) PO SCH (11:43)
[2023-01-14] MEDS: TAMSULOSIN HCL 0.4 MG CAP PO SCH (11:43)
[2023-01-14] MEDS: FERROUS SO4 325 MG TABLET (FP) PO SCH (11:43)
[2023-01-14] MEDS: DOCUSATE SODIUM 100 MG CAPSULE (FP) PO SCH (11:43)
[2023-01-14] MEDS: LEVOTHYROXINE NA 125 MCG TABLET (FP) PO SCH (11:43)
[2023-01-14] MEDS: cloNIDine HCL 0.1 MG TABLET PO SCH ×2 (11:43→22:45)
[2023-01-14] MEDS: FAMOTIDINE 20 MG/50 ML IVPB 20 MG/50 ML MG IVPB SCH (11:44)
[2023-01-14] MEDS: ASPIRIN COATED 81 MG TABLET.EC PO SCH (11:44)
[2023-01-14] MEDS: HEPARIN NA (PORCINE) 5,000 UNITS/ML 1ML VIAL SQ SCH ×2 (11:44→22:46)
[2023-01-14] MEDS: levETIRAcetam 500 MG TABLET (FP) PO SCH ×2 (11:44→22:45)
[2023-01-14] MEDS: LISINOPRIL 5 MG TABLET PO SCH (12:17)
[2023-01-14] MEDS: ATORVASTATIN CA 40 MG TABLET (FP) PO SCH (22:45)
[2023-01-15] MEDS ORDERED: INSULIN (NOVOLOG) ASPART 100 UNITS/ML 10ML VIAL ONE ×3 (06:07→17:10)
[2023-01-15] MEDS: carBAMazepine 100 MG TAB.CHEW PO SCH ×3 (06:14→21:20)
[2023-01-15] MEDS: glipiZIDE 5 MG TABLET (FP) PO SCH (06:14)
[2023-01-15] MEDS: INSULIN (NOVOLOG) ASPART 100 UNITS/ML 10ML VIAL SQ SCH ×6 (06:48→17:09)
[2023-01-15] MEDS: INSULIN (LEVEMIR) 100 UNITS/ML UNITS SQ SCH ×2 (06:48→21:19)
[2023-01-15 08:55] LABS: BASO % 0.8 % (0-2.0); EOS % 3.1 % (0-4.5); HEMATOCRIT 23.1 % (35.4-49); HEMOGLOBIN 8.1 GM/dL (11.7-16.9); LYMPH % 16.9 % (8-40); MCH 30.6 pg (25.7-33.7); MCHC 35.1 g/dl (32.0-35.9); MEAN CELL VOLUME 87.2 fl (80-96); MEAN PLT VOLUME 6.2 fl (7.5-11.1); MONO % 6.2 % (3.8-10.2); PLATELET COUNT 460 10^3/uL (134-434); RBC 2.65 M/mm3 (4.00-5.60); RDW 13.3 % (11.9-15.9)
[2023-01-15 09:23] LABS: POTASSIUM 5.4 mmol/L (3.5-5.1)
[2023-01-15 09:55] LABS: ANISOCYTOSIS 0; HELMET CELLS 0; HOWELL-JOLLY BODIES 0; MACROCYTOSIS 0; OVALOCYTE 0; ROULEAU 0; SICKELED CELLS 0; TARGET CELLS 0; TEAR DROP CELLS 0; TOXIC GRANULATION 0
[2023-01-15] MEDS ORDERED: LISINOPRIL 10 MG TABLET PO ONE (10:01)
[2023-01-15 10:09] LABS: BLOOD UREA NITROGEN 44.3 mg/dL (7-18)
[2023-01-15 10:12] LABS: CREATININE 2.9 mg/dL (0.55-1.3)
[2023-01-15] MEDS: FAMOTIDINE 20 MG/50 ML IVPB 20 MG/50 ML MG IVPB SCH (10:29)
[2023-01-15] MEDS: DOCUSATE SODIUM 100 MG CAPSULE (FP) PO SCH (10:29)
[2023-01-15] MEDS: FERROUS SO4 325 MG TABLET (FP) PO SCH (10:29)
[2023-01-15] MEDS: LEVOTHYROXINE NA 125 MCG TABLET (FP) PO SCH ×2 (10:29→10:37)
[2023-01-15] MEDS: ASPIRIN COATED 81 MG TABLET.EC PO SCH (10:29)
[2023-01-15] MEDS: cloNIDine HCL 0.1 MG TABLET PO SCH ×2 (10:30→21:18)
[2023-01-15] MEDS: levETIRAcetam 500 MG TABLET (FP) PO SCH ×2 (10:32→21:19)
[2023-01-15] MEDS: TAMSULOSIN HCL 0.4 MG CAP PO SCH ×2 (10:33→10:37)
[2023-01-15] MEDS: HEPARIN NA (PORCINE) 5,000 UNITS/ML 1ML VIAL SQ SCH ×2 (10:33→21:18)
[2023-01-15] MEDS: LABETALOL HCL 200 MG TABLET (FP) PO SCH ×2 (10:33→21:19)
[2023-01-15] MEDS: amLODIPine BESYLATE 10 MG TABLET (FP) PO SCH (10:36)
[2023-01-15] MEDS: hydrALAZINE HCL 10 MG TABLET PO SCH ×2 (10:36→21:18)
[2023-01-15] MEDS: amLODIPine BESYLATE 5 MG TABLET (FP) PO SCH (10:37)
[2023-01-15] MEDS: SODIUM ZIRCONIUM CYCLOSILICATE (LOKELMA) 5 GM PACKET PO SCH (12:49)
[2023-01-15 13:04] LABS: EPI CELLS 21 /uL (0-25.1); HYALINE CASTS 0 /uL (0-3.1); URINE APPEARANCE CLEAR; URINE BACTERIA 20 /uL (0-1359); URINE BILIRUBIN NEGATIVE (NEGATIVE); URINE COLOR YELLOW; URINE GLUCOSE (UA) 1+ (NEGATIVE); URINE KETONE NEGATIVE (NEGATIVE); URINE LEUK ESTERASE NEGATIVE (NEGATIVE); URINE NITRITE NEGATIVE (NEGATIVE); URINE PROTEIN 3+ (NEGATIVE); URINE UROBILINOGEN 0.2 mg/dL (0.2-1.0)
[2023-01-15 15:23] LABS: URINE RBC 46.9 /uL (0-23.9)
[2023-01-15 15:24] LABS: URINE WBC 122.6 /uL (0-25.8)
[2023-01-15] MEDS: ATORVASTATIN CA 80 MG TABLET (FP) PO SCH (21:19)
[2023-01-16] MEDS: glipiZIDE 5 MG TABLET (FP) PO SCH (06:42)
[2023-01-16] MEDS: carBAMazepine 100 MG TAB.CHEW PO SCH ×3 (06:42→21:59)
[2023-01-16] MEDS: INSULIN (LEVEMIR) 100 UNITS/ML UNITS SQ SCH ×2 (06:43→22:00)
[2023-01-16] MEDS: INSULIN (NOVOLOG) ASPART 100 UNITS/ML 10ML VIAL SQ SCH ×6 (06:44→17:29)
[2023-01-16] MEDS: LEVOTHYROXINE NA 125 MCG TABLET (FP) PO SCH (06:51)
[2023-01-16] MEDS: ASPIRIN COATED 81 MG TABLET.EC PO SCH (09:13)
[2023-01-16] MEDS: TAMSULOSIN HCL 0.4 MG CAP PO SCH (09:13)
[2023-01-16] MEDS: FERROUS SO4 325 MG TABLET (FP) PO SCH (09:13)
[2023-01-16] MEDS: DOCUSATE SODIUM 100 MG CAPSULE (FP) PO SCH (09:13)
[2023-01-16] MEDS: levETIRAcetam 500 MG TABLET (FP) PO SCH ×2 (09:13→21:59)
[2023-01-16] MEDS: cloNIDine HCL 0.1 MG TABLET PO SCH ×2 (09:13→22:02)
[2023-01-16] MEDS: HEPARIN NA (PORCINE) 5,000 UNITS/ML 1ML VIAL SQ SCH ×2 (09:14→22:01)
[2023-01-16] MEDS: amLODIPine BESYLATE 10 MG TABLET (FP) PO SCH (09:14)
[2023-01-16] MEDS: hydrALAZINE HCL 10 MG TABLET PO SCH ×2 (09:14→22:01)
[2023-01-16] MEDS: LABETALOL HCL 200 MG TABLET (FP) PO SCH ×2 (09:14→21:59)
[2023-01-16] MEDS: FAMOTIDINE 20 MG/50 ML IVPB 20 MG/50 ML MG IVPB SCH (09:14)
[2023-01-16 09:23] LABS: HEMATOCRIT 25.3 % (35.4-49); HEMOGLOBIN 8.7 GM/dL (11.7-16.9); MCH 30.3 pg (25.7-33.7); MCHC 34.2 g/dl (32.0-35.9); MEAN CELL VOLUME 88.7 fl (80-96); PLATELET COUNT 531 10^3/uL (134-434); RBC 2.85 M/mm3 (4.00-5.60); RDW 13.3 % (11.9-15.9); WHITE BLOOD COUNT 7.5 K/mm3 (4.0-10.0)
[2023-01-16 09:36] LABS: POTASSIUM 5.3 mmol/L (3.5-5.1)
[2023-01-16 09:43] LABS: BLOOD UREA NITROGEN 47.1 mg/dL (7-18); CALCIUM 7.8 mg/dL (8.5-10.1)
[2023-01-16 09:46] LABS: CREATININE 2.9 mg/dL (0.55-1.3)
[2023-01-16] MEDS ORDERED: SODIUM ZIRCONIUM CYCLOSILICATE (LOKELMA) 5 GM PACKET PO ONE (09:53)
[2023-01-16] MEDS ORDERED: SODIUM CHLORIDE 0.45% 1,000 ML IV SCH (10:00)
[2023-01-16 10:22] LABS: ANISOCYTOSIS 0; HELMET CELLS 0; HOWELL-JOLLY BODIES 0; MACROCYTOSIS 0; OVALOCYTE 0; ROULEAU 0; SICKELED CELLS 0; TARGET CELLS 0; TEAR DROP CELLS 0; TOXIC GRANULATION 0
[2023-01-16] MEDS ORDERED: INSULIN (NOVOLOG) ASPART 100 UNITS/ML 10ML VIAL ONE ×2 (12:22→12:23)
[2023-01-16] MEDS: SODIUM ZIRCONIUM CYCLOSILICATE (LOKELMA) 5 GM PACKET PO SCH (13:20)
[2023-01-16] MEDS: ATORVASTATIN CA 80 MG TABLET (FP) PO SCH (22:00)
[2023-01-17] MEDS: carBAMazepine 100 MG TAB.CHEW PO SCH ×3 (06:36→22:02)
[2023-01-17] MEDS: INSULIN (NOVOLOG) ASPART 100 UNITS/ML 10ML VIAL SQ SCH ×6 (06:37→16:48)
[2023-01-17] MEDS: INSULIN (LEVEMIR) 100 UNITS/ML UNITS SQ SCH ×2 (06:37→23:44)
[2023-01-17] MEDS: glipiZIDE 5 MG TABLET (FP) PO SCH (06:37)
[2023-01-17] MEDS: LEVOTHYROXINE NA 125 MCG TABLET (FP) PO SCH (08:05)
[2023-01-17 08:50] LABS: HEMATOCRIT 24.9 % (35.4-49); HEMOGLOBIN 8.4 GM/dL (11.7-16.9); MCHC 33.9 g/dl (32.0-35.9); MEAN CELL VOLUME 88.7 fl (80-96); PLATELET COUNT 550 10^3/uL (134-434); RBC 2.81 M/mm3 (4.00-5.60); RDW 13.5 % (11.9-15.9); WHITE BLOOD COUNT 7.4 K/mm3 (4.0-10.0)
[2023-01-17 09:03] LABS: POTASSIUM 5.7 mmol/L (3.5-5.1)
[2023-01-17 09:10] LABS: CALCIUM 8.1 mg/dL (8.5-10.1)
[2023-01-17 09:11] LABS: BLOOD UREA NITROGEN 44.4 mg/dL (7-18)
[2023-01-17 09:14] LABS: CREATININE 2.6 mg/dL (0.55-1.3)
[2023-01-17] MEDS: amLODIPine BESYLATE 10 MG TABLET (FP) PO SCH (09:21)
[2023-01-17] MEDS: hydrALAZINE HCL 10 MG TABLET PO SCH ×2 (09:21→21:50)
[2023-01-17] MEDS: LABETALOL HCL 200 MG TABLET (FP) PO SCH ×2 (09:21→22:01)
[2023-01-17] MEDS: FERROUS SO4 325 MG TABLET (FP) PO SCH (09:21)
[2023-01-17] MEDS: cloNIDine HCL 0.1 MG TABLET PO SCH ×2 (09:21→21:51)
[2023-01-17] MEDS: ASPIRIN COATED 81 MG TABLET.EC PO SCH (09:21)
[2023-01-17] MEDS: levETIRAcetam 500 MG TABLET (FP) PO SCH ×2 (09:21→21:51)
[2023-01-17] MEDS: HEPARIN NA (PORCINE) 5,000 UNITS/ML 1ML VIAL SQ SCH ×2 (09:22→21:52)
[2023-01-17] MEDS: DOCUSATE SODIUM 100 MG CAPSULE (FP) PO SCH (09:22)
[2023-01-17] MEDS: FAMOTIDINE 20 MG/50 ML IVPB 20 MG/50 ML MG IVPB SCH (09:22)
[2023-01-17] MEDS: TAMSULOSIN HCL 0.4 MG CAP PO SCH (09:23)
[2023-01-17 09:36] LABS: ANISOCYTOSIS 0; HELMET CELLS 0; HOWELL-JOLLY BODIES 0; MACROCYTOSIS 0; OVALOCYTE 0; ROULEAU 0; SICKELED CELLS 0; TARGET CELLS 0; TEAR DROP CELLS 0; TOXIC GRANULATION 0
[2023-01-17] MEDS ORDERED: SODIUM ZIRCONIUM CYCLOSILICATE (LOKELMA) 5 GM PACKET PO ONE (10:45)
[2023-01-17] MEDS ORDERED: CALCIUM GLUC IN NACL, ISO-OSM 1 GM/50 ML BAG IVPB ONE (11:12)
[2023-01-17] MEDS ORDERED: DEXTROSE 50%-WATER - 25 GM/50 ML VIAL IVPUSH ONE (11:13)
[2023-01-17] MEDS ORDERED: DEXTROSE 50%-WATER 25 GM/50 ML DISP.SYRIN IVPUSH ONE (11:13)
[2023-01-17] MEDS ORDERED: INSULIN REGULAR HUMAN 100 UNITS/ML *VIAL IVPUSH ONE (11:14)
[2023-01-17 11:46] VITALS: BMI 18.6
[2023-01-17] MEDS: SODIUM ZIRCONIUM CYCLOSILICATE (LOKELMA) 5 GM PACKET PO SCH (13:22)
[2023-01-17 15:28] VITALS: RESP 18
[2023-01-17] MEDS ORDERED: INSULIN (NOVOLOG) ASPART 100 UNITS/ML 10ML VIAL ONE (16:50)
[2023-01-17] MEDS: ATORVASTATIN CA 80 MG TABLET (FP) PO SCH (22:00)
[2023-01-17 22:51] VITALS: TEMP 98.7
[2023-01-18] MEDS: carBAMazepine 100 MG TAB.CHEW PO SCH (06:30)
[2023-01-18] MEDS: glipiZIDE 5 MG TABLET (FP) PO SCH (06:32)
[2023-01-18] MEDS: INSULIN (LEVEMIR) 100 UNITS/ML UNITS SQ SCH (06:32)
[2023-01-18] MEDS: INSULIN (NOVOLOG) ASPART 100 UNITS/ML 10ML VIAL SQ SCH ×4 (06:33→11:05)
[2023-01-18] MEDS: LEVOTHYROXINE NA 125 MCG TABLET (FP) PO SCH (06:34)
[2023-01-18 07:38] VITALS: BP 154/66; PULSE 60
[2023-01-18 07:51] LABS: HEMATOCRIT 22.9 % (35.4-49); HEMOGLOBIN 7.7 GM/dL (11.7-16.9); MCH 30.1 pg (25.7-33.7); MCHC 33.5 g/dl (32.0-35.9); MEAN CELL VOLUME 89.8 fl (80-96); MEAN PLT VOLUME 6.4 fl (7.5-11.1); PLATELET COUNT 576 10^3/uL (134-434); RBC 2.55 M/mm3 (4.00-5.60); RDW 13.6 % (11.9-15.9); WHITE BLOOD COUNT 6.5 K/mm3 (4.0-10.0)
[2023-01-18 08:05] LABS: POTASSIUM 5.5 mmol/L (3.5-5.1)
[2023-01-18 08:12] LABS: BLOOD UREA NITROGEN 42.1 mg/dL (7-18); CALCIUM 7.8 mg/dL (8.5-10.1)
[2023-01-18 08:16] LABS: CREATININE 2.7 mg/dL (0.55-1.3)
[2023-01-18 09:06] LABS: ANISOCYTOSIS 1+; MACROCYTOSIS 0; TARGET CELLS 1+
[2023-01-18] MEDS: levETIRAcetam 500 MG TABLET (FP) PO SCH (09:10)
[2023-01-18] MEDS: ASPIRIN COATED 81 MG TABLET.EC PO SCH (09:10)
[2023-01-18] MEDS: hydrALAZINE HCL 10 MG TABLET PO SCH (09:10)
[2023-01-18] MEDS: cloNIDine HCL 0.1 MG TABLET PO SCH (09:10)
[2023-01-18] MEDS: amLODIPine BESYLATE 10 MG TABLET (FP) PO SCH (09:10)
[2023-01-18] MEDS: DOCUSATE SODIUM 100 MG CAPSULE (FP) PO SCH (09:10)
[2023-01-18] MEDS: HEPARIN NA (PORCINE) 5,000 UNITS/ML 1ML VIAL SQ SCH (09:10)
[2023-01-18] MEDS: TAMSULOSIN HCL 0.4 MG CAP PO SCH (09:11)
[2023-01-18] MEDS: FAMOTIDINE 20 MG/50 ML IVPB 20 MG/50 ML MG IVPB SCH (09:11)
[2023-01-18] MEDS: LABETALOL HCL 200 MG TABLET (FP) PO SCH (09:11)
[2023-01-18] MEDS: FERROUS SO4 325 MG TABLET (FP) PO SCH (09:11)
== END 2023-01-18 11:45 | DRG 871 ==
LOC: JER 06:11 → JERBED 11:52 → J4W 19:44
PROVIDERS: ADMIT Internal Medicine; ATTEND Internal Medicine
DX: A41.52 Sepsis due to Pseudomonas (principal); E11.00 Type 2 diabetes mellitus with hyperosmolarity without nonketotic hyperglycemic-hyperosmolar coma (NKHHC); G93.41 Metabolic encephalopathy; I13.0 Hypertensive heart and chronic kidney disease with heart failure and stage 1 through stage 4 chronic kidney disease, or unspecified chronic kidney disease; N17.9 Acute kidney failure, unspecified; I50.32 Chronic diastolic (congestive) heart failure; I24.8 Other forms of acute ischemic heart disease; R64 Cachexia; Z68.1 Body mass index [BMI] 19.9 or less, adult; E87.1 Hypo-osmolality and hyponatremia; N39.0 Urinary tract infection, site not specified; A41.9 Sepsis, unspecified organism; E03.9 Hypothyroidism, unspecified; G40.909 Epilepsy, unspecified, not intractable, without status epilepticus; E78.5 Hyperlipidemia, unspecified; E11.40 Type 2 diabetes mellitus with diabetic neuropathy, unspecified; Z79.4 Long term (current) use of insulin; R55 Syncope and collapse; E11.22 Type 2 diabetes mellitus with diabetic chronic kidney disease; N18.30 Chronic kidney disease, stage 3 unspecified; D64.9 Anemia, unspecified; I48.91 Unspecified atrial fibrillation; I50.9 Heart failure, unspecified; E11.65 Type 2 diabetes mellitus with hyperglycemia; I49.5 Sick sinus syndrome; Z95.0 Presence of cardiac pacemaker; R11.2 Nausea with vomiting, unspecified; Z86.73 Personal history of transient ischemic attack (TIA), and cerebral infarction without residual deficits; M79.641 Pain in right hand; E87.5 Hyperkalemia; N40.0 Benign prostatic hyperplasia without lower urinary tract symptoms; E86.0 Dehydration; W19.XXXA Unspecified fall, initial encounter; Y93.89 Activity, other specified; Y92.009 Unspecified place in unspecified non-institutional (private) residence as the place of occurrence of the external cause; Y99.8 Other external cause status
CPT/HCPCS: 0241U-QW; 36415; 70450-TC; 71045-TC-FY; 72125-TC; 72170-TC-FY; 73502-TC-RT-FY; 80048; 80053; 80061; 80156; 80177; 81003; 82140; 82436; 82550; 82553; 82570; 82607; 82746; 82803; 82962; 83735; 83930; 84100; 84132; 84133; 84134; 84300; 84484; 85025; 85610; 85730; 87040; 87086; 87186; 87635; 93005; 93010; 93306-TC; 97116-GP; 97162-GP; 99285-25; J1644

== ENCOUNTER 2023-11-06 13:42 | Inpatient (IN) | payer OTHER ==
[2023-11-06 15:22] LABS: BASO % 0.6 % (0-2.0); EOS % 0.9 % (0-4.5); HEMOGLOBIN 9.6 GM/dL (11.7-16.9); LYMPH % 15.7 % (8-40); MCH 31.1 pg (25.7-33.7); MCHC 34.4 g/dl (32.0-35.9); MEAN CELL VOLUME 90.3 fl (80-96); MONO % 3.6 % (3.8-10.2); NEUT % 79.2 % (42.8-82.8); PLATELET COUNT 348 10^3/uL (134-434); WHITE BLOOD COUNT 4.6 K/mm3 (4.0-10.0)
[2023-11-06 15:25] LABS: MEAN PLT VOLUME 5.8 fl (7.5-11.1)
[2023-11-06 15:45] LABS: BLOOD UREA NITROGEN 79.5 mg/dL (7-18); CALCIUM 9.2 mg/dL (8.5-10.1); MAGNESIUM 1.8 mg/dL (1.8-2.4)
[2023-11-06 15:46] LABS: ALBUMIN 3.4 g/dl (3.4-5.0)
[2023-11-06 15:48] LABS: CREATININE 3.5 mg/dL (0.55-1.3)
[2023-11-06 15:50] LABS: BILIRUBIN,TOTAL 0.4 mg/dL (0.2-1); TOT PROT 6.4 g/dl (6.4-8.2)
[2023-11-06] MEDS: SODIUM CHLORIDE 0.9% 500 ML INFUS.BAG IV ONE (17:44)
[2023-11-06] MEDS ORDERED: HEPARIN NA (PORCINE) 5,000 UNITS/ML 1ML VIAL ONE (19:57)
[2023-11-06] MEDS: HEPARIN NA (PORCINE) 5,000 UNITS/ML 1ML VIAL SQ ONE (20:02)
[2023-11-06 20:13] LABS: EPI CELLS 3 /uL (0-25.1); HYALINE CASTS 1 /uL (0-3.1); URINE APPEARANCE CLEAR; URINE BACTERIA 1 /uL (0-1359); URINE BILIRUBIN NEGATIVE (NEGATIVE); URINE COLOR YELLOW; URINE GLUCOSE (UA) NEGATIVE (NEGATIVE); URINE KETONE NEGATIVE (NEGATIVE); URINE LEUK ESTERASE NEGATIVE (NEGATIVE); URINE NITRITE NEGATIVE (NEGATIVE); URINE PROTEIN 2+ (NEGATIVE); URINE RBC 16 /uL (0-23.9); URINE UROBILINOGEN 0.2 mg/dL (0.2-1.0); URINE WBC 3 /uL (0-25.8)
[2023-11-06 21:37] LABS: EPI CELLS >36 /uL (0-25.1); HYALINE CASTS 1 /uL (0-3.1); PH,URINE 5.5 (5.0-8.0); URINE APPEARANCE CLEAR; URINE BACTERIA 11 /uL (0-1359); URINE BILIRUBIN NEGATIVE (NEGATIVE); URINE COLOR YELLOW; URINE GLUCOSE (UA) NEGATIVE (NEGATIVE); URINE KETONE NEGATIVE (NEGATIVE); URINE LEUK ESTERASE NEGATIVE (NEGATIVE); URINE NITRITE NEGATIVE (NEGATIVE); URINE PROTEIN 2+ (NEGATIVE); URINE RBC 74 /uL (0-23.9); URINE UROBILINOGEN 0.2 mg/dL (0.2-1.0)
[2023-11-06] MEDS: levETIRAcetam 500 MG/5 ML ORAL SOLUTION (UNIT-DOSE CUPS) PO SCH (22:17)
[2023-11-06] MEDS: carBAMazepine 200 MG TABLET PO SCH (22:18)
[2023-11-06] MEDS: ATORVASTATIN CA 80 MG TABLET (FP) PO SCH (22:19)
[2023-11-06] MEDS: SODIUM BICARBONATE 650 MG TABLET PO SCH (22:19)
[2023-11-06] MEDS: MELATONIN 5 MG TABLETS PO SCH (22:19)
[2023-11-06 22:22] LABS: URINE CRYSTALS MODERATE /hpf; URINE WBC 67.2 /uL (0-25.8)
[2023-11-06] MEDS: SODIUM CHLORIDE 1,000 ML IV SCH (22:23)
[2023-11-06] MEDS: INSULIN ASPART SLIDING SCALE (NOVOLOG) 1 VIAL SQ SCH (22:42)
[2023-11-07] MEDS: TAMSULOSIN HCL 0.4 MG CAP PO SCH (08:36)
[2023-11-07 08:38] LABS: HEMATOCRIT 26.6 % (35.4-49); HEMOGLOBIN 9.1 GM/dL (11.7-16.9); MCH 30.9 pg (25.7-33.7); MCHC 34.2 g/dl (32.0-35.9); MEAN CELL VOLUME 90.4 fl (80-96); MEAN PLT VOLUME 5.9 fl (7.5-11.1); PLATELET COUNT 332 10^3/uL (134-434); RBC 2.94 M/mm3 (4.00-5.60); RDW 12.5 % (11.9-15.9); WHITE BLOOD COUNT 5.2 K/mm3 (4.0-10.0)
[2023-11-07 08:53] LABS: POTASSIUM 4.1 mmol/L (3.5-5.1)
[2023-11-07 09:03] LABS: ALBUMIN 3.3 g/dl (3.4-5.0); BLOOD UREA NITROGEN 60.6 mg/dL (7-18)
[2023-11-07 09:06] LABS: BILIRUBIN,TOTAL 0.4 mg/dL (0.2-1); CALCIUM 8.5 mg/dL (8.5-10.1); CREATININE 2.6 mg/dL (0.55-1.3); MAGNESIUM 1.7 mg/dL (1.8-2.4); PHOSPHOROUS 3.9 mg/dL (2.5-4.9)
[2023-11-07 09:07] LABS: TOT PROT 5.9 g/dl (6.4-8.2)
[2023-11-07] MEDS: CALCITRIOL 0.25 MCG CAPSULE (FP) PO SCH (10:09)
[2023-11-07] MEDS: ASPIRIN COATED 81 MG TABLET.EC PO SCH (10:09)
[2023-11-07] MEDS: MAGNESIUM 1GM/D5W - 1 GM/100 ML IVPB IVPB ONE (10:09)
[2023-11-07] MEDS: DOCUSATE SODIUM 100 MG CAPSULE (FP) PO SCH (10:09)
[2023-11-07] MEDS: FERROUS SO4 325 MG TABLET (FP) PO SCH (10:09)
[2023-11-07] MEDS: INSULIN (LEVEMIR) 100 UNITS/ML UNITS SQ SCH (10:10)
[2023-11-08] MEDS: amLODIPine BESYLATE 5 MG TABLET (FP) PO ONE ×2 (05:44→14:58)
[2023-11-08 10:17] LABS: BASO % 0.5 % (0-2.0); EOS % 0.9 % (0-4.5); HEMATOCRIT 36.7 % (35.4-49); HEMOGLOBIN 12.4 GM/dL (11.7-16.9); LYMPH % 10.4 % (8-40); MCH 30.6 pg (25.7-33.7); MCHC 33.8 g/dl (32.0-35.9); MEAN CELL VOLUME 90.6 fl (80-96); MONO % 3.3 % (3.8-10.2); NEUT % 84.9 % (42.8-82.8); PLATELET COUNT 396 10^3/uL (134-434); RBC 4.05 M/mm3 (4.00-5.60); RDW 12.9 % (11.9-15.9); WHITE BLOOD COUNT 8.3 K/mm3 (4.0-10.0)
[2023-11-08 10:42] LABS: CALCIUM 9.4 mg/dL (8.5-10.1)
[2023-11-08 10:43] LABS: BLOOD UREA NITROGEN 50.9 mg/dL (7-18); MAGNESIUM 2.1 mg/dL (1.8-2.4)
[2023-11-08 10:46] LABS: CREATININE 2.5 mg/dL (0.55-1.3); PHOSPHOROUS 3.6 mg/dL (2.5-4.9)
[2023-11-08 10:47] LABS: BILIRUBIN,TOTAL 0.4 mg/dL (0.2-1)
[2023-11-08 10:54] LABS: ALBUMIN 4.2 g/dl (3.4-5.0); TOT PROT 8.2 g/dl (6.4-8.2)
[2023-11-08] MEDS: ACETAMINOPHEN 325 MG TABLET (FP) PO PRN (14:58)
[2023-11-09] MEDS: amLODIPine BESYLATE 10 MG TABLET (FP) PO SCH (09:04)
[2023-11-09] MEDS: SODIUM BICARBONATE 650 MG TABLET PO SCH (21:31)
[2023-11-10] MEDS: LEVOTHYROXINE NA 112 MCG TABLET (FP) PO SCH (08:23)
[2023-11-10] MEDS: amLODIPine BESYLATE 10 MG TABLET (FP) PO SCH (09:22)
[2023-11-10] MEDS: LABETALOL HCL 200 MG TABLET (FP) PO SCH (09:23)
[2023-11-10 10:37] LABS: ALBUMIN 2.8 g/dl (3.4-5.0); BILIRUBIN,TOTAL 0.4 mg/dL (0.2-1); CALCIUM 8.4 mg/dL (8.5-10.1); CREATININE 2.7 mg/dL (0.55-1.3); POTASSIUM 5.2 mmol/L (3.5-5.1)
[2023-11-10] MEDS: METOCLOPRAMIDE HCL INJECTION 10 MG/2 ML VIAL IVPUSH PRN (15:00)
[2023-11-11 09:41] LABS: BASO % 0.3 % (0-2.0); EOS % 1.4 % (0-4.5); HEMATOCRIT 26.6 % (35.4-49); HEMOGLOBIN 9.2 GM/dL (11.7-16.9); MCH 31.3 pg (25.7-33.7); MCHC 34.4 g/dl (32.0-35.9); MEAN PLT VOLUME 6.7 fl (7.5-11.1); MONO % 8.1 % (3.8-10.2); NEUT % 83.2 % (42.8-82.8); PLATELET COUNT 263 10^3/uL (134-434); RBC 2.92 M/mm3 (4.00-5.60); RDW 13.2 % (11.9-15.9); WHITE BLOOD COUNT 5.4 K/mm3 (4.0-10.0)
[2023-11-11 10:08] LABS: POTASSIUM 4.9 mmol/L (3.5-5.1)
[2023-11-11 10:29] LABS: CREATININE 3.6 mg/dL (0.55-1.3)
[2023-11-11] MEDS: SODIUM CHLORIDE 1,000 ML IV SCH (15:54)
[2023-11-12 03:10] VITALS: RESP 18
[2023-11-12 09:26] LABS: HEMATOCRIT 22.6 % (35.4-49); HEMOGLOBIN 7.7 GM/dL (11.7-16.9); MCH 31.6 pg (25.7-33.7); MEAN CELL VOLUME 92.9 fl (80-96); MEAN PLT VOLUME 6.9 fl (7.5-11.1); PLATELET COUNT 242 10^3/uL (134-434); RBC 2.44 M/mm3 (4.00-5.60); RDW 12.9 % (11.9-15.9); WHITE BLOOD COUNT 4.6 K/mm3 (4.0-10.0)
[2023-11-12 09:52] LABS: POTASSIUM 4.6 mmol/L (3.5-5.1)
[2023-11-12 09:57] LABS: CALCIUM 7.1 mg/dL (8.5-10.1); MAGNESIUM 1.9 mg/dL (1.8-2.4)
[2023-11-12 09:59] LABS: CREATININE 3.1 mg/dL (0.55-1.3); PHOSPHOROUS 3.9 mg/dL (2.5-4.9)
[2023-11-12 10:31] LABS: ANISOCYTOSIS 0; MACROCYTOSIS 0
[2023-11-12 10:42] LABS: ALBUMIN 2.4 g/dl (3.4-5.0)
[2023-11-12 11:06] LABS: BILIRUBIN,DIRECT 0.1 mg/dL (0.0-0.2)
[2023-11-12 11:09] LABS: BILIRUBIN,TOTAL 0.4 mg/dL (0.2-1); TOT PROT 5.1 g/dl (6.4-8.2)
[2023-11-12 11:16] VITALS: BMI 13.5
[2023-11-12 12:01] LABS: BASO % 0.4 % (0-2.0); EOS % 2.7 % (0-4.5); HEMATOCRIT 21.9 % (35.4-49); HEMOGLOBIN 7.5 GM/dL (11.7-16.9); LYMPH % 14.2 % (8-40); MCH 31.6 pg (25.7-33.7); MCHC 34.3 g/dl (32.0-35.9); MEAN CELL VOLUME 92.2 fl (80-96); MEAN PLT VOLUME 6.8 fl (7.5-11.1); MONO % 10.2 % (3.8-10.2); NEUT % 72.5 % (42.8-82.8); PLATELET COUNT 238 10^3/uL (134-434); RBC 2.37 M/mm3 (4.00-5.60); RDW 13.1 % (11.9-15.9); WHITE BLOOD COUNT 3.7 K/mm3 (4.0-10.0)
[2023-11-12 12:46] LABS: RETICULOCYTES 0.85 % (0.5-1.5)
[2023-11-12 13:22] LABS: ALBUMIN 2.2 g/dl (3.4-5.0); BILIRUBIN,DIRECT 0.1 mg/dL (0.0-0.2); BILIRUBIN,TOTAL 0.3 mg/dL (0.2-1); BLOOD UREA NITROGEN 80.3 mg/dL (7-18); CALCIUM 7.2 mg/dL (8.5-10.1); POTASSIUM 4.4 mmol/L (3.5-5.1); TOT PROT 4.9 g/dl (6.4-8.2)
[2023-11-13 10:58] LABS: BASO % 0.2 % (0-2.0); HEMATOCRIT 24.5 % (35.4-49); HEMOGLOBIN 8.1 GM/dL (11.7-16.9); LYMPH % 15.2 % (8-40); MCH 30.6 pg (25.7-33.7); MCHC 33.2 g/dl (32.0-35.9); MEAN CELL VOLUME 92.3 fl (80-96); MEAN PLT VOLUME 7.1 fl (7.5-11.1); MONO % 9.4 % (3.8-10.2); NEUT % 73.2 % (42.8-82.8); PLATELET COUNT 247 10^3/uL (134-434); RBC 2.65 M/mm3 (4.00-5.60); RDW 13.4 % (11.9-15.9); WHITE BLOOD COUNT 4.3 K/mm3 (4.0-10.0)
[2023-11-13 11:13] LABS: POTASSIUM 4.6 mmol/L (3.5-5.1)
[2023-11-13 11:16] LABS: CALCIUM 7.8 mg/dL (8.5-10.1)
[2023-11-13 11:17] LABS: ALBUMIN 2.4 g/dl (3.4-5.0); BLOOD UREA NITROGEN 73.6 mg/dL (7-18)
[2023-11-13 11:20] LABS: CREATININE 2.8 mg/dL (0.55-1.3)
[2023-11-13 11:22] LABS: BILIRUBIN,TOTAL 0.3 mg/dL (0.2-1); TOT PROT 5.3 g/dl (6.4-8.2)
[2023-11-13] MEDS ORDERED: levETIRAcetam 500 MG/5 ML ORAL SOLUTION (UNIT-DOSE CUPS) PO SCH (13:12)
[2023-11-13] MEDS: levETIRAcetam 500 MG/5 ML ORAL SOLUTION (UNIT-DOSE CUPS) PO SCH (21:49)
[2023-11-14 09:42] LABS: HEMATOCRIT 21.2 % (35.4-49); HEMOGLOBIN 7.3 GM/dL (11.7-16.9); MCH 31.5 pg (25.7-33.7); MCHC 34.2 g/dl (32.0-35.9); MEAN CELL VOLUME 92.1 fl (80-96); PLATELET COUNT 242 10^3/uL (134-434); RDW 13.2 % (11.9-15.9); WHITE BLOOD COUNT 3.7 K/mm3 (4.0-10.0)
[2023-11-14 10:10] LABS: POTASSIUM 5.1 mmol/L (3.5-5.1)
[2023-11-14 10:15] LABS: ALBUMIN 2.3 g/dl (3.4-5.0); CALCIUM 7.5 mg/dL (8.5-10.1)
[2023-11-14 10:16] LABS: BLOOD UREA NITROGEN 67.7 mg/dL (7-18)
[2023-11-14 10:18] LABS: CREATININE 2.7 mg/dL (0.55-1.3)
[2023-11-14 10:21] LABS: BILIRUBIN,TOTAL 0.3 mg/dL (0.2-1)
[2023-11-14 15:29] VITALS: BP 116/54; PULSE 62; TEMP 97.8
== END 2023-11-14 19:30 | DRG 682 ==
LOC: JER 13:42 → JERBED 17:35 → J5S 20:23
PROVIDERS: ADMIT Internal Medicine; ATTEND Internal Medicine
DX: N17.9 Acute kidney failure, unspecified (principal); E43 Unspecified severe protein-calorie malnutrition; G93.41 Metabolic encephalopathy; Z68.1 Body mass index [BMI] 19.9 or less, adult; E87.1 Hypo-osmolality and hyponatremia; I12.9 Hypertensive chronic kidney disease with stage 1 through stage 4 chronic kidney disease, or unspecified chronic kidney disease; E11.22 Type 2 diabetes mellitus with diabetic chronic kidney disease; G47.00 Insomnia, unspecified; E78.5 Hyperlipidemia, unspecified; D50.9 Iron deficiency anemia, unspecified; N18.4 Chronic kidney disease, stage 4 (severe); G40.909 Epilepsy, unspecified, not intractable, without status epilepticus; R63.0 Anorexia; N40.0 Benign prostatic hyperplasia without lower urinary tract symptoms; I27.20 Pulmonary hypertension, unspecified; K57.90 Diverticulosis of intestine, part unspecified, without perforation or abscess without bleeding; M51.36 Other intervertebral disc degeneration, lumbar region; M48.061 Spinal stenosis, lumbar region without neurogenic claudication; E03.9 Hypothyroidism, unspecified
CPT/HCPCS: 0241U-QW; 36415; 70450-TC; 71045-TC-FY; 73630-TC-LT; 73630-TC-RT-FY; 76705-TC; 76775-TC; 80048; 80053; 80076; 80156; 80177; 81003; 82248; 82550; 82553; 82607; 82668; 82728; 82746; 82962; 83010; 83036; 83540; 83550; 83615; 83735; 84100; 84443; 84484; 85025; 85027; 85045; 87040; 87086; 87635; 93005; 93010; 97116-GP; 97161-GP; 99285-25; J1644